=== PATIENT | female | born 1950 | race Caucasian/White ===

== ENCOUNTER 2016-04-20 04:34 | Observation (INO) | payer MEDICAID ==
--- NOTE | 2016-04-20 04:55 | ERNOTE ---
Trauma/Assault HPI - General Stated Complaint: FALL Time Seen by Provider: 04/20/16 04:35 Source: patient - Immun/Allergies/Home Medications Immunizations: IMMUNIZATION HX Immunizations Up to Date No History of Influenza Vaccine No Hx Pneumococcal Vaccination No Allergies/Adverse Reactions: Allergies aspirin Allergy (Verified 06/29/15 15:01) dizzy full dose aspirin not tolerated Penicillins Allergy (Verified 06/29/15 15:01) BREAKS OUT, NAUSEA morphine Adverse Reaction (Mild, Verified 04/20/16 04:48) Other Patient states it makes her feel weird. Home Medications: HOME MEDICATIONS Aspirin [Aspirin EC] 81 mg PO DAILY 06/29/15 [Last Taken Unknown] Furosemide [Lasix] 40 mg PO DAILY 06/29/15 [Last Taken Unknown] amLODIPine BESYLATE [Norvasc] 5 mg PO DAILY 06/29/15 [Last Taken Unknown] Albuterol Sulfate [Albuterol Sulfate 2.5 MG/0.5ML] 1 vial IH Q4H PRN 04/20/16 [ Last Taken Unknown] Albuterol Sulfate [Ventolin Hfa] 1 puff IH PRN 04/20/16 [Last Taken Unknown] - History of Present Illness Date (Duration): 04/20/16 Time (Timing): 04:00 Narrative: Patient walked in the kitchen to get a drink (had not been to bed yet) when her left knee gave out and she fell on her left side. She denies hitting her head or passing out, she was unable to get up herself but her called EMS and she came to the ER by ambulance. She has pain in her left elbow, left hip, and left knee. Location Occurred: Reports: home Pain Location: Reports: upper extremity, lower extremity Method of Injury: Reports: fall Modifying Factors - (Worsens): Reports: movement Loss of Consciousness: Reports: no loss of consciousness Associated Symptoms - Trauma: Denies: headache, lightheadedness, vision changes , abdominal pain, nausea Review of Systems - Review of Systems Constitutional: Absent: recent illness, fever ENT: Absent: nose congestion Respiratory: Absent: shortness of breath, cough Gastrointestinal/Abdominal: Absent: nausea, abdominal pain Musculoskeletal: Present: See HPI Neurological: Absent: weakness, numbness - Patient's Past Medical History Patient History - Medical: Anxiety, Arthritis, Migraines, Osteoarthritis, Other Patient History - Cardiac/Respiratory: Bronchitis, COPD, Hypertension, Other - Cellulitis, chronic leg edema Patient History - Cancer: Melanoma Patient History - Surgical Procedures: Cataracts, D & C, Tubal Ligation, T & A, Other - Family History Mother Family History - Medical: Family History - Cardiac/Respiratory: Coronary Heart Disease, Myocardial Infarction, Other Father Family History - Medical: Family History - Cardiac/Respiratory: Coronary Heart Disease - Social History Living Situations: home Smoking Status: Current every day smoker Cigarettes Packs Per Day: 1 Have you smoked in the past 12 months: Yes Do you dip or chew tobacco: No Patient requests Smoking Cessation Consult: No Initiate information on Smoking Cessation: No Alcohol Use: occasionally Drug Use: none - Immunizations Immunizations Up to Date: No Hx Pneumococcal Vaccination: No History of Influenza Vaccine: No Physical Exam - Physical Exam General Appearance: Present: wd/wn, alert, no apparent distress, other - no sign of trauma, no tenderness Eye Exam: Normal inspection: bilateral, PERRL: bilateral Ears, Nose, Throat: Present: normal ENT inspection, normal pharynx Neck: Present: normal inspection, nontender, supple, full range of motion Respiratory: Present: no respiratory distress, no accessory muscle use, lungs clear, decreased breath sounds, expiration (prolonged) Cardiovascular/Chest: Present: regular rate, rhythm, no murmur Gastrointestinal/Abdominal: Present: nontender, nondistended, soft Back Exam: Present: normal inspection, normal range of motion, no CVA tenderness , no vertebral tenderness Extremity Exam: Present: pedal edema - bilateral, other - left hip: tender and pain on range of motion, left knee slightly tender, no deformity, left elbow: normal inspection, no deformity, slightly tender on palpation Neurological Exam: Present: alert, oriented, normal mood/affect, no motor/ sensory deficits Skin Exam: Present: normal color, warm/dry ED Progress - Results and Orders Patient's Lab Results:: I have reviewed the patient's lab results. - Vital Signs Patient's Vital Signs:: I have reviewed the patient's vital signs. Vital Signs: Vital Signs 04/20/16 04:38 Temperature 36.4 C L Pulse Rate 96 Respiratory 18 Rate Blood Pressure 135/72 O2 Sat by Pulse 92 Oximetry - EKG EKG: NSR, other - low voltage, no acute findings EKG read: Interp. by me - X-Ray X-Ray #1 X-Ray: elbow - no definite fracture Interpretation: Reviewed by me X-Ray #2 X-Ray: hip - no fracture Interpretation: Reviewed by me X-Ray #3 X-Ray: knee - DJD, no fracture Interpretation: Reviewed by me - Progress/Reassessment Chief Complaint: Fall Progress Note-Subjective: 04/20/16 05:30 explained Xray findings as patient had admission last year for severe hyponatremia will get labs 04/20/16 06:20 discussed lab results with patient and offered admission for hypokalemia, patient agreed, states that she has not taken her potassium supplements for a while as she did not get around to getting it filled 04/20/16 06:23 discussed with Berenice 04/20/16 06:32 tried to ambulate patient, patient has difficulty moving around and bearing weight due to pain 04/20/16 06:[address] Sepulveda, okay to admit, give potassium rider and for pain control Departure Clinical Impression: Acute hypokalemia Contusion of left hip Qualifiers: Encounter type: initial encounter Qualified Code(s): S70.02XA - Contusion of left hip, initial encounter Left elbow contusion Qualifiers: Encounter type: initial encounter Qualified Code(s): S50.02XA - Contusion of left elbow, initial encounter - Departure Disposition: [facility] Condition: Fair
[2016-04-20 05:43] LABS: Hematocrit 34.4 % (37.0-47.0); Hemoglobin 11.9 gm/dL (12.5-16.0); Mean Corpuscular Hemoglobin 30.4 pg (27-31); Mean Corpuscular Hgb Conc 34.6 g/dl (32-36); Mean Platelet Volume 10.7 fl (6.0-9.5); Neutrophil % 78.4 % (42-75.0); Platelet Count 192 K/mm3 (150-450); Red Blood Count 3.91 M/mm3 (4.2-5.4); Red Cell Distribution Width 14.6 % (11.5-14.0); White Blood Count 7.6 K/mm3 (4.0-10.5)
[2016-04-20 05:58] LABS: Albumin * 3.1 gm/dl (3.4-5.0); Anion Gap 10.6 mmol/L (6.8-13.8); BUN/Creatinine Ratio 6.7 (9.0-21.6); Bilirubin, Total 1.2 mg/dL (0.0-1.1); Ca. Corrected For Albumin 9.3 mg/dL (8.4-10.2); Calcium * 8.9 mg/dL (7.9-10.9); Carbon Dioxide 30.7 mmol/L (24-32.6); Total Protein 6.5 gm/dL (6.2-8.2)
[2016-04-20 05:59] LABS: Potassium 2.3 mmol/L (3.4-4.6)
[2016-04-20] MEDS ORDERED: POTASSIUM CHLORIDE 20 MEQ TABLET.SA PO ONE (06:51)
[2016-04-20] MEDS ORDERED: ACETAMINOPHEN 500 MG TABLET PO PRN (07:00)
[2016-04-20] MEDS ORDERED: HYDROmorphone HCL 2 MG TABLET PO PRN (07:00)
[2016-04-20] MEDS ORDERED: ONDANSETRON HCL/PF 2 MG/ML VIAL IV PRN (07:00)
[2016-04-20] MEDS ORDERED: POTASSIUM CHLORIDE 100 ML IV ONE (07:01)
[2016-04-20] MEDS ORDERED: POTASSIUM CHLORIDE 20 MEQ TABLET.SA ONE (07:01)
[2016-04-20] MEDS ORDERED: ALBUTEROL SULFATE 2.5 MG/0.5 ML VIAL.NEB IH PRN (09:47)
[2016-04-20] MEDS ORDERED: HYDROcodone/ACETAMINOPHEN 1 EACH TABLET PO PRN (09:47)
[2016-04-20] MEDS ORDERED: ACETAMINOPHEN 325 MG TABLET PO PRN (09:49)
[2016-04-20] MEDS: POTASSIUM CHLORIDE 20 MEQ TABLET.SA PO SCH ×2 (10:09→20:02)
[2016-04-20] MEDS: ENALAPRIL MALEATE 20 MG TABLET PO SCH (10:09)
[2016-04-20] MEDS: HYDROcodone/ACETAMINOPHEN 1 EACH TABLET PO PRN ×3 (10:09→20:02)
--- NOTE | 2016-04-20 18:06 | HP ---
Chief Complaint - Chief Complaint Date of Service: 04/20/16 Time of Service: 19:52 Chief Complaint: Fall History of Present Illness: This is a 65 y/o woman who walked out to her kitchen to get a drink (had not been to bed yet), when her left knee gave out and she fell onto her left side. She denies hitting her head or passing out, she was unable to get up herself. Her called EMS, and she came to the [facility] ER by ambulance. She had pain in her left elbow, left hip, and left knee. Initial elbow xray hinted at possible fracture, but CT scan of the elbow today did not confirm it. She was found to have a sodium of 130 and a potassium of 2.3. She was admitted for telemetry monitoring and jew of electrolytes. - Patient's Past Medical History Patient History - Medical: Anxiety, Arthritis, GERD, Migraines, Osteoarthritis, Other - melanoma Patient History - Cardiac/Respiratory: Bronchitis, COPD, Hypertension, Other - Cellulitis, chronic leg edema Patient History - Cancer: Melanoma, Surgical Treatment Patient History - Surgical Procedures: Cataracts, D & C, Tubal Ligation, T & A, Other - bladder surgery, vaginal surgery LMP (females 10-50): Menopausal - Family History Mother Family History - Medical: Family History - Cardiac/Respiratory: Coronary Heart Disease, Myocardial Infarction, Other Father Family History - Medical: Family History - Cardiac/Respiratory: Coronary Heart Disease - Social History Living Situations: home Smoking Status: Current every day smoker Cigarettes Packs Per Day: 1 Have you smoked in the past 12 months: Yes Do you dip or chew tobacco: No Patient requests Smoking Cessation Consult: No Initiate information on Smoking Cessation: No Alcohol Use: other - every day Drug Use: none Review Of Systems (GEN) - Review of Systems Generalized/Overall Review: Present: Weakness, Malaise EENTM: Present: No Symptoms Reported Respiratory: Present: Cough, Shortness of Breath, Other - O2 at home Cardiac: Present: No Symptoms Reported Abdominal: Present: No Symptoms Reported Genitourinary: Present: No Symptoms Reported Musculoskeletal: Present: Other - left hip, leg and elbow pain Neurological: Present: No Symptoms Reported Skin: Present: No Symptoms Reported Endocrine: Present: No Symptoms Reported Misc: All systems neg except as marked Allergies/Adverse Reactions: Allergies Allergy/AdvReac Type Severity Reaction Status Date / Time aspirin Allergy dizzy Verified 04/20/16 07:27 Penicillins Allergy BREAKS Verified 04/20/16 07:27 OUT, NAUSEA morphine AdvReac Mild Other Verified 04/20/16 07:27 Home Medications: HOME MEDICATIONS Aspirin [Aspirin EC] 81 mg PO DAILY 06/29/15 [Last Taken 04/19/16] amLODIPine BESYLATE [Norvasc] 5 mg PO DAILY 06/29/15 [Last Taken 04/19/16] Albuterol Sulfate [Ventolin Hfa] 1 puff IH PRN 04/20/16 [Last Taken 04/19/16] HYDROcodone/ACETAMINOPHEN [[place] 5-325] 1 - 2 tab PO BID PRN 04/20/16 [Last Taken 04/19/16] Hydrochlorothiazide [Hydrodiuril] 25 mg PO DAILY 04/20/16 [Last Taken 04/19/16] Omeprazole Magnesium [Prilosec Otc] 40 mg PO DAILY 04/20/16 [Last Taken 04/19/16 ] Exam - Exam Vital Signs: Vital Signs - Last Taken Selected Entries 04/20/16 17:55 Temperature 36.6 C Temperature Oral Source Pulse Rate 79 Respiratory 20 Rate Blood Pressure 104/59 Blood Pressure Sitting Position O2 Sat by Pulse 90 Oximetry Oxygen Delivery Room Air Method Constitutional: Present: Alert, Oriented x3, Cooperative, Well developed, Well nourished ENT Exam: Present: normal ENT inspection, hearing grossly normal, pharynx normal , TMs normal Eye Exam: bilateral eye: normal inspection, PERRL, EOMI Neck: Present: non-tender, normal inspection Back Exam: Present: normal inspection, no CVA tenderness, no vertebral tenderness Respiratory: Present: chest non-tender, no respiratory distress, decreased breath sounds, wheezing, expiration (prolonged) Cardiovascular/Chest: Present: normal peripheral pulses, regular rate, rhythm, no murmur Abdomen: Present: Normal bowel sounds, soft, nontender, nondistended, no rebound tenderness, no hepatospenomegaly, no masses Extremity: Present: other - tender left elbow. hurts to move left hip or stand.. Absent: lower extremity edema Skin Exam: Present: normal color, warm/dry, no cyanosis Lymphatic: Present: no adenopathy Neurologic: Present: alert, oriented x 3 Appearance: Present: appropriate appearance, appropriate insight, neat, no memory impairment Eye contact: Present: cooperative, good eye contact, normal speech Thoughts: Present: normal thought pattern Diagnostic Studies: Laboratory Results WBC 7.6 K/mm3 (4.0-10.5) 04/20/16 05:35 RBC 3.91 M/mm3 (4.2-5.4) L 04/20/16 05:35 Hgb 11.9 gm/dL (12.5-16.0) L 04/20/16 05:35 Hct 34.4 % (37.0-47.0) L 04/20/16 05:35 MCV 88.0 fl (78-100) 04/20/16 05:35 MCH 30.4 pg (27-31) 04/20/16 05:35 MCHC 34.6 g/dl (32-36) 04/20/16 05:35 RDW 14.6 % (11.5-14.0) H 04/20/16 05:35 Plt Count 192 K/mm3 (150-450) 04/20/16 05:35 MPV 10.7 fl (6.0-9.5) H 04/20/16 05:35 Immature Gran % (Auto) 0.50 % (0.001-0.429) H 04/20/16 05:35 Immature Gran # (Auto) 0.04 K/mm3 (0.000-0.0310) H 04/20/16 05:35 Neutrophils % 78.4 % (42-75.0) H 04/20/16 05:35 Lymphocytes % 9.6 % (20-51) L 04/20/16 05:35 Monocytes % 9.4 % (0.0-9) H 04/20/16 05:35 Eosinophils % 1.6 % (0.0-3.0) 04/20/16 05:35 Basophils % 0.5 % (0.0-1.0) 04/20/16 05:35 Nucleated RBC % 0.0 k/mm3 (0-1) 04/20/16 05:35 Neutrophils # 6.0 K/mm3 (1.3-6.0) 04/20/16 05:35 Lymphocytes # 0.7 k/mm3 (1.5-3.5) L 04/20/16 05:35 Monocytes # 0.7 k/mm3 (0.0-1.0) 04/20/16 05:35 Eosinophils # 0.1 k/mm3 (0.0-0.7) 04/20/16 05:35 Absolute Basophils 0.0 k/mm3 (0.0-0.1) 04/20/16 05:35 Sodium 130 mmol/L (132-142) L 04/20/16 05:35 Plasma Sodium 130 mmol/L (130-142) 04/20/16 05:35 Potassium 2.3 mmol/L (3.4-4.6) L* D 04/20/16 05:35 Chloride 91 mmol/L (97-106) L 04/20/16 05:35 Carbon Dioxide 30.7 mmol/L (24-32.6) 04/20/16 05:35 Anion Gap 10.6 mmol/L (6.8-13.8) 04/20/16 05:35 BUN 4 mg/dL (3-23) 04/20/16 05:35 Creatinine 0.60 mg/dL (0.4-1.4) 04/20/16 05:35 Est GFR (Non-Af Amer) 107 mL/min (60-130) 04/20/16 05:35 BUN/Creatinine Ratio 6.7 (9.0-21.6) L 04/20/16 05:35 Random Glucose 110 mg/dL (70-110) 04/20/16 05:35 Calcium 8.9 mg/dL (7.9-10.9) 04/20/16 05:35 Calcium Adj for Albumin 9.3 mg/dL (8.4-10.2) 04/20/16 05:35 Total Bilirubin 1.2 mg/dL (0.0-1.1) H 04/20/16 05:35 AST 28 U/L (0-48) 04/20/16 05:35 ALT 29 U/L (19-67) 04/20/16 05:35 Alkaline Phosphatase 98 U/L (50-170) 04/20/16 05:35 Total Protein 6.5 gm/dL (6.2-8.2) 04/20/16 05:35 Albumin 3.1 gm/dl (3.4-5.0) L 04/20/16 05:35 Assessment/Plan - Narrative Narrative: Restore electrolytes. Telemetry. Follow labs. Estimate stay of one midnight. Assist with up and around. Treat COPD - Assessment/Plan (1) Acute hypokalemia Problem: Acute (2) Contusion of left hip Problem: Acute Qualifiers: Encounter type: initial encounter Qualified Code(s): S70.02XA - Contusion of left hip, initial encounter (3) Left elbow contusion Problem: Acute Qualifiers: Encounter type: initial encounter Qualified Code(s): S50.02XA - Contusion of left elbow, initial encounter (4) Bilateral lower extremity edema Problem: Chronic (5) etoh and nicotine abuse. Problem: Chronic (6) Hyponatremia Problem: Acute (7) Falls Problem: Acute Qualifiers: Encounter type: initial encounter Qualified Code(s): W19.XXXA - Unspecified fall, initial encounter (8) COPD (chronic obstructive pulmonary disease) Problem: Chronic Qualifiers: COPD type: chronic bronchitis Chronic bronchitis type: simple Qualified Code(s): J41.0 - Simple chronic bronchitis (9) Osteoarthritis Problem: Chronic Qualifiers: Osteoarthritis location: multiple joints Osteoarthritis type: primary Qualified Code(s): M15.0 - Primary generalized (osteo)arthritis
[2016-04-20] MEDS: ALBUTEROL SULFATE/IPRATROPIUM 3 ML NEBU IH SCH (20:51)
[2016-04-21] MEDS: ALBUTEROL SULFATE/IPRATROPIUM 3 ML NEBU IH SCH ×4 (00:43→19:02)
[2016-04-21] MEDS: HYDROcodone/ACETAMINOPHEN 1 EACH TABLET PO PRN ×3 (01:38→16:19)
[2016-04-21 06:23] LABS: Hematocrit 32.7 % (37.0-47.0); Hemoglobin 11.1 gm/dL (12.5-16.0); Mean Cell Volume 90.3 fl (78-100); Mean Corpuscular Hemoglobin 30.7 pg (27-31); Mean Corpuscular Hgb Conc 33.9 g/dl (32-36); Mean Platelet Volume 10.7 fl (6.0-9.5); Neutrophil # 5.5 K/mm3 (1.3-6.0); Neutrophil % 78.2 % (42-75.0); Platelet Count 161 K/mm3 (150-450); Red Blood Count 3.62 M/mm3 (4.2-5.4); Red Cell Distribution Width 14.6 % (11.5-14.0)
[2016-04-21] MEDS: PANTOPRAZOLE SODIUM 40 MG TABLET.EC PO SCH (06:29)
[2016-04-21 06:47] LABS: Anion Gap 10.6 mmol/L (6.8-13.8); BUN/Creatinine Ratio 9.3 (9.0-21.6); Calcium * 8.2 mg/dL (7.9-10.9); Estimated Creat Clear 83.2; Potassium 2.6 mmol/L (3.4-4.6); T4 Free * 0.98 ng/dL (0.76-1.46); TSH * 2.115 uIU/mL (0.358-3.74)
--- NOTE | 2016-04-21 08:28 | CONS ---
[facility] - General Date of Service: 04/21/16 Narrative: Mrs. Miranda is a 65-year-old female who lives at home. She states she isn't having increasing pain and difficulties with ambulation secondary to her leg giving out on her. She's been using a walker and a cane. She states she did recently have a stroke which affected more her right side which she denies any complaints with. She had a recent fall and had left knee pain afterwards. She states it is been going on for multiple years and she has had no intervention for this. She states that it feels like it's, buckle on her. She denies any gross instability. She denies any locking. She denies any injuries prior to this. Source: patient Exam Limitations: no limitations - History of Present Illness Timing/Duration: constant Modifying Factors - (Worsens): Reports: movement Modifying Factors - (Improves): Reports: immobilization, rest Associated Symptoms: denies symptoms Allergies/Adverse Reactions: Allergies aspirin Allergy (Verified 04/20/16 07:27) dizzy full dose aspirin not tolerated Penicillins Allergy (Verified 04/20/16 07:27) BREAKS OUT, NAUSEA morphine Adverse Reaction (Mild, Verified 04/20/16 07:27) Other Patient states it makes her feel weird. Home Medications: Home Medications Medication Instructions Recorded Last Taken Aspirin [Aspirin EC] 81 mg PO DAILY 06/29/15 04/19/16 amLODIPine BESYLATE [Norvasc] 5 mg PO DAILY 06/29/15 04/19/16 Albuterol Sulfate [Ventolin Hfa] 1 puff IH PRN 04/20/16 04/19/16 HYDROcodone/ACETAMINOPHEN [[place] 1 - 2 tab PO BID PRN 04/20/16 04/19/16 5-325] Hydrochlorothiazide [Hydrodiuril] 25 mg PO DAILY 04/20/16 04/19/16 Omeprazole Magnesium [Prilosec Otc] 40 mg PO DAILY 04/20/16 04/19/16 - Patient's Past Medical History Patient History - Medical: Anxiety, Arthritis, GERD, Migraines, Osteoarthritis, Other - melanoma Patient History - Cardiac/Respiratory: Bronchitis, COPD, Hypertension, Other - Cellulitis, chronic leg edema Patient History - Cancer: Melanoma, Surgical Treatment Patient History - Surgical Procedures: Cataracts, D & C, Tubal Ligation, T & A, Other - bladder surgery, vaginal surgery LMP (females 10-50): Menopausal - Family History Mother Family History - Medical: Family History - Cardiac/Respiratory: Coronary Heart Disease, Myocardial Infarction, Other Father Family History - Medical: Family History - Cardiac/Respiratory: Coronary Heart Disease - Social History Living Situations: home Smoking Status: Current every day smoker Cigarettes Packs Per Day: 1 Have you smoked in the past 12 months: Yes Do you dip or chew tobacco: No Patient requests Smoking Cessation Consult: No Initiate information on Smoking Cessation: No Alcohol Use: other - every day Drug Use: none Procedures CATARAC PHACOEMULS/ASPIR (03/10/14) CL FX REDUC-RADIUS/ULNA (02/28/13) INSERT LENS AT CATAR EXT (03/10/14) MEASURE OF ARTERIAL SATURATION, PERIPHERAL, PERC APPROACH (06/29/15) Medications - Medications Current Medications: Current Medications Acetaminophen/Hydrocodone Bitart ([place] 5-325) 1 each PO Q3H PRN PRN Reason: Moderate Pain Stop: 05/20/16 07:01 Last Admin: 04/21/16 06:29 Dose: 1 each Albuterol/Ipratropium (Duoneb 2.5-0.5mg/3ml Soln) 3 ml IH Q6HRT [facility] Stop: 05/20/16 20:01 Last Admin: 04/21/16 06:08 Dose: 3 ml Enalapril Maleate (Vasotec) 20 mg PO DAILY [facility] Stop: 05/20/16 10:01 Last Admin: 04/20/16 10:09 Dose: 20 mg Pantoprazole Sodium (Protonix) 40 mg PO DAILY@0700 [facility] Stop: 05/21/16 07:01 Last Admin: 04/21/16 06:29 Dose: 40 mg Review of Systems - Review of Systems Generalized/Overall Review: Present: No Symptoms Reported Physical Examination - Exam Narrative: Left lower extremity: She has some skin discoloration with redness to her lower leg. She is palpable dorsalis pedis pulse. Sensation is intact light touch. She is no appreciable knee effusion. She is sitting in the chair with her knee in extension. She is able to lift this off of the straight leg raise. She is pain with any range of motion. Her knee is stable to varus and valgus stress at 0 and 30. She is mild crepitance with knee range of motion. She has no hypermobility of her patella. She has an intact patella tendon. She is no ecchymosis lacerations or abrasions. Vital Signs: Vital Signs - Last Taken Temp 36.8 C 04/21/16 07:50 Pulse 89 04/21/16 07:50 Resp 20 04/21/16 07:50 BP 91/53 04/21/16 07:50 Pulse Ox 90 04/21/16 07:50 O2 Oxygen Delivery Method Room Air Constitutional: Present: Alert, Oriented x3 - Results and Findings: Narrative: 3 views left knee: She has decreased mineralization of her bone. She has notable tricompartmental arthrosis. She has patella alter however this is somewhat difficult to assess secondary to the extension films. She is narrowing of her joint spaces but these are nonweightbearing films and thus stuff to decide if she has any remaining joint space. She is no acute findings of fracture or any other gross pathology. There is some calcification of her meniscus which could be concerning for gout or pseudogout. Lab/Microbiology results last 24 hrs: Abnormal/Pending Laboratory Last 24 HRS 04/21/16 04/21/16 06:16 06:16 RBC 3.62 L Hgb 11.1 L Hct 32.7 L RDW 14.6 H MPV 10.7 H Neutrophils % 78.2 H Lymphocytes % 11.6 L Lymphocytes # 0.8 L Potassium 2.6 L Chloride 95 L Random Glucose 115 H - Assessments/Findings (1) Knee pain, chronic Diagnosis(s): She reports chronic knee pain with intermittent acute exacerbations. I encouraged her to continue using her walker and participate with therapy. We discussed injections for which she refused. I don't feel a knee brace would be of any benefit but she also refuses to wear her knee brace. At this point she would like to treat this with therapy and medications. I do not see any gross pathology which would make her knee unsafe to mobilize. She can follow-up on an outpatient basis with the orthopedic clinic if her pain persists however if she is declining any other further intervention is not much else that we can do. Continue with current care per medicine. Problem: Chronic Qualifiers: Laterality: left Qualified Code(s): M25.562 - Pain in left knee; G89.29 - Other chronic pain (2) Falls Problem: Acute Qualifiers: Encounter type: initial encounter Qualified Code(s): W19.XXXA - Unspecified fall, initial encounter
[2016-04-21] MEDS: POTASSIUM CHLORIDE 20 MEQ TABLET.SA PO SCH ×4 (08:55→20:23)
[2016-04-21] MEDS: ASPIRIN 81 MG TABLET.DR PO SCH (08:55)
[2016-04-21] MEDS: ENALAPRIL MALEATE 20 MG TABLET PO SCH (08:59)
[2016-04-21 13:28] LABS: Anion Gap 10.6 mmol/L (6.8-13.8); Carbon Dioxide 30.3 mmol/L (24-32.6); Potassium 2.9 mmol/L (3.4-4.6)
--- NOTE | 2016-04-21 16:19 | PN ---
Subjective - Date and Time Seen Date: 04/21/16 Time: 06:30 Subjective Narrative: Watched TV all night. Left knee hurts to move. Right knee hurts less so. Otherwise, is feeling ok. Has not yet walked to the bathroom. Objective - Review of Systems Generalized/Overall Review: Reports: Weakness, Malaise EENTM: Reports: No Symptoms Reported Respiratory: Reports: No Symptoms Reported Cardiac: Reports: No Symptoms Reported Abdominal: Reports: No Symptoms Reported Genitourinary Symptoms: Reports: No Symptoms Reported Musculoskeletal Complaints: Reports: Joint Pain Neurological: Reports: No Symptoms Reported Skin: Reports: No Symptoms Reported Endocrine: Reports: No Symptoms Reported Misc: All systems neg except as marked - Vitals Vitals: Last Vital Signs Selected Entries 04/21/16 04/21/16 04/21/16 02:00 06:08 06:18 Temperature 36.6 C Temperature Oral Source Pulse Rate 80 79 75 Respiratory 16 16 18 Rate Blood Pressure 107/66 Blood Pressure Supine Position O2 Sat by Pulse 94 93 Oximetry Oxygen Delivery Room Air Room Air Method - Abnormal Lab Findings Abnormal Lab Findings: Abnormal Lab Results 04/21/16 04/21/16 04/21/16 Range/Units 06:16 06:16 13:15 RBC 3.62 L (4.2-5.4) M/mm3 Hgb 11.1 L (12.5-16.0) gm/dL Hct 32.7 L (37.0-47.0) % RDW 14.6 H (11.5-14.0) % MPV 10.7 H (6.0-9.5) fl Neutrophils % 78.2 H (42-75.0) % Lymphocytes % 11.6 L (20-51) % Lymphocytes # 0.8 L (1.5-3.5) k/mm3 Potassium 2.6 L 2.9 L (3.4-4.6) mmol/L Chloride 95 L 94 L (97-106) mmol/L Random Glucose 115 H (70-110) mg/dL - Exam Constitutional: Present: Alert, Oriented x3, Cooperative, Well developed, Well nourished, No distress ENT Exam: Present: normal ENT inspection Neck: Present: normal inspection Respiratory: Present: lungs clear, no respiratory distress Cardiovascular/Chest: Present: regular rate, rhythm, no murmur Abdomen: Present: Normal bowel sounds, soft, nontender, nondistended, no rebound tenderness, no hepatospenomegaly, no masses Extremity: Present: pedal edema, other - DJD both knees Skin Exam: Present: normal color, no cyanosis, cool/dry Neurologic: Present: alert, oriented x 3 Appearance: Present: appropriate appearance, neat Eye contact: Present: cooperative, good eye contact, normal speech Assessment/Plan Plan Narrative: Have adjusted BP meds. PT OT consult. Await lab report. Supplementing potassium. Ortho consult, any other approach for her knee problems? Home when safe to do so. Follow labs and vitals. - Problems/Diagnosis (1) Acute hypokalemia Problem: Acute (2) Contusion of left hip Problem: Acute Qualifiers: Encounter type: initial encounter Qualified Code(s): S70.02XA - Contusion of left hip, initial encounter (3) Left elbow contusion Problem: Acute Qualifiers: Encounter type: initial encounter Qualified Code(s): S50.02XA - Contusion of left elbow, initial encounter (4) Bilateral lower extremity edema Problem: Chronic (5) etoh and nicotine abuse. Problem: Chronic (6) Hyponatremia Problem: Acute (7) Falls Problem: Acute Qualifiers: Encounter type: initial encounter Qualified Code(s): W19.XXXA - Unspecified fall, initial encounter (8) COPD (chronic obstructive pulmonary disease) Problem: Chronic Qualifiers: COPD type: chronic bronchitis Chronic bronchitis type: simple Qualified Code(s): J41.0 - Simple chronic bronchitis (9) Osteoarthritis Problem: Chronic Qualifiers: Osteoarthritis location: multiple joints Osteoarthritis type: primary Qualified Code(s): M15.0 - Primary generalized (osteo)arthritis (10) Weakness Problem: Acute
[2016-04-22] MEDS: ALBUTEROL SULFATE/IPRATROPIUM 3 ML NEBU IH SCH ×3 (00:48→13:00)
[2016-04-22 06:30] LABS: Hematocrit 31.7 % (37.0-47.0); Hemoglobin 10.7 gm/dL (12.5-16.0); Mean Cell Volume 90.8 fl (78-100); Mean Corpuscular Hemoglobin 30.7 pg (27-31); Mean Corpuscular Hgb Conc 33.8 g/dl (32-36); Mean Platelet Volume 11.4 fl (6.0-9.5); Neutrophil # 4.5 K/mm3 (1.3-6.0); Neutrophil % 72.4 % (42-75.0); Platelet Count 171 K/mm3 (150-450); Red Blood Count 3.49 M/mm3 (4.2-5.4); Red Cell Distribution Width 15.2 % (11.5-14.0); White Blood Count 6.3 K/mm3 (4.0-10.5)
[2016-04-22] MEDS: PANTOPRAZOLE SODIUM 40 MG TABLET.EC PO SCH (06:36)
[2016-04-22 06:41] LABS: Anion Gap 10.2 mmol/L (6.8-13.8); BUN/Creatinine Ratio 5.6 (9.0-21.6); Calcium * 8.4 mg/dL (7.9-10.9); Carbon Dioxide 27.2 mmol/L (24-32.6); Estimated Creat Clear 83.2; Potassium 4.4 mmol/L (3.4-4.6)
[2016-04-22] MEDS: ASPIRIN 81 MG TABLET.DR PO SCH (08:41)
[2016-04-22] MEDS ORDERED: ENALAPRIL MALEATE 5 MG TABLET PO SCH (09:00)
[2016-04-22] MEDS ORDERED: POTASSIUM CHLORIDE 20 MEQ TABLET.SA PO SCH (09:00)
[2016-04-22 10:50] VITALS: BP 130/46
[2016-04-22] MEDS: HYDROcodone/ACETAMINOPHEN 1 EACH TABLET PO PRN (10:55)
--- NOTE | 2016-04-22 13:32 | DS ---
(1) Acute hypokalemia Problem: Resolved (2) Contusion of left hip Problem: Acute Qualifiers: Encounter type: initial encounter Qualified Code(s): S70.02XA - Contusion of left hip, initial encounter (3) Left elbow contusion Problem: Acute Qualifiers: Encounter type: initial encounter Qualified Code(s): S50.02XA - Contusion of left elbow, initial encounter (4) Bilateral lower extremity edema Problem: Chronic (5) etoh and nicotine abuse. Problem: Chronic (6) Hyponatremia Problem: Resolved (7) Falls Problem: Acute Qualifiers: Encounter type: initial encounter Qualified Code(s): W19.XXXA - Unspecified fall, initial encounter (8) COPD (chronic obstructive pulmonary disease) Problem: Chronic Qualifiers: COPD type: chronic bronchitis Chronic bronchitis type: simple Qualified Code(s): J41.0 - Simple chronic bronchitis (9) Osteoarthritis Problem: Chronic Qualifiers: Osteoarthritis location: multiple joints Osteoarthritis type: primary Qualified Code(s): M15.0 - Primary generalized (osteo)arthritis (10) Weakness Problem: Chronic (11) Tobacco abuse Problem: Chronic Description of Stay: The patient's electrolytes were replaced successfully, orally and intravenously. She is generally doing better. She had wheezing and cough in the hospital, part of her COPD, so her meds were adjusted. Because of her knee pain and weakness, she was seen by ortho. They did not feel a knee brace would help, and she declined a knee joint steroid injection. They advised she could see them on a prn basis. She gets around very poorly, even with a walker, but nonetheless insists on being discharged home, rather than to a prison. Procedures Performed: none Discharge Disposition: Home self care Disposition: Home self-care Condition: Fair Discharge Activity: Activity as tolerated Discharge Diet: General/regular food Fpc Therapy: Physicial Therapy, Occupation Therapy Consultation Done:: Dr. Bhandari, orthopedics. Problem Oriented Discharge Instructions to Patient/Family: Hypokalemia, Osteoarthritis Additional Patient Instructions (free text): [facility]. Please fax face to face, orders, H&P, d/c summary upon discharge. Followup with your doctor in 1 week. CBC and BMP blood test in 1 week. Prescriptions (Any new or edited meds): Albuterol Sulfate/Ipratropium [Duoneb 2.5-0.5MG/3ML Soln] 3 ml IH Q6HRT #120 nebu Albuterol Sulfate [Albuterol Sulfate 2.5 MG/0.5ML] 2.5 mg IH Q4H PRN #100 vial.neb PRN Reason: wheeze Enalapril Maleate [Vasotec] 2.5 mg PO DAILY #30 tablet Nebulizer [Compact Ultrasonic Nebulizer] 1 each MC Q4H PRN #1 kit PRN Reason: wheezing Complete Home Medications List: Complete Home Medication List: Aspirin [Aspirin EC] 81 mg PO DAILY 06/29/15 Albuterol Sulfate [Ventolin Hfa] 1 puff IH PRN 04/20/16 HYDROcodone/ACETAMINOPHEN [[place] 5-325] 1 - 2 tab PO BID PRN 04/20/16 Omeprazole Magnesium [Prilosec Otc] 40 mg PO DAILY 04/20/16 Acetaminophen [Tylenol] 650 mg PO QID PRN #0 tablet 04/22/16 Albuterol Sulfate [Albuterol Sulfate 2.5 MG/0.5ML] 2.5 mg IH Q4H PRN #100 vial.neb 04/22/16 Albuterol Sulfate/Ipratropium [Duoneb 2.5-0.5MG/3ML Soln] 3 ml IH Q6HRT #120 nebu 04/22/16 Enalapril Maleate [Vasotec] 2.5 mg PO DAILY #30 tablet 04/22/16 Nebulizer [Compact Ultrasonic Nebulizer] 1 each MC Q4H PRN #1 kit 04/22/16
== END 2016-04-22 15:01 | disposition home health service (06) ==
LOC: ER 04:34 → MS 06:58
PROVIDERS: ADMIT Allergy & Immunology; ATTEND Allergy & Immunology
DX: E87.6 Hypokalemia (principal); S70.02XA Contusion of left hip, initial encounter; S50.02XA Contusion of left elbow, initial encounter; W19.XXXA Unspecified fall, initial encounter; R60.0 Localized edema; E87.1 Hypo-osmolality and hyponatremia; F17.200 Nicotine dependence, unspecified, uncomplicated; F10.10 Alcohol abuse, uncomplicated; M15.0 Primary generalized (osteo)arthritis; R53.1 Weakness; K21.9 Gastro-esophageal reflux disease without esophagitis; F41.9 Anxiety disorder, unspecified; M19.90 Unspecified osteoarthritis, unspecified site; Z78.0 Asymptomatic menopausal state; Z85.820 Personal history of malignant melanoma of skin; Z82.49 Family history of ischemic heart disease and other diseases of the circulatory system
CPT/HCPCS: 36415; 73080; 73200; 73502; 73562; 80048; 80051; 80053; 84439; 84443; 85025; 93005; 94640; 97110; 97116; 97162; 97165; 97530; 97535; 99284; G0378; G8978; G8979; G8980; G8987; G8988; G8989

== ENCOUNTER 2016-05-17 16:50 | Inpatient (IN) | payer MEDICAID ==
--- NOTE | 2016-05-17 20:22 | ERNOTE ---
Medical Problem HPI - General Chief Complaint: General Assessment Source: patient Exam Limitations: no limitations - Immun/Allergies/Home Medications Immunizations: IMMUNIZATION HX Immunizations Up to Date Yes History of Influenza Vaccine No Hx Pneumococcal Vaccination No Allergies/Adverse Reactions: Allergies aspirin Allergy (Verified 05/17/16 17:17) dizzy full dose aspirin not tolerated Penicillins Allergy (Verified 05/17/16 17:17) BREAKS OUT, NAUSEA morphine Adverse Reaction (Mild, Verified 05/17/16 17:17) Other Patient states it makes her feel weird. Home Medications: HOME MEDICATIONS Aspirin [Aspirin EC] 81 mg PO DAILY 06/29/15 [Last Taken 04/19/16] Albuterol Sulfate [Ventolin Hfa] 1 puff IH PRN 04/20/16 [Last Taken 04/19/16] HYDROcodone/ACETAMINOPHEN [[place] 5-325] 1 - 2 tab PO BID PRN 04/20/16 [Last Taken 04/19/16] Omeprazole Magnesium [Prilosec Otc] 40 mg PO DAILY 04/20/16 [Last Taken 04/19/16 ] Acetaminophen [Tylenol] 650 mg PO QID PRN #0 tablet 04/22/16 [Last Taken Unknown ] Albuterol Sulfate [Albuterol Sulfate 2.5 MG/0.5ML] 2.5 mg IH Q4H PRN #100 vial.neb 04/22/16 [Last Taken Unknown] Albuterol Sulfate/Ipratropium [Duoneb 2.5-0.5MG/3ML Soln] 3 ml IH Q6HRT #120 nebu 04/22/16 [Last Taken Unknown] Enalapril Maleate [Vasotec] 2.5 mg PO DAILY #30 tablet 04/22/16 [Last Taken Unknown] Nebulizer [Compact Ultrasonic Nebulizer] 1 each MC Q4H PRN #1 kit 04/22/16 [ Last Taken Unknown] - History of Present History Narrative: Patient is here for generalized weakness that she has had for about a week. She has a hard time to get up, very tired. She denies any focal deficit, started to get nauseated this morning, no other symptoms. Review of Systems - Review of Systems Constitutional: Absent: recent illness, fever, chills EYE: Absent: double vision ENT: Absent: nose congestion, sore throat Respiratory: Absent: shortness of breath, cough Cardiology: Absent: chest pain Gastrointestinal/Abdominal: Present: nausea. Absent: vomiting, diarrhea, abdominal pain Genitourinary: Absent: frequency, dysuria Skin: Absent: rash Neurological: Present: weakness - generalized. Absent: headache, numbness - Patient's Past Medical History Patient History - Medical: Anxiety, Arthritis, GERD, Migraines, Osteoarthritis, Other Patient History - Cardiac/Respiratory: No pertinent hx, Coronary Heart Disease, COPD, TIA Patient History - Cancer: Melanoma, Surgical Treatment Patient History - Surgical Procedures: Cataracts, D & C, Tubal Ligation, T & A, Other Patient History - Other: None LMP (females 10-50): Menopausal - Family History Mother Family History - Medical: Family History - Cardiac/Respiratory: Coronary Heart Disease, Myocardial Infarction, Other Father Family History - Medical: Family History - Cardiac/Respiratory: Coronary Heart Disease - Social History Living Situations: home Abuse History: No History of abuse Psych History: Hx of Anxiety Smoking Status: Current every day smoker Have you smoked in the past 12 months: Yes Alcohol Use: other Drug Use: none - Immunizations Immunizations Up to Date: Yes Hx Pneumococcal Vaccination: No History of Influenza Vaccine: No Physical Exam - Physical Exam General Appearance: Present: wd/wn, alert, no apparent distress, other - unkept Eye Exam: Normal inspection: bilateral, PERRL: bilateral Ears, Nose, Throat: Present: normal ENT inspection, normal pharynx Neck: Present: normal inspection Respiratory: Present: no respiratory distress, no accessory muscle use, lungs clear, decreased breath sounds Cardiovascular/Chest: Present: regular rate, rhythm, no murmur Gastrointestinal/Abdominal: Present: normal bowel sounds, nontender, nondistended Extremity Exam: Present: pedal edema - +4 bilateral and erythema, scab on right avelar Neurological Exam: Present: alert, oriented, normal mood/affect, no motor/ sensory deficits Skin Exam: Present: warm/dry, other - pale, decubitus ulcer (sacral) ED Progress - Results and Orders Patient's Lab Results:: I have reviewed the patient's lab results. - Vital Signs Patient's Vital Signs:: I have reviewed the patient's vital signs. Vital Signs: Vital Signs 05/17/16 17:07 Temperature 35.0 C L Pulse Rate 102 H Respiratory 16 Rate Blood Pressure 114/67 O2 Sat by Pulse 97 Oximetry - Progress/Reassessment Chief Complaint: General Assessment Progress Note-Subjective: 05/17/16 19:00 discussed labs and general condition with family and patient offered admission for hyponatremia and UTI, patient and family agreed 05/17/16 19:[address] Sepulveda okay to admit inpatient, start 3%saline at 5ml/hr and NS at 100ml/hr, check potassium and sodium q2hr okay to start rocephin for UTI and cover for possible early cellulites Departure - Departure Clinical Impression: Hyponatremia with decreased serum osmolality, Generalized weakness UTI (urinary tract infection) Qualifiers: Urinary tract infection type: acute cystitis Hematuria presence: without hematuria Qualified Code(s): N30.00 - Acute cystitis without hematuria Disposition: [facility] Condition: Fair
[2016-05-17 20:33] LABS: Hemoglobin 11.4 gm/dL (12.5-16.0); Mean Cell Volume 85.2 fl (78-100); Mean Corpuscular Hemoglobin 31.3 pg (27-31); Mean Corpuscular Hgb Conc 36.8 g/dl (32-36); Mean Platelet Volume 9.5 fl (6.0-9.5); Neutrophil % 78.6 % (42-75.0); Platelet Count 259 K/mm3 (150-450); Red Blood Count 3.64 M/mm3 (4.2-5.4); Red Cell Distribution Width 14.1 % (11.5-14.0); White Blood Count 9.7 K/mm3 (4.0-10.5)
[2016-05-17 20:34] LABS: Neutrophil # 7.6 K/mm3 (1.3-6.0)
[2016-05-17 20:36] LABS: Total Cells Counted 100
[2016-05-17 20:41] LABS: Albumin * 2.5 gm/dl (3.4-5.0); Anion Gap 14.7 mmol/L (6.8-13.8); BUN/Creatinine Ratio 16.7 (9.0-21.6); Bilirubin, Total 1.4 mg/dL (0.0-1.1); Ca. Corrected For Albumin 9.3 mg/dL (8.4-10.2); Calcium * 8.4 mg/dL (7.9-10.9); Carbon Dioxide 21.9 mmol/L (24-32.6); Potassium 3.6 mmol/L (3.4-4.6)
[2016-05-17 20:49] LABS: Urine Appearance Turbid; Urine Bacteria 4+; Urine Bilirubin 3 mg/dl (NEGATIVE); Urine Blood 50 /ul (NEGATIVE); Urine Color Dark Yellow; Urine Ketone 15 mg/dL (NEGATIVE); Urine Nitrite Positive (NEGATIVE); Urine Protein 30 mg/dL (NEGATIVE); Urine Specific Gravity 1.025 SP.GR. (1.005-1.010); Urine Urobilinogen 4 EU/dl (NORMAL); Urine pH 5.5 pH (5.0-7.0)
--- OUTSIDE RECORDS SUMMARY | 2016-05-17 20:57 | XMS REPORT | Continuity of Care Document ---
:1950 Author Organization [facility] ([facility]) Address [address] [place] [address] Phone [phone] Care Team Providers Name Role Phone Kane Martinez Primary Care Provider [phone] Source Comments This disclosure is being made pursuant to the Care Everywhere program, applicable federal and state laws, and may not contain all informaitonavailable regarding this patient.[facility] ([facility]) Active Allergies and Adverse Reactions Allergen Noted Date Severity Reactions Comments Penicillin 07/03/2015 Rash Current Medications Prescription Sig. Disp. Refills Start Date End Date Status aspirin 81 mg EC tablet Take 81 mg by Active mouth daily. doxycycline hyclate 100 Take 100 mg by 06/25/2015 Active mg capsule mouth 2 times daily. furosemide 40 mg tablet Take 40 mg by Active mouth daily. omeprazole 40 mg Take 40 mg by Active enteric coated capsule mouth daily. amLODIPine 5 mg tablet Take 5 mg by Active mouth daily. traMADol 50 mg tablet Take 50 mg by Active mouth 3 times daily as needed. thiamine (VITAMIN B-1) Take 2 tablets 30 tablet 1 07/07/2015 Active 50 mg tablet (100 mg total) by mouth daily. folic acid 1 mg tablet Take 1 tablet (1 30 tablet 1 07/07/2015 Active mg total) by mouth daily. Active Problems Patient Care Coordination Note GOALS OF CARE AND TREATMENT PREFERENCES Patients Communication Style/Preference per patient: open/direct/ straightforward Diagnosis: Acute Respiratory Failure Prognosis: Guarded Goal(s) of Care: determine what is wrong and live longer Is the patient an inpatient? Yes. How did the team arrive at the current code status? Spoke with the patient Code status is: Full code Patient able to make own decisions?: Yes Patient's Goals of Care and communication style preference were communicated to attending staff. Problem Noted Date Cellulitis 07/02/2015 Alcohol dependency 07/02/2015 COPD (chronic obstructive pulmonary disease) 07/02/2015 HTN (hypertension) 07/02/2015 Decubitus skin ulcer 07/02/2015 Resolved Problems Problem Noted Date Resolved Date Dyspnea 07/02/2015 07/04/2015 Acute respiratory failure 07/02/2015 07/07/2015 Hyponatremia 07/02/2015 07/07/2015 Alcohol withdrawal 07/02/2015 07/04/2015 Viral pneumonitis 07/02/2015 07/07/2015 Respiratory alkalosis 07/02/2015 07/04/2015 Social History Tobacco Use Types Packs/Day Years Used Date Current Every Day Smoker Cigarettes 1.5 20 Tobacco Cessation:Ready to Quit: Yes Comments: Alcohol Use Drinks/Week oz/Week Comments Yes 14-42 Cans of beer 8.4 - 25.2 Patient admits to drinking 2-6 beers per day Last Filed Vital Signs Vital Sign Reading Time Taken Blood Pressure 136/90 07/07/2015 11:26 AM CDT Pulse 108 07/06/2015 12:07 PM CDT Temperature 36.3 C (97.3 F) 07/07/2015 11:26 AM CDT Respiratory Rate 14 07/04/2015 7:20 PM CDT Height 1.524 m (5') 07/06/2015 2:10 PM CDT Weight 74.8 kg (164 lb 14.5 oz) 07/07/2015 6:27 AM CDT Body Mass Index 32.21 07/07/2015 6:27 AM CDT Oxygen Saturation 91% 07/07/2015 11:35 AM CDT Plan of Care Health Maintenance Due Date Last Done Comments Hepatitis B Vaccine (1 of 3 - Primary Series) 1950 Tdap Vaccine 07/30/1962 Lipid Disorder Screening 07/30/1969 Td Vaccine 07/30/1969 Pneumococcal Vaccine (1 of 1 - PPSV23) 07/30/1970 Cervical Cancer Screening 07/30/1981 Mammogram 1991 Colonoscopy 07/30/2001 Zoster Vaccine 2011 Influenza Vaccine: Seasonal (#1) 10/26/2015 HCV Screening Completed 07/05/2015 Results from Last 3 Months Not on file
--- OUTSIDE RECORDS SUMMARY | 2016-05-17 21:05 | XMS REPORT | Continuity of Care Document ---
:1950 Author Organization [facility] ([facility]) Address [address] [place] [address] Phone [phone] Care Team Providers Name Role Phone Kane Martinez Primary Care Provider [phone] Source Comments This disclosure is being made pursuant to the Care Everywhere program, applicable federal and state laws, and may not contain all informaitonavailable regarding this patient.[facility] ([facility]) Active Allergies and Adverse Reactions Allergen Noted [...]
[2016-05-17 21:06] LABS: Eosinophil 1 % (0-3); Immature Granulocyte 2 (0-1); Lymphocyte 8 % (20-51); Monocyte 10 % (0-9); Neutrophil 79 % (42-75); Neutrophil # 7.7 K/mm3 (1.3-6.0)
[2016-05-17 21:07] LABS: Platelet Estimate Normal (NORMAL); RBC Morphology Normal (NORMAL)
[2016-05-17] MEDS ORDERED: NORMAL SALINE 1,000 ML IV PRN (21:23)
[2016-05-17] MEDS ORDERED: SODIUM CHLORIDE 3 % 500 ML IV PRN (21:25)
[2016-05-17 22:10] LABS: Potassium 3.6 mmol/L (3.4-4.6)
[2016-05-17] MEDS ORDERED: CEFTRIAXONE IV SCH (22:30)
[2016-05-17] MEDS ORDERED: NORMAL SALINE 1,000 ML IV ONE (22:30)
--- NOTE | 2016-05-17 23:18 | HP ---
Chief Complaint - Chief Complaint Date of Service: 05/17/16 Time of Service: 20:30 Chief Complaint: Weakness History of Present Illness: This 65 y/o woman presented today to the [facility] ER because of weakness so severe she was unable to get up. This started about a week ago, and worsened. That having been said, she was discharged from this hospital about 3 1/2 weeks ago after a fall because of weakness. At that time, she had hyponatremia, hypokalemia and an acute exacerbation of COPD. This time, she was covered with feces and urine at time of presentation. She was found to have severe hyponatremia (sodium 114), a UTI and mild cellulits. Cultures were obtained. She was then admitted for correction of her electrolyte balance and IV antibiotics. - Patient's Past Medical History Patient History - Medical: Anxiety, Arthritis, GERD, Migraines, Osteoarthritis Patient History - Cardiac/Respiratory: No pertinent hx, Coronary Heart Disease, COPD, TIA Patient History - Cancer: Melanoma, Surgical Treatment Patient History - Surgical Procedures: Cataracts, D & C, Tubal Ligation, T & A, Other Patient History - Other: None LMP (females 10-50): Menopausal - Family History Mother Family History - Medical: Family History - Cardiac/Respiratory: Coronary Heart Disease, Myocardial Infarction, Other Father Family History - Medical: Family History - Cardiac/Respiratory: Coronary Heart Disease - Social History Living Situations: spouse Abuse History: No History of abuse Psych History: Hx of Anxiety Smoking Status: Current every day smoker Have you smoked in the past 12 months: Yes Do you dip or chew tobacco: No Patient requests Smoking Cessation Consult: No Initiate information on Smoking Cessation: No Alcohol Use: other Drug Use: none - Immunizations Immunizations Up to Date: Yes Hx Pneumococcal Vaccination: No History of Influenza Vaccine: No Review Of Systems (GEN) - Review of Systems Generalized/Overall Review: Present: Weakness, Malaise EENTM: Present: No Symptoms Reported Respiratory: Present: No Symptoms Reported Cardiac: Present: No Symptoms Reported Abdominal: Present: No Symptoms Reported Genitourinary: Present: No Symptoms Reported Musculoskeletal: Present: No Symptoms Reported Neurological: Present: No Symptoms Reported Skin: Present: No Symptoms Reported Endocrine: Present: No Symptoms Reported Misc: All systems neg except as marked Immunizations: IMMUNIZATION HX Immunizations Up to Date Yes History of Influenza Vaccine No Hx Pneumococcal Vaccination No Allergies/Adverse Reactions: Allergies Allergy/AdvReac Type Severity Reaction Status Date / Time aspirin Allergy dizzy Verified 05/17/16 17:17 Penicillins Allergy BREAKS Verified 05/17/16 17:17 OUT, NAUSEA morphine AdvReac Mild Other Verified 05/17/16 17:17 Home Medications: HOME MEDICATIONS Aspirin [Aspirin EC] 81 mg PO DAILY 06/29/15 [Last Taken 04/19/16] Albuterol Sulfate [Ventolin Hfa] 1 puff IH PRN 04/20/16 [Last Taken 04/19/16] HYDROcodone/ACETAMINOPHEN [[place] 5-325] 1 - 2 tab PO BID PRN 04/20/16 [Last Taken 04/19/16] Omeprazole Magnesium [Prilosec Otc] 40 mg PO DAILY 04/20/16 [Last Taken 04/19/16 ] Acetaminophen [Tylenol] 650 mg PO QID PRN #0 tablet 04/22/16 [Last Taken Unknown ] Albuterol Sulfate [Albuterol Sulfate 2.5 MG/0.5ML] 2.5 mg IH Q4H PRN #100 vial.neb 04/22/16 [Last Taken Unknown] Albuterol Sulfate/Ipratropium [Duoneb 2.5-0.5MG/3ML Soln] 3 ml IH Q6HRT #120 nebu 04/22/16 [Last Taken Unknown] Enalapril Maleate [Vasotec] 2.5 mg PO DAILY #30 tablet 04/22/16 [Last Taken Unknown] Nebulizer [Compact Ultrasonic Nebulizer] 1 each MC Q4H PRN #1 kit 04/22/16 [ Last Taken Unknown] Exam - Exam Vital Signs: Vital Signs - Last Taken Selected Entries 05/17/16 17:07 Temperature 35.0 C L Pulse Rate 102 H Respiratory 16 Rate Respiratory Normal Depth Respiratory Normal Effort Non-Labored Respiratory Normal Pattern Blood Pressure 114/67 Blood Pressure Sitting Position O2 Sat by Pulse 97 Oximetry Oxygen Delivery Room Air Method Constitutional: Present: Alert, Oriented x3, Cooperative, Well developed, No distress, Looks Older than stated age ENT Exam: Present: normal ENT inspection, hearing grossly normal, dry mucous membranes Eye Exam: bilateral eye: normal inspection, PERRL, EOMI Neck: Present: normal inspection Back Exam: Present: normal inspection Respiratory: Present: lungs clear, no respiratory distress, decreased breath sounds Cardiovascular/Chest: Present: regular rate, rhythm, no murmur Abdomen: Present: Normal bowel sounds, soft, nontender, nondistended, no rebound tenderness, no hepatospenomegaly, no masses Extremity: Present: lower extremity edema, slow capillary refill, other - redness lower extremities, multiple open areas legs and buttocks. Skin Exam: Present: normal color, warm/dry, no cyanosis Neurologic: Present: alert, oriented x 3 Appearance: Present: disheveled, impaired insight Eye contact: Present: cooperative Diagnostic Studies: Abnormal Lab Results 05/17/16 Range/Units 21:55 Sodium 116 L* (132-142) mmol/L Laboratory Results WBC 9.7 K/mm3 (4.0-10.5) 05/17/16 18:20 RBC 3.64 M/mm3 (4.2-5.4) L 05/17/16 18:20 Hgb 11.4 gm/dL (12.5-16.0) L 05/17/16 18:20 Hct 31.0 % (37.0-47.0) L 05/17/16 18:20 MCV 85.2 fl (78-100) 05/17/16 18:20 MCH 31.3 pg (27-31) H 05/17/16 18:20 MCHC 36.8 g/dl (32-36) H 05/17/16 18:20 RDW 14.1 % (11.5-14.0) H 05/17/16 18:20 Plt Count 259 K/mm3 (150-450) 05/17/16 18:20 MPV 9.5 fl (6.0-9.5) 05/17/16 18:20 Immature Gran % (Auto) 1.00 % (0.001-0.429) H 05/17/16 18:20 Immature Gran # (Auto) 0.10 K/mm3 (0.000-0.0310) H 05/17/16 18:20 Neutrophils % 78.6 % (42-75.0) H 05/17/16 18:20 Neutrophils % (Manual) 79 % (42-75) H 05/17/16 18:20 Lymphocytes % 6.8 % (20-51) L 05/17/16 18:20 Lymphocytes % (Manual) 8 % (20-51) L 05/17/16 18:20 Monocytes % 13.3 % (0.0-9) H 05/17/16 18:20 Monocytes % (Manual) 10 % (0-9) H 05/17/16 18:20 Eosinophils % 0.2 % (0.0-3.0) 05/17/16 18:20 Eosinophils % (Manual) 1 % (0-3) 05/17/16 18:20 Basophils % 0.1 % (0.0-1.0) 05/17/16 18:20 Nucleated RBC % 0.0 k/mm3 (0-1) 05/17/16 18:20 Immature Granulocytes 2 (0-1) H 05/17/16 18:20 Neutrophils # 7.6 K/mm3 (1.3-6.0) H 05/17/16 18:20 Neutrophils # (Manual) 7.7 K/mm3 (1.3-6.0) H 05/17/16 18:20 Lymphocytes # 6.8 k/mm3 (1.5-3.5) H 05/17/16 18:20 Lymphocytes # (Manual) 0.8 k/mm3 (1.5-3.5) L 05/17/16 18:20 Monocytes # 1.3 k/mm3 (0.0-1.0) H 05/17/16 18:20 Monocytes # (Manual) 1.0 k/mm3 (0.0-1.0) 05/17/16 18:20 Eosinophils # 0.0 k/mm3 (0.0-0.7) 05/17/16 18:20 Eosinophils # (Manual) 0.1 k/mm3 (0.0-0.7) 05/17/16 18:20 Absolute Basophils 0.0 k/mm3 (0.0-0.1) 05/17/16 18:20 Platelet Estimate Normal (NORMAL) 05/17/16 18:20 RBC Morphology Normal (NORMAL) 05/17/16 18:20 Sodium 116 mmol/L (132-142) L* 05/17/16 21:55 Plasma Sodium 114 mmol/L (130-142) L* 05/17/16 18:20 Potassium 3.6 mmol/L (3.4-4.6) 05/17/16 21:55 Chloride 81 mmol/L (97-106) L 05/17/16 18:20 Carbon Dioxide 21.9 mmol/L (24-32.6) L 05/17/16 18:20 Anion Gap 14.7 mmol/L (6.8-13.8) H 05/17/16 18:20 BUN 13 mg/dL (3-23) D 05/17/16 18:20 Creatinine 0.78 mg/dL (0.4-1.4) 05/17/16 18:20 Est GFR (Non-Af Amer) 79 mL/min (60-130) D 05/17/16 18:20 BUN/Creatinine Ratio 16.7 (9.0-21.6) 05/17/16 18:20 Random Glucose 116 mg/dL (70-110) H 05/17/16 18:20 Calcium 8.4 mg/dL (7.9-10.9) 05/17/16 18:20 Calcium Adj for Albumin 9.3 mg/dL (8.4-10.2) 05/17/16 18:20 Total Bilirubin 1.4 mg/dL (0.0-1.1) H 05/17/16 18:20 AST 21 U/L (0-48) 05/17/16 18:20 ALT 21 U/L (19-67) 05/17/16 18:20 Alkaline Phosphatase 166 U/L (50-170) 05/17/16 18:20 B-Natriuretic Peptide 747 pg/mL (5-205) H 05/17/16 18:20 Total Protein 6.0 gm/dL (6.2-8.2) L 05/17/16 18:20 Albumin 2.5 gm/dl (3.4-5.0) L 05/17/16 18:20 Urine Color Dark yellow 05/17/16 18:10 Urine Appearance Turbid 05/17/16 18:10 Urine pH 5.5 pH (5.0-7.0) 05/17/16 18:10 Ur Specific [place] 1.025 SP.GR. (1.005-1.010) 05/17/16 18:10 Urine Protein 30 mg/dL (NEGATIVE) H 05/17/16 18:10 Urine Glucose (UA) Negative mg/dL (NEGATIVE) 05/17/16 18:10 Urine Ketones 15 mg/dL (NEGATIVE) 05/17/16 18:10 Urine Blood 50 /ul (NEGATIVE) H 05/17/16 18:10 Urine Nitrate Positive (NEGATIVE) H 05/17/16 18:10 Urine Bilirubin 3 mg/dl (NEGATIVE) H 05/17/16 18:10 Urine Ictotest QNS 05/17/16 18:10 Prot Sulfosalicylic Acd QNS 05/17/16 18:10 Urine Urobilinogen 4 EU/dl (NORMAL) H 05/17/16 18:10 Ur Leukocyte Esterase 100 /ul (NEGATIVE) H 05/17/16 18:10 Urine RBC 10-25 /hpf (0-5) H 05/17/16 18:10 Urine WBC 10-25 /hpf (0-5) H 05/17/16 18:10 Ur Epithelial Cells 0-5 /hpf (0-5) 05/17/16 18:10 Urine Bacteria 4+ (NONE) H 05/17/16 18:10 Urine Culture Comments Culture to follow 05/17/16 18:10 Assessment/Plan - Narrative Narrative: IV antibiotics. IV saline. Frequent electrolyte levels. Wound healing consult. PT and OT. Estimate stay of several days - Assessment/Plan (1) Generalized weakness Problem: Acute (2) Hyponatremia with decreased serum osmolality Problem: Acute (3) UTI (urinary tract infection) Problem: Acute Qualifiers: Urinary tract infection type: acute cystitis Hematuria presence: without hematuria Qualified Code(s): N30.00 - Acute cystitis without hematuria (4) Cellulitis Problem: Acute Qualifiers: Site of cellulitis: extremity Site of cellulitis of extremity: lower extremity Laterality: unspecified laterality Qualified Code(s): L03.119 - Cellulitis of unspecified part of limb (5) Falls Problem: Acute Qualifiers: Encounter type: initial encounter Qualified Code(s): W19.XXXA - Unspecified fall, initial encounter (6) Osteoarthritis Problem: Chronic Qualifiers: Osteoarthritis location: multiple joints Osteoarthritis type: primary Qualified Code(s): M15.0 - Primary generalized (osteo)arthritis (7) Tobacco abuse Problem: Chronic (8) Weakness Problem: Chronic
[2016-05-17] MEDS: ALBUTEROL SULFATE/IPRATROPIUM 3 ML NEBU IH SCH (23:22)
[2016-05-17] MEDS: ENOXAPARIN SODIUM 40 MG/0.4 ML SYRG SC SCH (23:48)
[2016-05-18] LABS: Potassium 3.6 mmol/L (3.4-4.6)
[2016-05-18 01:52] LABS: Potassium 3.6 mmol/L (3.4-4.6)
[2016-05-18 04:03] LABS: Potassium 3.2 mmol/L (3.4-4.6)
[2016-05-18] MEDS ORDERED: POTASSIUM CHLORIDE 20 MEQ TABLET.SA PO ONE (04:41)
[2016-05-18] MEDS: ALBUTEROL SULFATE/IPRATROPIUM 3 ML NEBU IH SCH ×4 (06:17→18:45)
[2016-05-18 06:27] LABS: Hematocrit 25.3 % (37.0-47.0); Hemoglobin 9.3 gm/dL (12.5-16.0); Mean Cell Volume 85.5 fl (78-100); Mean Corpuscular Hemoglobin 31.4 pg (27-31); Mean Corpuscular Hgb Conc 36.8 g/dl (32-36); Mean Platelet Volume 9.6 fl (6.0-9.5); Neutrophil # 3.5 K/mm3 (1.3-6.0); Platelet Count 193 K/mm3 (150-450); Red Blood Count 2.96 M/mm3 (4.2-5.4); Red Cell Distribution Width 13.8 % (11.5-14.0); White Blood Count 4.9 K/mm3 (4.0-10.5)
[2016-05-18 06:42] LABS: Albumin * 1.8 gm/dl (3.4-5.0); Anion Gap 10.8 mmol/L (6.8-13.8); Bilirubin, Total 0.8 mg/dL (0.0-1.1); Calcium * 7.6 mg/dL (7.9-10.9); Carbon Dioxide 23.2 mmol/L (24-32.6); Total Protein 4.6 gm/dL (6.2-8.2)
--- NOTE | 2016-05-18 07:07 | PN ---
<Berenice Cabrera - Last Filed: 05/18/16 07:09> Subjective - Date and Time Seen Date: 05/18/16 Time: 06:27 Subjective Narrative: Mrs. Miranda is alert and in no distress. Appears weak and fatigued. Nursing report constant urinary incontinence and severe skin breakdown/excoriation on Genny-rectal folds. Is noted to have Stage II pressure ulcers on buttocks and posterior upper thighs. Objective - Vitals Vitals: Last Vital Signs Temp 36.6 C 05/17/16 21:00 Pulse 97 05/18/16 06:17 Resp 18 05/18/16 06:17 BP 96/52 05/17/16 21:00 Pulse Ox 98 05/18/16 06:17 - Abnormal Lab Findings Abnormal Lab Findings: Abnormal Lab Results 05/17/16 05/17/16 05/18/16 Range/Units 21:55 23:39 01:37 Sodium 116 L* 116 L* 116 L* (132-142) mmol/L Potassium (3.4-4.6) mmol/L 05/18/16 Range/Units 03:39 Sodium 118 L* (132-142) mmol/L Potassium 3.2 L (3.4-4.6) mmol/L - Exam Constitutional: Present: Alert, Oriented x3, No distress, Looks Older than stated age ENT Exam: Present: normal ENT inspection. Absent: nasal congestion, nasal drainage Neck: Present: full range of motion, supple Breasts: Present: Exam deferred Respiratory: Present: lungs clear, no accessory muscle use, No wheezing Cardiovascular/Chest: Present: regular rate, rhythm, no chest tenderness, no murmur Abdomen: Present: Normal bowel sounds, soft, nontender /Rectal: Present: Exam deferred Extremity: Present: lower extremity edema - + 2 BLE Pitting edema, leg pain Skin Exam: Present: other - quarter size wound on RLE with escar tissue, Excoriated genny-rectal areas, Stage 2 pressure ulcers on both buttocks, and posterior thighs. Lymphatic: Present: no adenopathy Neurologic: Present: no motor/sensory deficits, alert, oriented x 3. Absent: dizzy/light-headedness Appearance: Present: impaired insight Eye contact: Present: cooperative, good eye contact, normal speech Thoughts: Present: normal thought pattern, no apparent hallucination Assessment/Plan - Problems/Diagnosis (1) UTI (urinary tract infection) Problem: Acute QualifierTitle: Urinary tract infection type: acute cystitis Hematuria presence: without hematuria Qualified Code(s): N30.00 - Acute cystitis without hematuria Narrative: UA showed UTI- will cover with Rocephin for now until culture results then switch antibiotics. (2) Hyponatremia with decreased serum osmolality Problem: Acute Narrative: Noted with Na of 114 on admission. Continue the 3% NS, and electrolyte q 2 hrs. The goal is no more than 12mEq/L correction in 24 hrs. (3) Pressure ulcer Problem: Acute QualifierTitle: Pressure ulcer location: other site Pressure ulcer stage : stage 2 Qualified Code(s): L89.892 - Pressure ulcer of other site, stage 2 Narrative: Has Stage 2 pressure ulcers on Buttock and posterior thighs. Will place Kasper to prevent further deterioration of the wounds. Consult Wound Care for treatment recommendation. (4) Venous stasis Problem: Acute Narrative: Has ulcer on RT leg and developing ulcer on LT leg- consult wound care for treatment recommendation. (5) Discharge planning issues Problem: Acute Narrative: Has history of falls and weakness. Has an ailing and not able to provide adequate care for the patient. Will need placement at discharge due to inability to provide self care and this will be get complex given the nature and location of pressure sores ( buttock and posterior thighs). Will have case management aid in this process. (6) Hypokalemia Problem: Acute Narrative: Will replace the doses. BMP in am (7) Generalized weakness Problem: Acute Narrative: Involved PT/OT for strengthening. Encourage ambulation. <Kieran Deluna - Last Filed: 05/18/16 17:41> Subjective Subjective Narrative: I reviewed the record and examined the patient. Because of the severe skin excoriation, and the urine incontinence, we will place a kasper catheter. Because of the alcohol intake history (she eventually said to me this morning she drinks 6 beers daily) we will add thiamine daily and watch for withdrawal. Urine is growing gram negative bacteria. We will continue IV saline and IV antibiotics. Objective - Vitals Vitals: Last Vital Signs Temp 37 C 05/18/16 17:14 Pulse 94 05/18/16 17:14 Resp 20 05/18/16 17:14 BP 97/61 05/18/16 17:14 Pulse Ox 98 05/18/16 17:14 - Abnormal Lab Findings Abnormal Lab Findings: Abnormal Lab Results 05/17/16 05/17/16 05/18/16 Range/Units 21:55 23:39 01:37 RBC (4.2-5.4) M/mm3 Hgb (12.5-16.0) gm/dL Hct (37.0-47.0) % MCH (27-31) pg MCHC (32-36) g/dl MPV (6.0-9.5) fl Immature Gran % (Auto) (0.001-0.429) % Immature Gran # (Auto) (0.000-0.0310) K/mm3 Lymphocytes % (20-51) % Monocytes % (0.0-9) % Lymphocytes # (1.5-3.5) k/mm3 ESR (0-15) mm/hr Sodium 116 L* 116 L* 116 L* (132-142) mmol/L Plasma Sodium (130-142) mmol/L Potassium (3.4-4.6) mmol/L Chloride (97-106) mmol/L Carbon Dioxide (24-32.6) mmol/L Est GFR (Non-Af Amer) (60-130) mL/min Calcium (7.9-10.9) mg/dL ALT (19-67) U/L Total Protein (6.2-8.2) gm/dL Albumin (3.4-5.0) gm/dl 05/18/16 05/18/16 05/18/16 Range/Units 03:39 05:34 05:34 RBC 2.96 L (4.2-5.4) M/mm3 Hgb 9.3 L (12.5-16.0) gm/dL Hct 25.3 L (37.0-47.0) % MCH 31.4 H (27-31) pg MCHC 36.8 H (32-36) g/dl MPV 9.6 H (6.0-9.5) fl Immature Gran % (Auto) 0.80 H (0.001-0.429) % Immature Gran # (Auto) 0.04 H (0.000-0.0310) K/mm3 Lymphocytes % 11.8 L (20-51) % Monocytes % 14.8 H (0.0-9) % Lymphocytes # 0.6 L (1.5-3.5) k/mm3 ESR (0-15) mm/hr Sodium 118 L* 120 L (132-142) mmol/L Plasma Sodium 120 L (130-142) mmol/L Potassium 3.2 L 3.0 L (3.4-4.6) mmol/L Chloride 89 L (97-106) mmol/L Carbon Dioxide 23.2 L (24-32.6) mmol/L Est GFR (Non-Af Amer) 132 H D (60-130) mL/min Calcium 7.6 L (7.9-10.9) mg/dL ALT 15 L (19-67) U/L Total Protein 4.6 L (6.2-8.2) gm/dL Albumin 1.8 L (3.4-5.0) gm/dl 05/18/16 05/18/16 05/18/16 Range/Units 07:30 09:30 11:40 RBC (4.2-5.4) M/mm3 Hgb (12.5-16.0) gm/dL Hct (37.0-47.0) % MCH (27-31) pg MCHC (32-36) g/dl MPV (6.0-9.5) fl Immature Gran % (Auto) (0.001-0.429) % Immature Gran # (Auto) (0.000-0.0310) K/mm3 Lymphocytes % (20-51) % Monocytes % (0.0-9) % Lymphocytes # (1.5-3.5) k/mm3 ESR (0-15) mm/hr Sodium 121 L 124 L 125 L (132-142) mmol/L Plasma Sodium (130-142) mmol/L Potassium 3.1 L 3.3 L (3.4-4.6) mmol/L Chloride (97-106) mmol/L Carbon Dioxide (24-32.6) mmol/L Est GFR (Non-Af Amer) (60-130) mL/min Calcium (7.9-10.9) mg/dL ALT (19-67) U/L Total Protein (6.2-8.2) gm/dL Albumin (3.4-5.0) gm/dl 05/18/16 05/18/16 05/18/16 Range/Units 11:40 13:50 15:39 RBC (4.2-5.4) M/mm3 Hgb (12.5-16.0) gm/dL Hct (37.0-47.0) % MCH (27-31) pg MCHC (32-36) g/dl MPV (6.0-9.5) fl Immature Gran % (Auto) (0.001-0.429) % Immature Gran # (Auto) (0.000-0.0310) K/mm3 Lymphocytes % (20-51) % Monocytes % (0.0-9) % Lymphocytes # (1.5-3.5) k/mm3 ESR 40 H (0-15) mm/hr Sodium 124 L 124 L (132-142) mmol/L Plasma Sodium (130-142) mmol/L Potassium (3.4-4.6) mmol/L Chloride (97-106) mmol/L Carbon Dioxide (24-32.6) mmol/L Est GFR (Non-Af Amer) (60-130) mL/min Calcium (7.9-10.9) mg/dL ALT (19-67) U/L Total Protein (6.2-8.2) gm/dL Albumin (3.4-5.0) gm/dl Assessment/Plan - Problems/Diagnosis (1) Generalized weakness Problem: Acute (2) Hyponatremia with decreased serum osmolality Problem: Acute (3) UTI (urinary tract infection) Problem: Acute Qualifiers: Urinary tract infection type: acute cystitis Hematuria presence: without hematuria Qualified Code(s): N30.00 - Acute cystitis without hematuria (4) Cellulitis Problem: Acute Qualifiers: Site of cellulitis: extremity Site of cellulitis of extremity: lower extremity Laterality: unspecified laterality Qualified Code(s): L03.119 - Cellulitis of unspecified part of limb (5) Falls Problem: Acute Qualifiers: Encounter type: initial encounter Qualified Code(s): W19.XXXA - Unspecified fall, initial encounter (6) Osteoarthritis Problem: Chronic Qualifiers: Osteoarthritis location: multiple joints Osteoarthritis type: primary Qualified Code(s): M15.0 - Primary generalized (osteo)arthritis (7) Tobacco abuse Problem: Chronic (8) Weakness Problem: Chronic
[2016-05-18 07:42] LABS: Potassium 3.1 mmol/L (3.4-4.6)
[2016-05-18] MEDS: POTASSIUM CHLORIDE 40 MEQ in NORMAL SALINE 1,000 ML IV SCH ×2 (07:46→18:13)
[2016-05-18] MEDS ORDERED: POTASSIUM CHLORIDE 20 MEQ TABLET.SA PO SCH (09:00)
[2016-05-18 09:48] LABS: Potassium 3.3 mmol/L (3.4-4.6)
[2016-05-18] MEDS: SODIUM CHLORIDE 3 % 500 ML IV SCH ×2 (11:39→23:11)
[2016-05-18 12:03] LABS: Potassium 3.6 mmol/L (3.4-4.6)
[2016-05-18 14:07] LABS: Potassium 3.9 mmol/L (3.4-4.6)
[2016-05-18 15:51] LABS: Potassium 3.9 mmol/L (3.4-4.6)
[2016-05-18 18:05] LABS: Potassium 3.9 mmol/L (3.4-4.6)
[2016-05-18] MEDS: THIAMINE HCL 100 MG TABLET PO SCH (18:13)
[2016-05-18 20:17] LABS: Potassium 4.2 mmol/L (3.4-4.6)
[2016-05-18] MEDS: ENOXAPARIN SODIUM 40 MG/0.4 ML SYRG SC SCH (21:23)
[2016-05-18 22:04] LABS: Potassium 4.2 mmol/L (3.4-4.6)
[2016-05-18 23:52] LABS: Potassium 4.1 mmol/L (3.4-4.6)
[2016-05-19 01:43] LABS: Potassium 4.2 mmol/L (3.4-4.6)
[2016-05-19] MEDS: POTASSIUM CHLORIDE 40 MEQ in NORMAL SALINE 1,000 ML IV SCH ×2 (04:19→14:56)
[2016-05-19] MEDS: ALBUTEROL SULFATE/IPRATROPIUM 3 ML NEBU IH SCH ×4 (06:04→18:20)
[2016-05-19 06:17] LABS: Hemoglobin 8.2 gm/dL (12.5-16.0); Mean Cell Volume 87.6 fl (78-100); Mean Corpuscular Hemoglobin 31.7 pg (27-31); Mean Corpuscular Hgb Conc 36.1 g/dl (32-36); Mean Platelet Volume 9.6 fl (6.0-9.5); Neutrophil # 2.2 K/mm3 (1.3-6.0); Neutrophil % 59.1 % (42-75.0); Platelet Count 187 K/mm3 (150-450); Red Blood Count 2.59 M/mm3 (4.2-5.4); Red Cell Distribution Width 14.2 % (11.5-14.0); White Blood Count 3.8 K/mm3 (4.0-10.5)
[2016-05-19 06:20] LABS: Hematocrit 22.7 % (37.0-47.0)
--- NOTE | 2016-05-19 06:20 | PN ---
<Berenice Cabrera - Last Filed: 05/19/16 06:37> Subjective - Date and Time Seen Date: 05/19/16 Time: 06:15 Subjective Narrative: Ms Miranda is awake and in no distress. She has no complaints this morning. Nursing reports no acute events overnight. Seen by Wound Care yesterday. Objective - Vitals Vitals: Last Vital Signs Temp 36.8 C 05/19/16 01:43 Pulse 95 05/19/16 06:04 Resp 20 05/19/16 06:04 BP 102/66 05/19/16 01:43 Pulse Ox 95 05/19/16 06:04 - Abnormal Lab Findings Abnormal Lab Findings: Abnormal Lab Results 05/18/16 05/18/16 05/18/16 Range/Units 05:34 05:34 07:30 RBC 2.96 L (4.2-5.4) M/mm3 Hgb 9.3 L (12.5-16.0) gm/dL Hct 25.3 L (37.0-47.0) % MCH 31.4 H (27-31) pg MCHC 36.8 H (32-36) g/dl MPV 9.6 H (6.0-9.5) fl Immature Gran % (Auto) 0.80 H (0.001-0.429) % Immature Gran # (Auto) 0.04 H (0.000-0.0310) K/mm3 Lymphocytes % 11.8 L (20-51) % Monocytes % 14.8 H (0.0-9) % Lymphocytes # 0.6 L (1.5-3.5) k/mm3 ESR (0-15) mm/hr Sodium 120 L 121 L (132-142) mmol/L Plasma Sodium 120 L (130-142) mmol/L Potassium 3.0 L 3.1 L (3.4-4.6) mmol/L Chloride 89 L (97-106) mmol/L Carbon Dioxide 23.2 L (24-32.6) mmol/L Est GFR (Non-Af Amer) 132 H D (60-130) mL/min Calcium 7.6 L (7.9-10.9) mg/dL ALT 15 L (19-67) U/L Total Protein 4.6 L (6.2-8.2) gm/dL Albumin 1.8 L (3.4-5.0) gm/dl 05/18/16 05/18/16 05/18/16 Range/Units 09:30 11:40 11:40 RBC (4.2-5.4) M/mm3 Hgb (12.5-16.0) gm/dL Hct (37.0-47.0) % MCH (27-31) pg MCHC (32-36) g/dl MPV (6.0-9.5) fl Immature Gran % (Auto) (0.001-0.429) % Immature Gran # (Auto) (0.000-0.0310) K/mm3 Lymphocytes % (20-51) % Monocytes % (0.0-9) % Lymphocytes # (1.5-3.5) k/mm3 ESR 40 H (0-15) mm/hr Sodium 124 L 125 L (132-142) mmol/L Plasma Sodium (130-142) mmol/L Potassium 3.3 L (3.4-4.6) mmol/L Chloride (97-106) mmol/L Carbon Dioxide (24-32.6) mmol/L Est GFR (Non-Af Amer) (60-130) mL/min Calcium (7.9-10.9) mg/dL ALT (19-67) U/L Total Protein (6.2-8.2) gm/dL Albumin (3.4-5.0) gm/dl 05/18/16 05/18/16 05/18/16 Range/Units 13:50 15:39 17:45 RBC (4.2-5.4) M/mm3 Hgb (12.5-16.0) gm/dL Hct (37.0-47.0) % MCH (27-31) pg MCHC (32-36) g/dl MPV (6.0-9.5) fl Immature Gran % (Auto) (0.001-0.429) % Immature Gran # (Auto) (0.000-0.0310) K/mm3 Lymphocytes % (20-51) % Monocytes % (0.0-9) % Lymphocytes # (1.5-3.5) k/mm3 ESR (0-15) mm/hr Sodium 124 L 124 L 126 L (132-142) mmol/L Plasma Sodium (130-142) mmol/L Potassium (3.4-4.6) mmol/L Chloride (97-106) mmol/L Carbon Dioxide (24-32.6) mmol/L Est GFR (Non-Af Amer) (60-130) mL/min Calcium (7.9-10.9) mg/dL ALT (19-67) U/L Total Protein (6.2-8.2) gm/dL Albumin (3.4-5.0) gm/dl 05/18/16 05/18/16 05/18/16 Range/Units 19:55 21:53 23:41 RBC (4.2-5.4) M/mm3 Hgb (12.5-16.0) gm/dL Hct (37.0-47.0) % MCH (27-31) pg MCHC (32-36) g/dl MPV (6.0-9.5) fl Immature Gran % (Auto) (0.001-0.429) % Immature Gran # (Auto) (0.000-0.0310) K/mm3 Lymphocytes % (20-51) % Monocytes % (0.0-9) % Lymphocytes # (1.5-3.5) k/mm3 ESR (0-15) mm/hr Sodium 126 L 127 L 124 L (132-142) mmol/L Plasma Sodium (130-142) mmol/L Potassium (3.4-4.6) mmol/L Chloride (97-106) mmol/L Carbon Dioxide (24-32.6) mmol/L Est GFR (Non-Af Amer) (60-130) mL/min Calcium (7.9-10.9) mg/dL ALT (19-67) U/L Total Protein (6.2-8.2) gm/dL Albumin (3.4-5.0) gm/dl 05/19/16 05/19/16 Range/Units 01:39 03:33 RBC (4.2-5.4) M/mm3 Hgb (12.5-16.0) gm/dL Hct (37.0-47.0) % MCH (27-31) pg MCHC (32-36) g/dl MPV (6.0-9.5) fl Immature Gran % (Auto) (0.001-0.429) % Immature Gran # (Auto) (0.000-0.0310) K/mm3 Lymphocytes % (20-51) % Monocytes % (0.0-9) % Lymphocytes # (1.5-3.5) k/mm3 ESR (0-15) mm/hr Sodium 124 L 125 L (132-142) mmol/L Plasma Sodium (130-142) mmol/L Potassium (3.4-4.6) mmol/L Chloride (97-106) mmol/L Carbon Dioxide (24-32.6) mmol/L Est GFR (Non-Af Amer) (60-130) mL/min Calcium (7.9-10.9) mg/dL ALT (19-67) U/L Total Protein (6.2-8.2) gm/dL Albumin (3.4-5.0) gm/dl - Exam Constitutional: Present: Alert, Oriented x3, No distress ENT Exam: Present: normal ENT inspection, hearing grossly normal. Absent: nasal congestion, nasal drainage Neck: Present: full range of motion, supple, normal inspection Breasts: Present: Exam deferred Respiratory: Present: lungs clear, no accessory muscle use, No wheezing Cardiovascular/Chest: Present: regular rate, rhythm, no murmur Abdomen: Present: Normal bowel sounds, soft, nontender /Rectal: Present: Other - Kasper Catheter. Extremity: Present: lower extremity edema - + 2 BLE pitting edema Skin Exam: Present: other - excoriated genny- rectal areas, erythema on BLE, Wounds ( stage 2 pressure sores on buttock abd back thighs). Lymphatic: Present: no adenopathy Neurologic: Present: no motor/sensory deficits, alert, oriented x 3 Appearance: Present: impaired insight Eye contact: Present: cooperative, good eye contact, normal speech Thoughts: Present: no apparent hallucination Cauti Physician Documentation - Urinary Catheter Management Urethral (Kasper) Date of Insertion: 05/18/16 Time of Insertion: 08:45 Assessment/Plan - Problems/Diagnosis (1) UTI (urinary tract infection) Problem: Acute QualifierTitle: Urinary tract infection type: acute cystitis Hematuria presence: without hematuria Qualified Code(s): N30.00 - Acute cystitis without hematuria Narrative: UA showed UTI- will cover with Rocephin for now until culture results then switch antibiotics. (2) Cellulitis Problem: Acute QualifierTitle: Site of cellulitis: extremity Laterality: unspecified laterality Narrative: Cellulitis on BLE- On Rocephine. Consider Vancomycin. (3) Hyponatremia with decreased serum osmolality Problem: Acute Narrative: Noted with Na of 114 on admission. This am 125. Continue the 3% NS, and electrolyte q 2 hrs and consider increasing the rate to 10ml/hr. The goal is no more than 12mEq/L correction in 24 hrs. (4) Pressure ulcer Problem: Acute QualifierTitle: Pressure ulcer location: other site Pressure ulcer stage : stage 2 Qualified Code(s): L89.892 - Pressure ulcer of other site, stage 2 Narrative: Seen by Wound care- Dr Sandoval, continue with his treatment recommendations. Has kasper catheter to prevent wound deterioration from incontinence. (5) Venous stasis Problem: Acute Narrative: Has ulcer on RT leg and developing ulcer on LT leg. Seen by Dr. Sandoval. Follow treatment recommendation. (6) Discharge planning issues Problem: Acute Narrative: Has history of falls and weakness. Has an ailing and not able to provide adequate care for the patient. Will need placement at discharge due to inability to provide self care and this will be get complex given the nature and location of pressure sores ( buttock and posterior thighs). Will have case management aid in this process. (7) Hypokalemia Problem: Acute Narrative: 3.0 Improved with IVF replenishing. (8) Generalized weakness Problem: Acute Narrative: Involve PT/OT- Encourage ambulation. <Kieran Deluna - Last Filed: 05/19/16 19:54> Objective - Vitals Vitals: Last Vital Signs Temp 37.1 C 05/19/16 19:04 Pulse 96 05/19/16 19:04 Resp 20 05/19/16 19:04 BP 105/71 05/19/16 19:04 Pulse Ox 94 05/19/16 19:04 - Abnormal Lab Findings Abnormal Lab Findings: Abnormal Lab Results 05/18/16 05/18/16 05/18/16 Range/Units 19:55 21:53 23:41 WBC (4.0-10.5) K/mm3 RBC (4.2-5.4) M/mm3 Hgb (12.5-16.0) gm/dL Hct (37.0-47.0) % MCH (27-31) pg MCHC (32-36) g/dl RDW (11.5-14.0) % MPV (6.0-9.5) fl Immature Gran % (Auto) (0.001-0.429) % Immature Gran # (Auto) (0.000-0.0310) K/mm3 Monocytes % (0.0-9) % Lymphocytes # (1.5-3.5) k/mm3 Sodium 126 L 127 L 124 L (132-142) mmol/L Plasma Sodium (130-142) mmol/L Carbon Dioxide (24-32.6) mmol/L Creatinine (0.4-1.4) mg/dL Est GFR (Non-Af Amer) (60-130) mL/min Calcium (7.9-10.9) mg/dL 05/19/16 05/19/16 05/19/16 Range/Units 01:39 03:33 05:39 WBC (4.0-10.5) K/mm3 RBC (4.2-5.4) M/mm3 Hgb (12.5-16.0) gm/dL Hct (37.0-47.0) % MCH (27-31) pg MCHC (32-36) g/dl RDW (11.5-14.0) % MPV (6.0-9.5) fl Immature Gran % (Auto) (0.001-0.429) % Immature Gran # (Auto) (0.000-0.0310) K/mm3 Monocytes % (0.0-9) % Lymphocytes # (1.5-3.5) k/mm3 Sodium 124 L 125 L 126 L (132-142) mmol/L Plasma Sodium 126 L (130-142) mmol/L Carbon Dioxide 21.4 L (24-32.6) mmol/L Creatinine 0.36 L (0.4-1.4) mg/dL Est GFR (Non-Af Amer) 193 H D (60-130) mL/min Calcium 7.3 L (7.9-10.9) mg/dL 05/19/16 05/19/16 05/19/16 Range/Units 05:39 07:39 09:39 WBC 3.8 L D (4.0-10.5) K/mm3 RBC 2.59 L (4.2-5.4) M/mm3 Hgb 8.2 L (12.5-16.0) gm/dL Hct 22.7 L* (37.0-47.0) % MCH 31.7 H (27-31) pg MCHC 36.1 H (32-36) g/dl RDW 14.2 H (11.5-14.0) % MPV 9.6 H (6.0-9.5) fl Immature Gran % (Auto) 1.60 H (0.001-0.429) % Immature Gran # (Auto) 0.06 H (0.000-0.0310) K/mm3 Monocytes % 17.9 H (0.0-9) % Lymphocytes # 0.8 L (1.5-3.5) k/mm3 Sodium 125 L 129 L (132-142) mmol/L Plasma Sodium (130-142) mmol/L Carbon Dioxide (24-32.6) mmol/L Creatinine (0.4-1.4) mg/dL Est GFR (Non-Af Amer) (60-130) mL/min Calcium (7.9-10.9) mg/dL Assessment/Plan Plan Narrative: I reviewed the record and examined the patient. Although she seems mentally intact, she scored 23/30 on her minimental status exam and did very poorly on draw a clock and sayings. I suspect mental disfunction due to alcohol. Hgb seems to be dropping, but cells are macrocytic. Sodium has improved nicely. We will continue with IV antibiotics and monitoring labs. I directly supervised Berenice Cabrera in all of her care for this patient. - Problems/Diagnosis (1) Generalized weakness Problem: Acute (2) Hyponatremia with decreased serum osmolality Problem: Acute (3) UTI (urinary tract infection) Problem: Acute Qualifiers: Urinary tract infection type: acute cystitis Hematuria presence: without hematuria Qualified Code(s): N30.00 - Acute cystitis without hematuria (4) Cellulitis Problem: Acute Qualifiers: Site of cellulitis: extremity Site of cellulitis of extremity: lower extremity Laterality: unspecified laterality Qualified Code(s): L03.119 - Cellulitis of unspecified part of limb (5) Falls Problem: Acute Qualifiers: Encounter type: initial encounter Qualified Code(s): W19.XXXA - Unspecified fall, initial encounter (6) Osteoarthritis Problem: Chronic Qualifiers: Osteoarthritis location: multiple joints Osteoarthritis type: primary Qualified Code(s): M15.0 - Primary generalized (osteo)arthritis (7) Tobacco abuse Problem: Chronic (8) Weakness Problem: Chronic (9) Alcohol abuse Problem: Chronic (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
[2016-05-19 06:31] LABS: BUN/Creatinine Ratio 16.7 (9.0-21.6); Estimated Creat Clear 130.6
[2016-05-19 06:32] LABS: Anion Gap 11.7 mmol/L (6.8-13.8); Calcium * 7.3 mg/dL (7.9-10.9); Carbon Dioxide 21.4 mmol/L (24-32.6); Potassium 4.1 mmol/L (3.4-4.6)
[2016-05-19 07:50] LABS: Potassium 3.8 mmol/L (3.4-4.6)
[2016-05-19] MEDS: THIAMINE HCL 100 MG TABLET PO SCH (08:27)
[2016-05-19] MEDS: SODIUM CHLORIDE 3 % 500 ML IV SCH (10:47)
[2016-05-19] MEDS: ENOXAPARIN SODIUM 40 MG/0.4 ML SYRG SC SCH (21:06)
[2016-05-20] MEDS: POTASSIUM CHLORIDE 40 MEQ in NORMAL SALINE 1,000 ML IV SCH ×2 (01:30→11:41)
[2016-05-20 06:02] LABS: Hematocrit 25.2 % (37.0-47.0); Hemoglobin 8.8 gm/dL (12.5-16.0); Mean Cell Volume 88.7 fl (78-100); Mean Corpuscular Hgb Conc 34.9 g/dl (32-36); Mean Platelet Volume 9.3 fl (6.0-9.5); Neutrophil % 61.7 % (42-75.0); Platelet Count 191 K/mm3 (150-450); Red Blood Count 2.84 M/mm3 (4.2-5.4); Red Cell Distribution Width 14.4 % (11.5-14.0); White Blood Count 4.8 K/mm3 (4.0-10.5)
[2016-05-20] MEDS: ALBUTEROL SULFATE/IPRATROPIUM 3 ML NEBU IH SCH ×5 (06:07→18:39)
[2016-05-20 06:18] LABS: Anion Gap 13.4 mmol/L (6.8-13.8); BUN/Creatinine Ratio 8.3 (9.0-21.6); Calcium * 7.5 mg/dL (7.9-10.9); Carbon Dioxide 21.6 mmol/L (24-32.6); Estimated Creat Clear 130.6
--- NOTE | 2016-05-20 07:04 | PN ---
<Berenice Cabrera - Last Filed: 05/20/16 07:24> Subjective - Date and Time Seen Date: 05/20/16 - n Time: 06:59 Subjective Narrative: Pt examined this am. Has no complaints. No acute events overnight according to nursing. Objective - Vitals Vitals: Last Vital Signs Temp 37 C 05/20/16 06:52 Pulse 101 H 05/20/16 06:52 Resp 24 H 05/20/16 06:52 BP 105/60 05/20/16 06:52 Pulse Ox 92 05/20/16 06:52 - Abnormal Lab Findings Abnormal Lab Findings: Abnormal Lab Results 05/19/16 05/19/16 05/20/16 Range/Units 07:39 09:39 05:00 RBC 2.84 L (4.2-5.4) M/mm3 Hgb 8.8 L (12.5-16.0) gm/dL Hct 25.2 L (37.0-47.0) % RDW 14.4 H (11.5-14.0) % Immature Gran % (Auto) 1.70 H (0.001-0.429) % Immature Gran # (Auto) 0.08 H (0.000-0.0310) K/mm3 Lymphocytes % 18.8 L (20-51) % Monocytes % 15.3 H (0.0-9) % Lymphocytes # 0.9 L (1.5-3.5) k/mm3 Sodium 125 L 129 L (132-142) mmol/L Carbon Dioxide (24-32.6) mmol/L Creatinine (0.4-1.4) mg/dL Est GFR (Non-Af Amer) (60-130) mL/min BUN/Creatinine Ratio (9.0-21.6) Calcium (7.9-10.9) mg/dL 05/20/16 Range/Units 05:00 RBC (4.2-5.4) M/mm3 Hgb (12.5-16.0) gm/dL Hct (37.0-47.0) % RDW (11.5-14.0) % Immature Gran % (Auto) (0.001-0.429) % Immature Gran # (Auto) (0.000-0.0310) K/mm3 Lymphocytes % (20-51) % Monocytes % (0.0-9) % Lymphocytes # (1.5-3.5) k/mm3 Sodium 130 L (132-142) mmol/L Carbon Dioxide 21.6 L (24-32.6) mmol/L Creatinine 0.36 L (0.4-1.4) mg/dL Est GFR (Non-Af Amer) 193 H (60-130) mL/min BUN/Creatinine Ratio 8.3 L (9.0-21.6) Calcium 7.5 L (7.9-10.9) mg/dL - Exam Constitutional: Present: Alert, Oriented x3, Cooperative, No distress ENT Exam: Present: normal ENT inspection, hearing grossly normal. Absent: nasal congestion, nasal drainage Neck: Present: full range of motion, supple, normal inspection Breasts: Present: Exam deferred Respiratory: Present: lungs clear, no accessory muscle use, No wheezing Cardiovascular/Chest: Present: normal peripheral pulses, regular rate, rhythm, no murmur Abdomen: Present: Normal bowel sounds, soft, nontender /Rectal: Present: Exam deferred Extremity: Present: non-tender, normal inspection, no calf tenderness, other Skin Exam: Present: warm/dry, other - Stage 2 ulcers on buttocks and posterior thighs, excoriated genny rectal folds Lymphatic: Present: no adenopathy Neurologic: Present: no motor/sensory deficits, alert, oriented x 3 Cauti Physician Documentation - Urinary Catheter Management Urethral (Kasper) Date of Insertion: 05/18/16 Time of Insertion: 08:45 Assessment/Plan - Problems/Diagnosis (1) UTI (urinary tract infection) Problem: Acute QualifierTitle: Urinary tract infection type: acute cystitis Hematuria presence: without hematuria Qualified Code(s): N30.00 - Acute cystitis without hematuria Narrative: UC showed Ecoli growth- continue with Rocephin as it will cover for cellulitis as well. (2) Cellulitis Problem: Acute QualifierTitle: Site of cellulitis: extremity Laterality: unspecified laterality Narrative: Erythema on BLE-Continue Rocephin. (3) Hyponatremia with decreased serum osmolality Problem: Acute Narrative: Noted with Na of 114 on admission . received 3% NS for 48 hrs. This am 130. (4) Pressure ulcer Problem: Acute QualifierTitle: Pressure ulcer location: other site Pressure ulcer stage : stage 2 Qualified Code(s): L89.892 - Pressure ulcer of other site, stage 2 Narrative: seen by Wound care- Dr Sandoval, continue with his treatment recommendations. Has kasper catheter to prevent wound deterioration from incontinence. (5) Venous stasis Problem: Acute (6) Discharge planning issues Problem: Acute Narrative: Has history of falls and weakness. Has an ailing and not able to provide adequate care for the patient. Will need placement at discharge due to inability to provide self care and this will be get complex given the nature and location of pressure sores ( buttock and posterior thighs). Will have case management aid in this process (7) Hypokalemia Problem: Resolved (8) Generalized weakness Problem: Acute Narrative: Involve PT/OT. <Kieran Deluna - Last Filed: 05/20/16 12:19> Objective - Vitals Vitals: Last Vital Signs Temp 36.7 C 05/20/16 10:33 Pulse 90 05/20/16 10:33 Resp 24 H 05/20/16 10:33 BP 98/53 05/20/16 10:33 Pulse Ox 93 05/20/16 10:33 - Abnormal Lab Findings Abnormal Lab Findings: Abnormal Lab Results 05/20/16 05/20/16 Range/Units 05:00 05:00 RBC 2.84 L (4.2-5.4) M/mm3 Hgb 8.8 L (12.5-16.0) gm/dL Hct 25.2 L (37.0-47.0) % RDW 14.4 H (11.5-14.0) % Immature Gran % (Auto) 1.70 H (0.001-0.429) % Immature Gran # (Auto) 0.08 H (0.000-0.0310) K/mm3 Lymphocytes % 18.8 L (20-51) % Monocytes % 15.3 H (0.0-9) % Lymphocytes # 0.9 L (1.5-3.5) k/mm3 Sodium 130 L (132-142) mmol/L Carbon Dioxide 21.6 L (24-32.6) mmol/L Creatinine 0.36 L (0.4-1.4) mg/dL Est GFR (Non-Af Amer) 193 H (60-130) mL/min BUN/Creatinine Ratio 8.3 L (9.0-21.6) Calcium 7.5 L (7.9-10.9) mg/dL Assessment/Plan Plan Narrative: I reviewed the record and examined the patient. I directed all of Berenice Cabrera's care for the patient. Sodium is improving. Scored 23/30 on minimental status exam. grew E coli from urine. She is not competent to take care of herself at home. I will try this weekend to convince her of custodial placement following hospitalization. She tells me she has been out in the halls walking with her walker. Staff tells me she refuses to do everything, and at best takes a couple of steps with difficulty. - Problems/Diagnosis (1) Generalized weakness Problem: Acute (2) Hyponatremia with decreased serum osmolality Problem: Acute (3) UTI (urinary tract infection) Problem: Acute Qualifiers: Urinary tract infection type: acute cystitis Hematuria presence: without hematuria Qualified Code(s): N30.00 - Acute cystitis without hematuria (4) Cellulitis Problem: Acute Qualifiers: Site of cellulitis: extremity Site of cellulitis of extremity: lower extremity Laterality: unspecified laterality Qualified Code(s): L03.119 - Cellulitis of unspecified part of limb (5) Falls Problem: Acute Qualifiers: Encounter type: initial encounter Qualified Code(s): W19.XXXA - Unspecified fall, initial encounter (6) Osteoarthritis Problem: Chronic Qualifiers: Osteoarthritis location: multiple joints Osteoarthritis type: primary Qualified Code(s): M15.0 - Primary generalized (osteo)arthritis (7) Tobacco abuse Problem: Chronic (8) Weakness Problem: Chronic (9) Alcohol abuse Problem: Chronic (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 coli urinary tract infection Problem: Acute
[2016-05-20] MEDS: FOLIC ACID 1 MG TABLET PO SCH (09:16)
[2016-05-20] MEDS: MULTIVITAMINS 1 CAP CAPSULE PO SCH (09:16)
[2016-05-20] MEDS: THIAMINE HCL 100 MG TABLET PO SCH (09:16)
[2016-05-20] MEDS: CYANOCOBALAMIN 1,000 MCG TABLET PO SCH (09:17)
[2016-05-20] MEDS: ACETAMINOPHEN 325 MG TABLET PO PRN (09:23)
[2016-05-20] MEDS: ENOXAPARIN SODIUM 40 MG/0.4 ML SYRG SC SCH (21:11)
[2016-05-21] MEDS: POTASSIUM CHLORIDE 40 MEQ in NORMAL SALINE 1,000 ML IV SCH ×3 (01:33→21:06)
[2016-05-21 06:10] LABS: Anion Gap 13.1 mmol/L (6.8-13.8); BUN/Creatinine Ratio 4.3 (9.0-21.6); Calcium * 7.7 mg/dL (7.9-10.9); Carbon Dioxide 22.9 mmol/L (24-32.6); Estimated Creat Clear 102.2
--- NOTE | 2016-05-21 06:32 | PN ---
<Berenice Cabrera - Last Filed: 05/21/16 06:39> Subjective - Date and Time Seen Date: 05/21/16 Time: 06:19 Subjective Narrative: Mrs. Miranda is awake and in no distress. Has no complaints. No acute events according to nursing. Needs placement finding due to wounds and weakness. Objective - Vitals Vitals: Last Vital Signs Temp 37.3 C 05/21/16 06:07 Pulse 103 H 05/21/16 06:07 Resp 24 H 05/21/16 06:07 BP 157/89 05/21/16 06:07 Pulse Ox 95 05/21/16 06:07 - Abnormal Lab Findings Abnormal Lab Findings: Abnormal Lab Results 05/18/16 05/20/16 05/21/16 Range/Units 11:40 05:00 05:00 Sodium 130 L 130 L (132-142) mmol/L Carbon Dioxide 21.6 L 22.9 L (24-32.6) mmol/L BUN 2 L (3-23) mg/dL Creatinine 0.36 L (0.4-1.4) mg/dL Est GFR (Non-Af Amer) 193 H 145 H D (60-130) mL/min BUN/Creatinine Ratio 8.3 L 4.3 L (9.0-21.6) Calcium 7.5 L 7.7 L (7.9-10.9) mg/dL Prealbumin <4 L mg/dL - Exam Constitutional: Present: Alert, Oriented x3, No distress ENT Exam: Present: normal ENT inspection, hearing grossly normal, moist mucous membranes. Absent: nasal congestion, nasal drainage Neck: Present: full range of motion, supple, normal inspection Breasts: Present: Exam deferred Respiratory: Present: lungs clear, no accessory muscle use, No wheezing Cardiovascular/Chest: Present: regular rate, rhythm, no murmur Abdomen: Present: Normal bowel sounds, soft, nontender /Rectal: Present: Other - Kasper Catheter. Extremity: Present: normal range of motion, no calf tenderness, lower extremity edema - +2 BLE. Skin Exam: Present: other - Erythema on BLE, venous stasis ulcer on BLE, Excoriated genny rectal folds, Stage 2 ulcers on back thighs and buttock folds. Lymphatic: Present: no adenopathy Neurologic: Present: alert, oriented x 3 Appearance: Present: appropriate appearance, impaired insight Eye contact: Present: cooperative, good eye contact, normal speech Thoughts: Present: normal thought pattern, no apparent hallucination Cauti Physician Documentation - Urinary Catheter Management Urethral (Kasper) Date of Insertion: 05/18/16 Time of Insertion: 08:45 Assessment/Plan - Problems/Diagnosis (1) UTI (urinary tract infection) Problem: Acute QualifierTitle: Urinary tract infection type: acute cystitis Hematuria presence: without hematuria Qualified Code(s): N30.00 - Acute cystitis without hematuria Narrative: UC showed E-coli growth- continue with Rocephin as it will cover for cellulitis as well. (2) Cellulitis Problem: Acute QualifierTitle: Site of cellulitis: extremity Laterality: unspecified laterality Narrative: Erythema on BLE-Continue Rocephin. (3) Hyponatremia with decreased serum osmolality Problem: Acute Narrative: Noted with Na of 114 on admission . received 3% NS for 48 hrs. This am 130, continue IVF hydration with NS. (4) Pressure ulcer Problem: Acute QualifierTitle: Pressure ulcer location: other site Pressure ulcer stage : stage 2 Qualified Code(s): L89.892 - Pressure ulcer of other site, stage 2 Narrative: seen by Wound care- Dr Sandoval, continue with his treatment recommendations. Has kasper catheter to prevent wound deterioration from incontinence. (5) Venous stasis Problem: Acute (6) Discharge planning issues Problem: Acute Narrative: Has history of falls and weakness. Has an ailing and not able to provide adequate care for the patient. Will need placement at discharge due to inability to provide self care and this will be get complex given the nature and location of pressure sores ( buttock and posterior thighs). Will have case management aid in this process (7) Hypokalemia Problem: Resolved (8) Generalized weakness Problem: Acute Narrative: Continue with PT/OT- Awaiting placement. <Kieran Deluna - Last Filed: 05/21/16 16:39> Objective - Vitals Vitals: Last Vital Signs Temp 36.8 C 05/21/16 15:06 Pulse 101 H 05/21/16 15:06 Resp 18 05/21/16 15:06 BP 93/47 05/21/16 15:06 Pulse Ox 91 05/21/16 15:06 - Abnormal Lab Findings Abnormal Lab Findings: Abnormal Lab Results 05/21/16 Range/Units 05:00 Sodium 130 L (132-142) mmol/L Carbon Dioxide 22.9 L (24-32.6) mmol/L BUN 2 L (3-23) mg/dL Est GFR (Non-Af Amer) 145 H D (60-130) mL/min BUN/Creatinine Ratio 4.3 L (9.0-21.6) Calcium 7.7 L (7.9-10.9) mg/dL Assessment/Plan Plan Narrative: Record reviewed. Patient examined. All of Berenice Cabrera's care was directed by me. Reinforced transfer next week to [facility]. - Problems/Diagnosis (1) Generalized weakness Problem: Acute (2) Hyponatremia with decreased serum osmolality Problem: Acute (3) UTI (urinary tract infection) Problem: Acute Qualifiers: Urinary tract infection type: acute cystitis Hematuria presence: without hematuria Qualified Code(s): N30.00 - Acute cystitis without hematuria (4) Cellulitis Problem: Acute Qualifiers: Site of cellulitis: extremity Site of cellulitis of extremity: lower extremity Laterality: unspecified laterality Qualified Code(s): L03.119 - Cellulitis of unspecified part of limb (5) Falls Problem: Acute Qualifiers: Encounter type: initial encounter Qualified Code(s): W19.XXXA - Unspecified fall, initial encounter (6) Osteoarthritis Problem: Chronic Qualifiers: Osteoarthritis location: multiple joints Osteoarthritis type: primary Qualified Code(s): M15.0 - Primary generalized (osteo)arthritis (7) Tobacco abuse Problem: Chronic (8) Weakness Problem: Chronic (9) Alcohol abuse Problem: Chronic (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 coli urinary tract infection Problem: Acute
[2016-05-21] MEDS: ALBUTEROL SULFATE/IPRATROPIUM 3 ML NEBU IH SCH ×4 (07:27→18:14)
[2016-05-21] MEDS: MULTIVITAMINS 1 CAP CAPSULE PO SCH (09:00)
[2016-05-21] MEDS: CYANOCOBALAMIN 1,000 MCG TABLET PO SCH (09:00)
[2016-05-21] MEDS: FOLIC ACID 1 MG TABLET PO SCH (09:00)
[2016-05-21] MEDS: THIAMINE HCL 100 MG TABLET PO SCH (09:00)
[2016-05-21] MEDS: ACETAMINOPHEN 325 MG TABLET PO PRN (19:09)
[2016-05-21] MEDS: ENOXAPARIN SODIUM 40 MG/0.4 ML SYRG SC SCH (21:06)
--- NOTE | 2016-05-22 07:15 | PN ---
<Berenice Cabrera - Last Filed: 05/22/16 07:21> Subjective - Date and Time Seen Date: 05/22/16 Time: 07:12 Subjective Narrative: Mrs. Miranda is awake and in no distress. Has no complaints. No acute events according to nursing. Needs placement finding due to wounds and weakness & case mgt is still looking into this. Objective - Vitals Vitals: Last Vital Signs Temp 36.7 C 05/22/16 06:13 Pulse 104 H 05/22/16 06:13 Resp 20 05/22/16 06:13 BP 151/91 05/22/16 06:13 Pulse Ox 90 05/22/16 06:13 - Exam Constitutional: Present: Alert, Oriented x3, Cooperative, No distress ENT Exam: Present: normal ENT inspection, hearing grossly normal Neck: Present: full range of motion, supple, normal inspection Breasts: Present: Exam deferred Respiratory: Present: lungs clear, wheezing, expiration (prolonged) Cardiovascular/Chest: Present: regular rate, rhythm, no murmur Abdomen: Present: Normal bowel sounds, soft, nontender /Rectal: Present: Other - Kasper Catheter. Extremity: Present: no pedal edema, no calf tenderness Skin Exam: Present: other - Stage 2 pressure sores on back thighs, redness on BLE, Venous stasis ulcer on BLE Lymphatic: Present: no adenopathy Neurologic: Present: alert, oriented x 3 Appearance: Present: appropriate insight Eye contact: Present: cooperative, good eye contact, normal speech Thoughts: Present: normal thought pattern, no apparent hallucination Cauti Physician Documentation - Urinary Catheter Management Urethral (Kasper) Date of Insertion: 05/18/16 Time of Insertion: 08:45 Assessment/Plan - Problems/Diagnosis (1) UTI (urinary tract infection) Problem: Acute QualifierTitle: Urinary tract infection type: acute cystitis Hematuria presence: without hematuria Qualified Code(s): N30.00 - Acute cystitis without hematuria Narrative: UC showed E-coli growth- continue with Rocephin as it will cover for cellulitis as well. (2) Cellulitis Problem: Acute QualifierTitle: Site of cellulitis: extremity Laterality: unspecified laterality Narrative: Erythema on BLE-Continue Rocephin. (3) Hyponatremia with decreased serum osmolality Problem: Acute Narrative: Noted with Na of 114 on admission . received 3% NS for 48 hrs. This am 130, continue IVF hydration with NS. (4) Pressure ulcer Problem: Acute QualifierTitle: Pressure ulcer location: other site Pressure ulcer stage : stage 2 Qualified Code(s): L89.892 - Pressure ulcer of other site, stage 2 Narrative: seen by Wound care- Dr Sandoval, continue with his treatment recommendations. Has kasper catheter to prevent wound deterioration from incontinence. (5) Discharge planning issues Problem: Acute Narrative: Has history of falls and weakness. Has an ailing and not able to provide adequate care for the patient. Will need placement at discharge due to inability to provide self care and this will be get complex given the nature and location of pressure sores ( buttock and posterior thighs). Will have case management aid in this process. (6) Hypokalemia Problem: Resolved (7) Generalized weakness Problem: Acute Narrative: Continue PT/OT- Encourage ambulation. (8) Venous stasis Problem: Acute <Kieran Deluna - Last Filed: 05/22/16 13:04> Objective - Vitals Vitals: Last Vital Signs Temp 37.0 C 05/22/16 10:41 Pulse 107 H 05/22/16 10:41 Resp 20 05/22/16 10:41 BP 117/73 05/22/16 10:41 Pulse Ox 95 05/22/16 10:41 Assessment/Plan Plan Narrative: I directed all of [facility]'s care for this patient. Record reviewed and patient examined. Continue IV antibiotics and IV saline. Follow labs. PT and OT. Plan to [facility] mid to end of next week. - Problems/Diagnosis (1) Generalized weakness Problem: Acute (2) Hyponatremia with decreased serum osmolality Problem: Acute (3) UTI (urinary tract infection) Problem: Acute Qualifiers: Urinary tract infection type: acute cystitis Hematuria presence: without hematuria Qualified Code(s): N30.00 - Acute cystitis without hematuria (4) Cellulitis Problem: Acute Qualifiers: Site of cellulitis: extremity Site of cellulitis of extremity: lower extremity Laterality: unspecified laterality Qualified Code(s): L03.119 - Cellulitis of unspecified part of limb (5) Falls Problem: Acute Qualifiers: Encounter type: initial encounter Qualified Code(s): W19.XXXA - Unspecified fall, initial encounter (6) Osteoarthritis Problem: Chronic Qualifiers: Osteoarthritis location: multiple joints Osteoarthritis type: primary Qualified Code(s): M15.0 - Primary generalized (osteo)arthritis (7) Tobacco abuse Problem: Chronic (8) Weakness Problem: Chronic (9) Alcohol abuse Problem: Chronic (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 coli urinary tract infection Problem: Acute
[2016-05-22] MEDS: ALBUTEROL SULFATE/IPRATROPIUM 3 ML NEBU IH SCH ×4 (07:26→18:03)
[2016-05-22] MEDS: POTASSIUM CHLORIDE 40 MEQ in NORMAL SALINE 1,000 ML IV SCH ×2 (07:38→18:15)
[2016-05-22] MEDS: FOLIC ACID 1 MG TABLET PO SCH (09:30)
[2016-05-22] MEDS: MULTIVITAMINS 1 CAP CAPSULE PO SCH (09:30)
[2016-05-22] MEDS: THIAMINE HCL 100 MG TABLET PO SCH (09:30)
[2016-05-22] MEDS: CYANOCOBALAMIN 1,000 MCG TABLET PO SCH (09:30)
[2016-05-22] MEDS: ACETAMINOPHEN 325 MG TABLET PO PRN (17:43)
[2016-05-22] MEDS: ENOXAPARIN SODIUM 40 MG/0.4 ML SYRG SC SCH (21:35)
[2016-05-23] MEDS: POTASSIUM CHLORIDE 40 MEQ in NORMAL SALINE 1,000 ML IV SCH ×2 (04:27→14:01)
[2016-05-23 05:21] LABS: Hematocrit 27.2 % (37.0-47.0); Hemoglobin 9.3 gm/dL (12.5-16.0); Mean Cell Volume 90.7 fl (78-100); Mean Corpuscular Hgb Conc 34.2 g/dl (32-36); Mean Platelet Volume 9.1 fl (6.0-9.5); Neutrophil # 3.7 K/mm3 (1.3-6.0); Neutrophil % 69.4 % (42-75.0); Platelet Count 218 K/mm3 (150-450); Red Cell Distribution Width 15.3 % (11.5-14.0); White Blood Count 5.4 K/mm3 (4.0-10.5)
[2016-05-23 05:37] LABS: BUN/Creatinine Ratio 6.8 (9.0-21.6); Calcium * 7.5 mg/dL (7.9-10.9); Carbon Dioxide 23.2 mmol/L (24-32.6); Estimated Creat Clear 106.9; Potassium 4.2 mmol/L (3.4-4.6)
--- NOTE | 2016-05-23 05:38 | PN ---
Subjective - Date and Time Seen Date: 05/23/16 Time: 05:33 Subjective Narrative: Mrs. Miranda examine this morning. Complaints of poor appetite. Wounds are healing slowly. Has been able to ambulate around the room. Awaiting placement plans to be finalized. Objective - Vitals Vitals: Last Vital Signs Temp 36.7 C 05/23/16 02:27 Pulse 90 05/23/16 02:27 Resp 18 05/23/16 02:27 BP 114/66 05/23/16 02:27 Pulse Ox 91 05/23/16 02:27 - Abnormal Lab Findings Abnormal Lab Findings: Abnormal Lab Results 05/23/16 Range/Units 05:10 RBC 3.00 L (4.2-5.4) M/mm3 Hgb 9.3 L (12.5-16.0) gm/dL Hct 27.2 L (37.0-47.0) % RDW 15.3 H (11.5-14.0) % Immature Gran % (Auto) 1.50 H (0.001-0.429) % Immature Gran # (Auto) 0.08 H (0.000-0.0310) K/mm3 Lymphocytes % 14.9 L (20-51) % Monocytes % 10.1 H (0.0-9) % Eosinophils % 3.4 H (0.0-3.0) % Lymphocytes # 0.8 L (1.5-3.5) k/mm3 - Exam Constitutional: Present: Alert, Oriented x3, No distress ENT Exam: Present: normal ENT inspection, hard of hearing. Absent: nasal congestion, nasal drainage Neck: Present: full range of motion, supple, normal inspection Breasts: Present: Exam deferred Respiratory: Present: lungs clear, rhonchi, No wheezing Cardiovascular/Chest: Present: regular rate, rhythm, no murmur Abdomen: Present: Normal bowel sounds, soft, nontender /Rectal: Present: Exam deferred Extremity: Present: non-tender, no pedal edema Skin Exam: Present: other - Stage 2 ulcers/Wounds on Posterior tights and buttock folds. excoriated genny rectal folds. Lymphatic: Present: no adenopathy Neurologic: Present: no motor/sensory deficits, alert, oriented x 3 Appearance: Present: appropriate appearance, appropriate insight Eye contact: Present: cooperative, good eye contact, normal speech Thoughts: Present: normal thought pattern, no apparent hallucination Cauti Physician Documentation - Urinary Catheter Management Urethral (Kasper) Date of Insertion: 05/18/16 Time of Insertion: 08:45 Assessment/Plan - Problems/Diagnosis (1) UTI (urinary tract infection) Problem: Acute Qualifiers: Urinary tract infection type: acute cystitis Hematuria presence: without hematuria Qualified Code(s): N30.00 - Acute cystitis without hematuria Narrative: UC showed E-coli growth- continue with Rocephin as it will cover for cellulitis as well. (2) Cellulitis Problem: Acute Qualifiers: Site of cellulitis: extremity Laterality: unspecified laterality Narrative: Erythema on BLE-Continue Rocephin. (3) Hyponatremia with decreased serum osmolality Problem: Acute Narrative: Na was 114 on admission, received 3 % NS x 48hr followed by NS. In in NR today. (4) Pressure ulcer Problem: Acute Qualifiers: Pressure ulcer location: other site Pressure ulcer stage: stage 2 Qualified Code(s): L89.892 - Pressure ulcer of other site, stage 2 Narrative: seen by Wound care- Dr Sandoval, continue with his treatment recommendations. Has kasper catheter to prevent wound deterioration from incontinence. (5) Discharge planning issues Problem: Acute Narrative: Has history of falls and weakness. Has an ailing and not able to provide adequate care for the patient. Will need placement at discharge due to inability to provide self care and this will be get complex given the nature and location of pressure sores ( buttock and posterior thighs). Case mgt assisting with placement finding. Plan is to transfer /discharge to [facility] sometime this week. . (6) Hypokalemia Problem: Resolved (7) Generalized weakness Problem: Acute Narrative: Continue PT/OT encourage ambulation. (8) Venous stasis Problem: Acute
[2016-05-23] MEDS: ALBUTEROL SULFATE/IPRATROPIUM 3 ML NEBU IH SCH ×4 (07:20→18:09)
[2016-05-23] MEDS: FOLIC ACID 1 MG TABLET PO SCH (08:39)
[2016-05-23] MEDS: MULTIVITAMINS 1 CAP CAPSULE PO SCH (08:39)
[2016-05-23] MEDS: THIAMINE HCL 100 MG TABLET PO SCH (08:39)
[2016-05-23] MEDS: CYANOCOBALAMIN 1,000 MCG TABLET PO SCH (08:39)
[2016-05-23] MEDS: ACETAMINOPHEN 325 MG TABLET PO PRN (12:42)
[2016-05-23] MEDS: CALCIUM CARBONATE 500 MG TAB.CHEW PO PRN (16:21)
[2016-05-23] MEDS: ENOXAPARIN SODIUM 40 MG/0.4 ML SYRG SC SCH (20:55)
[2016-05-24] MEDS: POTASSIUM CHLORIDE 40 MEQ in NORMAL SALINE 1,000 ML IV SCH ×3 (01:46→23:11)
[2016-05-24] MEDS: ALBUTEROL SULFATE/IPRATROPIUM 3 ML NEBU IH SCH ×4 (05:59→18:14)
[2016-05-24] MEDS: CALCIUM CARBONATE 500 MG TAB.CHEW PO PRN ×2 (08:24→14:08)
[2016-05-24] MEDS: THIAMINE HCL 100 MG TABLET PO SCH (08:27)
[2016-05-24] MEDS: MULTIVITAMINS 1 CAP CAPSULE PO SCH (08:27)
[2016-05-24] MEDS: CYANOCOBALAMIN 1,000 MCG TABLET PO SCH (08:27)
[2016-05-24] MEDS: FOLIC ACID 1 MG TABLET PO SCH (08:27)
--- NOTE | 2016-05-24 17:19 | PN ---
Subjective - Date and Time Seen Date: 05/24/16 Time: 17:17 Subjective Narrative: Patient has no complaint. Still awaiting NH placement. Objective - Review of Systems Generalized/Overall Review: Reports: Weakness. Denies: Chills, Fever EENTM: Reports: No Symptoms Reported Respiratory: Reports: Shortness of Breath. Denies: Cough Cardiac: Denies: Chest Pain, Edema, Palpitations Abdominal: Denies: Nausea, Vomiting Genitourinary Symptoms: Denies: Urgency, Frequency Musculoskeletal Complaints: Reports: Joint Pain - Vitals Vitals: Last Vital Signs Temp 36.7 C 05/24/16 13:20 Pulse 102 H 05/24/16 15:15 Resp 20 05/24/16 15:15 BP 114/73 05/24/16 13:20 Pulse Ox 99 05/24/16 15:05 - Exam Constitutional: Present: Alert, Oriented x3, Cooperative ENT Exam: Present: hearing grossly normal Neck: Present: supple Breasts: Present: Exam deferred Respiratory: Present: decreased breath sounds, No rales, No wheezing Abdomen: Present: Normal bowel sounds, soft, nontender, nondistended Extremity: Present: no calf tenderness, pedal edema Cauti Physician Documentation - Urinary Catheter Management Urethral (Ellis) Date of Insertion: 05/18/16 Time of Insertion: 08:45 Assessment/Plan - Problems/Diagnosis (1) Discharge planning issues Problem: Acute (2) Generalized weakness Problem: Acute (3) Hyponatremia with decreased serum osmolality Problem: Resolved (4) UTI (urinary tract infection) Problem: Resolved Qualifiers: Urinary tract infection type: acute cystitis Hematuria presence: without hematuria Qualified Code(s): N30.00 - Acute cystitis without hematuria Narrative: E. Coli- had IV rocephin - (5) Cellulitis Problem: Acute Qualifiers: Site of cellulitis: extremity Laterality: unspecified laterality Narrative: day # 8 of IV rocephin. (6) Generalized weakness Problem: Acute Narrative: PT on the case (7) Pressure ulcer Problem: Acute Qualifiers: Pressure ulcer location: other site Pressure ulcer stage: stage 2 Qualified Code(s): L89.892 - Pressure ulcer of other site, stage 2 Narrative: on rocephin. continue with off loading measures. (8) Venous stasis Problem: Chronic
[2016-05-24] MEDS: ENOXAPARIN SODIUM 40 MG/0.4 ML SYRG SC SCH (21:35)
[2016-05-25] MEDS: ALBUTEROL SULFATE 2.5 MG/0.5 ML VIAL.NEB IH PRN (04:02)
[2016-05-25] MEDS: ALBUTEROL SULFATE/IPRATROPIUM 3 ML NEBU IH SCH ×4 (07:11→19:24)
--- NOTE | 2016-05-25 07:45 | PN ---
Subjective - Date and Time Seen Date: 05/25/16 Time: 07:42 Subjective Narrative: Patient afebrile. NAD. awaiting placement. Objective - Review of Systems Generalized/Overall Review: Reports: Weakness. Denies: Chills, Fever EENTM: Reports: No Symptoms Reported Respiratory: Denies: Cough, Shortness of Breath Cardiac: Denies: Chest Pain, Edema, Palpitations Abdominal: Denies: Nausea, Vomiting Genitourinary Symptoms: Denies: Urgency, Frequency - Vitals Vitals: Last Vital Signs Temp 36.6 C 05/25/16 07:11 Pulse 106 H 05/25/16 07:11 Resp 20 05/25/16 07:11 BP 130/84 05/25/16 07:11 Pulse Ox 93 05/25/16 07:11 - Exam Constitutional: Present: Alert, Oriented x3, Cooperative, Elderly ENT Exam: Present: hearing grossly normal Neck: Present: supple Breasts: Present: Exam deferred Respiratory: Present: decreased breath sounds, No rales, No wheezing Cardiovascular/Chest: Present: regular rate, rhythm, no JVD, no murmur Abdomen: Present: Normal bowel sounds, soft, nontender, nondistended Extremity: Present: no calf tenderness, other - extremities wrapped in Kerlex Cauti Physician Documentation - Urinary Catheter Management Urethral (Ellis) Date of Insertion: 05/18/16 Time of Insertion: 08:45 Assessment/Plan - Problems/Diagnosis (1) Discharge planning issues Problem: Acute Narrative: still with issues of placement . (2) Generalized weakness Problem: Acute Narrative: continue with PT (3) Hyponatremia with decreased serum osmolality Problem: Resolved (4) UTI (urinary tract infection) Problem: Resolved Qualifiers: Urinary tract infection type: acute cystitis Hematuria presence: without hematuria Qualified Code(s): N30.00 - Acute cystitis without hematuria (5) Cellulitis Problem: Acute Qualifiers: Site of cellulitis: extremity Laterality: unspecified laterality Narrative: Day #9 of IV rocephin (6) Generalized weakness Problem: Acute (7) Pressure ulcer Problem: Acute Qualifiers: Pressure ulcer location: other site Pressure ulcer stage: stage 2 Qualified Code(s): L89.892 - Pressure ulcer of other site, stage 2 (8) Venous stasis Problem: Chronic
[2016-05-25] MEDS: POTASSIUM CHLORIDE 40 MEQ in NORMAL SALINE 1,000 ML IV SCH ×2 (10:15→20:36)
[2016-05-25] MEDS: FOLIC ACID 1 MG TABLET PO SCH (10:22)
[2016-05-25] MEDS: MULTIVITAMINS 1 CAP CAPSULE PO SCH (10:22)
[2016-05-25] MEDS: CYANOCOBALAMIN 1,000 MCG TABLET PO SCH (10:23)
[2016-05-25] MEDS: THIAMINE HCL 100 MG TABLET PO SCH (10:23)
[2016-05-25] MEDS: CALCIUM CARBONATE 500 MG TAB.CHEW PO PRN (14:14)
[2016-05-25] MEDS: ACETAMINOPHEN 325 MG TABLET PO PRN (20:42)
[2016-05-25] MEDS: ENOXAPARIN SODIUM 40 MG/0.4 ML SYRG SC SCH (20:45)
[2016-05-26] MEDS: ALBUTEROL SULFATE/IPRATROPIUM 3 ML NEBU IH SCH ×4 (06:09→18:13)
[2016-05-26] MEDS: THIAMINE HCL 100 MG TABLET PO SCH (08:01)
[2016-05-26] MEDS: CYANOCOBALAMIN 1,000 MCG TABLET PO SCH (08:01)
[2016-05-26] MEDS: FOLIC ACID 1 MG TABLET PO SCH (08:01)
[2016-05-26] MEDS: MULTIVITAMINS 1 CAP CAPSULE PO SCH (08:01)
[2016-05-26] MEDS: POTASSIUM CHLORIDE 40 MEQ in NORMAL SALINE 1,000 ML IV SCH ×2 (08:12→18:30)
[2016-05-26] MEDS: CALCIUM CARBONATE 500 MG TAB.CHEW PO PRN (10:07)
--- NOTE | 2016-05-26 11:22 | PN ---
Subjective - Date and Time Seen Date: 05/26/16 Time: 06:30 Subjective Narrative: I reviewed the record and examined the patient. Skin excoriation is improving. We will check lykim tomorrow morning. At the present time, we are working on placement. Objective - Review of Systems Generalized/Overall Review: Reports: Malaise EENTM: Reports: No Symptoms Reported Respiratory: Reports: No Symptoms Reported Cardiac: Reports: No Symptoms Reported Abdominal: Reports: No Symptoms Reported Genitourinary Symptoms: Reports: No Symptoms Reported Musculoskeletal Complaints: Reports: No Symptoms Reported Neurological: Reports: No Symptoms Reported Skin: Reports: No Symptoms Reported Endocrine: Reports: No Symptoms Reported Misc: All systems neg except as marked - Vitals Vitals: Last Vital Signs Selected Entries 05/26/16 05/26/16 02:41 06:19 Temperature 36.7 C Temperature Oral Source Pulse Rate 90 88 Respiratory 18 20 Rate Respiratory Normal Depth Blood Pressure 131/71 Blood Pressure Supine Position O2 Sat by Pulse 90 Oximetry Oxygen Delivery Room Air Method - Exam Constitutional: Present: Alert, Oriented x3, Cooperative, Well developed, Well nourished, No distress ENT Exam: Present: normal ENT inspection, hearing grossly normal Neck: Present: normal inspection Respiratory: Present: lungs clear, no respiratory distress Cardiovascular/Chest: Present: regular rate, rhythm, no murmur Abdomen: Present: Normal bowel sounds, soft, nontender, nondistended, no rebound tenderness, no hepatospenomegaly, no masses Extremity: Present: normal range of motion, no pedal edema Skin Exam: Present: normal color, warm/dry, no cyanosis Neurologic: Present: alert, oriented x 3 Appearance: Present: appropriate appearance, neat Eye contact: Present: cooperative, good eye contact, normal speech Cauti Physician Documentation - Urinary Catheter Management Urethral (Ellis) Date of Insertion: 05/18/16 Time of Insertion: 08:45 Assessment/Plan Plan Narrative: Lazaro tomorrow. PT OT. Continue to work on placement. - Problems/Diagnosis (1) Generalized weakness Problem: Acute (2) Hyponatremia with decreased serum osmolality Problem: Resolved (3) UTI (urinary tract infection) Problem: Resolved Qualifiers: Urinary tract infection type: acute cystitis Hematuria presence: without hematuria Qualified Code(s): N30.00 - Acute cystitis without hematuria (4) Cellulitis Problem: Acute Qualifiers: Site of cellulitis: extremity Site of cellulitis of extremity: lower extremity Laterality: unspecified laterality Qualified Code(s): L03.119 - Cellulitis of unspecified part of limb (5) Falls Problem: Acute Qualifiers: Encounter type: initial encounter Qualified Code(s): W19.XXXA - Unspecified fall, initial encounter (6) Osteoarthritis Problem: Chronic Qualifiers: Osteoarthritis location: multiple joints Osteoarthritis type: primary Qualified Code(s): M15.0 - Primary generalized (osteo)arthritis (7) Tobacco abuse Problem: Chronic (8) Weakness Problem: Chronic (9) Alcohol abuse Problem: Chronic (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 coli urinary tract infection Problem: Acute
[2016-05-26] MEDS: SULFAMETHOXAZOLE/TRIMETHOPRIM 1 TAB TABLET PO SCH (21:36)
[2016-05-26] MEDS: ENOXAPARIN SODIUM 40 MG/0.4 ML SYRG SC SCH (21:36)
[2016-05-27] MEDS: POTASSIUM CHLORIDE 40 MEQ in NORMAL SALINE 1,000 ML IV SCH (05:00)
[2016-05-27] MEDS: ALBUTEROL SULFATE/IPRATROPIUM 3 ML NEBU IH SCH ×4 (05:59→18:06)
[2016-05-27 06:01] LABS: Anion Gap 12.9 mmol/L (6.8-13.8); Carbon Dioxide 22.4 mmol/L (24-32.6); Potassium 4.3 mmol/L (3.4-4.6)
[2016-05-27] MEDS: CALCIUM CARBONATE 500 MG TAB.CHEW PO PRN ×2 (08:49→16:19)
[2016-05-27] MEDS: SULFAMETHOXAZOLE/TRIMETHOPRIM 1 TAB TABLET PO SCH ×2 (08:50→20:21)
[2016-05-27] MEDS: SODIUM CHLORIDE 1 GM TABLET PO SCH ×3 (08:50→17:53)
[2016-05-27] MEDS: MULTIVITAMINS 1 CAP CAPSULE PO SCH (08:52)
[2016-05-27] MEDS: FOLIC ACID 1 MG TABLET PO SCH (08:52)
[2016-05-27] MEDS: CYANOCOBALAMIN 1,000 MCG TABLET PO SCH (08:52)
[2016-05-27] MEDS: THIAMINE HCL 100 MG TABLET PO SCH (08:52)
[2016-05-27] MEDS: ALBUTEROL SULFATE 2.5 MG/0.5 ML VIAL.NEB IH PRN (10:23)
--- NOTE | 2016-05-27 18:15 | PN ---
Subjective - Date and Time Seen Date: 05/27/16 Time: 18:12 Subjective Narrative: I reviewed the record and examined the patient. Skin excoriation is improving. Continue to work on placement. Sodium low, will restrict fluids and add salt tablets. Objective - Review of Systems Generalized/Overall Review: Reports: Malaise EENTM: Reports: No Symptoms Reported Respiratory: Reports: No Symptoms Reported Cardiac: Reports: No Symptoms Reported Abdominal: Reports: No Symptoms Reported Genitourinary Symptoms: Reports: No Symptoms Reported Musculoskeletal Complaints: Reports: No Symptoms Reported Neurological: Reports: No Symptoms Reported Skin: Reports: No Symptoms Reported Endocrine: Reports: No Symptoms Reported Misc: All systems neg except as marked - Vitals Vitals: Last Vital Signs Selected Entries 05/27/16 14:23 Temperature 37.6 C H Temperature Temporal Artery Source Scan Pulse Rate 110 H Respiratory 20 Rate Blood Pressure 100/64 Blood Pressure Sitting Position O2 Sat by Pulse 91 Oximetry Oxygen Delivery Room Air Method - Abnormal Lab Findings Abnormal Lab Findings: Abnormal Lab Results 05/27/16 Range/Units 05:20 Sodium 129 L (132-142) mmol/L Carbon Dioxide 22.4 L (24-32.6) mmol/L - Exam Constitutional: Present: Alert, Cooperative, Well developed, Well nourished, No distress ENT Exam: Present: normal ENT inspection Neck: Present: supple Respiratory: Present: lungs clear, no respiratory distress Cardiovascular/Chest: Present: regular rate, rhythm, no murmur Abdomen: Present: Normal bowel sounds, soft, nontender, nondistended, no rebound tenderness, no hepatospenomegaly, no masses Extremity: Present: pedal edema, other - healing wounds Skin Exam: Present: normal color, warm/dry, no cyanosis Neurologic: Present: alert. Absent: oriented x 3 Appearance: Present: appropriate appearance, neat Eye contact: Present: cooperative Cauti Physician Documentation - Urinary Catheter Management Urethral (Ellis) Date of Insertion: 05/18/16 Time of Insertion: 08:45 Assessment/Plan Plan Narrative: Fluid restriction. Salt tablets. Follow labs. Placement. - Problems/Diagnosis (1) Generalized weakness Problem: Acute (2) Hyponatremia with decreased serum osmolality Problem: Resolved (3) UTI (urinary tract infection) Problem: Resolved Qualifiers: Urinary tract infection type: acute cystitis Hematuria presence: without hematuria Qualified Code(s): N30.00 - Acute cystitis without hematuria (4) Cellulitis Problem: Acute Qualifiers: Site of cellulitis: extremity Site of cellulitis of extremity: lower extremity Laterality: unspecified laterality Qualified Code(s): L03.119 - Cellulitis of unspecified part of limb (5) Falls Problem: Acute Qualifiers: Encounter type: initial encounter Qualified Code(s): W19.XXXA - Unspecified fall, initial encounter (6) Osteoarthritis Problem: Chronic Qualifiers: Osteoarthritis location: multiple joints Osteoarthritis type: primary Qualified Code(s): M15.0 - Primary generalized (osteo)arthritis (7) Tobacco abuse Problem: Chronic (8) Weakness Problem: Chronic (9) Alcohol abuse Problem: Chronic (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 coli urinary tract infection Problem: Acute
[2016-05-27] MEDS: ENOXAPARIN SODIUM 40 MG/0.4 ML SYRG SC SCH (20:48)
[2016-05-28] MEDS: ALBUTEROL SULFATE/IPRATROPIUM 3 ML NEBU IH SCH ×4 (06:00→18:16)
[2016-05-28 06:20] LABS: Anion Gap 12.8 mmol/L (6.8-13.8); Carbon Dioxide 22.8 mmol/L (24-32.6); Potassium 3.6 mmol/L (3.4-4.6)
[2016-05-28] MEDS: SULFAMETHOXAZOLE/TRIMETHOPRIM 1 TAB TABLET PO SCH ×2 (09:26→21:12)
[2016-05-28] MEDS: CYANOCOBALAMIN 1,000 MCG TABLET PO SCH (09:26)
[2016-05-28] MEDS: FOLIC ACID 1 MG TABLET PO SCH (09:26)
[2016-05-28] MEDS: THIAMINE HCL 100 MG TABLET PO SCH (09:26)
[2016-05-28] MEDS: SODIUM CHLORIDE 1 GM TABLET PO SCH ×3 (09:26→16:59)
--- NOTE | 2016-05-28 09:39 | PN ---
Subjective - Date and Time Seen Date: 05/28/16 Time: 09:33 Subjective Narrative: I reviewed the record and examined the patient. Skin excoriation is improving. Continue to work on placement. Sodium low, have restricted fluids and added salt tablets. The patient promises to walk 10 feet in the dee this afternoon. Objective - Review of Systems Generalized/Overall Review: Reports: Weakness, Malaise EENTM: Reports: No Symptoms Reported Respiratory: Reports: No Symptoms Reported Cardiac: Reports: No Symptoms Reported Abdominal: Reports: No Symptoms Reported Genitourinary Symptoms: Reports: No Symptoms Reported Musculoskeletal Complaints: Reports: No Symptoms Reported Neurological: Reports: No Symptoms Reported Skin: Reports: No Symptoms Reported Endocrine: Reports: No Symptoms Reported Misc: All systems neg except as marked - Vitals Vitals: Last Vital Signs Selected Entries 05/28/16 08:04 Temperature 36.8 C Temperature Oral Source Pulse Rate 95 Respiratory 18 Rate Blood Pressure 116/78 O2 Sat by Pulse 92 Oximetry Oxygen Delivery Room Air Method - Abnormal Lab Findings Abnormal Lab Findings: Abnormal Lab Results 05/28/16 Range/Units 06:00 Sodium 130 L (132-142) mmol/L Carbon Dioxide 22.8 L (24-32.6) mmol/L - Exam Constitutional: Present: Alert, Cooperative, Well developed, No distress, Other - oriented except to time ENT Exam: Present: normal ENT inspection, hearing grossly normal Neck: Present: normal inspection Respiratory: Present: normal breath sounds, no respiratory distress Cardiovascular/Chest: Present: regular rate, rhythm, no murmur Abdomen: Present: Normal bowel sounds, soft, nontender, nondistended, no rebound tenderness, no hepatospenomegaly, no masses Extremity: Present: no pedal edema, other - sores on lower and upper legs healing Lymphatic: Present: no adenopathy Neurologic: Present: alert Appearance: Present: appropriate appearance, neat Eye contact: Present: cooperative, good eye contact Cauti Physician Documentation - Urinary Catheter Management Urethral (Ellis) Date of Insertion: 05/18/16 Time of Insertion: 08:45 Assessment/Plan Plan Narrative: Continue antibiotics for UTI and cellulitis associated with pressure sores for a full ten days. Progressive ambulation. Sodium and potassium levels in AM. Placement. Local wound care. Salt tablets and fluid restriction. - Problems/Diagnosis (1) Generalized weakness Problem: Acute (2) Hyponatremia with decreased serum osmolality Problem: Resolved (3) UTI (urinary tract infection) Problem: Resolved Qualifiers: Urinary tract infection type: acute cystitis Hematuria presence: without hematuria Qualified Code(s): N30.00 - Acute cystitis without hematuria (4) Cellulitis Problem: Acute Qualifiers: Site of cellulitis: extremity Site of cellulitis of extremity: lower extremity Laterality: unspecified laterality Qualified Code(s): L03.119 - Cellulitis of unspecified part of limb (5) Falls Problem: Acute Qualifiers: Encounter type: initial encounter Qualified Code(s): W19.XXXA - Unspecified fall, initial encounter (6) Osteoarthritis Problem: Chronic Qualifiers: Osteoarthritis location: multiple joints Osteoarthritis type: primary Qualified Code(s): M15.0 - Primary generalized (osteo)arthritis (7) Tobacco abuse Problem: Chronic (8) Weakness Problem: Chronic (9) Alcohol abuse Problem: Chronic (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 coli urinary tract infection Problem: Acute
[2016-05-28] MEDS: POTASSIUM CHLORIDE 40 MEQ in NORMAL SALINE 1,000 ML IV SCH (10:22)
[2016-05-28] MEDS: MULTIVITAMINS 1 CAP CAPSULE PO SCH (10:22)
[2016-05-28] MEDS: ACETAMINOPHEN 325 MG TABLET PO PRN (19:04)
[2016-05-28] MEDS: ENOXAPARIN SODIUM 40 MG/0.4 ML SYRG SC SCH (21:15)
[2016-05-29 05:45] LABS: Potassium 3.5 mmol/L (3.4-4.6)
[2016-05-29] MEDS: ALBUTEROL SULFATE/IPRATROPIUM 3 ML NEBU IH SCH ×4 (06:00→18:10)
--- NOTE | 2016-05-29 07:56 | PN ---
Subjective - Date and Time Seen Date: 05/29/16 Time: 07:51 Subjective Narrative: I reviewed the record and examined the patient. Skin excoriation is improving. Sodium remains 130, have restricted fluids and added salt tablets. She did not walk in the dee yesterday as promised. Objective - Review of Systems Generalized/Overall Review: Reports: Malaise EENTM: Reports: No Symptoms Reported Respiratory: Reports: No Symptoms Reported Cardiac: Reports: No Symptoms Reported Abdominal: Reports: No Symptoms Reported Genitourinary Symptoms: Reports: No Symptoms Reported Musculoskeletal Complaints: Reports: No Symptoms Reported Neurological: Reports: No Symptoms Reported Skin: Reports: No Symptoms Reported Endocrine: Reports: No Symptoms Reported Misc: All systems neg except as marked - Vitals Vitals: Last Vital Signs Selected Entries 05/29/16 07:34 Temperature 36.8 C Temperature Oral Source Pulse Rate 100 Respiratory 20 Rate Respiratory Normal Depth Respiratory Normal Effort Respiratory Normal Pattern Blood Pressure 118/57 Blood Pressure Supine Position O2 Sat by Pulse 93 Oximetry Oxygen Delivery Room Air Method - Abnormal Lab Findings Abnormal Lab Findings: Abnormal Lab Results Laboratory Tests 05/20/16 05/21/16 05/23/16 05:00 05:00 05:10 Sodium 130 L 130 L 133 05/27/16 05/28/16 05/29/16 05:20 06:00 05:25 Sodium 129 L 130 L 130 L - Exam Constitutional: Present: Alert, Cooperative, Well developed, Well nourished, No distress ENT Exam: Present: normal ENT inspection, hearing grossly normal Neck: Present: normal inspection Respiratory: Present: normal breath sounds, no respiratory distress Cardiovascular/Chest: Present: regular rate, rhythm, no murmur Abdomen: Present: Normal bowel sounds, soft, nontender, nondistended, no rebound tenderness, no hepatospenomegaly, no masses Extremity: Present: pedal edema Skin Exam: Present: normal color, warm/dry, no cyanosis, other - healing pressure sores Neurologic: Present: alert Appearance: Present: appropriate appearance, neat Eye contact: Present: cooperative, good eye contact, normal speech Cauti Physician Documentation - Urinary Catheter Management Urethral (Ellis) Date of Insertion: 05/18/16 Time of Insertion: 08:45 Assessment/Plan Plan Narrative: Local care wounds. Antibiotics. Fluid restriction. Increase salt tablets. Follow labs. Work on placement. - Problems/Diagnosis (1) Generalized weakness Problem: Acute (2) Hyponatremia with decreased serum osmolality Problem: Resolved (3) UTI (urinary tract infection) Problem: Resolved Qualifiers: Urinary tract infection type: acute cystitis Hematuria presence: without hematuria Qualified Code(s): N30.00 - Acute cystitis without hematuria (4) Cellulitis Problem: Acute Qualifiers: Site of cellulitis: extremity Site of cellulitis of extremity: lower extremity Laterality: unspecified laterality Qualified Code(s): L03.119 - Cellulitis of unspecified part of limb (5) Falls Problem: Acute Qualifiers: Encounter type: initial encounter Qualified Code(s): W19.XXXA - Unspecified fall, initial encounter (6) Osteoarthritis Problem: Chronic Qualifiers: Osteoarthritis location: multiple joints Osteoarthritis type: primary Qualified Code(s): M15.0 - Primary generalized (osteo)arthritis (7) Tobacco abuse Problem: Chronic (8) Weakness Problem: Chronic (9) Alcohol abuse Problem: Chronic (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 coli urinary tract infection Problem: Acute
[2016-05-29] MEDS: THIAMINE HCL 100 MG TABLET PO SCH (08:58)
[2016-05-29] MEDS: SODIUM CHLORIDE 1 GM TABLET PO SCH ×3 (08:58→16:14)
[2016-05-29] MEDS: SULFAMETHOXAZOLE/TRIMETHOPRIM 1 TAB TABLET PO SCH ×2 (08:58→20:16)
[2016-05-29] MEDS: MULTIVITAMINS 1 CAP CAPSULE PO SCH (08:58)
[2016-05-29] MEDS: CYANOCOBALAMIN 1,000 MCG TABLET PO SCH (08:58)
[2016-05-29] MEDS: FOLIC ACID 1 MG TABLET PO SCH (08:58)
[2016-05-29] MEDS: ACETAMINOPHEN 325 MG TABLET PO PRN (12:50)
[2016-05-29] MEDS: ENOXAPARIN SODIUM 40 MG/0.4 ML SYRG SC SCH (22:26)
[2016-05-30 05:50] LABS: Potassium 3.7 mmol/L (3.4-4.6)
[2016-05-30] MEDS: ALBUTEROL SULFATE/IPRATROPIUM 3 ML NEBU IH SCH ×4 (07:08→18:06)
[2016-05-30] MEDS: FOLIC ACID 1 MG TABLET PO SCH (09:48)
[2016-05-30] MEDS: MULTIVITAMINS 1 CAP CAPSULE PO SCH (09:48)
[2016-05-30] MEDS: SODIUM CHLORIDE 1 GM TABLET PO SCH ×3 (09:48→17:37)
[2016-05-30] MEDS: SULFAMETHOXAZOLE/TRIMETHOPRIM 1 TAB TABLET PO SCH ×2 (09:49→20:04)
[2016-05-30] MEDS: THIAMINE HCL 100 MG TABLET PO SCH (09:49)
[2016-05-30] MEDS: CYANOCOBALAMIN 1,000 MCG TABLET PO SCH (09:49)
[2016-05-30] MEDS: ACETAMINOPHEN 325 MG TABLET PO PRN (09:52)
--- NOTE | 2016-05-30 17:50 | PN ---
Subjective - Date and Time Seen Date: 05/30/16 Time: 17:48 Subjective Narrative: I reviewed the record and examined the patient. Skin excoriation is improving. Sodium is now normal. She is not eating much. She is not very motivated for much. Objective - Review of Systems Generalized/Overall Review: Reports: Malaise EENTM: Reports: No Symptoms Reported Respiratory: Reports: No Symptoms Reported Cardiac: Reports: No Symptoms Reported Abdominal: Reports: No Symptoms Reported Genitourinary Symptoms: Reports: No Symptoms Reported Musculoskeletal Complaints: Reports: No Symptoms Reported Neurological: Reports: No Symptoms Reported Skin: Reports: No Symptoms Reported Endocrine: Reports: No Symptoms Reported Misc: All systems neg except as marked - Vitals Vitals: Last Vital Signs Selected Entries 05/30/16 05/30/16 14:00 14:30 Temperature 36.2 C L Temperature Axillary Source Pulse Rate 91 93 Respiratory 18 18 Rate Blood Pressure 89/45 Blood Pressure Supine Position O2 Sat by Pulse 94 Oximetry Oxygen Delivery Room Air Room Air Method - Exam Constitutional: Present: Alert, Cooperative, Well developed, No distress ENT Exam: Present: normal ENT inspection Neck: Present: normal inspection Respiratory: Present: lungs clear, no respiratory distress Cardiovascular/Chest: Present: regular rate, rhythm, no murmur Abdomen: Present: Normal bowel sounds, soft, nontender, nondistended, no rebound tenderness, no hepatospenomegaly, no masses Extremity: Present: no pedal edema Skin Exam: Present: normal color, warm/dry, no cyanosis, other - healing pressure sores. Neurologic: Present: alert Appearance: Present: appropriate appearance, neat Eye contact: Present: cooperative Cauti Physician Documentation - Urinary Catheter Management Urethral (Ellis) Date of Insertion: 05/18/16 Time of Insertion: 08:45 Assessment/Plan Plan Narrative: Labs needed. Work on placement. Add Remeron to stimulate appetite. Already on a multiple vitamin pill. - Problems/Diagnosis (1) Generalized weakness Problem: Acute (2) Hyponatremia with decreased serum osmolality Problem: Resolved (3) UTI (urinary tract infection) Problem: Resolved Qualifiers: Urinary tract infection type: acute cystitis Hematuria presence: without hematuria Qualified Code(s): N30.00 - Acute cystitis without hematuria (4) Cellulitis Problem: Acute Qualifiers: Site of cellulitis: extremity Site of cellulitis of extremity: lower extremity Laterality: unspecified laterality Qualified Code(s): L03.119 - Cellulitis of unspecified part of limb (5) Falls Problem: Acute Qualifiers: Encounter type: initial encounter Qualified Code(s): W19.XXXA - Unspecified fall, initial encounter (6) Osteoarthritis Problem: Chronic Qualifiers: Osteoarthritis location: multiple joints Osteoarthritis type: primary Qualified Code(s): M15.0 - Primary generalized (osteo)arthritis (7) Tobacco abuse Problem: Chronic (8) Weakness Problem: Chronic (9) Alcohol abuse Problem: Chronic (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 coli urinary tract infection Problem: Acute
[2016-05-30] MEDS: MIRTAZAPINE 15 MG TABLET PO SCH (20:04)
[2016-05-30] MEDS: ENOXAPARIN SODIUM 40 MG/0.4 ML SYRG SC SCH (20:44)
[2016-05-31] MEDS: ALBUTEROL SULFATE/IPRATROPIUM 3 ML NEBU IH SCH ×4 (06:06→18:03)
[2016-05-31] MEDS: SODIUM CHLORIDE 1 GM TABLET PO SCH ×3 (08:37→17:53)
[2016-05-31] MEDS: THIAMINE HCL 100 MG TABLET PO SCH (08:37)
[2016-05-31] MEDS: MULTIVITAMINS 1 CAP CAPSULE PO SCH (08:37)
[2016-05-31] MEDS: SULFAMETHOXAZOLE/TRIMETHOPRIM 1 TAB TABLET PO SCH ×2 (08:37→20:41)
[2016-05-31] MEDS: FOLIC ACID 1 MG TABLET PO SCH (08:37)
[2016-05-31] MEDS: CYANOCOBALAMIN 1,000 MCG TABLET PO SCH (08:37)
--- NOTE | 2016-05-31 18:14 | PN ---
Subjective - Date and Time Seen Date: 05/31/16 Time: 06:30 Subjective Narrative: I reviewed the record and examined the patient. Skin excoriation is improving. Sodium is now normal. She is not eating much. She is not very motivated for much of anything. We are waiting on placement. Objective - Review of Systems Generalized/Overall Review: Reports: Malaise EENTM: Reports: No Symptoms Reported Respiratory: Reports: No Symptoms Reported Cardiac: Reports: No Symptoms Reported Abdominal: Reports: No Symptoms Reported Genitourinary Symptoms: Reports: No Symptoms Reported Musculoskeletal Complaints: Reports: No Symptoms Reported Neurological: Reports: No Symptoms Reported Skin: Reports: No Symptoms Reported Endocrine: Reports: No Symptoms Reported Misc: All systems neg except as marked - Vitals Vitals: Last Vital Signs Selected Entries 05/31/16 05/31/16 03:34 06:14 Temperature 36.9 C Temperature Oral Source Pulse Rate 86 85 Pulse Rhythm Regular Respiratory 20 18 Rate Respiratory Normal Depth Respiratory Normal Effort Blood Pressure 124/80 Blood Pressure Supine Position O2 Sat by Pulse 96 Oximetry Oxygen Delivery Room Air Room Air Method - Exam Constitutional: Present: Alert, Cooperative, Well developed, No distress ENT Exam: Present: normal ENT inspection Neck: Present: normal inspection Respiratory: Present: lungs clear, no respiratory distress Cardiovascular/Chest: Present: regular rate, rhythm, no edema Abdomen: Present: Normal bowel sounds, soft, nontender, nondistended, no rebound tenderness, no hepatospenomegaly, no masses Extremity: Present: other - healing wounds. Absent: pedal edema Skin Exam: Present: normal color, warm/dry, no cyanosis Neurologic: Present: alert Appearance: Present: appropriate appearance, neat Eye contact: Present: cooperative, good eye contact Cauti Physician Documentation - Urinary Catheter Management Urethral (Ellis) Date of Insertion: 05/18/16 Time of Insertion: 08:45 Assessment/Plan Plan Narrative: Labs as needed. Continue to look for placement. - Problems/Diagnosis (1) Generalized weakness Problem: Acute (2) Hyponatremia with decreased serum osmolality Problem: Resolved (3) UTI (urinary tract infection) Problem: Resolved Qualifiers: Urinary tract infection type: acute cystitis Hematuria presence: without hematuria Qualified Code(s): N30.00 - Acute cystitis without hematuria (4) Cellulitis Problem: Acute Qualifiers: Site of cellulitis: extremity Site of cellulitis of extremity: lower extremity Laterality: unspecified laterality Qualified Code(s): L03.119 - Cellulitis of unspecified part of limb (5) Falls Problem: Acute Qualifiers: Encounter type: initial encounter Qualified Code(s): W19.XXXA - Unspecified fall, initial encounter (6) Osteoarthritis Problem: Chronic Qualifiers: Osteoarthritis location: multiple joints Osteoarthritis type: primary Qualified Code(s): M15.0 - Primary generalized (osteo)arthritis (7) Tobacco abuse Problem: Chronic (8) Weakness Problem: Chronic (9) Alcohol abuse Problem: Chronic (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 coli urinary tract infection Problem: Acute
[2016-05-31] MEDS: MIRTAZAPINE 15 MG TABLET PO SCH (20:41)
[2016-05-31] MEDS: ENOXAPARIN SODIUM 40 MG/0.4 ML SYRG SC SCH (20:45)
[2016-06-01] MEDS: ALBUTEROL SULFATE/IPRATROPIUM 3 ML NEBU IH SCH ×4 (06:00→19:51)
[2016-06-01] MEDS: SODIUM CHLORIDE 1 GM TABLET PO SCH ×3 (08:59→16:54)
[2016-06-01] MEDS: MULTIVITAMINS 1 CAP CAPSULE PO SCH (08:59)
[2016-06-01] MEDS: FOLIC ACID 1 MG TABLET PO SCH (08:59)
[2016-06-01] MEDS: CYANOCOBALAMIN 1,000 MCG TABLET PO SCH (08:59)
[2016-06-01] MEDS: THIAMINE HCL 100 MG TABLET PO SCH (09:00)
--- NOTE | 2016-06-01 09:01 | PN ---
Subjective - Date and Time Seen Date: 06/01/16 Time: 07:00 Subjective Narrative: I reviewed the record and examined the patient. Skin excoriation is improving. She is not eating much. She is walking a bit better. We are waiting on placement. Objective - Review of Systems Generalized/Overall Review: Reports: Malaise EENTM: Reports: No Symptoms Reported Respiratory: Reports: No Symptoms Reported Cardiac: Reports: No Symptoms Reported Abdominal: Reports: No Symptoms Reported Genitourinary Symptoms: Reports: No Symptoms Reported Musculoskeletal Complaints: Reports: No Symptoms Reported Neurological: Reports: No Symptoms Reported Skin: Reports: No Symptoms Reported Endocrine: Reports: No Symptoms Reported Misc: All systems neg except as marked - Vitals Vitals: Last Vital Signs Selected Entries 06/01/16 06:39 Temperature 36.8 C Temperature Oral Source Pulse Rate 94 Respiratory 24 H Rate Blood Pressure 138/70 Blood Pressure 92 Mean O2 Sat by Pulse 92 Oximetry Oxygen Delivery Room Air Method - Exam Constitutional: Present: Alert, Cooperative, Well developed, No distress ENT Exam: Present: normal ENT inspection, hearing grossly normal Neck: Present: normal inspection Respiratory: Present: lungs clear, no respiratory distress Cardiovascular/Chest: Present: regular rate, rhythm, no edema Abdomen: Present: Normal bowel sounds, soft, nontender, nondistended, no rebound tenderness, no hepatospenomegaly, no masses Extremity: Present: non-tender, no pedal edema Skin Exam: Present: normal color, warm/dry, no cyanosis, other - healing wounds Neurologic: Present: alert Appearance: Present: appropriate appearance, neat Eye contact: Present: cooperative, good eye contact, normal speech Cauti Physician Documentation - Urinary Catheter Management Urethral (Ellis) Date of Insertion: 05/18/16 Time of Insertion: 08:45 Assessment/Plan Plan Narrative: Labs as needed. Placement. Minimental status exam repeat. - Problems/Diagnosis (1) Generalized weakness Problem: Acute (2) Hyponatremia with decreased serum osmolality Problem: Resolved (3) UTI (urinary tract infection) Problem: Resolved Qualifiers: Urinary tract infection type: acute cystitis Hematuria presence: without hematuria Qualified Code(s): N30.00 - Acute cystitis without hematuria (4) Cellulitis Problem: Acute Qualifiers: Site of cellulitis: extremity Site of cellulitis of extremity: lower extremity Laterality: unspecified laterality Qualified Code(s): L03.119 - Cellulitis of unspecified part of limb (5) Falls Problem: Acute Qualifiers: Encounter type: initial encounter Qualified Code(s): W19.XXXA - Unspecified fall, initial encounter (6) Osteoarthritis Problem: Chronic Qualifiers: Osteoarthritis location: multiple joints Osteoarthritis type: primary Qualified Code(s): M15.0 - Primary generalized (osteo)arthritis (7) Tobacco abuse Problem: Chronic (8) Weakness Problem: Chronic (9) Alcohol abuse Problem: Chronic (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 coli urinary tract infection Problem: Acute
[2016-06-01] MEDS: ENOXAPARIN SODIUM 40 MG/0.4 ML SYRG SC SCH (21:23)
[2016-06-01] MEDS: MIRTAZAPINE 15 MG TABLET PO SCH (21:23)
[2016-06-02] MEDS: ALBUTEROL SULFATE/IPRATROPIUM 3 ML NEBU IH SCH ×4 (06:17→19:28)
--- NOTE | 2016-06-02 07:48 | PN ---
Subjective - Date and Time Seen Date: 06/02/16 Time: 07:45 Subjective Narrative: I reviewed the record and examined the patient. Skin excoriation is improving. She is not eating a little better. She is walking a bit better. We are waiting on placement. Objective - Review of Systems Generalized/Overall Review: Reports: Malaise EENTM: Reports: No Symptoms Reported Respiratory: Reports: No Symptoms Reported Cardiac: Reports: No Symptoms Reported Abdominal: Reports: No Symptoms Reported Genitourinary Symptoms: Reports: No Symptoms Reported Musculoskeletal Complaints: Reports: No Symptoms Reported Neurological: Reports: No Symptoms Reported Skin: Reports: No Symptoms Reported Endocrine: Reports: No Symptoms Reported Misc: All systems neg except as marked - Vitals Vitals: Last Vital Signs Selected Entries 06/02/16 07:05 Temperature 36.6 C Temperature Oral Source Pulse Rate 94 Respiratory 18 Rate Blood Pressure 118/72 Blood Pressure Supine Position O2 Sat by Pulse 98 Oximetry Oxygen Delivery Room Air Method Oxygen Flow 0 Rate - Exam Constitutional: Present: Alert, Oriented x3, Cooperative, Well developed, No distress ENT Exam: Present: normal ENT inspection, hearing grossly normal Neck: Present: normal inspection Respiratory: Present: lungs clear, no respiratory distress Cardiovascular/Chest: Present: regular rate, rhythm, no murmur Abdomen: Present: Normal bowel sounds, soft, nontender, nondistended, no rebound tenderness, no hepatospenomegaly, no masses Extremity: Absent: pedal edema Skin Exam: Present: normal color, warm/dry, no cyanosis, other - healing leg wounds. Neurologic: Present: alert Appearance: Present: appropriate appearance, neat Eye contact: Present: cooperative, good eye contact, normal speech Cauti Physician Documentation - Urinary Catheter Management Urethral (Ellis) Date of Insertion: 05/18/16 Time of Insertion: 08:45 Assessment/Plan Plan Narrative: Continue current management. Labs as needed. Placement. - Problems/Diagnosis (1) Generalized weakness Problem: Acute (2) Hyponatremia with decreased serum osmolality Problem: Resolved (3) UTI (urinary tract infection) Problem: Resolved Qualifiers: Urinary tract infection type: acute cystitis Hematuria presence: without hematuria Qualified Code(s): N30.00 - Acute cystitis without hematuria (4) Cellulitis Problem: Acute Qualifiers: Site of cellulitis: extremity Site of cellulitis of extremity: lower extremity Laterality: unspecified laterality Qualified Code(s): L03.119 - Cellulitis of unspecified part of limb (5) Falls Problem: Acute Qualifiers: Encounter type: initial encounter Qualified Code(s): W19.XXXA - Unspecified fall, initial encounter (6) Osteoarthritis Problem: Chronic Qualifiers: Osteoarthritis location: multiple joints Osteoarthritis type: primary Qualified Code(s): M15.0 - Primary generalized (osteo)arthritis (7) Tobacco abuse Problem: Chronic (8) Weakness Problem: Chronic (9) Alcohol abuse Problem: Chronic (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 coli urinary tract infection Problem: Acute
[2016-06-02] MEDS: CYANOCOBALAMIN 1,000 MCG TABLET PO SCH (08:29)
[2016-06-02] MEDS: SODIUM CHLORIDE 1 GM TABLET PO SCH ×3 (08:29→16:59)
[2016-06-02] MEDS: THIAMINE HCL 100 MG TABLET PO SCH (08:29)
[2016-06-02] MEDS: FOLIC ACID 1 MG TABLET PO SCH (08:29)
[2016-06-02] MEDS: MULTIVITAMINS 1 CAP CAPSULE PO SCH (08:29)
[2016-06-02] MEDS: MIRTAZAPINE 15 MG TABLET PO SCH (21:16)
[2016-06-02] MEDS: ENOXAPARIN SODIUM 40 MG/0.4 ML SYRG SC SCH (21:16)
[2016-06-03] MEDS: ALBUTEROL SULFATE/IPRATROPIUM 3 ML NEBU IH SCH ×2 (06:14→11:12)
--- NOTE | 2016-06-03 07:49 | DS ---
(1) Generalized weakness Problem: Acute (2) Hyponatremia with decreased serum osmolality Problem: Resolved (3) UTI (urinary tract infection) Problem: Resolved Qualifiers: Urinary tract infection type: acute cystitis Hematuria presence: without hematuria Qualified Code(s): N30.00 - Acute cystitis without hematuria (4) Cellulitis Problem: Acute Qualifiers: Site of cellulitis: extremity Site of cellulitis of extremity: lower extremity Laterality: unspecified laterality Qualified Code(s): L03.119 - Cellulitis of unspecified part of limb (5) Falls Problem: Acute Qualifiers: Encounter type: initial encounter Qualified Code(s): W19.XXXA - Unspecified fall, initial encounter (6) Osteoarthritis Problem: Chronic Qualifiers: Osteoarthritis location: multiple joints Osteoarthritis type: primary Qualified Code(s): M15.0 - Primary generalized (osteo)arthritis (7) Tobacco abuse Problem: Chronic (8) Weakness Problem: Chronic (9) Alcohol abuse Problem: Chronic (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 coli urinary tract infection Problem: Resolved (12) Pressure ulcer Problem: Acute Qualifiers: Pressure ulcer location: other site Pressure ulcer stage: stage 3 Qualified Code(s): L89.893 - Pressure ulcer of other site, stage 3 Description of Stay: Slow improvement in skin ulcers and ability to walk and oral intake. Scored low on minimental status exams. Kasper placed for skin ulcer healing. Needs to remain till healed. UTI and cellulitis treated with antibiotics. Ultimately, hyponatremia required fluid restriction and extra po salt. Procedures Performed: none Discharge Disposition: Home self care Disposition: Home self-care Condition: Fair Discharge Activity: Activity as tolerated Discharge Diet: General/regular food - 2 liter fluid restriction per 24 hours. Custodial Therapy: Physicial Therapy, Occupation Therapy Consultation Done:: Wound Healing Problem Oriented Discharge Instructions to Patient/Family: Urinary Tract Infection, Adult, [id number], How to Prevent Pressure Injuries Additional Patient Instructions (free text): Apply torie klenz & proshield to excoriation & open areas on buttocks/thighs/ genny area. Apply aquacell & roll gauze to open wounds on bilateral lower extremities. Change dressings DAILY and whenever needed. Don't get behind on these processes. Use clean pillowcases under bottom, not Chux. The Chux stick to the tissue too much. CBC CMP [address] Sepulveda 1 week. Maintain kasper catheter till pressure sores are completely healed. Prescriptions (Any new or edited meds): Mirtazapine [Remeron] 30 mg PO HS #30 tablet Multivitamins [Multivitamin Robbin] 1 cap PO DAILY #30 capsule Sodium Chloride 2 tab PO TID #180 tablet Complete Home Medications List: Complete Home Medication List: Aspirin [Aspirin EC] 81 mg PO DAILY 06/29/15 Albuterol Sulfate [Ventolin Hfa] 1 puff IH PRN 04/20/16 Omeprazole Magnesium [Prilosec Otc] 40 mg PO DAILY 04/20/16 Acetaminophen [Tylenol] 650 mg PO QID PRN #0 tablet 04/22/16 Albuterol Sulfate [Albuterol Sulfate 2.5 MG/0.5ML] 2.5 mg IH Q4H PRN #100 vial.neb 04/22/16 Calcium Carbonate [Tums] 500 mg PO QID PRN #0 tab.chew 06/03/16 Mirtazapine [Remeron] 30 mg PO HS #30 tablet 06/03/16 Multivitamins [Multivitamin Robbin] 1 cap PO DAILY #30 capsule 06/03/16 Sodium Chloride 2 tab PO TID #180 tablet 06/03/16
[2016-06-03] MEDS: SODIUM CHLORIDE 1 GM TABLET PO SCH ×2 (09:42→14:03)
[2016-06-03] MEDS: THIAMINE HCL 100 MG TABLET PO SCH (09:43)
[2016-06-03] MEDS: FOLIC ACID 1 MG TABLET PO SCH (09:43)
[2016-06-03] MEDS: CYANOCOBALAMIN 1,000 MCG TABLET PO SCH (09:43)
[2016-06-03] MEDS: MULTIVITAMINS 1 CAP CAPSULE PO SCH (09:43)
[2016-06-03 10:56] VITALS: BP 126/74
== END 2016-06-03 15:00 | disposition home health service (06) | DRG 689 ==
LOC: ER 16:50 → MS 19:10
PROVIDERS: ADMIT Allergy & Immunology; ATTEND Allergy & Immunology
DX: N39.0 Urinary tract infection, site not specified (principal); L89.303 Pressure ulcer of unspecified buttock, stage 3; E87.1 Hypo-osmolality and hyponatremia; L03.119 Cellulitis of unspecified part of limb; B96.20 Unspecified Escherichia coli [E. coli] as the cause of diseases classified elsewhere; E87.6 Hypokalemia; R53.1 Weakness; F17.200 Nicotine dependence, unspecified, uncomplicated; M15.0 Primary generalized (osteo)arthritis; F09 Unspecified mental disorder due to known physiological condition; L98.491 Non-pressure chronic ulcer of skin of other sites limited to breakdown of skin; Z91.81 History of falling; Z79.82 Long term (current) use of aspirin

== ENCOUNTER 2016-12-02 12:10 | Inpatient (IN) | payer SELFPAY ==
[2016-12-02 13:28] LABS: Hematocrit 37.3 % (37.0-47.0); Hemoglobin 12.7 gm/dL (12.5-16.0); Mean Cell Volume 90.1 fl (78-100); Mean Corpuscular Hemoglobin 30.7 pg (27-31); Mean Platelet Volume 9.4 fl (6.0-9.5); Neutrophil # 14.1 K/mm3 (1.3-6.0); Neutrophil % 78.6 % (42-75.0); Platelet Count 740 K/mm3 (150-450); Red Blood Count 4.14 M/mm3 (4.2-5.4); Red Cell Distribution Width 14.9 % (11.5-14.0)
[2016-12-02] MEDS ORDERED: FUROSEMIDE 10 MG/ML VIAL IV ONE ×2 (13:36→23:34)
[2016-12-02 13:48] LABS: Albumin * 2.4 gm/dl (3.4-5.0); Anion Gap 12.5 mmol/L (6.8-13.8); BUN/Creatinine Ratio 7.9 (9.0-21.6); CRP 4.1 mg/dL (0.0-0.9); Ca. Corrected For Albumin 9.3 mg/dL (8.4-10.2); Calcium * 8.3 mg/dL (7.9-10.9); Carbon Dioxide 26.9 mmol/L (24-32.6); Potassium 3.4 mmol/L (3.4-4.6); Total Protein 7.6 gm/dL (6.2-8.2)
[2016-12-02] MEDS ORDERED: ALBUTEROL SULFATE 2.5 MG/0.5 ML VIAL.NEB IH PRN (13:51)
[2016-12-02] MEDS: CLINDAMYCIN PHOSPHATE 600 MG in DEXTROSE 5 % IN WATER 100 ML IV SCH ×4 (15:13→21:17)
[2016-12-02] MEDS: ENOXAPARIN SODIUM 40 MG/0.4 ML SYRG SC SCH (15:14)
--- NOTE | 2016-12-02 23:37 | HP ---
Chief Complaint - Chief Complaint Date of Service: 12/02/16 Time of Service: 14:30 Chief Complaint: Leg pain and swelling History of Present Illness: Shante is a 66 yo female that presented to the [facility] with lower extremity edema, lower extremity weeping wounds with maggots, bilateral leg redness. She reports she has progressive been getting worse lower extremity edema every since she ran out of medications months ago, including HCTZ. As she had worse edema she began having worse redness and weeping skin. Family reports infestation of bed bugs and lice at home. - Patient's Past Medical History Patient History - Medical: Anxiety, Arthritis, GERD, Migraines, Osteoarthritis Patient History - Cardiac/Respiratory: Coronary Heart Disease, COPD, TIA Patient History - Cancer: Melanoma, Surgical Treatment Patient History - Surgical Procedures: Cataracts, D & C, Tubal Ligation, T & A, Other Patient History - Other: None - Family History Mother Family History - Medical: Family History - Cardiac/Respiratory: Coronary Heart Disease, Myocardial Infarction, Other Father Family History - Medical: Family History - Cardiac/Respiratory: Coronary Heart Disease Family History - Cancer: No pertinent family hx - Social History Living Situations: spouse Abuse History: No History of abuse Psych History: Hx of Anxiety Smoking Status: Current every day smoker Have you smoked in the past 12 months: Yes Do you dip or chew tobacco: No Patient requests Smoking Cessation Consult: No Initiate information on Smoking Cessation: Yes Alcohol Use: heavy Drug Use: none - Immunizations Immunizations Up to Date: Yes Hx Pneumococcal Vaccination: No History of Influenza Vaccine: No Review Of Systems (GEN) - Review of Systems Generalized/Overall Review: Present: Weakness. Absent: Chills, Fever Respiratory: Absent: Cough, Shortness of Breath Cardiac: Present: Edema. Absent: Chest Pain, Palpitations Abdominal: Present: No Symptoms Reported. Absent: Nausea, Vomiting Genitourinary: Present: No Symptoms Reported Musculoskeletal: Present: Other - Bilateral lower leg pain Neurological: Present: No Symptoms Reported Skin: Present: Change in Color Immunizations: IMMUNIZATION HX Immunizations Up to Date Yes History of Influenza Vaccine No Hx Pneumococcal Vaccination No Allergies/Adverse Reactions: Allergies Allergy/AdvReac Type Severity Reaction Status Date / Time aspirin Allergy dizzy Verified 05/17/16 17:17 Penicillins Allergy BREAKS Verified 05/17/16 17:17 OUT, NAUSEA morphine AdvReac Mild Other Verified 05/17/16 17:17 Home Medications: HOME MEDICATIONS Aspirin [Aspirin EC] 81 mg PO DAILY 06/29/15 [Last Taken 04/19/16] Acetaminophen [Tylenol] 650 mg PO QID PRN #0 tablet 04/22/16 [Last Taken Unknown ] Calcium Carbonate [Tums] 500 mg PO QID PRN #0 tab.chew 06/03/16 [Last Taken Unknown] Multivitamins [Multivitamin Robbin] 1 cap PO DAILY #30 capsule 06/03/16 [Last Taken Unknown] Ciprofloxacin HCl 500 mg PO BID #28 tablet 12/05/16 [Last Taken Unknown] Hydrochlorothiazide [Hydrodiuril] 25 mg PO DAILY #30 tablet 12/05/16 [Last Taken Unknown] Exam - Exam Vital Signs: Vital Signs - Last Taken Temp 36.7 C 12/02/16 23:25 Pulse 102 H 12/02/16 23:25 Resp 18 12/02/16 23:25 BP 89/50 12/02/16 23:25 Pulse Ox 96 12/02/16 23:25 Constitutional: Present: Alert, Oriented x3, Cooperative ENT Exam: Present: hearing grossly normal Eye Exam: bilateral eye: normal inspection Respiratory: Present: lungs clear, normal breath sounds Cardiovascular/Chest: Present: regular rate, rhythm, no murmur Abdomen: Present: Normal bowel sounds, soft, nontender, nondistended Extremity: Present: other - Bilateral lower extremities have brawny edema with weeping serous fluid, edema extends from toes to knees bilaterally with diffuse erythema. Skin Exam: Present: other - Skin is dirty, feet have maggots present Diagnostic Studies: Abnormal Lab Results 12/02/16 12/02/16 12/02/16 Range/Units 13:20 13:20 13:20 WBC 18.0 H (4.0-10.5) K/mm3 RBC 4.14 L (4.2-5.4) M/mm3 RDW 14.9 H (11.5-14.0) % Plt Count 740 H (150-450) K/mm3 Immature Gran % (Auto) 2.00 H (0.001-0.429) % Immature Gran # (Auto) 0.36 H (0.000-0.0310) K/mm3 Neutrophils % 78.6 H (42-75.0) % Lymphocytes % 11.4 L (20-51) % Neutrophils # 14.1 H (1.3-6.0) K/mm3 Monocytes # 1.1 H (0.0-1.0) k/mm3 ESR 50 H (0-15) mm/hr Sodium 129 L (132-142) mmol/L Plasma Sodium 129 L (130-142) mmol/L Chloride 93 L (97-106) mmol/L BUN/Creatinine Ratio 7.9 L (9.0-21.6) Random Glucose 128 H (70-110) mg/dL ALT 14 L (19-67) U/L C-Reactive Prot, Quant 4.1 H (0.0-0.9) mg/dL B-Natriuretic Peptide 1414 H (5-325) pg/mL Albumin 2.4 L (3.4-5.0) gm/dl Microbiology 12/02/16 13:14 Wound Culture - Preliminary Lower Leg - Left 12/02/16 13:14 Wound Culture - Preliminary Lower Leg - Right Laboratory Results WBC 18.0 K/mm3 (4.0-10.5) H 12/02/16 13:20 RBC 4.14 M/mm3 (4.2-5.4) L 12/02/16 13:20 Hgb 12.7 gm/dL (12.5-16.0) 12/02/16 13:20 Hct 37.3 % (37.0-47.0) 12/02/16 13:20 MCV 90.1 fl (78-100) 12/02/16 13:20 MCH 30.7 pg (27-31) 12/02/16 13:20 MCHC 34.0 g/dl (32-36) 12/02/16 13:20 RDW 14.9 % (11.5-14.0) H 12/02/16 13:20 Plt Count 740 K/mm3 (150-450) H 12/02/16 13:20 MPV 9.4 fl (6.0-9.5) 12/02/16 13:20 Immature Gran % (Auto) 2.00 % (0.001-0.429) H 12/02/16 13:20 Immature Gran # (Auto) 0.36 K/mm3 (0.000-0.0310) H 12/02/16 13:20 Neutrophils % 78.6 % (42-75.0) H 12/02/16 13:20 Lymphocytes % 11.4 % (20-51) L 12/02/16 13:20 Monocytes % 6.1 % (0.0-9) 12/02/16 13:20 Eosinophils % 1.2 % (0.0-3.0) 12/02/16 13:20 Basophils % 0.7 % (0.0-1.0) 12/02/16 13:20 Nucleated RBC % 0.0 k/mm3 (0-1) 12/02/16 13:20 Neutrophils # 14.1 K/mm3 (1.3-6.0) H 12/02/16 13:20 Lymphocytes # 2.0 k/mm3 (1.5-3.5) 12/02/16 13:20 Monocytes # 1.1 k/mm3 (0.0-1.0) H 12/02/16 13:20 Eosinophils # 0.2 k/mm3 (0.0-0.7) 12/02/16 13:20 Absolute Basophils 0.1 k/mm3 (0.0-0.1) 12/02/16 13:20 ESR 50 mm/hr (0-15) H 12/02/16 13:20 Sodium 129 mmol/L (132-142) L 12/02/16 13:20 Plasma Sodium 129 mmol/L (130-142) L 12/02/16 13:20 Potassium 3.4 mmol/L (3.4-4.6) D 12/02/16 13:20 Chloride 93 mmol/L (97-106) L 12/02/16 13:20 Carbon Dioxide 26.9 mmol/L (24-32.6) 12/02/16 13:20 Anion Gap 12.5 mmol/L (6.8-13.8) 12/02/16 13:20 BUN 6 mg/dL (3-23) D 12/02/16 13:20 Creatinine 0.76 mg/dL (0.4-1.4) 12/02/16 13:20 Est GFR (Non-Af Amer) 81 mL/min (60-130) D 12/02/16 13:20 BUN/Creatinine Ratio 7.9 (9.0-21.6) L 12/02/16 13:20 Random Glucose 128 mg/dL (70-110) H 12/02/16 13:20 Calcium 8.3 mg/dL (7.9-10.9) 12/02/16 13:20 Calcium Adj for Albumin 9.3 mg/dL (8.4-10.2) 12/02/16 13:20 Total Bilirubin 1.0 mg/dL (0.0-1.1) 12/02/16 13:20 AST 18 U/L (0-48) 12/02/16 13:20 ALT 14 U/L (19-67) L 12/02/16 13:20 Alkaline Phosphatase 151 U/L (50-170) 12/02/16 13:20 C-Reactive Prot, Quant 4.1 mg/dL (0.0-0.9) H 12/02/16 13:20 B-Natriuretic Peptide 1414 pg/mL (5-325) H 12/02/16 13:20 Total Protein 7.6 gm/dL (6.2-8.2) 12/02/16 13:20 Albumin 2.4 gm/dl (3.4-5.0) L 12/02/16 13:20 Assessment/Plan - Procedures Results: Shante is a 66 yo female with hyponatremia, bilateral lower extremity edema with cellulitis, and infestation of bed bugs and maggots. Cause of symptoms are from being out of hctz which caused her edema, poor hygiene causing infestations, and poor nutrition causing hyponatremia. Will diurese and start on clindamycin IV. Will culture wounds and clean patient. Will place in contact isolation due to infestations. Expect >2 midnights for treatment of all the above and monitoring of response. - Assessment/Plan (1) Hyponatremia Assessment: Symptomatic hyponatremia with fatigue and a sodium of 129. Will diurese excess fluid and give normotonic replacement solutions. Monitor sodium. Problem: Acute (2) Cellulitis Assessment: Shante is a 66 yo Cau Problem: Acute Qualifiers: Site of cellulitis: extremity Site of cellulitis of extremity: lower extremity Laterality: unspecified laterality Qualified Code(s): L03.119 - Cellulitis of unspecified part of limb (3) Bilateral lower extremity edema Problem: Acute (4) Infestation by bed bug Problem: Acute (5) Maggot infestation Problem: Acute
[2016-12-03] MEDS ORDERED: NORMAL SALINE 500 ML IV PRN (00:49)
[2016-12-03] MEDS ORDERED: NORMAL SALINE 500 ML IV ONE (03:18)
[2016-12-03] MEDS: CLINDAMYCIN PHOSPHATE 600 MG in DEXTROSE 5 % IN WATER 100 ML IV SCH ×6 (05:14→20:19)
[2016-12-03] MEDS ORDERED: NORMAL SALINE 1,000 ML IV ONE (05:29)
--- NOTE | 2016-12-03 07:04 | PN ---
Subjective - Date and Time Seen Date: 12/03/16 Time: 06:54 Subjective Narrative: Ms. Miranda seen this am. Became hypotensive in the night. Nursing reported B/P of 78/42 following 500ml bolus. Is getting 1 L of IV NS now. She is completely asymptomatic, A&0 X3, denies SOB or dizziness. Objective - Vitals Vitals: Last Vital Signs Temp 36.7 C 12/03/16 04:47 Pulse 100 12/03/16 04:47 Resp 18 12/03/16 04:47 BP 78/46 12/03/16 05:30 Pulse Ox 96 12/03/16 04:47 - Abnormal Lab Findings Abnormal Lab Findings: Abnormal Lab Results 12/02/16 12/02/16 12/02/16 Range/Units 13:20 13:20 13:20 WBC 18.0 H (4.0-10.5) K/mm3 RBC 4.14 L (4.2-5.4) M/mm3 RDW 14.9 H (11.5-14.0) % Plt Count 740 H (150-450) K/mm3 Immature Gran % (Auto) 2.00 H (0.001-0.429) % Immature Gran # (Auto) 0.36 H (0.000-0.0310) K/mm3 Neutrophils % 78.6 H (42-75.0) % Lymphocytes % 11.4 L (20-51) % Neutrophils # 14.1 H (1.3-6.0) K/mm3 Monocytes # 1.1 H (0.0-1.0) k/mm3 ESR 50 H (0-15) mm/hr Sodium 129 L (132-142) mmol/L Plasma Sodium 129 L (130-142) mmol/L Chloride 93 L (97-106) mmol/L BUN/Creatinine Ratio 7.9 L (9.0-21.6) Random Glucose 128 H (70-110) mg/dL Lactic Acid, Venous (0.4-1.9) mmol/L ALT 14 L (19-67) U/L C-Reactive Prot, Quant 4.1 H (0.0-0.9) mg/dL B-Natriuretic Peptide 1414 H (5-325) pg/mL Albumin 2.4 L (3.4-5.0) gm/dl 12/03/16 Range/Units 00:48 WBC (4.0-10.5) K/mm3 RBC (4.2-5.4) M/mm3 RDW (11.5-14.0) % Plt Count (150-450) K/mm3 Immature Gran % (Auto) (0.001-0.429) % Immature Gran # (Auto) (0.000-0.0310) K/mm3 Neutrophils % (42-75.0) % Lymphocytes % (20-51) % Neutrophils # (1.3-6.0) K/mm3 Monocytes # (0.0-1.0) k/mm3 ESR (0-15) mm/hr Sodium (132-142) mmol/L Plasma Sodium (130-142) mmol/L Chloride (97-106) mmol/L BUN/Creatinine Ratio (9.0-21.6) Random Glucose (70-110) mg/dL Lactic Acid, Venous 2.0 H (0.4-1.9) mmol/L ALT (19-67) U/L C-Reactive Prot, Quant (0.0-0.9) mg/dL B-Natriuretic Peptide (5-325) pg/mL Albumin (3.4-5.0) gm/dl - Exam Constitutional: Present: Alert, Oriented x3, Cooperative, No distress, Thin and frail, Looks Older than stated age ENT Exam: Present: normal ENT inspection, hearing grossly normal Neck: Present: full range of motion, supple, normal inspection Respiratory: Present: lungs clear, No rales, No wheezing Cardiovascular/Chest: Present: regular rate, rhythm, no chest tenderness Abdomen: Present: Normal bowel sounds, soft, nontender /Rectal: Present: Exam deferred Extremity: Present: lower extremity edema - + 2 bilateral pitting tibial/pedal edema Skin Exam: Present: other - Cracked skin on BLE, Erythema on both legs. Lymphatic: Present: no adenopathy Neurologic: Present: alert, normal mood/affect, oriented x 3 Appearance: Present: disheveled Eye contact: Present: cooperative, good eye contact, normal speech Thoughts: Present: no apparent hallucination Assessment/Plan - Problems/Diagnosis (1) Cellulitis Problem: Acute Qualifiers: Site of cellulitis: extremity Laterality: unspecified laterality Narrative: Lower ext. Erythemic & edematous and the redness extends to the the knees. Has wounds on BLE. WBC 18,000 ----> 14,500. Is covered with Clindamycin for now and will switch once wound culture resolves. CBC in am (2) Hypokalemia Problem: Acute Narrative: Will give oral replenishing. BMP in am. Laboratory Tests 12/02/16 12/03/16 13:20 10:23 Potassium 3.4 D 2.4 L* D . (3) Malnutrition Problem: Acute Narrative: BMI of 24.4- evaluated by manager erp. Ensure with meals added. (4) Generalized weakness Problem: Acute Narrative: Encourage ambulation. Involve PT/OT (5) Poor compliance with medication Problem: Acute (6) COPD (chronic obstructive pulmonary disease) Problem: Chronic Qualifiers: COPD type: chronic bronchitis Chronic bronchitis type: simple Qualified Code(s): J41.0 - Simple chronic bronchitis (7) GERD (gastroesophageal reflux disease) Problem: Chronic (8) HTN (hypertension) Problem: Chronic
[2016-12-03 10:27] LABS: Hematocrit 26.2 % (37.0-47.0); Hemoglobin 8.9 gm/dL (12.5-16.0); Mean Cell Volume 91.9 fl (78-100); Mean Corpuscular Hemoglobin 31.2 pg (27-31); Mean Platelet Volume 9.5 fl (6.0-9.5); Neutrophil # 11.9 K/mm3 (1.3-6.0); Platelet Count 447 K/mm3 (150-450); Red Blood Count 2.85 M/mm3 (4.2-5.4); Red Cell Distribution Width 14.8 % (11.5-14.0); White Blood Count 14.5 K/mm3 (4.0-10.5)
[2016-12-03 10:40] LABS: Albumin * 1.5 gm/dl (3.4-5.0); Anion Gap 11.8 mmol/L (6.8-13.8); BUN/Creatinine Ratio 6.3 (9.0-21.6); Bilirubin, Total 0.5 mg/dL (0.0-1.1); Ca. Corrected For Albumin 8.8 mg/dL (8.4-10.2); Calcium * 7.1 mg/dL (7.9-10.9); Carbon Dioxide 29.6 mmol/L (24-32.6); Total Protein 4.9 gm/dL (6.2-8.2)
[2016-12-03 10:53] LABS: Potassium 2.4 mmol/L (3.4-4.6)
[2016-12-03] MEDS: POTASSIUM CHLORIDE 20 MEQ TABLET.SA PO SCH ×2 (12:01→16:18)
[2016-12-03] MEDS: ENOXAPARIN SODIUM 40 MG/0.4 ML SYRG SC SCH (12:04)
[2016-12-04] MEDS: CLINDAMYCIN PHOSPHATE 600 MG in DEXTROSE 5 % IN WATER 100 ML IV SCH ×6 (04:57→20:31)
[2016-12-04 06:29] LABS: Hematocrit 25.8 % (37.0-47.0); Hemoglobin 8.7 gm/dL (12.5-16.0); Mean Cell Volume 91.8 fl (78-100); Mean Corpuscular Hgb Conc 33.7 g/dl (32-36); Mean Platelet Volume 9.9 fl (6.0-9.5); Neutrophil # 9.9 K/mm3 (1.3-6.0); Neutrophil % 76.9 % (42-75.0); Platelet Count 435 K/mm3 (150-450); Red Blood Count 2.81 M/mm3 (4.2-5.4); White Blood Count 12.8 K/mm3 (4.0-10.5)
[2016-12-04 06:38] LABS: Anion Gap 8.6 mmol/L (6.8-13.8); BUN/Creatinine Ratio 11.5 (9.0-21.6); Calcium * 7.2 mg/dL (7.9-10.9); Carbon Dioxide 28.7 mmol/L (24-32.6); Potassium 3.3 mmol/L (3.4-4.6)
[2016-12-04] MEDS: POTASSIUM CHLORIDE 20 MEQ TABLET.SA PO SCH ×2 (08:56→16:11)
--- NOTE | 2016-12-04 09:19 | PN ---
Subjective - Date and Time Seen Date: 12/04/16 Time: 09:19 Subjective Narrative: states that she is feeling better. denies any cp/dyspnea/lightheaded/nausea/ vomiting. Objective Objective Narrative: wound cultures of bilat legs both growing gram neg bacilli, group G strep and rare yeast (prelim culture). - Review of Systems Generalized/Overall Review: Reports: Fatigue. Denies: Chills, Fever EENTM: Reports: No Symptoms Reported Respiratory: Reports: No Symptoms Reported Cardiac: Reports: Edema. Denies: Chest Pain, Palpitations, Syncope Abdominal: Reports: No Symptoms Reported Genitourinary Symptoms: Reports: No Symptoms Reported Musculoskeletal Complaints: Reports: No Symptoms Reported Neurological: Reports: No Symptoms Reported Skin: Reports: No Symptoms Reported Endocrine: Reports: No Symptoms Reported Misc: All systems neg except as marked - Vitals Vitals: Last Vital Signs Temp 36.4 C L 12/04/16 06:12 Pulse 86 12/04/16 06:12 Resp 18 12/04/16 06:12 BP 82/51 12/04/16 06:12 Pulse Ox 97 12/04/16 06:12 - Abnormal Lab Findings Abnormal Lab Findings: Abnormal Lab Results 12/03/16 12/03/16 12/04/16 Range/Units 10:23 10:23 05:35 WBC 14.5 H 12.8 H (4.0-10.5) K/mm3 RBC 2.85 L 2.81 L (4.2-5.4) M/mm3 Hgb 8.9 L 8.7 L (12.5-16.0) gm/dL Hct 26.2 L 25.8 L (37.0-47.0) % MCH 31.2 H (27-31) pg RDW 14.8 H 15.0 H (11.5-14.0) % MPV 9.9 H (6.0-9.5) fl Immature Gran % (Auto) 1.10 H 0.60 H (0.001-0.429) % Immature Gran # (Auto) 0.16 H 0.08 H (0.000-0.0310) K/mm3 Neutrophils % 82.0 H 76.9 H (42-75.0) % Lymphocytes % 8.6 L 9.4 L (20-51) % Eosinophils % 4.7 H (0.0-3.0) % Neutrophils # 11.9 H 9.9 H (1.3-6.0) K/mm3 Lymphocytes # 1.2 L 1.2 L (1.5-3.5) k/mm3 Potassium 2.4 L* D (3.4-4.6) mmol/L BUN/Creatinine Ratio 6.3 L (9.0-21.6) Calcium 7.1 L (7.9-10.9) mg/dL ALT 10 L (19-67) U/L Total Protein 4.9 L (6.2-8.2) gm/dL Albumin 1.5 L (3.4-5.0) gm/dl 12/04/16 Range/Units 05:35 WBC (4.0-10.5) K/mm3 RBC (4.2-5.4) M/mm3 Hgb (12.5-16.0) gm/dL Hct (37.0-47.0) % MCH (27-31) pg RDW (11.5-14.0) % MPV (6.0-9.5) fl Immature Gran % (Auto) (0.001-0.429) % Immature Gran # (Auto) (0.000-0.0310) K/mm3 Neutrophils % (42-75.0) % Lymphocytes % (20-51) % Eosinophils % (0.0-3.0) % Neutrophils # (1.3-6.0) K/mm3 Lymphocytes # (1.5-3.5) k/mm3 Potassium 3.3 L D (3.4-4.6) mmol/L BUN/Creatinine Ratio (9.0-21.6) Calcium 7.2 L (7.9-10.9) mg/dL ALT (19-67) U/L Total Protein (6.2-8.2) gm/dL Albumin (3.4-5.0) gm/dl - Exam Constitutional: Present: Alert, Cooperative, No distress, Looks Older than stated age Neck: Present: full range of motion, supple Breasts: Present: Exam deferred Respiratory: Present: lungs clear, normal breath sounds Cardiovascular/Chest: Present: regular rate, rhythm, no chest tenderness Abdomen: Present: soft, nontender, nondistended /Rectal: Present: Exam deferred Extremity: Present: inflammation - bilat lower extremity with weeping wounds, lower extremity edema - diffuse lower extremity edema bilat Skin Exam: Present: warm/dry, no cyanosis, pallor Assessment/Plan Plan Narrative: Cellulitis (bilat lower extremity) - Abx - Clindamycin 600 mg IV q 8 hours - overall improvement seen clinically - wbc decreasing 14.5 to 12.8 - prelim would cultures growing gram neg bacilli and group G strep - awaiting final cultures - also growing rare yeast - start Diflucan 200 mg po daily. - probiotics ordered - recheck labs in am. Hyponatremia - resolved. - was 129, now 135 - recheck labs in am. Hypokalemia - improving - 2.4 on 12/03/16 - KCl 40 meq ordered BID - 3.3 on 12/04/16 - continue KCl 40 meq BID - add 20 meq KCl between doses x1 - monitor on telemetry - recheck labs in am. Diastolic CHF / pulmonary HTN - diuresed with IV lasix upon admission - blood pressure currently running a little low - patient is likely a little too dry. - since asymptomatic, will monitor for now. no IV fluids needed. - encourage po intake. - recheck labs in am. - weight down 1 kg Malnutrition - albumin 1.5, total protein 4.9 - encourage protein intake. - long discussion with patient regarding diet. - try strawberry malts with strawberry ensure to try and increase protein intake. - decontamination technician following Generalized weakness - encourage protein intake - PT/OT following. - encourage ambulation / up to chair for meals GERD - protonix po while admitted. HTN - vital signs q 4 hours Code status: DNR VTE: lovenox GI Proph: protonix po - Problems/Diagnosis (1) Cellulitis Problem: Acute Qualifiers: Site of cellulitis: extremity Laterality: unspecified laterality (2) Hypokalemia Problem: Acute (3) Malnutrition Problem: Acute (4) Poor compliance with medication Problem: Acute (5) GERD (gastroesophageal reflux disease) Problem: Chronic (6) HTN (hypertension) Problem: Chronic (7) Generalized weakness Problem: Acute (8) Bilateral lower extremity edema Problem: Acute (9) COPD (chronic obstructive pulmonary disease) Problem: Chronic Qualifiers: COPD type: chronic bronchitis Chronic bronchitis type: simple Qualified Code(s): J41.0 - Simple chronic bronchitis (10) Tobacco abuse Problem: Chronic (11) Venous stasis Problem: Chronic (12) etoh and nicotine abuse. Problem: Chronic (13) Hyponatremia Problem: Acute (14) Diastolic CHF Problem: Acute (15) Pulmonary HTN Problem: Acute
[2016-12-04] MEDS ORDERED: POTASSIUM CHLORIDE 20 MEQ TABLET.SA PO ONE (12:00)
[2016-12-04] MEDS: ENOXAPARIN SODIUM 40 MG/0.4 ML SYRG SC SCH (12:08)
[2016-12-04] MEDS: FLUCONAZOLE 200 MG TABLET PO SCH (12:47)
[2016-12-04] MEDS: PANTOPRAZOLE SODIUM 40 MG TABLET.EC PO SCH (14:15)
[2016-12-04] MEDS: SACCHAROMYCES BOULARDII 250 MG CAPSULE PO SCH ×2 (14:15→20:29)
[2016-12-05] MEDS: CLINDAMYCIN PHOSPHATE 600 MG in DEXTROSE 5 % IN WATER 100 ML IV SCH ×2 (05:11)
[2016-12-05 05:47] LABS: Hematocrit 27.9 % (37.0-47.0); Hemoglobin 9.3 gm/dL (12.5-16.0); Mean Cell Volume 92.7 fl (78-100); Mean Corpuscular Hemoglobin 30.9 pg (27-31); Mean Corpuscular Hgb Conc 33.3 g/dl (32-36); Mean Platelet Volume 9.6 fl (6.0-9.5); Neutrophil % 69.6 % (42-75.0); Platelet Count 412 K/mm3 (150-450); Red Blood Count 3.01 M/mm3 (4.2-5.4); Red Cell Distribution Width 15.1 % (11.5-14.0); White Blood Count 12.9 K/mm3 (4.0-10.5)
[2016-12-05 06:03] LABS: Albumin * 1.6 gm/dl (3.4-5.0); Anion Gap 9.6 mmol/L (6.8-13.8); BUN/Creatinine Ratio 9.9 (9.0-21.6); Bilirubin, Total 0.3 mg/dL (0.0-1.1); Ca. Corrected For Albumin 9.1 mg/dL (8.4-10.2); Calcium * 7.5 mg/dL (7.9-10.9); Carbon Dioxide 27.5 mmol/L (24-32.6); Potassium 4.1 mmol/L (3.4-4.6)
[2016-12-05] MEDS: PANTOPRAZOLE SODIUM 40 MG TABLET.EC PO SCH (07:41)
[2016-12-05] MEDS ORDERED: CIPROFLOXACIN IN 5 % DEXTROSE 400 MG/200 ML BAG IV SCH (07:45)
--- NOTE | 2016-12-05 08:51 | DS ---
(1) Cellulitis Problem: Acute Qualifiers: Site of cellulitis: extremity Laterality: unspecified laterality (2) Hypokalemia Problem: Acute (3) Malnutrition Problem: Acute (4) Poor compliance with medication Problem: Acute (5) GERD (gastroesophageal reflux disease) Problem: Chronic (6) HTN (hypertension) Problem: Chronic (7) Generalized weakness Problem: Acute (8) Bilateral lower extremity edema Problem: Acute (9) COPD (chronic obstructive pulmonary disease) Problem: Chronic Qualifiers: COPD type: chronic bronchitis Chronic bronchitis type: simple Qualified Code(s): J41.0 - Simple chronic bronchitis (10) Tobacco abuse Problem: Chronic (11) Venous stasis Problem: Chronic (12) etoh and nicotine abuse. Problem: Chronic (13) Hyponatremia Problem: Acute (14) Diastolic CHF Problem: Acute (15) Pulmonary HTN Problem: Acute Description of Stay: Shante is a 66 year old female who was admitted with bilat lower extremity swelling and erythema. diagnosed with bilat lower extremity cellulitis, wound cultures obtained. started on clindamycin IV. IV lasix given on admission. K + replaced. wbc trended down. encourage protein supplements. bilat wound cultures grew pseudomonas and group G strep, changed abx to cipro. one dose of cipro given IV prior to discharge. patient discharged with scripts for cipro and HCTZ. strongly encouraged to take all of the antibiotics and take home medications daily and consistently. Procedures Performed: none Discharge Disposition: Home self care Disposition: Home self-care Condition: Undetermined Discharge Activity: Activity as tolerated Discharge Diet: General/regular food, Other - Encourage protein intake Referrals: Alma Hamilton, B[employer] PRESSER [Primary Care Provider] - Problem Oriented Discharge Instructions to Patient/Family: High-Protein and High-Calorie Diet, Cellulitis, Adult, [id number] Additional Patient Instructions (free text): Please make TCM appointment at discharge. Call Kathi: ext [phone]. Thank you. Follow up with Alma Hamilton Saturday 12/16 at 1:00 Be sure to drink enough fluids, such as water. Eats lots of protein. New Medication: 1. Ciprofloxacin - this is an antibiotic - be sure to complete ALL of the medication. Follow up with pcp in 2 weeks, done with Alma Hamilton on 12/16/16. Prescriptions (Any new or edited meds): Ciprofloxacin HCl 500 mg PO BID #28 tablet Hydrochlorothiazide [Hydrodiuril] 25 mg PO DAILY #30 tablet Complete Home Medications List: Complete Home Medication List: Aspirin [Aspirin EC] 81 mg PO DAILY 06/29/15 Acetaminophen [Tylenol] 650 mg PO QID PRN #0 tablet 04/22/16 Calcium Carbonate [Tums] 500 mg PO QID PRN #0 tab.chew 06/03/16 Multivitamins [Multivitamin Robbin] 1 cap PO DAILY #30 capsule 06/03/16 Ciprofloxacin HCl 500 mg PO BID #28 tablet 12/05/16 Hydrochlorothiazide [Hydrodiuril] 25 mg PO DAILY #30 tablet 12/05/16
[2016-12-05] MEDS: SACCHAROMYCES BOULARDII 250 MG CAPSULE PO SCH (10:39)
[2016-12-05] MEDS: POTASSIUM CHLORIDE 20 MEQ TABLET.SA PO SCH (10:40)
[2016-12-05] MEDS: FLUCONAZOLE 200 MG TABLET PO SCH (10:41)
[2016-12-05 13:36] VITALS: BP 93/52
== END 2016-12-05 14:00 | disposition home or self-care (01) | DRG 602 ==
LOC: MS 12:10 → OBSVTOIN 23:33
PROVIDERS: ADMIT Family Medicine; ATTEND Family Medicine
DX: L03.119 Cellulitis of unspecified part of limb (principal); I50.31 Acute diastolic (congestive) heart failure; E87.1 Hypo-osmolality and hyponatremia; E46 Unspecified protein-calorie malnutrition; E87.6 Hypokalemia; B85.0 Pediculosis due to Pediculus humanus capitis; R53.1 Weakness; I27.2 Other secondary pulmonary hypertension; I87.8 Other specified disorders of veins; J41.0 Simple chronic bronchitis; I10 Essential (primary) hypertension; K21.9 Gastro-esophageal reflux disease without esophagitis; F10.10 Alcohol abuse, uncomplicated; F17.210 Nicotine dependence, cigarettes, uncomplicated
CPT/HCPCS: 36415; 80048; 80053; 83605; 83880; 85025; 85652; 86140; 87070; 87077; 87081; 87186; 93005; 93970; G0379

== ENCOUNTER 2016-12-06 02:29 | Emergency (ER) | payer SELFPAY ==
--- NOTE | 2016-12-06 02:41 | ERNOTE ---
Neuro HPI ER Record Presenting Symptoms: confusion, other - possible seizure activity Time Seen by Provider: 12/06/16 02:39 Source: family Exam Limitations: clinical condition Immunizations: IMMUNIZATION HX Immunizations Up to Date Yes History of Influenza Vaccine No Hx Pneumococcal Vaccination No Allergies/Adverse Reactions: Allergies Allergy/AdvReac Type Severity Reaction Status Date / Time aspirin Allergy dizzy Verified 05/17/16 17:17 Penicillins Allergy BREAKS Verified 05/17/16 17:17 OUT, NAUSEA morphine AdvReac Mild Other Verified 05/17/16 17:17 Home Medications: HOME MEDICATIONS Aspirin [Aspirin EC] 81 mg PO DAILY 06/29/15 [Last Taken 04/19/16] Acetaminophen [Tylenol] 650 mg PO QID PRN #0 tablet 04/22/16 [Last Taken Unknown ] Calcium Carbonate [Tums] 500 mg PO QID PRN #0 tab.chew 06/03/16 [Last Taken Unknown] Multivitamins [Multivitamin Robbin] 1 cap PO DAILY #30 capsule 06/03/16 [Last Taken Unknown] Ciprofloxacin HCl 500 mg PO BID #28 tablet 12/05/16 [Last Taken Unknown] Hydrochlorothiazide [Hydrodiuril] 25 mg PO DAILY #30 tablet 12/05/16 [Last Taken Unknown] - History of Present Illness Narrative: Pt brought by EMS with c/o mental status changes. Boyfriend states that the patient was just discharged from this hospital less than 24 hours ago. He had been in the hospital for treatment of cellulitis of her legs. Today she was talking then just stopped her "eyes rolled back in her head" and she stiffened up for a few seconds. Pt continued to be confused after this incident. Onset: sudden onset Severity: moderate - Character of Deficits Baseline Cognition: Present: alert, oriented x 4 Associated Symptoms: Reports: altered mental status Prior Treament: Reports: recently seen, treated by physician, recently hospitalized, currently on antibiotics Review of Systems - Review of Systems Constitutional: Present: recent illness, fatigue EYE: Present: no symptoms reported ENT: Present: no symptoms reported Respiratory: Absent: shortness of breath Cardiology: Present: edema Gastrointestinal/Abdominal: Absent: nausea, vomiting Genitourinary: Present: no symptoms reported Musculoskeletal: Present: no symptoms reported Skin: Present: no symptoms reported Endocrine: Present: no symptoms reported Hematologic/Lymphatic: Present: no symptoms reported Psych: Present: anxiety - Patient's Past Medical History Patient History - Medical: Anxiety, Arthritis, GERD, Migraines, Osteoarthritis Patient History - Cardiac/Respiratory: Coronary Heart Disease, COPD, TIA Patient History - Cancer: Melanoma, Surgical Treatment Patient History - Surgical Procedures: Cataracts, D & C, Tubal Ligation, T & A, Other Patient History - Other: None - Family History Mother Family History - Medical: Family History - Cardiac/Respiratory: Coronary Heart Disease, Myocardial Infarction, Other Father Family History - Medical: Family History - Cardiac/Respiratory: Coronary Heart Disease Family History - Cancer: No pertinent family hx - Social History Living Situations: spouse Abuse History: No History of abuse Psych History: Hx of Anxiety Alcohol Use: other Drug Use: none - Immunizations Immunizations Up to Date: Yes Hx Pneumococcal Vaccination: No History of Influenza Vaccine: No Physical Exam - Physical Exam General Appearance: Present: wd/wn, alert, mild distress, lethargic - and somewhat confused Head Exam: Present: normal inspection, no evidence of injury Ears, Nose, Throat: Present: normal ENT inspection Neck: Present: normal inspection, nontender, full range of motion Respiratory: Present: no respiratory distress, normal breath sounds, chest nontender, lungs clear Cardiovascular/Chest: Present: regular rate, rhythm, no murmur Gastrointestinal/Abdominal: Present: normal bowel sounds, nontender, nondistended, soft Extremity Exam: Present: extremity edema - 2-3+ edema bilateral Neurological Exam: Present: disoriented to time, disoriented to place Skin Exam: Present: other - bilateral lower extremities scaly and erythematous. [place] Coma Scale - Assess Eye Opening: Spontaneous Motor: Obeys Commands Verbal: Confused - Total Coma Scale Total: 14 ED Progress - Results and Orders Patient's Lab Results:: I have reviewed the patient's lab results. Results and Orders: Laboratory Tests 12/06/16 12/06/16 12/06/16 02:45 02:45 02:45 WBC 14.7 H Hgb 10.4 L Hct 31.5 L Plt Count 421 Sodium 132 Potassium 5.1 H D Chloride 98 Carbon Dioxide 26.5 Anion Gap 12.6 BUN 11 D Creatinine 0.87 Random Glucose 108 Lactic Acid, Venous Calcium 7.6 L Total Bilirubin 0.4 AST 21 ALT 15 L Alkaline Phosphatase 92 C-Reactive Prot, Quant 1.1 H Total Protein 6.3 Albumin 2.0 L Urine Color Urine Appearance Urine pH Ur Specific [place] Urine Protein Urine Glucose (UA) Urine Ketones Urine Blood Urine Nitrate Urine Bilirubin Urine Urobilinogen Ur Leukocyte Esterase Urine RBC Urine WBC Ur Epithelial Cells Amorphous Sediment Urine Bacteria Urine Culture Comments 12/06/16 12/06/16 02:45 03:30 WBC Hgb Hct Plt Count Sodium Potassium Chloride Carbon Dioxide Anion Gap BUN Creatinine Random Glucose Lactic Acid, Venous 2.7 H* Calcium Total Bilirubin AST ALT Alkaline Phosphatase C-Reactive Prot, Quant Total Protein Albumin Urine Color Yellow Urine Appearance Clear Urine pH 7.0 Ur Specific [place] <=1.005 Urine Protein Negative Urine Glucose (UA) Negative Urine Ketones Negative Urine Blood Negative Urine Nitrate Negative Urine Bilirubin Negative Urine Urobilinogen Normal Ur Leukocyte Esterase 75 H Urine RBC 0-5 Urine WBC 0-5 Ur Epithelial Cells None seen Amorphous Sediment Trace Urine Bacteria Trace Urine Culture Comments Culture to follow Laboratory Tests 12/06/16 05:40 Lactic Acid, Venous 1.2 - Vital Signs Patient's Vital Signs:: I have reviewed the patient's vital signs. Vital Signs: Vital Signs 12/06/16 02:32 Temperature 36.4 C L Pulse Rate 114 H Respiratory 20 Rate Blood Pressure 100/47 - EKG EKG: NSR EKG read: Interp. by me - CT/Ultrasound CT/Ultrasound Narrative: CT head without contrast: no acute intracranial pathology White matter changes and volume loss appropriate for age. - Progress/Reassessment Chief Complaint: Altered Mental Status Progress:: Improved Progress Note-Subjective: 12/06/16 05:39 Pt improved, A&O x 3 and desires to go home. I explained to her that we would like to repeat the lactic acid and then make the decision if she would be safe to go home. Pt expresses understanding and agreement. Departure Clinical Impression: Bilateral lower extremity edema Cellulitis Qualifiers: Site of cellulitis: extremity Site of cellulitis of extremity: lower extremity Laterality: unspecified laterality Qualified Code(s): L03.119 - Cellulitis of unspecified part of limb - Departure Disposition: Home Follow Up Needed Condition: Good Instructions: Cellulitis, Adult, [id number], Edema, [id number] Additional Instructions: Take your antibiotics as directed, do not miss doses. Drink plenty of water. Elevate your legs above your heart for 30 minutes 2-3 times a day. follow up as directed when you were discharged from the hospital. Referrals: Alma Hamilton, [facility]ER [Primary Care Provider] -
[2016-12-06 02:52] LABS: Hematocrit 31.5 % (37.0-47.0); Hemoglobin 10.4 gm/dL (12.5-16.0); Mean Platelet Volume 8.8 fl (6.0-9.5); Neutrophil # 10.8 K/mm3 (1.3-6.0); Neutrophil % 73.5 % (42-75.0); Platelet Count 421 K/mm3 (150-450); Red Blood Count 3.35 M/mm3 (4.2-5.4); Red Cell Distribution Width 15.4 % (11.5-14.0); White Blood Count 14.7 K/mm3 (4.0-10.5)
[2016-12-06 03:06] LABS: Anion Gap 12.6 mmol/L (6.8-13.8); BUN/Creatinine Ratio 12.6 (9.0-21.6); Bilirubin, Total 0.4 mg/dL (0.0-1.1); Ca. Corrected For Albumin 8.9 mg/dL (8.4-10.2); Calcium * 7.6 mg/dL (7.9-10.9); Carbon Dioxide 26.5 mmol/L (24-32.6); Potassium 5.1 mmol/L (3.4-4.6); Total Protein 6.3 gm/dL (6.2-8.2)
[2016-12-06 03:47] LABS: Urine Bilirubin Negative (NEGATIVE); Urine Blood Negative /ul (NEGATIVE); Urine Ketone Negative (NEGATIVE); Urine Nitrite Negative (NEGATIVE); Urine Protein Negative (NEGATIVE); Urine Specific Gravity <=1.005 SP.GR. (1.005-1.010); Urine Urobilinogen Normal (NORMAL)
[2016-12-06] MEDS: NORMAL SALINE 1,000 ML IV PRN ×2 (03:53→04:54)
[2016-12-06 04:01] LABS: Urine Appearance Clear; Urine Bacteria TRACE; Urine Color Yellow; Urine RBC 0-5 /hpf (0-5); Urine WBC 0-5 /hpf (0-5)
[2016-12-06 04:02] LABS: Urine Amorphous Sediment TRACE (NONE-FEW)
[2016-12-06 06:17] VITALS: BP 105/68
[2016-12-06] MEDS ORDERED: CIPROFLOXACIN HCL 250 MG TABLET PO ONE ×2 (06:21→06:22)
[2016-12-06] MEDS ORDERED: CIPROFLOXACIN HCL 250 MG TABLET ONE ×2 (06:32)
== END 2016-12-06 06:47 | disposition home or self-care (01) ==
LOC: ER 02:29
DX: R60.0 Localized edema (principal); L03.119 Cellulitis of unspecified part of limb; M19.90 Unspecified osteoarthritis, unspecified site; K21.9 Gastro-esophageal reflux disease without esophagitis; I25.2 Old myocardial infarction; J44.9 Chronic obstructive pulmonary disease, unspecified; Z85.820 Personal history of malignant melanoma of skin

== ENCOUNTER 2017-10-26 22:33 | Observation (INO) ==
[2017-10-26] MEDS ORDERED: VANCOMYCIN HCL 1 GM in DEXTROSE 5 % IN WATER 250 ML IV ONE ×2 (22:50)
[2017-10-26] MEDS ORDERED: CLINDAMYCIN PHOSPHATE 600 MG in DEXTROSE 5 % IN WATER 100 ML IV ONE ×2 (22:51)
[2017-10-26 22:58] LABS: Hematocrit 40.9 % (37.0-47.0); Hemoglobin 13.8 gm/dL (12.5-16.0); Mean Cell Volume 88.5 fl (78-100); Mean Corpuscular Hemoglobin 29.9 pg (27-31); Mean Corpuscular Hgb Conc 33.7 g/dl (32-36); Neutrophil # 5.3 K/mm3 (1.3-6.0); Neutrophil % 64.6 % (42-75.0); Platelet Count 265 K/mm3 (150-450); Red Blood Count 4.62 M/mm3 (4.2-5.4); Red Cell Distribution Width 14.1 % (11.5-14.0); White Blood Count 8.2 K/mm3 (4.0-10.5)
--- NOTE | 2017-10-26 23:00 | ERNOTE ---
Integumentary HPI - Narrative Date of Service: 10/26/17 - General Presenting Symptoms: other - lower extremity redness Time Seen by Provider: 10/26/17 22:43 Source: patient - Immun/Allergies/Home Medications Immunizations: IMMUNIZATION HX Immunizations Up to Date I think so History of Influenza Vaccine No Hx Pneumococcal Vaccination No Allergies/Adverse Reactions: Allergies Allergy/AdvReac Type Severity Reaction Status Date / Time aspirin Allergy dizzy Verified 10/26/17 22:42 Penicillins Allergy BREAKS Verified 10/26/17 22:42 OUT, NAUSEA morphine AdvReac Mild Other Verified 10/26/17 22:42 Home Medications: HOME MEDICATIONS diaper,brief,adult,disposable See Dose Instructions .ROUTE .MEDSUPPLY #32 ea 09/11 [Last Taken Unknown] omeprazole 40 mg capsule,delayed release 40 mg PO DAILY 09/29/17 [Last Taken Unknown] albuterol sulfate HFA 90 mcg/actuation aerosol inhaler 2 inh IH .Q4-6H PRN #18 g 10/05/17 [Last Taken Unknown] miscellaneous medical supply misc See Dose Instructions .ROUTE .MEDSUPPLY #1 ea 10/13/17 [Last Taken Unknown] tramadol 50 mg tablet 50 mg PO Q6H PRN #60 tab 10/13/17 [Last Taken Unknown] white petrolatum 41 % topical ointment 1 applic TP DAILY #396 g 10/13/17 [Last Taken Unknown] - History of Present Illness Narrative: Patient is a 67-year-old who presents to the emergency room complaining of persistent redness and swelling of the bilateral lower extremity for the past 3 weeks. Patient was recently seen by her primary care physician 3 weeks ago for the same symptom and at the time was diagnosed with lower extremity cellulitis started on doxycycline which patient reports to be compliant with. She finished her antibiotic course and returns to the emergency room with persistent symptom. Patient denies being a diabetic but reports to be a smoker. She denies any fever, chills, night sweats, drainage of her cellulitic area Date (Duration): 10/01/17 Location: Reports: lower extremity Quality: Reports: other - redness and swelling Severity: moderate Associated Symptoms: Reports: denies symptoms Prior Treatment: Reports: recently seen, treated by physician, other - recently on antibiotics, Doxycyclin Review of Systems - Review of Systems Constitutional: Present: no symptoms reported EYE: Present: no symptoms reported ENT: Present: no symptoms reported Respiratory: Present: no symptoms reported Cardiology: Present: no symptoms reported Gastrointestinal/Abdominal: Present: no symptoms reported Musculoskeletal: Present: no symptoms reported Skin: Present: See HPI Neurological: Present: no symptoms reported Endocrine: Present: no symptoms reported Hematologic/Lymphatic: Present: no symptoms reported Psych: Present: no symptoms reported Medical History (Last Reviewed 10/26/17 @ 22:43 by Lu Harris) Tobacco abuse (Acute) Onset Date: Unknown Stasis dermatitis of both legs (Acute) Onset Date: Unknown Mild concentric left ventricular hypertrophy (LVH) (Acute) Onset Date: Unknown Migraine (Acute) Onset Date: Unknown Malunion of fracture (Acute) Onset Date: ~2012 Hypertension (Acute) Onset Date: Unknown GERD (gastroesophageal reflux disease) (Acute) Onset Date: Unknown COPD (chronic obstructive pulmonary disease) (Acute) Onset Date: Unknown Chest pain (Acute) Onset Date: Unknown Arthritis (Acute) Onset Date: Unknown Anxiety (Acute) Onset Date: Unknown Surgical History: Surgical History (Last Reviewed 10/26/17 @ 22:43 by Lu Harris) H/O dilation and curettage Onset Date: Unknown H/O tubal ligation Onset Date: Unknown H/O vaginal surgery Onset Date: Unknown History of bladder surgery Onset Date: Unknown History of tonsillectomy Onset Date: Unknown Status post surgical removal of malignant neoplasm of skin Onset Date: Unknown attempted closed reduction Onset Date: ~2012 Family History: Family History (Last Reviewed 10/13/17 @ 11:36 by RILEY Santos) Father Heart disease Mother Pacemaker Social History: Preferred Language Greek Do you have any mandaen or No cultural preference? Smoking Status Current every day smoker Abuse History No History of abuse Psych History Hx of Anxiety Alcohol Use occasionally Drug Use none Physical Exam - Physical Exam General Appearance: Present: wd/wn, alert, no apparent distress Head Exam: Present: normal inspection, no evidence of injury Eye Exam: Normal inspection: bilateral, PERRL: bilateral, EOMI: bilateral Neck: Present: normal inspection, nontender, supple, full range of motion Respiratory: Present: no respiratory distress, no accessory muscle use, rhonchi Cardiovascular/Chest: Present: no murmur, normal peripheral pulses, tachycardia Gastrointestinal/Abdominal: Present: normal bowel sounds, nontender, nondistended, soft Back Exam: Present: normal inspection, normal range of motion, no CVA tenderness Extremity Exam: Present: normal inspection Neurological Exam: Present: alert, oriented, normal mood/affect Skin Exam: Present: other - patient appears to have a grossly swollen bilateral lower extremity from the knee all the way down to the foot with cellulitic redness and some tenderness from the midshin upward onto the ankle region. Lymphatic Exam: Present: no adenopathy ED Progress - Results and Orders Patient's Lab Results:: I have reviewed the patient's lab results. - Vital Signs Patient's Vital Signs:: I have reviewed the patient's vital signs. Vital Signs: Vital Signs 10/26/17 22:35 Temperature 36.5 C Pulse Rate 101 H Respiratory Rate 18 Blood Pressure 141/74 O2 Sat by Pulse Oximetry 99 - Progress/Reassessment Chief Complaint: Cellulitis Progress:: Unchanged Progress Note-Subjective: 10/27/17 00:51 Patient appears to have bilateral cellulitis of the lower extremity which failed outpatient therapy. Discussed this patient with hospitalist, AMBROCIO Bernal, who is agreeable to acutely admitting the patient for IV antibiotics. During her emergency room stay patient was given a dose of vancomycin and clindamycin for cellulitis. She also was found to have potassium of 2.6 and was given 40 mEq of potassium here in the emergency room 2. Has no white count and C-reactive protein is minimally elevated at 3.8 - Transfer of Care Pending Results: Labs Expected Disposition: Admit Departure Clinical Impression: Cellulitis of both lower extremities, Hypokalemia due to inadequate potassium intake - Departure Disposition: [facility] bed ([facility]) Condition: Stable
[2017-10-26 23:16] LABS: Albumin * 2.8 gm/dl (3.4-5.0); BUN/Creatinine Ratio 10.9 (9.0-21.6); Bilirubin, Total 0.8 mg/dL (0.0-1.1); CRP 3.8 mg/dL (0.0-0.9); Calcium * 8.4 mg/dL (7.9-10.9); Carbon Dioxide 27.6 mmol/L (24-32.6); Potassium 2.6 mmol/L (3.4-4.6); Total Protein 6.2 gm/dL (6.2-8.2)
[2017-10-26] MEDS ORDERED: POTASSIUM CHLORIDE 20 MEQ TABLET.SA PO ONE (23:41)
[2017-10-26] MEDS ORDERED: POTASSIUM CHLORIDE 20 MEQ TABLET.SA ONE (23:57)
[2017-10-27] MEDS ORDERED: POTASSIUM CHLORIDE 20 MEQ TABLET.SA PO ONE ×2 (01:04→05:04)
[2017-10-27] MEDS ORDERED: POTASSIUM CHLORIDE 20 MEQ TABLET.SA ONE (01:06)
[2017-10-27] MEDS ORDERED: ALBUTEROL SULFATE 200 PUFF INHALER IH PRN (02:58)
--- NOTE | 2017-10-27 03:04 | HP ---
Chief Complaint - Chief Complaint Date of Service: 10/27/17 Time of Service: 02:59 Chief Complaint: cellulitis, weakness History of Present Illness: 67 years old female adm to the hospital with reports of having difficulty walk, weakness and unresolved cellulites that was treated out-patient three weeks ago with Doxycline. pt stated her legs getting progressively worse and painful to walk. No fever, chills, drainage but has moderate edema bilaterally lower extremities. In ER blood cultures obtained , she was started with Vancomycin and clindamycin for MRSA coverage and since she was recently treated with antibiotics. supplemented with K-dur 40meq as K+ 2.6 and CRP 3.8. PMH significant for venous stasis,dermatitis, cellulites, Hypertension and COPD. Plan of care discussed with pt she verbalized understanding and agrees. Medical History (Last Reviewed 10/27/17 @ 02:16 by Annalise Rodrigez RN) Tobacco abuse (Acute) Onset Date: Unknown Stasis dermatitis of both legs (Acute) Onset Date: Unknown Mild concentric left ventricular hypertrophy (LVH) (Acute) Onset Date: Unknown Migraine (Acute) Onset Date: Unknown Malunion of fracture (Acute) Onset Date: ~2012 Hypertension (Acute) Onset Date: Unknown GERD (gastroesophageal reflux disease) (Acute) Onset Date: Unknown COPD (chronic obstructive pulmonary disease) (Acute) Onset Date: Unknown Chest pain (Acute) Onset Date: Unknown Arthritis (Acute) Onset Date: Unknown Anxiety (Acute) Onset Date: Unknown Surgical History: Surgical History (Last Reviewed 10/27/17 @ 02:17 by Annalise Rodrigez RN) H/O dilation and curettage Onset Date: Unknown H/O tubal ligation Onset Date: Unknown H/O vaginal surgery Onset Date: Unknown History of bladder surgery Onset Date: Unknown History of tonsillectomy Onset Date: Unknown Status post surgical removal of malignant neoplasm of skin Onset Date: Unknown attempted closed reduction Onset Date: ~2012 Family History: Family History (Last Reviewed 10/27/17 @ 02:17 by Annalise Rodrigez RN) Father Heart disease Mother Pacemaker Social History: Patient Lives/Resources With Spouse Utilized 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 Smoking Status Current every day smoker Have you smoked in the past 12 Yes months Do you dip or chew tobacco No Abuse History No History of abuse Psych History Hx of Anxiety Alcohol Use occasionally Drug Use none Review Of Systems (GEN) - Review of Systems Generalized/Overall Review: Present: Weakness, Fatigue EENTM: Present: No Symptoms Reported Respiratory: Present: Cough - smokers cough Cardiac: Present: No Symptoms Reported Abdominal: Present: No Symptoms Reported Genitourinary: Present: Incontinent Musculoskeletal: Present: Other - weakness Neurological: Present: No Symptoms Reported Skin: Present: Other - erythema, scaly Endocrine: Present: No Symptoms Reported Immunizations: IMMUNIZATION HX Immunizations Up to Date I think so History of Influenza Vaccine No Hx Pneumococcal Vaccination No Allergies/Adverse Reactions: Allergies Allergy/AdvReac Type Severity Reaction Status Date / Time aspirin Allergy dizzy Verified 10/26/17 22:42 Penicillins Allergy BREAKS Verified 10/26/17 22:42 OUT, NAUSEA morphine AdvReac Mild Other Verified 10/26/17 22:42 Home Medications: HOME MEDICATIONS diaper,brief,adult,disposable See Dose Instructions .ROUTE .MEDSUPPLY #32 ea 09/11 [Last Taken Unknown] omeprazole 40 mg capsule,delayed release 40 mg PO DAILY 09/29/17 [Last Taken Unknown] albuterol sulfate HFA 90 mcg/actuation aerosol inhaler 2 inh IH .Q4-6H PRN #18 g 10/05/17 [Last Taken Unknown] miscellaneous medical supply misc See Dose Instructions .ROUTE .MEDSUPPLY #1 ea 10/13/17 [Last Taken Unknown] tramadol 50 mg tablet 50 mg PO Q6H PRN #60 tab 10/13/17 [Last Taken Unknown] white petrolatum 41 % topical ointment 1 applic TP DAILY #396 g 10/13/17 [Last Taken Unknown] Exam - Exam Vital Signs: Vital Signs - Last Taken Temp 36.5 C 10/27/17 00:52 Pulse 92 10/27/17 01:11 Resp 18 10/27/17 01:11 BP 146/84 10/27/17 01:11 Pulse Ox 98 10/27/17 01:11 Constitutional: Present: Alert, Oriented x3, Cooperative, No distress, Middle aged ENT Exam: Present: hearing grossly normal Eye Exam: bilateral eye: normal inspection Neck: Present: full range of motion Back Exam: Present: normal inspection Breasts: Present: Exam deferred Respiratory: Present: chest non-tender, no accessory muscle use, decreased breath sounds Cardiovascular/Chest: Present: normal peripheral pulses, regular rate, rhythm, no chest tenderness, edema Peripheral Pulses: dorsalis-pedis (R): 2+, dorsalis-pedis (L): 2+ Abdomen: Present: Normal bowel sounds, soft, nontender, nondistended, no rebound tenderness /Rectal: Present: Exam deferred Extremity: Present: calf tenderness, lower extremity edema, pedal edema, slow capillary refill, swelling Skin Exam: Present: other - Jose legs erythema and swelling. associated cellulitis from knee down to foot, sclay Neurologic: Present: normal mood/affect, oriented x 3, abnormal gait Appearance: Present: appropriate appearance Eye contact: Present: cooperative, good eye contact Thoughts: Present: normal thought pattern, no apparent hallucination Diagnostic Studies: Abnormal Lab Results 10/26/17 10/26/17 Range/Units 22:56 22:56 RDW 14.1 H (11.5-14.0) % Lymphocytes % 10.2 L (20-51) % Monocytes % 13.4 H (0.0-9) % Eosinophils % 10.7 H (0.0-3.0) % Lymphocytes # 0.83 L (1.5-3.5) k/mm3 Monocytes # 1.1 H (0.0-1.0) k/mm3 Eosinophils # 0.9 H (0.0-0.7) k/mm3 Potassium 2.6 L (3.4-4.6) mmol/L Chloride 96 L (97-106) mmol/L ALT 16 L (19-67) U/L C-Reactive Prot, Quant 3.8 H (0.0-0.9) mg/dL Albumin 2.8 L (3.4-5.0) gm/dl Laboratory Results WBC 8.2 K/mm3 (4.0-10.5) 10/26/17 22:56 RBC 4.62 M/mm3 (4.2-5.4) 10/26/17 22:56 Hgb 13.8 gm/dL (12.5-16.0) 10/26/17 22:56 Hct 40.9 % (37.0-47.0) 10/26/17 22:56 MCV 88.5 fl (78-100) 10/26/17 22:56 MCH 29.9 pg (27-31) 10/26/17 22:56 MCHC 33.7 g/dl (32-36) 10/26/17 22:56 RDW 14.1 % (11.5-14.0) H 10/26/17 22:56 Plt Count 265 K/mm3 (150-450) 10/26/17 22:56 MPV 9.0 fl (8-12.5) 10/26/17 22:56 Immature Gran % (Auto) 0.20 % (0.001-0.429) 10/26/17 22:56 Immature Gran # (Auto) 0.02 K/mm3 (0.000-0.0310) 10/26/17 22:56 Neutrophils % 64.6 % (42-75.0) 10/26/17 22:56 Lymphocytes % 10.2 % (20-51) L 10/26/17 22:56 Monocytes % 13.4 % (0.0-9) H 10/26/17 22:56 Eosinophils % 10.7 % (0.0-3.0) H 10/26/17 22:56 Basophils % 0.9 % (0.0-1.0) 10/26/17 22:56 Nucleated RBC % 0.0 k/mm3 (0-1) 10/26/17 22:56 Neutrophils # 5.3 K/mm3 (1.3-6.0) 10/26/17 22:56 Lymphocytes # 0.83 k/mm3 (1.5-3.5) L 10/26/17 22:56 Monocytes # 1.1 k/mm3 (0.0-1.0) H 10/26/17 22:56 Eosinophils # 0.9 k/mm3 (0.0-0.7) H 10/26/17 22:56 Absolute Basophils 0.1 k/mm3 (0.0-0.1) 10/26/17 22:56 Sodium 132 mmol/L (132-142) 10/26/17 22:56 Plasma Sodium 132 mmol/L (130-142) 10/26/17 22:56 Potassium 2.6 mmol/L (3.4-4.6) L 10/26/17 22:56 Chloride 96 mmol/L (97-106) L 10/26/17 22:56 Carbon Dioxide 27.6 mmol/L (24-32.6) 10/26/17 22:56 Anion Gap 11.0 mmol/L (6.8-13.8) 10/26/17 22:56 BUN 6 mg/dL (3-23) D 10/26/17 22:56 Creatinine 0.55 mg/dL (0.4-1.4) 10/26/17 22:56 Est GFR (Non-Af Amer) 118 mL/min (60-130) D 10/26/17 22:56 BUN/Creatinine Ratio 10.9 (9.0-21.6) 10/26/17 22:56 Random Glucose 91 mg/dL (70-110) 10/26/17 22:56 Calcium 8.4 mg/dL (7.9-10.9) 10/26/17 22:56 Calcium Adj for Albumin 9.0 mg/dL (8.4-10.2) 10/26/17 22:56 Total Bilirubin 0.8 mg/dL (0.0-1.1) 10/26/17 22:56 AST 11 U/L (0-48) 10/26/17 22:56 ALT 16 U/L (19-67) L 10/26/17 22:56 Alkaline Phosphatase 120 U/L (50-170) 10/26/17 22:56 C-Reactive Prot, Quant 3.8 mg/dL (0.0-0.9) H 10/26/17 22:56 Total Protein 6.2 gm/dL (6.2-8.2) 10/26/17 22:56 Albumin 2.8 gm/dl (3.4-5.0) L 10/26/17 22:56 Assessment/Plan - Assessment/Plan (1) Cellulitis of both lower extremities Assessment: pt was treated out-pt x3 weeks with doxcy and completed regimen. Despite treatment pt stated her legs still painful and its difficult to walk Vancomycin and clindamycin given in ER MRSA coverage and she was recently treated with antibiotic out-pt 3 weeks ago. Continue with antibiotics and monitor CBC and CMP Keep legs elevated , pt potentially has some venous insufficiency in both legs. Problem: Acute (2) Hypokalemia due to inadequate potassium intake Assessment: Supplemented K-dur 40meq and additional dose given k-dur 20meq monitor cmp Problem: Acute (3) Tobacco abuse Assessment: nicotine patch smoking cessation education, pt not ready to quit Problem: Chronic (4) Stasis dermatitis of both legs Problem: Chronic (5) Hypertension Assessment: stable resume home medication Problem: Chronic (6) GERD (gastroesophageal reflux disease) Problem: Chronic (7) COPD (chronic obstructive pulmonary disease) Assessment: supplemented oxygen PRN continue with home neb treatment Problem: Chronic (8) Diastolic CHF Assessment: stable Problem: Chronic (9) Pulmonary HTN Problem: Chronic
[2017-10-27 04:25] LABS: Hemoglobin 12.6 gm/dL (12.5-16.0); Mean Cell Volume 88.5 fl (78-100); Mean Corpuscular Hemoglobin 30.1 pg (27-31); Mean Corpuscular Hgb Conc 34.1 g/dl (32-36); Mean Platelet Volume 9.4 fl (8-12.5); Neutrophil # 4.8 K/mm3 (1.3-6.0); Neutrophil % 67.3 % (42-75.0); Platelet Count 246 K/mm3 (150-450); Red Blood Count 4.18 M/mm3 (4.2-5.4); White Blood Count 7.1 K/mm3 (4.0-10.5)
[2017-10-27 04:45] LABS: Albumin * 2.3 gm/dl (3.4-5.0); Anion Gap 8.2 mmol/L (6.8-13.8); BUN/Creatinine Ratio 7.8 (9.0-21.6); Bilirubin, Total 0.7 mg/dL (0.0-1.1); Ca. Corrected For Albumin 8.9 mg/dL (8.4-10.2); Calcium * 7.9 mg/dL (7.9-10.9); Carbon Dioxide 26.9 mmol/L (24-32.6); Potassium 3.1 mmol/L (3.4-4.6); Total Protein 5.1 gm/dL (6.2-8.2)
[2017-10-27] MEDS ORDERED: traMADol HCL 50 MG TABLET PO PRN (05:04)
[2017-10-27] MEDS ORDERED: OMEPRAZOLE 20 MG CAPSULE.SA PO SCH (05:30)
[2017-10-27] MEDS ORDERED: ALBUTEROL SULFATE 2.5 MG/0.5 ML VIAL.NEB IH SCH (06:15)
[2017-10-27] MEDS ORDERED: NICOTINE 21 MG PATC TD SCH (06:45)
[2017-10-27] MEDS ORDERED: PANTOPRAZOLE SODIUM 40 MG TABLET.EC PO SCH (07:00)
[2017-10-27] MEDS: ALBUTEROL SULFATE 2.5 MG/0.5 ML VIAL.NEB IH SCH ×3 (07:56→15:51)
[2017-10-27] MEDS: CEPHALEXIN MONOHYDRATE 500 MG CAPSULE PO SCH ×2 (08:49→12:44)
[2017-10-27] MEDS ORDERED: CLINDAMYCIN PHOSPHATE 600 MG in DEXTROSE 5 % IN WATER 100 ML IV SCH ×2 (09:00)
--- NOTE | 2017-10-27 14:20 | DS ---
(1) Lower extremity edema Problem: Chronic (2) Erysipelas of lower extremity Problem: Acute (3) Cellulitis of both lower extremities Problem: Acute (4) Stasis dermatitis of both legs Problem: Chronic Description of Stay: ADMISSION DATE: 10/27/2017 DISCHARGE DATE: 10/27/2017 ADMISSION HPI by MALACHI Hanson: 67 years old female adm to the hospital with reports of having difficulty walk, weakness and unresolved cellulites that was treated out-patient three weeks ago with Doxycline. pt stated her legs getting progressively worse and painful to walk. No fever, chills, drainage but has moderate edema bilaterally lower extremities. In ER blood cultures obtained , she was started with Vancomycin and clindamycin for MRSA coverage and since she was recently treated with antibiotics. supplemented with K-dur 40meq as K+ 2.6 and CRP 3.8. PMH significant for venous stasis,dermatitis, cellulites, Hypertension and COPD. Plan of care discussed with pt she verbalized understanding and agrees. HOSPITAL COURSE: The patient was admitted to observation status for generalized weakness and difficulty ambulating secondary to lower extremity erythema and swelling at least partially related to her chronic venous stasis. The patient was treated with IV antibiotics while in the hospital and then was transitioned to oral antibiotics at discharge. Lower extremity edema and wound care including compression and elevation discussed with the patient. The patient was also found to be hypokalemic, likely multifactorial due to poor PO intake and medication/diuretic side effect. Patient started on oral potassium supplementation and we will recheck a BMP in 1 week. The patient was discharged home in stable condition and instructed to follow-up as directed. FOLLOW-UP APPOINTMENTS: -Please make TCM appointment unless longterm discharge. Thank you! [phone]. -Follow-up with Dr. Lyons within 2 weeks -Recheck BMP in 1 week NEW OR CHANGED MEDICATIONS: -Keflex 500mg PO BID X 10 days -KCl 20mEq PO daily Procedures Performed: none Results and Findings: Lab Pending Results 10/26/17 22:56: WBC 8.2, RBC 4.62, Hgb 13.8, Hct 40.9, MCV 88.5, MCH 29.9, MCHC 33.7, RDW 14.1 H, Plt Count 265, MPV 9.0, Immature Gran % (Auto) 0.20, Immature Gran # (Auto) 0.02, Neutrophils % 64.6, Lymphocytes % 10.2 L, Monocytes % 13.4 H , Eosinophils % 10.7 H, Basophils % 0.9, Nucleated RBC % 0.0, Neutrophils # 5.3 , Lymphocytes # 0.83 L, Monocytes # 1.1 H, Eosinophils # 0.9 H, Absolute Basophils 0.1 10/26/17 22:56: Sodium 132, Plasma Sodium 132, Potassium 2.6 L, Chloride 96 L, Carbon Dioxide 27.6, Anion Gap 11.0, BUN 6 D, Creatinine 0.55, Est GFR (Non-Af Amer) 118 D, BUN/Creatinine Ratio 10.9, Random Glucose 91, Calcium 8.4, Calcium Adj for Albumin 9.0, Total Bilirubin 0.8, AST 11, ALT 16 L, Alkaline Phosphatase 120, C-Reactive Prot, Quant 3.8 H, Total Protein 6.2, Albumin 2.8 L 10/27/17 04:00: WBC 7.1, RBC 4.18 L, Hgb 12.6, Hct 37.0, MCV 88.5, MCH 30.1, MCHC 34.1, RDW 14.0, Plt Count 246, MPV 9.4, Immature Gran % (Auto) 0.10, Immature Gran # (Auto) 0.01, Neutrophils % 67.3, Lymphocytes % 9.0 L, Monocytes % 14.5 H, Eosinophils % 8.7 H, Basophils % 0.4, Nucleated RBC % 0.0, Neutrophils # 4.8, Lymphocytes # 0.64 L, Monocytes # 1.0, Eosinophils # 0.6, Absolute Basophils 0.0 10/27/17 04:00: Sodium 132, Plasma Sodium 133, Potassium 3.1 L, Chloride 100, Carbon Dioxide 26.9, Anion Gap 8.2, BUN 5, Creatinine 0.64, Est GFR (Non-Af Amer ) 99, BUN/Creatinine Ratio 7.8 L, Random Glucose 139 H D, Calcium 7.9, Calcium Adj for Albumin 8.9, Total Bilirubin 0.7, AST 10, ALT 11 L, Alkaline Phosphatase 102, Total Protein 5.1 L, Albumin 2.3 L Discharge Location: Home Disposition: Home self-care Condition: Stable Discharge Activity: Activity as tolerated Discharge Diet: Low salt Referrals: Alma Hamilton FNP [Primary Care Provider] - Problem Oriented Discharge Instructions to Patient/Family: Cellulitis, Adult, [id number] Additional Patient Instructions (free text): -Follow-up with Dr. Lyons on Monday, November 06, 2017, at 10:15 AM. -Recheck BMP in 1 week Prescriptions (Any new or edited meds): Cephalexin Monohydrate [Keflex] 500 mg PO BID 10 Days #20 cap Potassium Chloride [K-Dur] 20 meq PO DAILY #30 tab Complete Home Medications List: Complete Home Medication List: omeprazole 40 mg capsule,delayed release 40 mg PO DAILY 09/29/17 albuterol sulfate HFA 90 mcg/actuation aerosol inhaler 2 inh IH .Q4-6H PRN #18 g 10/05/17 tramadol 50 mg tablet 50 mg PO Q6H PRN #60 tab 10/13/17 Albuterol Sulfate [Ventolin HFA] 1 puff IH Q6H PRN 10/27/17 Amlodipine Besylate 5 mg PO DAILY 10/27/17 Cephalexin Monohydrate [Keflex] 500 mg PO BID 10 Days #20 cap 10/27/17 Enalapril Maleate [Vasotec] 2.5 mg PO DAILY 10/27/17 HYDROcodone/ACETAMINOPHEN [Hydrocodone-Acetamin 5-325 mg] 1 each PO Q12H PRN 06/11 Hydrochlorothiazide [Hydrodiuril] 25 mg PO DAILY 10/27/17 Ipratropium/Albuterol Sulfate [Iprat-Albut 0.5-3(2.5) mg/3 ml] 3 ml IH Q6H 10/27 Mirtazapine 30 mg PO HS 10/27/17 Potassium Chloride [K-Dur] 20 meq PO DAILY #30 tab 10/27/17 Sodium Chloride 2 gm PO TID 10/27/17 diaper,brief,adult,disposable See Dose Instructions .ROUTE .MEDSUPPLY #120 ea Amb Orders for Discharge: Basic Metabolic Panel Time Frame: 1 Week, Location: None Selected
[2017-10-27 17:07] VITALS: BP 113/75
[2017-10-28] MEDS ORDERED: VANCOMYCIN HCL 1 GM in DEXTROSE 5 % IN WATER 250 ML IV SCH ×2 (01:00)
== END 2017-10-27 17:36 | disposition home or self-care (01) ==
LOC: ER 22:33 → MS 10-27 00:47 → INTOOBSV 10-27 00:47 → MS 10-27 01:30
PROVIDERS: ADMIT Nurse Practitioner; ATTEND Internal Medicine
DX: I10 Essential (primary) hypertension; F17.210 Nicotine dependence, cigarettes, uncomplicated; J44.9 Chronic obstructive pulmonary disease, unspecified; E87.6 Hypokalemia; Z68.22 Body mass index [BMI] 22.0-22.9, adult; A46 Erysipelas; L03.115 Cellulitis of right lower limb; I83.11 Varicose veins of right lower extremity with inflammation; K21.9 Gastro-esophageal reflux disease without esophagitis; I87.2 Venous insufficiency (chronic) (peripheral); L03.116 Cellulitis of left lower limb; I83.12 Varicose veins of left lower extremity with inflammation
CPT/HCPCS: 36415; 80053; 85025; 86140; 87040; 87081; 94640; 94664; 96365; 96366; 96367; 97116; 97161; 99284; G8978; G8979; G8980

== ENCOUNTER 2018-01-13 09:25 | Inpatient (IN) | payer MEDICAID, MEDICARE ==
[2018-01-13] MEDS ORDERED: ALBUTEROL SULFATE/IPRATROPIUM 3 ML NEBU IH ONE ×2 (09:46→10:03)
[2018-01-13] MEDS ORDERED: METHYLPREDNISOLONE SOD SUCC/PF 40 MG/ML VIAL IV ONE (09:46)
[2018-01-13 10:00] LABS: Hematocrit 40.4 % (37.0-47.0); Hemoglobin 14.3 gm/dL (12.5-16.0); Mean Cell Volume 85.4 fl (78-100); Mean Corpuscular Hemoglobin 30.2 pg (27-31); Mean Corpuscular Hgb Conc 35.4 g/dl (32-36); Mean Platelet Volume 10.1 fl (8-12.5); Neutrophil # 6.2 K/mm3 (1.3-6.0); Neutrophil % 72.5 % (42-75.0); Platelet Count 236 K/mm3 (150-450); Red Blood Count 4.73 M/mm3 (4.2-5.4); Red Cell Distribution Width 13.4 % (11.5-14.0); White Blood Count 8.6 K/mm3 (4.0-10.5)
--- NOTE | 2018-01-13 10:02 | ERNOTE ---
Dyspnea - General Presenting Symptoms: shortness of breath, wheezing Time Seen by Provider: 01/13/18 09:39 Source: patient, EMS Exam Limitations: no limitations - Immun/Allergies/Home Medications Immunizations: IMMUNIZATION HX Immunizations Up to Date Yes History of Influenza Vaccine No Hx Pneumococcal Vaccination No Allergies/Adverse Reactions: Allergies aspirin Allergy (Intermediate, Verified 01/13/18 09:35) dizzy full dose aspirin not tolerated Penicillins Allergy (Mild, Verified 01/13/18 09:35) BREAKS OUT, NAUSEA morphine Adverse Reaction (Mild, Verified 01/13/18 09:35) Other Patient states it makes her feel weird. Home Medications: HOME MEDICATIONS omeprazole 40 mg capsule,delayed release 40 mg PO DAILY 09/29/17 [Last Taken Unknown] albuterol sulfate HFA 90 mcg/actuation aerosol inhaler 2 inh IH .Q4-6H PRN #18 g 10/05/17 [Last Taken Unknown] tramadol 50 mg tablet 50 mg PO Q6H PRN #60 tab 10/13/17 [Last Taken Unknown] Albuterol Sulfate [Ventolin HFA] 1 puff IH Q6H PRN 10/27/17 [Last Taken Unknown] Amlodipine Besylate 5 mg PO DAILY 10/27/17 [Last Taken Unknown] Cephalexin Monohydrate [Keflex] 500 mg PO BID 10 Days #20 cap 10/27/17 [Last Taken Unknown] Enalapril Maleate [Vasotec] 2.5 mg PO DAILY 10/27/17 [Last Taken Unknown] HYDROcodone/ACETAMINOPHEN [Hydrocodone-Acetamin 5-325 mg] 1 ea PO Q12H PRN 10/27/17 [Last Taken Unknown] Hydrochlorothiazide [Hydrodiuril] 25 mg PO DAILY 10/27/17 [Last Taken Unknown] Ipratropium/Albuterol Sulfate [Iprat-Albut 0.5-3(2.5) mg/3 ml] 3 ml IH Q6H 10/27/17 [Last Taken Unknown] Mirtazapine 30 mg PO HS 10/27/17 [Last Taken Unknown] Sodium Chloride 2 gm PO TID 10/27/17 [Last Taken Unknown] diaper,brief,adult,disposable See Dose Instructions .ROUTE .MEDSUPPLY #120 ea 10/31/17 [Last Taken Unknown] betamethasone dipropionate 0.05 % topical cream 1 applic TP .COMPLEX #45 g 11/06/17 [Last Taken Unknown] triamcinolone acetonide 0.1 % topical ointment 1 applic TP BID PRN #30 g 11/06/17 [Last Taken Unknown] potassium chloride ER 20 mEq tablet,extended release(part/cryst) 20 meq PO DAILY #30 tab 12/20/17 [Last Taken Unknown] - History of Present Illness Narrative: Patient presents with shortness of breath and cough. She states she's tried several breathing treatments at home without success and decided to call the ambulance to try to get some assistance. She admits to a roughly 50 year history of smoking as well as regular alcohol use. Severity: moderate Treatment GUIDE CRUISE: by patient, albuterol Initiating event: Reports: other - possibly alcohol abuse Frequency of episodes: Reports: frequent episodes Modifying Factors - (Improves): Reports: albuterol Modifying Factors (Worsens): Reports: nothing Associated Symptoms-Dyspnea: Reports: cough, wheezing, leg/calf pain - chronic bilateral leg pain from dependent edema Prior Treatment: Reports: recently seen, treated by physician Review of Systems - Review of Systems Constitutional: Present: See HPI EYE: Present: no symptoms reported ENT: Present: no symptoms reported Respiratory: Present: See HPI Cardiology: Present: no symptoms reported Gastrointestinal/Abdominal: Present: no symptoms reported Genitourinary: Present: no symptoms reported Musculoskeletal: Present: no symptoms reported Skin: Present: no symptoms reported Neurological: Present: no symptoms reported Endocrine: Present: no symptoms reported Hematologic/Lymphatic: Present: no symptoms reported Psych: Present: no symptoms reported Medical History (Last Reviewed 01/13/18 @ 09:34 by Fallon Riley RN) Tobacco abuse (Chronic) Onset Date: Unknown Stasis dermatitis of both legs (Chronic) Onset Date: Unknown Mild concentric left ventricular hypertrophy (LVH) (Acute) Onset Date: Unknown Migraine (Acute) Onset Date: Unknown Malunion of fracture (Acute) Onset Date: ~2012 right distal radius Hypertension (Chronic) Onset Date: Unknown GERD (gastroesophageal reflux disease) (Chronic) Onset Date: Unknown COPD (chronic obstructive pulmonary disease) (Chronic) Onset Date: Unknown Chest pain (Acute) Onset Date: Unknown Arthritis (Acute) Onset Date: Unknown Anxiety (Acute) Onset Date: Unknown Surgical History: Surgical History (Last Reviewed 01/13/18 @ 09:34 by Fallon Riley RN) H/O dilation and curettage Onset Date: Unknown H/O tubal ligation Onset Date: Unknown H/O vaginal surgery Onset Date: Unknown History of bladder surgery Onset Date: Unknown History of tonsillectomy Onset Date: Unknown Status post surgical removal of malignant neoplasm of skin Onset Date: Unknown attempted closed reduction Onset Date: ~2012 Dr Sanchez-unsuccessful closed reduction of right distal radius fracture Family History: Family History (Last Reviewed 01/13/18 @ 09:34 by Fallon Riley RN) Father Heart disease Mother Pacemaker Social History: Preferred Language Gibraltarian Do you have any buddhism or No cultural preference? Smoking Status Current every day smoker Abuse History No History of abuse Psych History Hx of Anxiety Alcohol Use heavy Drug Use none (Last Reviewed 11/06/17 @ 10:15 by Kathi Hirsch RN) No Social History Section defined Physical Exam - Physical Exam General Appearance: Present: wd/wn, alert, moderate distress Head Exam: Present: normal inspection, no evidence of injury Eye Exam: Normal inspection: bilateral, PERRL: bilateral Ears, Nose, Throat: Present: normal ENT inspection, H, normal pharynx Neck: Present: normal inspection, nontender Respiratory: Present: no accessory muscle use, chest nontender, rales - questionable rales in the right middle lobe, wheezing Cardiovascular/Chest: Present: regular rate, rhythm, no murmur, normal peripheral pulses Gastrointestinal/Abdominal: Present: normal bowel sounds, nontender, nondistended, soft, no organomegaly Rectal Exam: Present: deferred Back Exam: Present: normal inspection, normal range of motion Extremity Exam: Present: normal inspection, non-tender, normal range of motion, extremity edema - chronic dependent edema Neurological Exam: Present: alert, oriented, normal mood/affect Skin Exam: Present: normal color, warm/dry Lymphatic Exam: Present: no adenopathy ED Progress - Results and Orders Patient's Lab Results:: I have reviewed the patient's lab results. - Vital Signs Patient's Vital Signs:: I have reviewed the patient's vital signs. Vital Signs: Vital Signs 01/13/18 09:29 Temperature 36.4 C Pulse Rate 89 Respiratory Rate 17 Blood Pressure 186/104 H O2 Sat by Pulse Oximetry 96 - EKG EKG: NSR EKG read: Reviewed by me - X-Ray X-Ray #1 X-Ray: chest Interpretation: Reviewed by me X-Ray #2 X-Ray: knee Interpretation: Reviewed by me - Progress/Reassessment Chief Complaint: Dyspnea Plan - Plan Plan: Patient will need to be admitted for correction of her hyponatremia and an orthopedic consult for the distal femur fracture. Patient was placed in a knee immobilizer here in the emergency department. Dr. Bhandari was apprised of the distal femur fracture Dr. Lyons. Departure Clinical Impression: Hyponatremia Femur fracture, right Qualifiers: Encounter type: initial encounter Femur location: distal Fracture type: closed Fracture morphology: unspecified fracture morphology Qualified Code(s): S72.401A - Unspecified fracture of lower end of right femur, initial encounter for closed fracture - Departure Disposition: Still a patient Condition: Fair
[2018-01-13] MEDS ORDERED: METHYLPREDNISOLONE ACETATE 80 MG/ML VIAL ONE (10:03)
[2018-01-13 10:13] LABS: ALT 22 U/L (19-67); AST 23 U/L (0-48); Albumin * 3.5 gm/dl (3.4-5.0); Alkaline Phosphatase * 100 U/L (50-170); Anion Gap 4.8 mmol/L (6.8-13.8); BUN/Creatinine Ratio 15.7 (9.0-21.6); Bilirubin, Total 0.8 mg/dL (0.0-1.1); Blood Urea Nitrogen 8 mg/dL (3-23); Ca. Corrected For Albumin 8.4 mg/dL (8.4-10.2); Calcium * 8.3 mg/dL (7.9-10.9); Chloride 82 mmol/L (97-106); Glucose * 126 mg/dL (70-110); Magnesium 1.3 mg/dL (1.2-2.8); Potassium 3.8 mmol/L (3.4-4.6); Total Protein 6.5 gm/dL (6.2-8.2)
[2018-01-13 10:15] LABS: Sodium 114 mmol/L (132-142)
[2018-01-13] MEDS ORDERED: NORMAL SALINE 1,000 ML IV ONE (10:35)
[2018-01-13 11:04] LABS: Urine Bilirubin Negative (NEGATIVE); Urine Blood Negative /ul (NEGATIVE); Urine Ketone Negative (NEGATIVE); Urine Nitrite Negative (NEGATIVE); Urine Protein Negative (NEGATIVE); Urine Specific Gravity 1.015 SP.GR. (1.005-1.010); Urine Urobilinogen Normal (NORMAL)
[2018-01-13 11:10] LABS: Urine Amorphous Sediment TRACE (NONE-FEW); Urine Appearance Slightly Cloudy (CLEAR); Urine Bacteria TRACE; Urine Color Yellow; Urine RBC None Seen /hpf (0-5); Urine WBC 0-5 /hpf (0-5)
--- NOTE | 2018-01-13 15:37 | HP ---
Chief Complaint - Chief Complaint Date of Service: 01/13/18 Time of Service: 10:45 Chief Complaint: Weakness, fatigue, confusion, right knee pain History of Present Illness: The patient states that for the last couple weeks and more so over the past few days, she has had progressively worsening generalized weakness and has felt foggy so she called EMS to bring her to the ED to be evaluated. She usually ambulates with a walker and she states as EMS was taking her out of her house without her walker, one was behind her and the other EMT was in front of her and she did not feel like she had her balance very good and when she stepped down on her right leg she felt it give out and then had pain in the right knee area. Otherwise, she states that her breathing and her lower extremity edema is currently at baseline. Medical History (Last Updated 01/14/18 @ 07:26 by Lisbet Argueta RN) Tobacco abuse (Chronic) Onset Date: Unknown Stasis dermatitis of both legs (Chronic) Onset Date: Unknown Mild concentric left ventricular hypertrophy (LVH) (Acute) Onset Date: Unknown Migraine (Acute) Onset Date: Unknown Malunion of fracture (Acute) Onset Date: ~2012 right distal radius Hypertension (Chronic) Onset Date: Unknown GERD (gastroesophageal reflux disease) (Chronic) Onset Date: Unknown COPD (chronic obstructive pulmonary disease) (Chronic) Onset Date: Unknown Chest pain (Acute) Onset Date: Unknown Arthritis (Acute) Onset Date: Unknown Anxiety (Acute) Onset Date: Unknown Diastolic CHF Pulmonary hypertension Surgical History: Surgical History (Last Reviewed 01/13/18 @ 11:52 by Imelda Lynne RN) H/O dilation and curettage Onset Date: Unknown H/O tubal ligation Onset Date: Unknown H/O vaginal surgery Onset Date: Unknown History of bladder surgery Onset Date: Unknown History of tonsillectomy Onset Date: Unknown Status post surgical removal of malignant neoplasm of skin Onset Date: Unknown attempted closed reduction Onset Date: ~2012 Dr Sanchez-unsuccessful closed reduction of right distal radius fracture Family History: Family History (Last Reviewed 01/13/18 @ 11:52 by Imelda Lynne RN) Father Heart disease Mother Pacemaker Social History: Patient Lives/Resources With Spouse Utilized Occupation Retired Preferred Language Italian Do you have any adventism or No cultural preference? Smoking Status Current every day smoker Have you smoked in the past 12 Yes months Abuse History No History of abuse Psych History Hx of Anxiety Alcohol Use heavy Drug Use none (Last Reviewed 11/06/17 @ 10:15 by Kathi Hirsch RN) No Social History Section defined Review Of Systems (GEN) - Review of Systems Generalized/Overall Review: Present: Weakness, Fatigue Respiratory: Present: Shortness of Breath - chronic Cardiac: Absent: Chest Pain Musculoskeletal: Present: Joint Pain Neurological: Present: Weakness, Other - feels foggy Misc: All systems neg except as marked Immunizations: IMMUNIZATION HX Immunizations Up to Date Yes History of Influenza Vaccine No Hx Pneumococcal Vaccination No Allergies/Adverse Reactions: Allergies Allergy/AdvReac Type Severity Reaction Status Date / Time aspirin Allergy Intermediate dizzy Verified 01/13/18 09:35 Penicillins Allergy Mild BREAKS Verified 01/13/18 09:35 OUT, NAUSEA morphine AdvReac Mild Other Verified 01/13/18 09:35 Home Medications: HOME MEDICATIONS omeprazole 40 mg capsule,delayed release 40 mg PO DAILY 09/29/17 [Last Taken Unknown] albuterol sulfate HFA 90 mcg/actuation aerosol inhaler 2 inh IH .Q4-6H PRN #18 g 10/05/17 [Last Taken Unknown] tramadol 50 mg tablet 50 mg PO Q6H PRN #60 tab 10/13/17 [Last Taken Unknown] Albuterol Sulfate [Ventolin HFA] 1 puff IH Q6H PRN 10/27/17 [Last Taken Unknown] Amlodipine Besylate 5 mg PO DAILY 10/27/17 [Last Taken Unknown] Enalapril Maleate [Vasotec] 2.5 mg PO DAILY 10/27/17 [Last Taken Unknown] HYDROcodone/ACETAMINOPHEN [Hydrocodone-Acetamin 5-325 mg] 1 ea PO Q12H PRN 10/27/17 [Last Taken Unknown] Hydrochlorothiazide [Hydrodiuril] 25 mg PO DAILY 10/27/17 [Last Taken Unknown] Ipratropium/Albuterol Sulfate [Iprat-Albut 0.5-3(2.5) mg/3 ml] 3 ml IH Q6H 10/27/17 [Last Taken Unknown] Mirtazapine 30 mg PO HS 10/27/17 [Last Taken Unknown] Sodium Chloride 2 gm PO TID 10/27/17 [Last Taken Unknown] betamethasone dipropionate 0.05 % topical cream 1 applic TP .COMPLEX #45 g 11/06/17 [Last Taken Unknown] triamcinolone acetonide 0.1 % topical ointment 1 applic TP BID PRN #30 g 11/06/17 [Last Taken Unknown] potassium chloride ER 20 mEq tablet,extended release(part/cryst) 20 meq PO DAILY #30 tab 12/20/17 [Last Taken Unknown] Exam - Exam Vital Signs: Vital Signs - Last Taken Temp 36.4 C 01/13/18 11:28 Pulse 93 01/13/18 12:02 Resp 24 H 01/13/18 11:28 BP 156/95 H 01/13/18 11:28 Pulse Ox 93 01/13/18 11:28 Constitutional: Present: Alert, Oriented x3, Cooperative, No distress, Thin and frail, Looks Older than stated age ENT Exam: Present: hearing grossly normal, dry mucous membranes Eye Exam: bilateral eye: EOMI Back Exam: Present: no CVA tenderness Respiratory: Present: no respiratory distress, decreased breath sounds, exp iration (prolonged) Cardiovascular/Chest: Present: regular rate, rhythm, edema Abdomen: Present: soft, nontender, nondistended Neurologic: Present: no motor/sensory deficits, alert, normal mood/affect, oriented x 3 Eye contact: Present: cooperative, good eye contact, normal speech Thoughts: Present: normal thought pattern, no apparent hallucination Diagnostic Studies: Abnormal Lab Results 01/13/18 01/13/18 Range/Units 09:54 09:54 Immature Gran % (Auto) 0.50 H (0.001-0.429) % Immature Gran # (Auto) 0.04 H (0.000-0.0310) K/mm3 Lymphocytes % 7.0 L (20-51) % Eosinophils % 11.1 H (0.0-3.0) % Neutrophils # 6.2 H (1.3-6.0) K/mm3 Lymphocytes # 0.60 L (1.5-3.5) k/mm3 Eosinophils # 1.0 H (0.0-0.7) k/mm3 Sodium 114 L* D (132-142) mmol/L Plasma Sodium 114 L* (130-142) mmol/L Chloride 82 L (97-106) mmol/L Anion Gap 4.8 L (6.8-13.8) mmol/L Random Glucose 126 H (70-110) mg/dL Laboratory Results WBC 8.6 K/mm3 (4.0-10.5) 01/13/18 09:54 RBC 4.73 M/mm3 (4.2-5.4) 01/13/18 09:54 Hgb 14.3 gm/dL (12.5-16.0) 01/13/18 09:54 Hct 40.4 % (37.0-47.0) 01/13/18 09:54 MCV 85.4 fl (78-100) 01/13/18 09:54 MCH 30.2 pg (27-31) 01/13/18 09:54 MCHC 35.4 g/dl (32-36) 01/13/18 09:54 RDW 13.4 % (11.5-14.0) 01/13/18 09:54 Plt Count 236 K/mm3 (150-450) 01/13/18 09:54 MPV 10.1 fl (8-12.5) 01/13/18 09:54 Immature Gran % (Auto) 0.50 % (0.001-0.429) H 01/13/18 09:54 Immature Gran # (Auto) 0.04 K/mm3 (0.000-0.0310) H 01/13/18 09:54 Neutrophils % 72.5 % (42-75.0) 01/13/18 09:54 Lymphocytes % 7.0 % (20-51) L 01/13/18 09:54 Monocytes % 8.1 % (0.0-9) 01/13/18 09:54 Eosinophils % 11.1 % (0.0-3.0) H 01/13/18 09:54 Basophils % 0.8 % (0.0-1.0) 01/13/18 09:54 Nucleated RBC % 0.0 k/mm3 (0-1) 01/13/18 09:54 Neutrophils # 6.2 K/mm3 (1.3-6.0) H 01/13/18 09:54 Lymphocytes # 0.60 k/mm3 (1.5-3.5) L 01/13/18 09:54 Monocytes # 0.7 k/mm3 (0.0-1.0) 01/13/18 09:54 Eosinophils # 1.0 k/mm3 (0.0-0.7) H 01/13/18 09:54 Absolute Basophils 0.1 k/mm3 (0.0-0.1) 01/13/18 09:54 Sodium 114 mmol/L (132-142) L* D 01/13/18 09:54 Plasma Sodium 114 mmol/L (130-142) L* 01/13/18 09:54 Potassium 3.8 mmol/L (3.4-4.6) 01/13/18 09:54 Chloride 82 mmol/L (97-106) L 01/13/18 09:54 Carbon Dioxide 31.0 mmol/L (24-32.6) 01/13/18 09:54 Anion Gap 4.8 mmol/L (6.8-13.8) L 01/13/18 09:54 BUN 8 mg/dL (3-23) 01/13/18 09:54 Creatinine 0.51 mg/dL (0.4-1.4) 01/13/18 09:54 Est GFR (Non-Af Amer) 128 mL/min (60-130) 01/13/18 09:54 BUN/Creatinine Ratio 15.7 (9.0-21.6) 01/13/18 09:54 Random Glucose 126 mg/dL (70-110) H 01/13/18 09:54 Calcium 8.3 mg/dL (7.9-10.9) 01/13/18 09:54 Calcium Adj for Albumin 8.4 mg/dL (8.4-10.2) 01/13/18 09:54 Magnesium 1.3 mg/dL (1.2-2.8) 01/13/18 09:54 Total Bilirubin 0.8 mg/dL (0.0-1.1) 01/13/18 09:54 AST 23 U/L (0-48) 01/13/18 09:54 ALT 22 U/L (19-67) 01/13/18 09:54 Alkaline Phosphatase 100 U/L (50-170) 01/13/18 09:54 Total Protein 6.5 gm/dL (6.2-8.2) 01/13/18 09:54 Albumin 3.5 gm/dl (3.4-5.0) 01/13/18 09:54 Urine Color Yellow 01/13/18 11:03 Urine Appearance Slightly cloudy (CLEAR) 01/13/18 11:03 Urine pH 7.0 pH (5.0-7.0) 01/13/18 11:03 Ur Specific [place] 1.015 SP.GR. (1.005-1.010) 01/13/18 11:03 Urine Protein Negative mg/dL (NEGATIVE) 01/13/18 11:03 Urine Glucose (UA) Negative mg/dL (NEGATIVE) 01/13/18 11:03 Urine Ketones Negative mg/dL (NEGATIVE) 01/13/18 11:03 Urine Blood Negative /ul (NEGATIVE) 01/13/18 11:03 Urine Nitrate Negative (NEGATIVE) 01/13/18 11:03 Urine Bilirubin Negative mg/dl (NEGATIVE) 01/13/18 11:03 Urine Urobilinogen Normal EU/dl (NORMAL) 01/13/18 11:03 Ur Leukocyte Esterase Negative /ul (NEGATIVE) 01/13/18 11:03 Urine RBC None seen /hpf (0-5) 01/13/18 11:03 Urine WBC 0-5 /hpf (0-5) 01/13/18 11:03 Ur Epithelial Cells 0-5 /hpf (0-5) 01/13/18 11:03 Amorphous Sediment Trace (NONE-FEW) 01/13/18 11:03 Urine Bacteria Trace (NONE) 01/13/18 11:03 Urine Culture Comments Culture to follow 01/13/18 11:03 Ur Random Sodium 43 mmol/L (20-110) 01/13/18 11:03 Ethyl Alcohol Less than 3.0 mg/dL (0.0-10.0) 01/13/18 09:54 Assessment/Plan - Narrative Narrative: Further workup of the patient's hyponatremia has been ordered including urine and serum osmolality and urine lytes. Physical exam and laboratory findings thus far appear to be consistent with hypovolemic hyponatremia secondary to poor PO intake. No seizures or other abnormal findings to indicate need for 3% saline. Start NS @ 125cc/hr and monitor sodium level every 4 hours to insure appropriate correction of sodium and to make sure sodium is not correct too quickly. Non-weight bearing on right with knee immobilizer in place. Patient is NOT medically stable for any sort of surgery at this time. We will correct the patient sodium level over the next few days and hopefully she will be medically optimized for surgery early next week. - Assessment/Plan (1) Hyponatremia Problem: Acute (2) Femur fracture, right Problem: Acute Qualifiers: Encounter type: initial encounter Femur location: distal Fracture type: closed Fracture morphology: unspecified fracture morphology Qualified Code(s): S72.401A - Unspecified fracture of lower end of right femur, initial encounter for closed fracture (3) COPD (chronic obstructive pulmonary disease) Problem: Chronic
[2018-01-13] MEDS: HYDROcodone/ACETAMINOPHEN 1 EACH TABLET PO PRN ×2 (15:50→20:01)
[2018-01-13 15:52] LABS: Anion Gap 8.8 mmol/L (6.8-13.8); BUN/Creatinine Ratio 17.3 (9.0-21.6); Calcium * 8.2 mg/dL (7.9-10.9); Carbon Dioxide 27.5 mmol/L (24-32.6); Potassium 3.3 mmol/L (3.4-4.6)
[2018-01-13] MEDS: ALBUTEROL SULFATE/IPRATROPIUM 3 ML NEBU IH PRN (16:08)
[2018-01-13] MEDS ORDERED: POTASSIUM CHLORIDE 20 MEQ TABLET.SA PO ONE (17:42)
[2018-01-13 18:45] LABS: Hemoglobin A1C 4.8 % (4.00-6.0)
[2018-01-13] MEDS ORDERED: POTASSIUM CHLORIDE 20 MEQ TABLET.SA ONE (19:03)
[2018-01-13] MEDS: NORMAL SALINE 1,000 ML IV PRN (19:15)
[2018-01-13] MEDS: ENOXAPARIN SODIUM 40 MG/0.4 ML SYRG SC SCH (19:51)
[2018-01-13] MEDS: MIRTAZAPINE 15 MG TABLET PO SCH (20:01)
[2018-01-13 20:13] LABS: Anion Gap 9.3 mmol/L (6.8-13.8); BUN/Creatinine Ratio 16.3 (9.0-21.6); Calcium * 8.3 mg/dL (7.9-10.9); Estimated Creat Clear 93.4; Potassium 3.3 mmol/L (3.4-4.6)
[2018-01-13 23:49] LABS: Anion Gap 8.6 mmol/L (6.8-13.8); BUN/Creatinine Ratio 18.4 (9.0-21.6); Calcium * 7.9 mg/dL (7.9-10.9); Carbon Dioxide 23.3 mmol/L (24-32.6); Estimated Creat Clear 93.4; Potassium 3.9 mmol/L (3.4-4.6)
[2018-01-14] MEDS: NORMAL SALINE 1,000 ML IV PRN ×2 (03:14→11:04)
[2018-01-14] MEDS: HYDROcodone/ACETAMINOPHEN 1 EACH TABLET PO PRN ×5 (03:40→20:51)
[2018-01-14 03:45] LABS: BUN/Creatinine Ratio 12.5 (9.0-21.6); Estimated Creat Clear 71.5
[2018-01-14 03:46] LABS: Anion Gap 7.7 mmol/L (6.8-13.8); Calcium * 8.4 mg/dL (7.9-10.9); Carbon Dioxide 28.3 mmol/L (24-32.6)
[2018-01-14 07:45] LABS: Anion Gap 6.4 mmol/L (6.8-13.8); BUN/Creatinine Ratio 11.6 (9.0-21.6); Calcium * 8.5 mg/dL (7.9-10.9); Carbon Dioxide 28.6 mmol/L (24-32.6); Estimated Creat Clear 66.3
[2018-01-14] MEDS: POTASSIUM CHLORIDE 20 MEQ TABLET.SA PO SCH (08:19)
[2018-01-14] MEDS ORDERED: OMEPRAZOLE 20 MG CAPSULE.SA PO SCH (09:00)
[2018-01-14] MEDS: ALBUTEROL SULFATE/IPRATROPIUM 3 ML NEBU IH PRN ×2 (11:14→21:07)
[2018-01-14 12:10] LABS: Anion Gap 6.7 mmol/L (6.8-13.8); Calcium * 8.4 mg/dL (7.9-10.9); Carbon Dioxide 28.5 mmol/L (24-32.6); Estimated Creat Clear 70.4; Potassium 4.2 mmol/L (3.4-4.6)
[2018-01-14] MEDS: ENALAPRIL MALEATE 5 MG TABLET PO SCH (12:23)
[2018-01-14] MEDS: SODIUM CHLORIDE 1 GM TABLET PO SCH ×2 (12:23→16:19)
[2018-01-14] MEDS: HYDROCHLOROTHIAZIDE 25 MG TABLET PO SCH (12:23)
[2018-01-14] MEDS: amLODIPine BESYLATE 5 MG TABLET PO SCH (12:23)
--- NOTE | 2018-01-14 13:04 | CONS ---
[facility] - General Date of Service: 01/14/18 Narrative: Mrs. Miranda is a 67-year-old female who was at home being assisted out of the house by EMT secondary to her medical conditions and reported right knee pain and subsequently was unable to weight-bear on her right leg. At times she was evaluated in the emergency department she was found to have a distal femur fracture. She's previously been evaluated and treated for a right intertrochanteric femur fracture treated with several medullary nail. She reports no prior knee pain. She ambulates with a walker for limited distances. She has multiple other medical comorbidities. She lives with assistance with her . Source: patient - History of Present Illness Timing/Duration: 24 hours Severity: mild Modifying Factors - (Worsens): Reports: movement Modifying Factors - (Improves): Reports: immobilization Associated Symptoms: denies symptoms Allergies/Adverse Reactions: Allergies aspirin Allergy (Intermediate, Verified 01/13/18 09:35) dizzy full dose aspirin not tolerated Penicillins Allergy (Mild, Verified 01/13/18 09:35) BREAKS OUT, NAUSEA morphine Adverse Reaction (Mild, Verified 01/13/18 09:35) Other Patient states it makes her feel weird. Home Medications: Home Medications Medication Instructions Recorded Last Taken omeprazole 40 mg capsule,delayed 40 mg PO DAILY 09/29/17 Unknown release albuterol sulfate HFA 90 2 inh IH .Q4-6H PRN #18 g 10/05/17 Unknown mcg/actuation aerosol inhaler tramadol 50 mg tablet 50 mg PO Q6H PRN #60 tab 10/13/17 Unknown Albuterol Sulfate [Ventolin HFA] 1 puff IH Q6H PRN 10/27/17 Unknown Amlodipine Besylate 5 mg PO DAILY 10/27/17 Unknown Enalapril Maleate [Vasotec] 2.5 mg PO DAILY 10/27/17 Unknown HYDROcodone/ACETAMINOPHEN 1 ea PO Q12H PRN 10/27/17 Unknown [Hydrocodone-Acetamin 5-325 mg] Hydrochlorothiazide [Hydrodiuril] 25 mg PO DAILY 10/27/17 Unknown Ipratropium/Albuterol Sulfate 3 ml IH Q6H 10/27/17 Unknown [Iprat-Albut 0.5-3(2.5) mg/3 ml] Mirtazapine 30 mg PO HS 10/27/17 Unknown Sodium Chloride 2 gm PO TID 10/27/17 Unknown betamethasone dipropionate 0.05 % 1 applic TP .COMPLEX #45 g 11/06/17 Unknown topical cream triamcinolone acetonide 0.1 % 1 applic TP BID PRN #30 g 11/06/17 Unknown topical ointment potassium chloride ER 20 mEq 20 meq PO DAILY #30 tab 12/20/17 Unknown tablet,extended release(part/cryst) Procedures Closed reduction of fracture without internal fixation, radius and ulna (02/28/13) Insertion of intraocular lens prosthesis at time of cataract extraction, one- stage (03/10/14) Measurement of Arterial Saturation, Peripheral, Percutaneous Approach (06/29/15) Phacoemulsification and aspiration of cataract (03/10/14) Medications - Medications Current Medications: Current Medications Hydrocodone Bitart/Acetaminophen ([place] 5-325) 1 each PO Q4H PRN PRN Reason: Moderate Pain (pain scale 4-6) Stop: 02/12/18 15:38 Last Admin: 01/14/18 12:06 Dose: 1 each Albuterol/Ipratropium (Duoneb 2.5-0.5mg/3ml Soln) 3 ml IH Q4H PRN PRN Reason: Shortness Of Breath Stop: 02/12/18 15:46 Last Admin: 01/14/18 11:14 Dose: 3 ml Amlodipine Besylate (Norvasc) 5 mg PO DAILY [facility] Stop: 02/13/18 12:01 Last Admin: 01/14/18 12:23 Dose: 5 mg Enalapril Maleate (Vasotec) 2.5 mg PO DAILY [facility] Stop: 02/13/18 12:01 Last Admin: 01/14/18 12:23 Dose: 2.5 mg Enoxaparin Sodium (Lovenox) 40 mg SC Q24H [facility] Stop: 02/12/18 19:01 Last Admin: 01/13/18 19:51 Dose: 40 mg Hydrochlorothiazide (Hydrodiuril) 25 mg PO DAILY [facility] Stop: 02/13/18 12:01 Last Admin: 01/14/18 12:23 Dose: 25 mg Sodium Chloride (Sodium Chloride 0.9%) 1,000 mls @ 30 mls/hr IV .Q24H PRN PRN Reason: HYDRATION Stop: 02/12/18 19:02 Last Admin: 01/14/18 11:04 Dose: 125 mls/hr Mirtazapine (Remeron) 30 mg PO HS [facility] Stop: 02/12/18 21:01 Last Admin: 01/13/18 20:01 Dose: 30 mg Potassium Chloride (K-Dur) 20 meq PO DAILY [facility] Stop: 02/13/18 09:01 Last Admin: 01/14/18 08:19 Dose: 20 meq Sodium Chloride (Sodium Chloride) 2 gm PO TID [facility] Stop: 02/13/18 13:01 Last Admin: 01/14/18 12:23 Dose: 2 gm Review of Systems - Review of Systems Generalized/Overall Review: Present: No Symptoms Reported Physical Examination - Exam Narrative: Right lower extremity: Well-healed lateral hip incision, significant lower extremity edema about the lower leg as well as significant knee effusion and fatty tissue about the knee. She is in a knee immobilizer with no skin breakdown at this time. She is palpably dorsalis pedis pulse, calf is soft, sensation is intact to light touch, she is able to flex and extend her toes and ankle. Vital Signs: Vital Signs - Last Taken Temp 36.2 C 01/14/18 11:42 Pulse 94 01/14/18 12:23 Resp 24 H 01/14/18 11:42 BP 161/87 H 01/14/18 12:23 Pulse Ox 94 01/14/18 11:42 O2 Oxygen Delivery Method Room Air Constitutional: Present: Alert, Oriented x3 - Results and Findings: Narrative: 2 views right knee: Comminuted supracondylar distal femur fracture with mild flexion and valgus deformity. Previous right hip films reviewed: Supple medullary nail with impaction of the fracture site with prominence of the screws laterally Lab/Microbiology results last 24 hrs: Abnormal/Pending Laboratory Last 24 HRS 01/14/18 01/14/18 01/14/18 11:58 07:31 03:40 Sodium 127 L 125 L 123 L Plasma Sodium 127 L 125 L 123 L Potassium Chloride 96 L 94 L 91 L Carbon Dioxide Anion Gap 6.7 L 6.4 L Est GFR (Non-Af Amer) Random Glucose 112 H 123 H Ur Random Creatinine Ur Random Chloride 01/13/18 01/13/18 01/13/18 23:35 19:45 18:10 Sodium 114 L* 115 L* Plasma Sodium 115 L* 116 L* Potassium 3.3 L Chloride 86 L 83 L Carbon Dioxide 23.3 L Anion Gap Est GFR (Non-Af Amer) 134 H 134 H Random Glucose 153 H 151 H Ur Random Creatinine 10.3 L Ur Random Chloride 136 H 01/13/18 15:40 Sodium 116 L* Plasma Sodium 117 L* Potassium 3.3 L Chloride 83 L Carbon Dioxide Anion Gap Est GFR (Non-Af Amer) Random Glucose 149 H Ur Random Creatinine Ur Random Chloride Culture 01/13/18 11:11 Urine Culture - Preliminary Urine,Catheterized No Growth - Assessments/Findings (1) Femoral distal fracture Diagnosis(s): At this point she is being medically managed in order to prepare her for surgical intervention. We will obtain femur films today in order to assess for surgical options. Ideally a retrograde nail will be placed however with her prior implants she may require open reduction internal fixation with a distal femoral plate. She will continue with SCDs, Lovenox, and knee immobilizer. We will plan to treat her surgically once she is medically stable Problem: Acute Qualifiers: Encounter type: initial encounter Fracture type: closed Fracture morphology: unspecified fracture morphology Laterality: right Qualified Code(s): S72.401A - Unspecified fracture of lower end of right femur, initial encounter for closed fracture
[2018-01-14 18:09] LABS: Anion Gap 2.4 mmol/L (6.8-13.8); BUN/Creatinine Ratio 20.3 (9.0-21.6); Calcium * 8.2 mg/dL (7.9-10.9); Carbon Dioxide 32.3 mmol/L (24-32.6); Estimated Creat Clear 57.9; Potassium 3.7 mmol/L (3.4-4.6)
[2018-01-14] MEDS: ENOXAPARIN SODIUM 40 MG/0.4 ML SYRG SC SCH (19:50)
[2018-01-14] MEDS: MIRTAZAPINE 15 MG TABLET PO SCH (20:51)
[2018-01-15 00:31] LABS: Anion Gap 7.9 mmol/L (6.8-13.8); BUN/Creatinine Ratio 22.5 (9.0-21.6); Calcium * 8.1 mg/dL (7.9-10.9); Carbon Dioxide 27.4 mmol/L (24-32.6); Estimated Creat Clear 57.2; Potassium 3.3 mmol/L (3.4-4.6)
[2018-01-15] MEDS: HYDROcodone/ACETAMINOPHEN 1 EACH TABLET PO PRN ×3 (02:29→17:14)
[2018-01-15 06:11] LABS: Anion Gap 6.1 mmol/L (6.8-13.8); BUN/Creatinine Ratio 24.2 (9.0-21.6); Calcium * 8.1 mg/dL (7.9-10.9); Carbon Dioxide 28.9 mmol/L (24-32.6); Estimated Creat Clear 73.8
[2018-01-15] MEDS: PANTOPRAZOLE SODIUM 40 MG TABLET.EC PO SCH (07:30)
[2018-01-15] MEDS: HYDROCHLOROTHIAZIDE 25 MG TABLET PO SCH (09:01)
[2018-01-15] MEDS: amLODIPine BESYLATE 5 MG TABLET PO SCH (09:01)
[2018-01-15] MEDS: ENALAPRIL MALEATE 5 MG TABLET PO SCH (09:01)
[2018-01-15] MEDS: POTASSIUM CHLORIDE 20 MEQ TABLET.SA PO SCH (09:18)
[2018-01-15] MEDS: SODIUM CHLORIDE 1 GM TABLET PO SCH ×3 (09:19→17:13)
[2018-01-15] MEDS ORDERED: POTASSIUM CHLORIDE 20 MEQ TABLET.SA PO ONE (09:51)
[2018-01-15 13:21] LABS: Anion Gap 10.3 mmol/L (6.8-13.8); BUN/Creatinine Ratio 17.4 (9.0-21.6); Calcium * 8.7 mg/dL (7.9-10.9); Carbon Dioxide 27.2 mmol/L (24-32.6); Estimated Creat Clear 53.2; Potassium 3.5 mmol/L (3.4-4.6)
--- NOTE | 2018-01-15 15:04 | PN ---
Subjective - Date and Time Seen Date: 01/15/18 Time: 15:00 Subjective Narrative: No new complaints. Comfortable in bed. Had x-rays and CT since last seen. Objective - Vitals Vitals: Last Vital Signs Temp 36.5 C 01/15/18 10:50 Pulse 107 H 01/15/18 10:50 Resp 18 01/15/18 10:50 BP 105/63 01/15/18 10:50 Pulse Ox 89 L 01/15/18 10:50 - Abnormal Lab Findings Abnormal Lab Findings: Abnormal Lab Results 01/14/18 01/15/18 01/15/18 Range/Units 17:56 00:10 05:35 Sodium 130 L 131 L 130 L (132-142) mmol/L Potassium 3.3 L 3.0 L (3.4-4.6) mmol/L Anion Gap 2.4 L 6.1 L (6.8-13.8) mmol/L BUN/Creatinine Ratio 22.5 H 24.2 H (9.0-21.6) Random Glucose 121 H (70-110) mg/dL - Exam Exam Narrative: RLE - exam unchanged, sensation intact, moving toes and ankle, knee effusion, soft calf Constitutional: Present: Alert, Oriented x3 Assessment/Plan Plan Narrative: CT - comminuted impacted distal femur fracture, no sign of coronal condylar split femur films- proximal cephalomedullary nail, fracture too distal and proximal nail too long to accomodate retrograde nail, will need locking plate. - Problems/Diagnosis (1) Femoral distal fracture Problem: Acute Qualifiers: Encounter type: subsequent encounter Fracture type: closed Fracture morphology: unspecified fracture morphology Laterality: right Narrative: Plan for Dr. Tolentino to take over care. Discussed w/ Dr. Lyons. Plan for OR tomorrow for ORIF. Hold lovenox and NPO p MN
[2018-01-15 18:18] LABS: Anion Gap 9.1 mmol/L (6.8-13.8); Calcium * 8.3 mg/dL (7.9-10.9); Carbon Dioxide 27.1 mmol/L (24-32.6); Estimated Creat Clear 57.9; Potassium 4.2 mmol/L (3.4-4.6)
[2018-01-15] MEDS: MIRTAZAPINE 15 MG TABLET PO SCH (20:32)
[2018-01-16 05:33] LABS: Anion Gap 10.3 mmol/L (6.8-13.8); BUN/Creatinine Ratio 18.6 (9.0-21.6); Calcium * 8.1 mg/dL (7.9-10.9); Carbon Dioxide 26.4 mmol/L (24-32.6); Estimated Creat Clear 77.6; Potassium 3.7 mmol/L (3.4-4.6)
[2018-01-16] MEDS: PANTOPRAZOLE SODIUM 40 MG TABLET.EC PO SCH (06:50)
[2018-01-16] MEDS: ENALAPRIL MALEATE 5 MG TABLET PO SCH (08:22)
[2018-01-16] MEDS: SODIUM CHLORIDE 1 GM TABLET PO SCH ×3 (08:22→17:35)
[2018-01-16] MEDS: amLODIPine BESYLATE 5 MG TABLET PO SCH (08:22)
[2018-01-16] MEDS: POTASSIUM CHLORIDE 20 MEQ TABLET.SA PO SCH (08:22)
[2018-01-16] MEDS: HYDROCHLOROTHIAZIDE 25 MG TABLET PO SCH (08:22)
--- NOTE | 2018-01-16 10:32 | PN ---
Subjective - Date and Time Seen Date: 01/16/18 Time: 10:27 Subjective Narrative: Patient seen and examined at bedside. No acute issues overnight. Plan is for surgery later today. Objective - Review of Systems Respiratory: Reports: Shortness of Breath - chronic, at baseline Cardiac: Denies: Chest Pain Musculoskeletal Complaints: Reports: Joint Pain Misc: All systems neg except as marked - Vitals Vitals: Last Vital Signs Temp 36.7 C 01/16/18 07:06 Pulse 112 H 01/16/18 08:22 Resp 20 01/16/18 07:06 BP 149/88 01/16/18 08:22 Pulse Ox 91 L 01/16/18 07:06 - Abnormal Lab Findings Abnormal Lab Findings: Abnormal Lab Results 01/15/18 01/16/18 Range/Units 18:08 05:10 Random Glucose 134 H 115 H (70-110) mg/dL - Exam Constitutional: Present: Alert, Oriented x3, Cooperative, No distress, Thin and frail, Looks Older than stated age Respiratory: Present: no respiratory distress, decreased breath sounds, expiration (prolonged) Cardiovascular/Chest: Present: regular rate, rhythm Abdomen: Present: soft, nontender, nondistended Extremity: Present: pedal edema - chronic Neurologic: Present: no motor/sensory deficits, alert, normal mood/affect, oriented x 3 Appearance: Present: appropriate appearance, appropriate insight, no memory impairment Eye contact: Present: cooperative, good eye contact, normal speech Thoughts: Present: normal thought pattern, no apparent hallucination Assessment/Plan Plan Narrative: Patient is medically stable for surgery today with spinal anesthesia, no general as it would likely be impossible to get the patient extubated. Sodium level much improved and now WNL. Patient currently saline locked. We will plan to monitor sodium level closely after surgery. Okay to proceed with planned orthopedic surgery. - Problems/Diagnosis (1) Hyponatremia Problem: Acute (2) Femur fracture, right Problem: Acute Qualifiers: Encounter type: initial encounter Femur location: distal Fracture type: closed Fracture morphology: unspecified fracture morphology Qualified Code(s): S72.401A - Unspecified fracture of lower end of right femur, initial encounter for closed fracture (3) COPD (chronic obstructive pulmonary disease) Problem: Chronic
--- NOTE | 2018-01-16 11:29 | PN ---
Subjective - Date and Time Seen Date: 01/16/18 Time: 11:24 Subjective Narrative: No events overnight. Pain controlled this am. Objective - Vitals Vitals: Last Vital Signs Temp 36.8 C 01/16/18 10:54 Pulse 102 H 01/16/18 10:54 Resp 20 01/16/18 10:54 BP 146/84 01/16/18 10:54 Pulse Ox 87 L 01/16/18 10:54 - Abnormal Lab Findings Abnormal Lab Findings: Abnormal Lab Results 01/13/18 01/15/18 01/16/18 Range/Units 09:54 18:08 05:10 Random Glucose 134 H 115 H (70-110) mg/dL Serum Osmolality 236 L mOsm/kg - Exam Exam Narrative: Gen: A&Ox3, NAD Resp: breathing non-labored MSK: RLE--> immobilizer in place, able to flex and extend ankle and all toes, SILT, distal cap refill ~2 sec Assessment/Plan Plan Narrative: 67 yo F with R supracondylar femur fracture. - I counseled the patient on treatment options today including nonoperative management with an immobilizer and nonweightbearing versus open reduction internal fixation. I counseled her the advantage of fixation would be pain relief, improved ambulation and overall function. I discussed the risks of the procedure with her in detail including, but not limited to, infection, nonunion, malunion, failure of fixation, excessive bleeding, persistent pain, limp, malrotation, need for additional procedures, and risks of anesthesia including cardiopulmonary arrest and . After discussion she wished to proceed with surgery. The plan will be for a long lateral distal femoral locking plate which will bypass her short cephalo-medullary nail up at her hip. -Informed consent obtained. -To OR today for open reduction internal fixation of right supracondylar distal femur fracture. -Patient cleared for spinal anesthetic by internal medicine. -Continue care per internal medicine. -Patient will be toe-touch weight-bearing postoperatively.
[2018-01-16 12:23] LABS: Anion Gap 8.9 mmol/L (6.8-13.8); Calcium * 8.2 mg/dL (7.9-10.9); Carbon Dioxide 29.1 mmol/L (24-32.6); Estimated Creat Clear 76.3
--- NOTE | 2018-01-16 12:24 | ANES ---
Anesthesia Pre Procedure Eval Vitals/Labs: Last Vital Signs Temp 36.8 C 01/16/18 10:54 Pulse 102 H 01/16/18 10:54 Resp 20 01/16/18 10:54 BP 146/84 01/16/18 10:54 Pulse Ox 87 L 01/16/18 10:54 Hemoglobin A1c 4.8 % (4.00-6.0) 01/13/18 09:54 HOME MEDICATIONS omeprazole 40 mg capsule,delayed release 40 mg PO DAILY 09/29/17 [Last Taken Unknown] albuterol sulfate HFA 90 mcg/actuation aerosol inhaler 2 inh IH .Q4-6H PRN #18 g 10/05/17 [Last Taken Unknown] tramadol 50 mg tablet 50 mg PO Q6H PRN #60 tab 10/13/17 [Last Taken Unknown] Albuterol Sulfate [Ventolin HFA] 1 puff IH Q6H PRN 10/27/17 [Last Taken Unknown] Amlodipine Besylate 5 mg PO DAILY 10/27/17 [Last Taken Unknown] Enalapril Maleate [Vasotec] 2.5 mg PO DAILY 10/27/17 [Last Taken Unknown] HYDROcodone/ACETAMINOPHEN [Hydrocodone-Acetamin 5-325 mg] 1 ea PO Q12H PRN 10/27/17 [Last Taken Unknown] Hydrochlorothiazide [Hydrodiuril] 25 mg PO DAILY 10/27/17 [Last Taken Unknown] Ipratropium/Albuterol Sulfate [Iprat-Albut 0.5-3(2.5) mg/3 ml] 3 ml IH Q6H 10/27/17 [Last Taken Unknown] Mirtazapine 30 mg PO HS 10/27/17 [Last Taken Unknown] Sodium Chloride 2 gm PO TID 10/27/17 [Last Taken Unknown] betamethasone dipropionate 0.05 % topical cream 1 applic TP .COMPLEX #45 g 11/06/17 [Last Taken Unknown] triamcinolone acetonide 0.1 % topical ointment 1 applic TP BID PRN #30 g 11/06/17 [Last Taken Unknown] potassium chloride ER 20 mEq tablet,extended release(part/cryst) 20 meq PO DAILY #30 tab 12/20/17 [Last Taken Unknown] Allergies/Adverse Reactions: Allergies Allergy/AdvReac Type Severity Reaction Status Date / Time aspirin Allergy Intermediate dizzy Verified 01/13/18 09:35 Penicillins Allergy Mild BREAKS Verified 01/13/18 09:35 OUT, NAUSEA morphine AdvReac Mild Other Verified 01/13/18 09:35 - Planned Procedure Planned Procedure: HYPONATRMIA,R FEMUR FX Medication List Reviewed:: Yes Allergies Verified: Yes Medical History (Last Reviewed 01/16/18 @ 12:22 by Eliseo Joaquin CRNA) Tobacco abuse (Chronic) Onset Date: Unknown Stasis dermatitis of both legs (Chronic) Onset Date: Unknown Mild concentric left ventricular hypertrophy (LVH) (Acute) Onset Date: Unknown Migraine (Acute) Onset Date: Unknown Malunion of fracture (Acute) Onset Date: ~2012 right distal radius Hypertension (Chronic) Onset Date: Unknown GERD (gastroesophageal reflux disease) (Chronic) Onset Date: Unknown COPD (chronic obstructive pulmonary disease) (Chronic) Onset Date: Unknown Chest pain (Acute) Onset Date: Unknown Arthritis (Acute) Onset Date: Unknown Anxiety (Acute) Onset Date: Unknown Diastolic CHF Pulmonary hypertension Surgical History (Last Reviewed 01/16/18 @ 12:22 by Eliseo Joaquin CRNA) H/O dilation and curettage Onset Date: Unknown H/O tubal ligation Onset Date: Unknown H/O vaginal surgery Onset Date: Unknown History of bladder surgery Onset Date: Unknown History of tonsillectomy Onset Date: Unknown Status post surgical removal of malignant neoplasm of skin Onset Date: Unknown attempted closed reduction Onset Date: ~2012 Dr Sanchez-unsuccessful closed reduction of right distal radius fracture Family History (Last Reviewed 01/16/18 @ 12:22 by Eliseo Joaquin CRNA) Father Heart disease Mother Pacemaker - Family Anesthesia History Family History:: no untoward family reactions to anesthesia - Airway/Neck/Teeth Denture Type: Full- Upper Neck Exam: normal inspection Mallampatti Score: 2 Thyromental (T-M) distance: > 6 cm Mandibulo Hyoid distance: > 3 cm - Respiratory Respiratory: decreased breath sounds, crackles Smoking Status: Current every day smoker Discussed smoking cessation including day of surgery: Yes Sleep Apnea currently treated: No Sleep Apnea by current assessment: No - Cardiovascular Patient History - Cardiac/Respiratory: Coronary Heart Disease, COPD, Hypertension, TIA Tolerates Activity: Poor Heart Sounds: S1 & S2, Regular - Anesthesia Assessment and Plan ASA Class: PS, IV Anesthesia Type Plan: Spinal Planned difficult intubation/equipment available: No
[2018-01-16] MEDS: RINGER'S SOLUTION,LACTATED 1,000 ML IV PRN ×4 (12:50→19:24)
[2018-01-16] MEDS ORDERED: ceFAZolin SODIUM 1 GM in DEXTROSE 5 % IN WATER 100 ML IV ONE ×2 (13:37)
[2018-01-16] MEDS ORDERED: ceFAZolin SODIUM 1 GM VIAL IV PRN (13:43)
[2018-01-16] MEDS ORDERED: MAG HYDROX/ALUMINUM HYD/SIMETH 30 ML UDC PO PRN (15:38)
[2018-01-16] MEDS ORDERED: ACETAMINOPHEN 500 MG TABLET PO PRN (15:38)
[2018-01-16] MEDS ORDERED: HYDROcodone/ACETAMINOPHEN 1 EACH TABLET PO PRN (15:38)
[2018-01-16] MEDS ORDERED: MORPHINE SULFATE 2 MG/ML DISP.SYRIN IV PRN (15:38)
[2018-01-16] MEDS ORDERED: MAGNESIUM HYDROXIDE 30 ML UDC PO PRN (15:38)
[2018-01-16] MEDS ORDERED: ONDANSETRON HCL/PF 2 MG/ML VIAL IV PRN (15:38)
--- NOTE | 2018-01-16 15:53 | OR ---
Operative Report - Dictated Report Narrative: Date: 01/16/2018 Preoperative diagnosis: Right supracondylar distal femur fracture Postoperative diagnosis: Right supracondylar distal femur fracture without intra-articular extension Procedure: Open reduction internal fixation right condylar distal femur fracture Surgeon: Zion Tolentino M.D. Attendant Child Activity: Royer Delatorre PA-C Anesthesia: Spinal Complications: None Specimens: None Estimated blood loss: 250 mL Retained implants: [employer] 4.5 mm lateral distal femoral locking plate and associated screws Indications: Shante is a 67-year-old female with multiple medical comorbidities who sustained a displaced and comminuted right supracondylar distal femur fracture after a low-energy fall. She was initially seen in our emergency department where plain films revealed the above injury. She was admitted to the medicine service and orthopedics was consult for management of her fracture. I counseled her on treatment options including nonoperative management with immobilization nonweightbearing versus open reduction internal fixation. I discussed the risks of surgery with her in detail including, but not limited to, , blood clots, bleeding, infection, nerve/tendon blood vessel/ injury, nonunion, malunion, postoperative limited range of motion, persistent pain, failure of implants, and need for additional procedures. Patient wished to proceed consent was obtained after answering all questions. Procedure: After marking the correct extremity on the floor, the patient was taken to the operating room. A timeout was performed. IV antibiotics consisting of 1 g of Ancef were administered prior to the procedure. A spinal anesthetic was induced by anesthesia. She was placed supine on a radiolucent table with all bony prominences well-padded. Ellis catheter was placed and a bump was placed under the operative side buttock. SCDs and LISA hose were utilized on the nonoperative leg. The operative leg was then pre-scrubbed with hexedine and then prepped and draped in a standard sterile fashion. A small radiolucent triangle was placed under the operative thigh to allow flexion at the knee. Attention was first turned towards the lateral aspect of the knee. An incision was marked out directly over the lateral aspect of the distal femur extending down to Gerdy's tubercle. This was made with a sharp knife approximately 8 cm in length. Electrocautery was carried down through the septations fat to the level of the IT band. This was incised longitudinally in line with its fibers revealing the distal aspect of the femur as well as the vastus lateralis. The vastus was retracted up and out of the way and the entirety of the lateral aspect of the distal femur could be palpated. Traction and knee flexion was utilized to preliminarily align the fracture. This was confirmed with the C-arm. Plates were then trialed on top of the thigh using the C-arm to estimate length and a 13 hole plate was chosen. This would allow adequate overlap of the patient's short cephalo-medullary nail at the hip so as not to create a stress riser. This was slid up the lateral aspect of the femur through the distal incision following the lateral femoral cortex all the way up. It was then seated in the appropriate position on the lateral aspect of the distal femur and preliminarily pinned into place. An approximately 5 synovator proximal incision was made at the proximal aspect of the plate utilizing the previous surgical incision from her hip nailing. The IT fascia was incised in line with its fibers revealing the vastus lateralis which was also split in line with its muscle fibers to reveal the lateral aspect of the proximal femoral shaft and the distal end of our locking plate. The plate was centered over the femur. Maintaining our traction and double checking our overall alignment on the C-arm, the proximal aspect of the plate was preliminarily pinned into place. Two 5.7 mm cannulated distal locking screws were then placed in the distal fragment. Two 4.5 mm screws were then placed through the plate proximally just distal to the short nail to set our length and rotation of our construct. AP and lateral views with the C-arm were again used to confirm appropriate position of our plate and our reduction. Additional proximal screws were placed in a minimally invasive percutaneous fashion including 1 through the interlocking hole of the short nail after removing the pre-existing interlocking screw. A cerclage cable was also placed around the proximal aspect of the plate and position were we are unable to get a screw around the nail. The aiming arm was removed from the plate and the remainder of the distal locking screws were placed. Final C-arm images were taken confirming appropriate placement of our implants as well as acceptable reduction of the fracture. The wounds were then copiously irrigated with normal saline. The wounds were then closed in a layered fashion. Proximally, the IT band was closed with running 0 Vicryl. Distally, the IT band incision was closed with a running #1 Vicryl. 3-0 Vicryl was used in an interrupted deep dermal fashion for all incisions followed by janay for the skin. Xeroform, 4 x 4's, Sof-Rol, and a full leg Adryan wrap were applied. All sponge, needle, blade, and instrument counts were correct prior to closing the wounds. Postoperative condition: The patient was awoken and transferred to the postanesthesia care unit in stable condition. Plan is to return to the inpatient medical/surgical floor postoperatively for 24 hours of IV antibiotics, physical therapy, occupational therapy, and medical management. Patient will be toe-touch weightbearing with range of motion as tolerated. DVT prophylaxis will be with SCDs, LISA hose, and pharmacological anticoagulation.
[2018-01-16] MEDS ORDERED: ALBUTEROL SULFATE 2.5 MG/0.5 ML VIAL.NEB IH ONE ×2 (16:03→16:04)
--- NOTE | 2018-01-16 16:14 | ANES ---
Post Anesthesia Assessment - Vital Signs Vitals: Last Vital Signs Temp 36.5 C 01/16/18 15:40 Pulse 96 01/16/18 16:10 Resp 22 H 01/16/18 16:10 BP 103/55 01/16/18 16:10 Pulse Ox 100 01/16/18 16:10 Airway Patency: Normal - Mental Status Level Of Consciousness: Drowsy - Pain Level Pain Score: 0 - N/V Assessment Nausea/Vomiting Presence: None Dehydration:: No
--- NOTE | 2018-01-16 16:14 | ANES ---
Post Anesthesia Discharge - Transfer of Care Transfer of Care handoff given to nurse: Yes - Discharge from PACU Discharge from PACU when meets criteria: Yes
[2018-01-16] MEDS: ceFAZolin SODIUM 1 GM in DEXTROSE 5 % IN WATER 100 ML IV SCH ×2 (19:22)
[2018-01-16] MEDS: HYDROcodone/ACETAMINOPHEN 1 EACH TABLET PO PRN (20:08)
[2018-01-16] MEDS: MIRTAZAPINE 15 MG TABLET PO SCH (20:10)
[2018-01-16] MEDS: SENNOSIDES/DOCUSATE SODIUM 1 TAB TABLET PO SCH (20:11)
[2018-01-17] MEDS: ceFAZolin SODIUM 1 GM in DEXTROSE 5 % IN WATER 100 ML IV SCH ×4 (01:58→09:28)
[2018-01-17] MEDS: ALBUTEROL SULFATE/IPRATROPIUM 3 ML NEBU IH PRN ×2 (05:23→16:58)
[2018-01-17] MEDS: PANTOPRAZOLE SODIUM 40 MG TABLET.EC PO SCH (07:10)
[2018-01-17] MEDS ORDERED: NORMAL SALINE 250 ML IV ONE (08:36)
[2018-01-17] MEDS: HYDROCHLOROTHIAZIDE 25 MG TABLET PO SCH (08:38)
[2018-01-17] MEDS: ENALAPRIL MALEATE 5 MG TABLET PO SCH (08:39)
[2018-01-17] MEDS: amLODIPine BESYLATE 5 MG TABLET PO SCH (08:39)
[2018-01-17] MEDS: POTASSIUM CHLORIDE 20 MEQ TABLET.SA PO SCH (08:43)
[2018-01-17] MEDS: SODIUM CHLORIDE 1 GM TABLET PO SCH ×3 (08:43→16:29)
--- NOTE | 2018-01-17 08:44 | PN ---
Subjective - Date and Time Seen Date: 01/17/18 Time: 08:41 Subjective Narrative: No events overnight. Patient sitting up in chair this am, pain well controlled, no complaints. Objective - Vitals Vitals: Last Vital Signs Temp 37.0 C 01/17/18 07:30 Pulse 106 H 01/17/18 07:30 Resp 16 01/17/18 07:30 BP 113/57 01/17/18 07:30 Pulse Ox 96 01/17/18 07:30 - Abnormal Lab Findings Abnormal Lab Findings: Abnormal Lab Results 01/13/18 Range/Units 09:54 Serum Osmolality 236 L mOsm/kg - Exam Exam Narrative: Gen: A&Ox3, NAD Resp: breathing non-labored MSK: RLE--> dressings c/d/i, able to flex and extend ankle and all toes, SILT, distal cap refill brisk Cauti Physician Documentation - Urinary Catheter Management Urethral (Kasper) Date of Insertion: 01/16/18 Time of Insertion: 13:05 Assessment/Plan Plan Narrative: 67 yo F w/ R supracondylar distal femur fracture s/p ORIF, POD #1. - reg diet - oral/IV pain meds - TTWB, ROM as tolerated hip and knee - DVT ppx: lovenox/SCDs/dylan hose - kasper out once mobilizing - PT/OT - continue care per Medicine - dispo: continue inpatient care
[2018-01-17] MEDS: HYDROcodone/ACETAMINOPHEN 1 EACH TABLET PO PRN ×2 (10:56→19:33)
[2018-01-17] MEDS: ENOXAPARIN SODIUM 40 MG/0.4 ML SYRG SC SCH (14:20)
[2018-01-17] MEDS: SENNOSIDES/DOCUSATE SODIUM 1 TAB TABLET PO SCH (22:07)
[2018-01-17] MEDS: MIRTAZAPINE 15 MG TABLET PO SCH (22:08)
[2018-01-18] MEDS: HYDROcodone/ACETAMINOPHEN 1 EACH TABLET PO PRN ×2 (06:41→13:17)
[2018-01-18] MEDS: PANTOPRAZOLE SODIUM 40 MG TABLET.EC PO SCH (08:02)
[2018-01-18 08:36] LABS: Hemoglobin 9.4 gm/dL (12.5-16.0); Mean Cell Volume 90.9 fl (78-100); Mean Corpuscular Hemoglobin 30.5 pg (27-31); Mean Corpuscular Hgb Conc 33.6 g/dl (32-36); Mean Platelet Volume 10.1 fl (8-12.5); Neutrophil # 8.3 K/mm3 (1.3-6.0); Platelet Count 281 K/mm3 (150-450); Red Blood Count 3.08 M/mm3 (4.2-5.4); Red Cell Distribution Width 14.4 % (11.5-14.0); White Blood Count 10.7 K/mm3 (4.0-10.5)
[2018-01-18] MEDS: POTASSIUM CHLORIDE 20 MEQ TABLET.SA PO SCH (09:33)
[2018-01-18] MEDS: SODIUM CHLORIDE 1 GM TABLET PO SCH ×3 (09:34→16:33)
[2018-01-18] MEDS: amLODIPine BESYLATE 5 MG TABLET PO SCH (09:37)
[2018-01-18] MEDS: HYDROCHLOROTHIAZIDE 25 MG TABLET PO SCH (09:37)
[2018-01-18] MEDS: ENALAPRIL MALEATE 5 MG TABLET PO SCH (09:37)
[2018-01-18] MEDS: ALBUTEROL SULFATE/IPRATROPIUM 3 ML NEBU IH PRN (13:21)
[2018-01-18] MEDS: ENOXAPARIN SODIUM 40 MG/0.4 ML SYRG SC SCH (13:44)
[2018-01-18] MEDS ORDERED: guaiFENesin 100 MG/5 ML BTL PO PRN (13:53)
--- NOTE | 2018-01-18 17:22 | PN ---
Subjective - Date and Time Seen Date: 01/18/18 Time: 16:59 Subjective Narrative: I still have weakness in my legs, but pain is control. I have a cough. Objective Objective Narrative: 67-year-old female with past medical history of COPD, hypertension, GERD, pulmonary hypertension, alcohol abuse, nicotine dependence, chronic hypokalemia postop day #2 was admitted to the inpatient [facility] for a right femur fracture secondary to a fall in her home. Patient underwent successful and uneventful right supracondylar distal femur arthroplasty to repair her fracture. She was evaluated by PT and is undergoing continuous physical therapy to rehab her ambulation per ortho's order. Patient hemoglobin decreased due to bleeding during the procedure but has remained stable, follow-up labs were ordered to monitor her hemoglobin. Patient was also noted to have an upper respiratory infection presenting with persistent productive cough but no fever of several days' duration, antitussives ordered. she denies excessive pain and reports adequate control with the analgesics that she is been given. - Review of Systems Generalized/Overall Review: Reports: No Symptoms Reported EENTM: Reports: No Symptoms Reported Respiratory: Reports: Cough Cardiac: Reports: No Symptoms Reported Abdominal: Reports: No Symptoms Reported Genitourinary Symptoms: Reports: No Symptoms Reported Musculoskeletal Complaints: Reports: Joint Pain - Right lower extremity pain. Neurological: Reports: No Symptoms Reported Skin: Reports: No Symptoms Reported Endocrine: Reports: No Symptoms Reported - Vitals Vitals: Last Vital Signs Temp 36.9 C 01/18/18 14:45 Pulse 101 H 01/18/18 14:45 Resp 25 H 01/18/18 14:45 BP 119/64 01/18/18 14:45 Pulse Ox 91 L 01/18/18 14:45 - Abnormal Lab Findings Abnormal Lab Findings: Abnormal Lab Results 01/18/18 Range/Units 08:33 WBC 10.7 H (4.0-10.5) K/mm3 RBC 3.08 L (4.2-5.4) M/mm3 Hgb 9.4 L (12.5-16.0) gm/dL Hct 28.0 L (37.0-47.0) % RDW 14.4 H (11.5-14.0) % Immature Gran % (Auto) 0.70 H (0.001-0.429) % Immature Gran # (Auto) 0.07 H (0.000-0.0310) K/mm3 Neutrophils % 78.0 H (42-75.0) % Lymphocytes % 7.2 L (20-51) % Monocytes % 12.2 H (0.0-9) % Neutrophils # 8.3 H (1.3-6.0) K/mm3 Lymphocytes # 0.77 L (1.5-3.5) k/mm3 Monocytes # 1.3 H (0.0-1.0) k/mm3 - Exam Constitutional: Present: Alert, Oriented x3, Cooperative, Well developed, No distress ENT Exam: Present: normal ENT inspection, hearing grossly normal, pharynx normal, TMs normal Neck: Present: non-tender, full range of motion, supple, normal inspection, trachea midline Breasts: Present: Exam deferred Respiratory: Present: chest non-tender, lungs clear, normal breath sounds, no respiratory distress Cardiovascular/Chest: Present: normal peripheral pulses, regular rate, rhythm, no chest tenderness, no edema, no gallop, no JVD, no murmur, chest tender Abdomen: Present: Normal bowel sounds, soft, nontender, nondistended, no rebound tenderness, no hepatospenomegaly, no masses /Rectal: Present: Exam deferred Extremity: Present: no calf tenderness, lower extremity edema - left lower extremity edema., leg pain Skin Exam: Present: normal color, warm/dry, no cyanosis Lymphatic: Present: no adenopathy Neurologic: Present: retaining room cutter II-XII nml as tested Appearance: Present: appropriate appearance Eye contact: Present: cooperative, good eye contact, normal speech Thoughts: Present: normal thought pattern, no apparent hallucination Cauti Physician Documentation - Urinary Catheter Management Urethral (Ellis) Urethral Indwelling: No Date of Insertion: 01/16/18 Time of Insertion: 13:05 Date of Removal: 01/17/18 Time of Removal: 13:00 Assessment/Plan Plan Narrative: Patient will continue on inpatient physical therapy to improve ambulation her orthopedic surgeon's orders. She will be treated with analgesics 2 for optimal pain control. BP medications were held today due to hypotension. BP is improving we will reassess to restart meds. Patient was prescribed antitussive for upper respiratory infection that is causing persistent productive cough. We will reevaluate her in the morning and follow-up with further recommendations from orthopedics. Follow-up CBC has been ordered for the morning to reevaluate hemoglobin. - Problems/Diagnosis (1) Supracondylar fracture of left femur Problem: Acute (2) S/P orthopedic surgery, follow-up exam Problem: Acute (3) URI (upper respiratory infection) Problem: Acute
[2018-01-18] MEDS: SENNOSIDES/DOCUSATE SODIUM 1 TAB TABLET PO SCH (20:16)
[2018-01-18] MEDS: MIRTAZAPINE 15 MG TABLET PO SCH (20:17)
[2018-01-19 05:34] LABS: Hematocrit 25.9 % (37.0-47.0); Hemoglobin 8.4 gm/dL (12.5-16.0); Mean Cell Volume 91.5 fl (78-100); Mean Corpuscular Hemoglobin 29.7 pg (27-31); Mean Corpuscular Hgb Conc 32.4 g/dl (32-36); Mean Platelet Volume 10.4 fl (8-12.5); Neutrophil # 5.7 K/mm3 (1.3-6.0); Neutrophil % 66.9 % (42-75.0); Platelet Count 293 K/mm3 (150-450); Red Blood Count 2.83 M/mm3 (4.2-5.4); Red Cell Distribution Width 14.4 % (11.5-14.0); White Blood Count 8.5 K/mm3 (4.0-10.5)
[2018-01-19] MEDS: PANTOPRAZOLE SODIUM 40 MG TABLET.EC PO SCH (06:38)
[2018-01-19] MEDS: HYDROCHLOROTHIAZIDE 25 MG TABLET PO SCH (08:11)
[2018-01-19] MEDS: amLODIPine BESYLATE 5 MG TABLET PO SCH (08:11)
[2018-01-19] MEDS: SODIUM CHLORIDE 1 GM TABLET PO SCH ×3 (08:11→16:25)
[2018-01-19] MEDS: POTASSIUM CHLORIDE 20 MEQ TABLET.SA PO SCH (08:11)
[2018-01-19] MEDS: ENALAPRIL MALEATE 5 MG TABLET PO SCH (08:12)
--- NOTE | 2018-01-19 09:53 | PN ---
Subjective - Date and Time Seen Date: 01/19/18 Time: 09:51 Subjective Narrative: No events overnight. Nurse notified me of urine soaked dressings. Pain controlled this am. Objective - Vitals Vitals: Last Vital Signs Temp 36.7 C 01/19/18 06:23 Pulse 96 01/19/18 08:12 Resp 18 01/19/18 06:23 BP 110/67 01/19/18 08:12 Pulse Ox 92 L 01/19/18 09:04 - Abnormal Lab Findings Abnormal Lab Findings: Abnormal Lab Results 01/19/18 Range/Units 05:22 RBC 2.83 L (4.2-5.4) M/mm3 Hgb 8.4 L (12.5-16.0) gm/dL Hct 25.9 L (37.0-47.0) % RDW 14.4 H (11.5-14.0) % Immature Gran % (Auto) 0.80 H (0.001-0.429) % Immature Gran # (Auto) 0.07 H (0.000-0.0310) K/mm3 Lymphocytes % 11.4 L (20-51) % Monocytes % 15.0 H (0.0-9) % Eosinophils % 5.4 H (0.0-3.0) % Lymphocytes # 0.97 L (1.5-3.5) k/mm3 Monocytes # 1.3 H (0.0-1.0) k/mm3 - Exam Exam Narrative: Gen: A&Ox3, NAD Resp: breathing non-labored MSK: RLE--> proximal aspect of dressings damp and smell of urine, no wound drainage, able to flex and extend ankle and all toes, SILT, distal cap refill brisk Cauti Physician Documentation - Urinary Catheter Management Urethral (Ellis) Urethral Indwelling: No Date of Insertion: 01/16/18 Time of Insertion: 13:05 Date of Removal: 01/17/18 Time of Removal: 13:00 Assessment/Plan Plan Narrative: 67 yo F w/ R supracondylar distal femur fracture s/p ORIF, POD #3. - reg diet - oral/IV pain meds - 50% weight bearing, ROM as tolerated hip and knee - instructed nursing staff to remove dressings and re-dress with 4x4 gauze, tegaderm, and MIHIR wrap for swelling. - DVT ppx: lovenox/SCDs/dylan ramirez - PT/OT - continue care per Medicine - dispo: continue inpatient care
--- NOTE | 2018-01-19 12:00 | PN ---
Subjective - Date and Time Seen Date: 01/19/18 Time: 11:43 Subjective Narrative: I still have weakness in my legs, but pain is controlled. I have a cough. I have SOB. Objective Objective Narrative: 67-year-old female with past medical history of COPD, hypertension, GERD, pulmonary hypertension, alcohol abuse, nicotine dependence, chronic hypokalemia, s/p Rt. supracondylar distal fracture repair postop day #3 was ev aluated at bedside and was found to be afebrile and in no acute distress, however patient had SOB this morning and required O2 by nasal canula. O2 sat was ranging in the 80's, but since being placed on O2 she has improved. Px continues to receive inpatient PT but is not progressing adequately, ortho evaluated her and recommended continuing PT within her capacity. Morning labs revealed a decreased Hmg of 8.5, likely due to the ortho surgery so Iron and vit c supplements were added. Cinda was encouraged to continue her spirometry. We will monitor her closely. - Review of Systems Generalized/Overall Review: Reports: Fatigue EENTM: Reports: No Symptoms Reported Respiratory: Reports: Cough, Shortness of Breath, Wheezing Cardiac: Reports: No Symptoms Reported Abdominal: Reports: No Symptoms Reported Genitourinary Symptoms: Reports: No Symptoms Reported Musculoskeletal Complaints: Reports: No Symptoms Reported Neurological: Reports: No Symptoms Reported Skin: Reports: No Symptoms Reported Endocrine: Reports: No Symptoms Reported Misc: All systems neg except as marked - Vitals Vitals: Last Vital Signs Temp 37.2 C 01/19/18 10:44 Pulse 99 01/19/18 10:44 Resp 20 01/19/18 10:44 BP 93/57 01/19/18 10:44 Pulse Ox 96 01/19/18 10:44 - Abnormal Lab Findings Abnormal Lab Findings: Abnormal Lab Results 01/19/18 Range/Units 05:22 RBC 2.83 L (4.2-5.4) M/mm3 Hgb 8.4 L (12.5-16.0) gm/dL Hct 25.9 L (37.0-47.0) % RDW 14.4 H (11.5-14.0) % Immature Gran % (Auto) 0.80 H (0.001-0.429) % Immature Gran # (Auto) 0.07 H (0.000-0.0310) K/mm3 Lymphocytes % 11.4 L (20-51) % Monocytes % 15.0 H (0.0-9) % Eosinophils % 5.4 H (0.0-3.0) % Lymphocytes # 0.97 L (1.5-3.5) k/mm3 Monocytes # 1.3 H (0.0-1.0) k/mm3 - Exam Constitutional: Present: Alert, Oriented x3, Cooperative, Well developed, No distress, Elderly, Thin and frail ENT Exam: Present: normal ENT inspection, hearing grossly normal, pharynx normal, TMs normal Neck: Present: non-tender, full range of motion, supple, normal inspection, trachea midline Breasts: Present: Exam deferred Respiratory: Present: no respiratory distress, decreased breath sounds, wheezing Cardiovascular/Chest: Present: normal peripheral pulses, regular rate, rhythm, no chest tenderness, no edema, no gallop, no JVD, no murmur, no rub Abdomen: Present: Normal bowel sounds, soft, nontender, nondistended, no rebound tenderness, no hepatospenomegaly, no masses /Rectal: Present: Exam deferred Extremity: Present: normal range of motion, non-tender, normal inspection, no p edal edema, no calf tenderness, normal capillary refill, other - Rt lower extremity wrapped in dry clean surgical bandage Skin Exam: Present: normal color, warm/dry, no cyanosis Lymphatic: Present: no adenopathy Neurologic: Present: toe stripper II-XII nml as tested Appearance: Present: appropriate appearance Eye contact: Present: cooperative, good eye contact, normal speech Thoughts: Present: normal thought pattern, no apparent hallucination Cauti Physician Documentation - Urinary Catheter Management Urethral (Ellis) Urethral Indwelling: No Date of Insertion: 01/16/18 Time of Insertion: 13:05 Date of Removal: 01/17/18 Time of Removal: 13:00 Assessment/Plan Plan Narrative: we will continue inpatient px, spirometry, O2 by Nasal canula, iron supplements, and reassess in the morning. - Problems/Diagnosis (1) Supracondylar fracture of left femur Problem: Acute (2) S/P orthopedic surgery, follow-up exam Problem: Acute (3) URI (upper respiratory infection) Problem: Acute (4) COPD (chronic obstructive pulmonary disease) with acute bronchitis Problem: Acute (5) Postoperative anemia due to acute blood loss Problem: Acute
[2018-01-19] MEDS: FERROUS SULFATE 325 MG TABLET PO SCH ×2 (12:28→16:26)
[2018-01-19] MEDS: ASCORBIC ACID 500 MG TABLET PO SCH (12:28)
[2018-01-19] MEDS: NORMAL SALINE 250 ML IV ONE ×2 (13:13→13:25)
[2018-01-19] MEDS: ENOXAPARIN SODIUM 40 MG/0.4 ML SYRG SC SCH (14:35)
[2018-01-19] MEDS: ALBUTEROL SULFATE/IPRATROPIUM 3 ML NEBU IH PRN (19:09)
[2018-01-19] MEDS: MIRTAZAPINE 15 MG TABLET PO SCH (22:02)
[2018-01-19] MEDS: SENNOSIDES/DOCUSATE SODIUM 1 TAB TABLET PO SCH (22:02)
[2018-01-20] MEDS: PANTOPRAZOLE SODIUM 40 MG TABLET.EC PO SCH (07:29)
[2018-01-20] MEDS: POTASSIUM CHLORIDE 20 MEQ TABLET.SA PO SCH (08:42)
[2018-01-20] MEDS: ASCORBIC ACID 500 MG TABLET PO SCH (08:42)
[2018-01-20] MEDS: ENALAPRIL MALEATE 5 MG TABLET PO SCH (08:43)
[2018-01-20] MEDS: FERROUS SULFATE 325 MG TABLET PO SCH ×2 (08:43→12:46)
[2018-01-20] MEDS: amLODIPine BESYLATE 5 MG TABLET PO SCH (08:43)
[2018-01-20] MEDS: HYDROCHLOROTHIAZIDE 25 MG TABLET PO SCH (08:44)
[2018-01-20] MEDS: SODIUM CHLORIDE 1 GM TABLET PO SCH ×2 (08:44→12:46)
--- NOTE | 2018-01-20 09:09 | PN ---
Subjective - Date and Time Seen Date: 01/14/18 Time: 09:50 Subjective Narrative: Patient seen and examined at bedside. No acute issues overnight. Patient denies any new issues or concerns this AM. Objective - Review of Systems Generalized/Overall Review: Reports: Weakness, Fatigue Respiratory: Reports: Shortness of Breath - chronic Cardiac: Reports: Edema - chronic Musculoskeletal Complaints: Reports: Joint Pain Misc: All systems neg except as marked - Vitals Vitals: Last Vital Signs Temp 36.6 C 01/20/18 07:02 Pulse 81 01/20/18 08:43 Resp 16 01/20/18 07:02 BP 122/68 01/20/18 08:43 Pulse Ox 92 L 01/20/18 07:02 - Exam Constitutional: Present: Alert, Oriented x3, Cooperative, No distress, Looks Older than stated age ENT Exam: Present: hearing grossly normal Respiratory: Present: no respiratory distress, no accessory muscle use, decreased breath sounds, expiration (prolonged) Cardiovascular/Chest: Present: regular rate, rhythm, edema Abdomen: Present: soft, nontender, nondistended Extremity: Present: other - knee immobilizer in place on right Neurologic: Present: no motor/sensory deficits, alert, normal mood/affect, oriented x 3 Appearance: Present: appropriate insight, no memory impairment Eye contact: Present: cooperative Thoughts: Present: normal thought pattern, no apparent hallucination Cauti Physician Documentation - Urinary Catheter Management Urethral (Ellis) Urethral Indwelling: No Date of Insertion: 01/16/18 Time of Insertion: 13:05 Date of Removal: 01/17/18 Time of Removal: 13:00 Assessment/Plan Plan Narrative: Sodium level improving nicely. Continue NS @ 125cc/hr. Hyponatremia consistent with poor PO intake. Hopefully sodium will continue to improve and she will be medically stable for surgery within the next 2-3 days. - Problems/Diagnosis (1) Hyponatremia Problem: Acute (2) Femur fracture, right Problem: Acute Qualifiers: Encounter type: initial encounter Femur location: distal Fracture type: closed Fracture morphology: unspecified fracture morphology Qualified Code(s): S72.401A - Unspecified fracture of lower end of right femur, initial encounter for closed fracture (3) COPD (chronic obstructive pulmonary disease) Problem: Chronic
--- NOTE | 2018-01-20 09:12 | PN ---
Subjective - Date and Time Seen Date: 01/15/18 Time: 09:10 Subjective Narrative: Patient seen and examined at bedside. No acute issues overnight. Patient denies any new issues or concerns this AM. Objective - Review of Systems Generalized/Overall Review: Reports: Weakness, Fatigue Respiratory: Reports: Shortness of Breath - chronic at baseline Cardiac: Reports: Edema Musculoskeletal Complaints: Reports: Joint Pain Misc: All systems neg except as marked - Vitals Vitals: Last Vital Signs Temp 36.6 C 01/20/18 07:02 Pulse 81 01/20/18 08:43 Resp 16 01/20/18 07:02 BP 122/68 01/20/18 08:43 Pulse Ox 92 L 01/20/18 07:02 - Exam Constitutional: Present: Alert, Oriented x3, Cooperative, No distress, Looks Older than stated age ENT Exam: Present: hearing grossly normal Respiratory: Present: no respiratory distress, no accessory muscle use, decreased breath sounds, expiration (prolonged) Cardiovascular/Chest: Present: regular rate, rhythm, edema Abdomen: Present: soft, nontender, nondistended Extremity: Present: other - right knee immobilizer in place Neurologic: Present: no motor/sensory deficits, alert, normal mood/affect, oriented x 3 Appearance: Present: appropriate insight Eye contact: Present: cooperative Thoughts: Present: normal thought pattern, no apparent hallucination Cauti Physician Documentation - Urinary Catheter Management Urethral (Ellis) Urethral Indwelling: No Date of Insertion: 01/16/18 Time of Insertion: 13:05 Date of Removal: 01/17/18 Time of Removal: 13:00 Assessment/Plan Plan Narrative: Decrease fluids down to 30 cc/hr. Sodium level now WNL. Patient will be medically stable for surgery tomorrow pending AM sodium level. - Problems/Diagnosis (1) Hyponatremia Problem: Acute (2) Femur fracture, right Problem: Acute Qualifiers: Encounter type: initial encounter Femur location: distal Fracture type: closed Fracture morphology: unspecified fracture morphology Qualified Code(s): S72.401A - Unspecified fracture of lower end of right femur, initial encounter for closed fracture (3) COPD (chronic obstructive pulmonary disease) Problem: Chronic
--- NOTE | 2018-01-20 09:13 | PN ---
Subjective - Date and Time Seen Date: 01/17/18 Time: 09:12 Subjective Narrative: Patient seen and examined at bedside. No acute issues overnight. Patient denies any new issues or concerns this AM. Objective - Review of Systems Generalized/Overall Review: Reports: Weakness, Fatigue Musculoskeletal Complaints: Reports: Joint Pain Misc: All systems neg except as marked - Vitals Vitals: Last Vital Signs Temp 36.6 C 01/20/18 07:02 Pulse 81 01/20/18 08:43 Resp 16 01/20/18 07:02 BP 122/68 01/20/18 08:43 Pulse Ox 92 L 01/20/18 07:02 - Exam Constitutional: Present: Alert, Oriented x3, Cooperative, No distress, Looks Older than stated age ENT Exam: Present: hearing grossly normal Respiratory: Present: no respiratory distress, no accessory muscle use, decreased breath sounds, expiration (prolonged) Cardiovascular/Chest: Present: regular rate, rhythm Abdomen: Present: soft, nontender, nondistended Extremity: Present: other Neurologic: Present: no motor/sensory deficits, alert, normal mood/affect, oriented x 3 Appearance: Present: appropriate insight Eye contact: Present: cooperative Thoughts: Present: normal thought pattern, no apparent hallucination Cauti Physician Documentation - Urinary Catheter Management Urethral (Ellis) Urethral Indwelling: No Date of Insertion: 01/16/18 Time of Insertion: 13:05 Date of Removal: 01/17/18 Time of Removal: 13:00 Assessment/Plan Plan Narrative: Patient doing well post-op. Plan to work with PT later today. Post-op cares per ortho. Continue to monitor sodium level closely. Patient will likely need SNF vs. home with home health care at discharge. Await PT eval and recommendations. - Problems/Diagnosis (1) Hyponatremia Problem: Acute (2) Femur fracture, right Problem: Acute Qualifiers: Encounter type: initial encounter Femur location: distal Fracture type: closed Fracture morphology: unspecified fracture morphology Qualified Code(s): S72.401A - Unspecified fracture of lower end of right femur, initial encounter for closed fracture (3) COPD (chronic obstructive pulmonary disease) Problem: Chronic
[2018-01-20 09:45] LABS: Anion Gap 8.3 mmol/L (6.8-13.8); BUN/Creatinine Ratio 18.2 (9.0-21.6); Carbon Dioxide 30.5 mmol/L (24-32.6); Estimated Creat Clear 83.2; Potassium 3.8 mmol/L (3.4-4.6)
[2018-01-20] MEDS: ALBUTEROL SULFATE/IPRATROPIUM 3 ML NEBU IH PRN (11:54)
--- NOTE | 2018-01-20 13:23 | DS ---
(1) Supracondylar fracture of left femur Problem: Resolved (2) S/P orthopedic surgery, follow-up exam Problem: Acute (3) URI (upper respiratory infection) Problem: Acute Qualifiers: URI type: unspecified viral URI Qualified Code(s): J06.9 - Acute upper respiratory infection, unspecified (4) COPD (chronic obstructive pulmonary disease) with acute bronchitis Problem: Acute (5) Postoperative anemia due to acute blood loss Problem: Acute Description of Stay: 67 y/o female admitted for a Right femur fracture due to a fall that occurred in her home, S/P Rt. supracondylar distal femur ORIF was evaluated at bedside and was found to be afebrile and in no acute distress. Px's hemaglobin has remained stable, and she was prescribed oral iron supplements. Her breathing and o2 sat has improved, and she has less cough. Px was evaluated by ortho who ordered continued PT to improve ambulation. Therefore, decision to discharge home has been made. Patient is confined to the home due to an ORIF of the right condylar femur fracture resulting in the patient being toe-touch weight bearing. Patient requires alf for incision monitoring, medication monitoring and education, monitoring of vital signs and oxygen saturation, and post- operative dressing changes and education. physical therapy is needed for increased strengthening following ORIF, gait traning, and education on safe mobility and transfers. A bath aide will aslo be needed for assistance with bath cares. the need for home health care skilled services is directly related to the time spent face to face with Shante Miranda jorge, 01-20-18. Procedures Performed: see notes below List Procedures: ORIF of the right condylar distal femur fracture. Results and Findings: Lab Pending Results 01/13/18 09:54: WBC 8.6, RBC 4.73, Hgb 14.3, Hct 40.4, MCV 85.4, MCH 30.2, MCHC 35.4, RDW 13.4, Plt Count 236, MPV 10.1, Immature Gran % (Auto) 0.50 H, Immature Gran # (Auto) 0.04 H, Neutrophils % 72.5, Lymphocytes % 7.0 L, Monocytes % 8.1, Eosinophils % 11.1 H, Basophils % 0.8, Nucleated RBC % 0.0, Neutrophils # 6.2 H, Lymphocytes # 0.60 L, Monocytes # 0.7, Eosinophils # 1.0 H, Absolute Basophils 0.1 01/13/18 09:54: Sodium 114 L* D, Plasma Sodium 114 L*, Potassium 3.8, Chloride 82 L, Carbon Dioxide 31.0, Anion Gap 4.8 L, BUN 8, Creatinine 0.51, Est GFR (Non-Af Amer) 128, BUN/Creatinine Ratio 15.7, Random Glucose 126 H, Calcium 8.3, Calcium Adj for Albumin 8.4, Magnesium 1.3, Total Bilirubin 0.8, AST 23, ALT 22, Alkaline Phosphatase 100, Total Protein 6.5, Albumin 3.5, Ethyl Alcohol Less than 3.0 01/13/18 09:54: Serum Osmolality 236 L 01/13/18 09:54: Mean Blood Glucose 74, Hemoglobin A1c 4.8 01/13/18 11:03: Ur Random Sodium 43 01/13/18 11:03: Urine Color Yellow, Urine Appearance Slightly cloudy, Urine pH 7.0, Ur Specific [place] 1.015, Urine Protein Negative, Urine Glucose (UA) Nega tive, Urine Ketones Negative, Urine Blood Negative, Urine Nitrate Negative, Urine Bilirubin Negative, Urine Urobilinogen Normal, Ur Leukocyte Esterase Negative, Urine RBC None seen, Urine WBC 0-5, Ur Epithelial Cells 0-5, Amorphous Sediment Trace, Urine Bacteria Trace, Urine Culture Comments Culture to follow 01/13/18 15:40: Sodium 116 L*, Plasma Sodium 117 L*, Potassium 3.3 L, Chloride 83 L, Carbon Dioxide 27.5, Anion Gap 8.8, BUN 9, Creatinine 0.52, Est GFR (Non- Af Amer) 125, BUN/Creatinine Ratio 17.3, Random Glucose 149 H, Calcium 8.2 01/13/18 18:10: Ur Random Creatinine 10.3 L, Ur Random Sodium 106, Ur Random Chloride 136 H 01/13/18 18:10: Ur Random Potassium 38.6 01/13/18 18:10: Urine Osmolality 362 01/13/18 19:45: Sodium 115 L*, Plasma Sodium 116 L*, Potassium 3.3 L, Chloride 83 L, Carbon Dioxide 26.0, Anion Gap 9.3, BUN 8, Creatinine 0.49, Est GFR (Non- Af Amer) 134 H, BUN/Creatinine Ratio 16.3, Random Glucose 151 H, Calcium 8.3, TSH (Reflex) 0.656 01/13/18 23:35: Sodium 114 L*, Plasma Sodium 115 L*, Potassium 3.9, Chloride 86 L, Carbon Dioxide 23.3 L, Anion Gap 8.6, BUN 9, Creatinine 0.49, Est GFR (Non-Af Amer) 134 H, BUN/Creatinine Ratio 18.4, Random Glucose 153 H, Calcium 7.9 01/14/18 03:40: Sodium 123 L, Plasma Sodium 123 L, Potassium 4.0, Chloride 91 L, Carbon Dioxide 28.3, Anion Gap 7.7, BUN 8, Creatinine 0.64, Est GFR (Non-Af Amer) 99 D, BUN/Creatinine Ratio 12.5, Random Glucose 123 H, Calcium 8.4 01/14/18 07:31: Sodium 125 L, Plasma Sodium 125 L, Potassium 4.0, Chloride 94 L, Carbon Dioxide 28.6, Anion Gap 6.4 L, BUN 8, Creatinine 0.69, Est GFR (Non-Af Amer) 90, BUN/Creatinine Ratio 11.6, Random Glucose 107, Calcium 8.5 01/14/18 11:58: Sodium 127 L, Plasma Sodium 127 L, Potassium 4.2, Chloride 96 L, Carbon Dioxide 28.5, Anion Gap 6.7 L, BUN 13 D, Creatinine 0.65, Est GFR (Non- Af Amer) 97, BUN/Creatinine Ratio 20.0, Random Glucose 112 H, Calcium 8.4 01/14/18 17:56: Sodium 130 L, Plasma Sodium 130, Potassium 3.7, Chloride 99, Carbon Dioxide 32.3, Anion Gap 2.4 L, BUN 16, Creatinine 0.79, Est GFR (Non-Af Amer) 77 D, BUN/Creatinine Ratio 20.3, Random Glucose 121 H, Calcium 8.2 01/15/18 00:10: Sodium 131 L, Plasma Sodium 131, Potassium 3.3 L, Chloride 99, Carbon Dioxide 27.4, Anion Gap 7.9, BUN 18, Creatinine 0.80, Est GFR (Non-Af Amer) 76, BUN/Creatinine Ratio 22.5 H, Random Glucose 109, Calcium 8.1 01/15/18 05:35: Sodium 130 L, Plasma Sodium 130, Potassium 3.0 L, Chloride 98, Carbon Dioxide 28.9, Anion Gap 6.1 L, BUN 15, Creatinine 0.62, Est GFR (Non-Af Amer) 102 D, BUN/Creatinine Ratio 24.2 H, Random Glucose 88, Calcium 8.1 01/15/18 12:17: Sodium 133, Plasma Sodium 133, Potassium 3.5, Chloride 99, Carbon Dioxide 27.2, Anion Gap 10.3, BUN 15, Creatinine 0.86, Est GFR (Non-Af Amer) 70 D, BUN/Creatinine Ratio 17.4, Random Glucose 110, Calcium 8.7 01/15/18 18:08: Sodium 132, Plasma Sodium 133, Potassium 4.2, Chloride 100, Carbon Dioxide 27.1, Anion Gap 9.1, BUN 15, Creatinine 0.79, Est GFR (Non-Af Amer) 77, BUN/Creatinine Ratio 19.0, Random Glucose 134 H, Calcium 8.3 01/16/18 05:10: Sodium 132, Plasma Sodium 132, Potassium 3.7, Chloride 99, Carbon Dioxide 26.4, Anion Gap 10.3, BUN 11, Creatinine 0.59, Est GFR (Non-Af Amer) 108 D, BUN/Creatinine Ratio 18.6, Random Glucose 115 H, Calcium 8.1 01/16/18 12:10: Sodium 132, Plasma Sodium 132, Potassium 4.0, Chloride 98, Carbon Dioxide 29.1, Anion Gap 8.9, BUN 9, Creatinine 0.60, Est GFR (Non-Af Amer) 106, BUN/Creatinine Ratio 15.0, Random Glucose 102, Calcium 8.2 01/18/18 08:33: WBC 10.7 H, RBC 3.08 L, Hgb 9.4 L, Hct 28.0 L, MCV 90.9, MCH 30.5, MCHC 33.6, RDW 14.4 H, Plt Count 281, MPV 10.1, Immature Gran % (Auto) 0.70 H, Immature Gran # (Auto) 0.07 H, Neutrophils % 78.0 H, Lymphocytes % 7.2 L, Monocytes % 12.2 H, Eosinophils % 1.4, Basophils % 0.5, Nucleated RBC % 0.0, Neutrophils # 8.3 H, Lymphocytes # 0.77 L, Monocytes # 1.3 H, Eosinophils # 0.2, Absolute Basophils 0.1 01/19/18 05:22: WBC 8.5 D, RBC 2.83 L, Hgb 8.4 L, Hct 25.9 L, MCV 91.5, MCH 29.7, MCHC 32.4, RDW 14.4 H, Plt Count 293, MPV 10.4, Immature Gran % (Auto) 0.80 H, Immature Gran # (Auto) 0.07 H, Neutrophils % 66.9, Lymphocytes % 11.4 L, Monocytes % 15.0 H, Eosinophils % 5.4 H, Basophils % 0.5, Nucleated RBC % 0.0, Neutrophils # 5.7, Lymphocytes # 0.97 L, Monocytes # 1.3 H, Eosinophils # 0.5, Absolute Basophils 0.0 01/20/18 09:30: Sodium 134, Plasma Sodium 134, Potassium 3.8, Chloride 99, Carbon Dioxide 30.5, Anion Gap 8.3, BUN 10, Creatinine 0.55, Est GFR (Non-Af Amer) 118, BUN/Creatinine Ratio 18.2, Random Glucose 129 H, Calcium 8.0 Discharge Location: Home Disposition: Home Health Service Condition: Fair Face to Face Encounter completed per [facility] Guidelines: Yes - Home health services Discharge Activity: Partial-Weight bearing Discharge Diet: General/regular food Referrals: Sandra Lyons DO [Primary Care Provider] - Additional Patient Instructions (free text): -Please make TCM appointment unless mcc discharge. Thank you! Kathi @ ext:[phone]. [facility]. Please fax orders upon discharge. nrsg, bath aide and PT. Fax orders to [phone]. Prescriptions (Any new or edited meds): Enoxaparin Sodium [Lovenox] 40 mg SQ DAILY 28 Days #28 ml Ferrous Sulfate 325 mg PO TID 60 Days #180 tablet. Complete Home Medications List: Complete Home Medication List: omeprazole 40 mg capsule,delayed release 40 mg PO DAILY 09/29/17 albuterol sulfate HFA 90 mcg/actuation aerosol inhaler 2 inh IH .Q4-6H PRN #18 g 10/05/17 Albuterol Sulfate [Ventolin HFA] 1 puff IH Q6H PRN 10/27/17 Amlodipine Besylate 5 mg PO DAILY 10/27/17 Enalapril Maleate [Vasotec] 2.5 mg PO DAILY 10/27/17 HYDROcodone/ACETAMINOPHEN [Hydrocodone-Acetamin 5-325 mg] 1 ea PO Q12H PRN 10/27/17 Hydrochlorothiazide [Hydrodiuril] 25 mg PO DAILY 10/27/17 Ipratropium/Albuterol Sulfate [Iprat-Albut 0.5-3(2.5) mg/3 ml] 3 ml IH Q6H 10/27/17 Mirtazapine 30 mg PO HS 10/27/17 Sodium Chloride 2 gm PO TID 10/27/17 betamethasone dipropionate 0.05 % topical cream 1 applic TP .COMPLEX #45 g 11/06/17 triamcinolone acetonide 0.1 % topical ointment 1 applic TP BID PRN #30 g potassium chloride ER 20 mEq tablet,extended release(part/cryst) 20 meq PO DAILY #30 tab 12/20/17 Acetaminophen [Tylenol] 1,000 mg PO Q6H PRN tablet 01/20/18 Ascorbic Acid [Vitamin C] 500 mg PO DAILY tablet 01/20/18 Enoxaparin Sodium [Lovenox] 40 mg SQ DAILY 28 Days #28 ml 01/20/18 Ferrous Sulfate 325 mg PO TID 60 Days #180 tablet.dr 01/20/18 guaiFENesin [Robitussin] 100 mg PO Q4H PRN btl 01/20/18
[2018-01-20] MEDS: ENOXAPARIN SODIUM 40 MG/0.4 ML SYRG SC SCH (14:32)
[2018-01-20 16:07] VITALS: BP 101/61
== END 2018-01-20 16:10 | disposition home health service (06) | DRG 481 ==
LOC: ER 09:25 → MS 10:39
PROVIDERS: ADMIT Internal Medicine; ATTEND Family Medicine
CPT/HCPCS: 36415; 71010; 71045; 73552; 73562; 73700; 76000; 80048; 80053; 80320; 81001; 82436; 82570; 83036; 83735; 83930; 83935; 84133; 84300; 84443; 85025; 87086; 93005; 94640; 94664; 96374; 97110; 97162; 97166; 97530; 97542; 99285; G0481

== ENCOUNTER 2018-06-04 00:15 | Inpatient (IN) ==
[2018-06-04] MEDS ORDERED: ALBUTEROL SULFATE/IPRATROPIUM 3 ML NEBU IH ONE (00:20)
--- NOTE | 2018-06-04 00:23 | ERNOTE ---
Lower Extremity HPI - Narrative Date of Service: 06/04/18 - General Lower Extremities Pain: knee: left Time Seen by Provider: 06/04/18 00:18 Source: EMS Exam Limitations: clinical condition - Immun/Allergies/Home Medications Immunizations: IMMUNIZATION HX Immunizations Up to Date Yes History of Influenza Vaccine No Hx Pneumococcal Vaccination No Allergies/Adverse Reactions: Allergies Allergy/AdvReac Type Severity Reaction Status Date / Time aspirin Allergy Intermediate dizzy Verified 06/04/18 00:24 Penicillins Allergy Mild BREAKS Verified 06/04/18 00:24 OUT, NAUSEA morphine AdvReac Mild Other Verified 06/04/18 00:24 Home Medications: HOME MEDICATIONS Albuterol Sulfate [Ventolin HFA] 1 puff IH Q6H PRN 10/27/17 [Last Taken Unknown] triamcinolone acetonide 0.1 % topical ointment 1 applic TP BID PRN #30 g 11/06/17 [Last Taken Unknown] Acetaminophen [Tylenol] 1,000 mg PO Q6H PRN tab 01/20/18 [Last Taken Unknown] Ascorbic Acid [Vitamin C] 500 mg PO DAILY tab 01/20/18 [Last Taken Unknown] ferrous sulfate 325 mg (65 mg iron) tablet,delayed release 325 mg PO TIDWM #90 tab 02/01/18 [Last Taken Unknown] omeprazole 40 mg capsule,delayed release 40 mg PO DAILY PRN 02/01/18 [Last Taken Unknown] sodium chloride 1 gram tablet 2,000 mg PO TID #90 tab 02/01/18 [Last Taken Unknown] ipratropium-albuterol 0.5 mg-3 mg(2.5 mg base)/3 mL nebulization soln 3 ml IH Q6H #180 ml 02/07/18 [Last Taken Unknown] tramadol 50 mg tablet 50 mg PO Q6H PRN #50 tab 03/08/18 [Last Taken Unknown] albuterol sulfate HFA 90 mcg/actuation aerosol inhaler 2 inh IH .Q4-6H PRN #18 g 05/28/18 [Last Taken Unknown] - History of Present Illness Narrative: 67 year old female, presenting with left knee pain, she fell and injured her left knee. She has not taken anything for pain. No other injuries, she has been coughing and wheezing a few days as well. She is coming in via EMS for left knee pain. Date (Duration): 06/04/18 Time (Timing): 09:00 Occurred: this morning Location of Incident: home Method of Injury: Reports: fell, twisted Reason for Fall: Reports: lost balance, slipped, tripped Loss of Consciousness: Reports: no loss of consciousness Modifying Factors - (Improves): Reports: rest Modifying Factors - (Worsens): Reports: movement Associated Symptoms: Reports: snapping, popping sensation Other Injuries: Reports: none Subsequent Symptoms: Denies: sensory loss Prior Treament: Denies: recently seen Review of Systems - Review of Systems Constitutional: Present: See HPI EYE: Present: no symptoms reported ENT: Present: no symptoms reported Respiratory: Present: cough, wheezing Cardiology: Present: no symptoms reported Gastrointestinal/Abdominal: Present: no symptoms reported Genitourinary: Present: no symptoms reported Musculoskeletal: Present: joint pain, joint swelling Skin: Present: no symptoms reported Neurological: Present: no symptoms reported Endocrine: Present: no symptoms reported Hematologic/Lymphatic: Present: no symptoms reported Psych: Present: no symptoms reported Medical History (Last Reviewed 06/04/18 @ 00:22 by Devin yLles MD) Hyponatremia (Acute) Acute on Chronic Tobacco abuse (Chronic) Onset Date: Unknown Stasis dermatitis of both legs (Chronic) Onset Date: Unknown Mild concentric left ventricular hypertrophy (LVH) (Acute) Onset Date: Unknown Migraine (Acute) Onset Date: Unknown Malunion of fracture (Acute) Onset Date: ~2012 right distal radius Hypertension (Chronic) Onset Date: Unknown GERD (gastroesophageal reflux disease) (Chronic) Onset Date: Unknown COPD (chronic obstructive pulmonary disease) (Chronic) Onset Date: Unknown Chest pain (Acute) Onset Date: Unknown Arthritis (Acute) Onset Date: Unknown Anxiety (Acute) Onset Date: Unknown Diastolic CHF Influenza vaccination declined Onset Date: ~02/01/18 Pulmonary hypertension Surgical History: Surgical History (Last Reviewed 06/04/18 @ 00:22 by Devin Lyles MD) Status post hip surgery Onset Date: 12/2017 H/O dilation and curettage Onset Date: Unknown H/O tubal ligation Onset Date: Unknown H/O vaginal surgery Onset Date: Unknown History of bladder surgery Onset Date: Unknown History of tonsillectomy Onset Date: Unknown Status post surgical removal of malignant neoplasm of skin Onset Date: Unknown attempted closed reduction Onset Date: ~2012 Dr Sanchez-unsuccessful closed reduction of right distal radius fracture Family History: Family History (Last Reviewed 06/04/18 @ 00:22 by Devin Lyles MD) Father Heart disease Mother Pacemaker Social History: Preferred Language Bel[place]ian Smoking Status Current every day smoker Smoking packs per day 0.5 Abuse History No History of abuse Psych History Hx of Anxiety (Last Updated 05/25/18 @ 11:14 by Zion Tolentino MD) No Social History Section defined Physical Exam - Physical Exam General Appearance: Present: wd/wn, alert, no apparent distress Head Exam: Present: normal inspection, no evidence of injury Eye Exam: Normal inspection: bilateral, PERRL: bilateral, EOMI: bilateral Ears, Nose, Throat: Present: normal ENT inspection, normal pharynx Neck: Present: normal inspection, nontender Respiratory: Present: decreased breath sounds, wheezing Cardiovascular/Chest: Present: regular rate, rhythm, no murmur, normal peripheral pulses Gastrointestinal/Abdominal: Present: normal bowel sounds, nontender, nondistended, soft, no organomegaly Back Exam: Present: normal inspection, normal range of motion, no CVA tenderness, no vertebral tenderness Extremity Exam: Present: decreased range of motion, bony tenderness Neurological Exam: Present: alert, oriented, normal mood/affect, no motor/sensory deficits Skin Exam: Present: normal color, warm/dry Lymphatic Exam: Present: no adenopathy Progress - Results and Orders Patient's Lab Results:: I have reviewed the patient's lab results. - Vital Signs Patient's Vital Signs:: I have reviewed the patient's vital signs. - EKG EKG #1 EKG: NSR - 94 - X-Ray X-Ray #1 X-Ray: chest - cxr, knee x ray unremarkable. Knee x ray shows moderate DJD Interpretation: Interp. by me, Reviewed by me Plan - Plan Plan: patient has required oxygen. She is short of breath, I did administer neb treatment. She does have decreased breath sounds and wheezes. Hyponatremia is chronic. Pain persists and she is hypoxic, admitted to Dr. Bob, and Dr. Walter is her physician Departure Clinical Impression: Fall, COPD exacerbation - Departure Disposition: Still a patient Condition: Good Referrals: Anahi Plata MD [Primary Care Provider] -
[2018-06-04 00:36] LABS: Hematocrit 42.4 % (37.0-47.0); Hemoglobin 13.9 gm/dL (12.5-16.0); Mean Cell Volume 91.2 fl (78-100); Mean Corpuscular Hemoglobin 29.9 pg (27-31); Mean Corpuscular Hgb Conc 32.8 g/dl (32-36); Mean Platelet Volume 9.6 fl (8-12.5); Neutrophil # 10.5 K/mm3 (1.3-6.0); Neutrophil % 81.7 % (42-75.0); Platelet Count 213 K/mm3 (150-450); Red Blood Count 4.65 M/mm3 (4.2-5.4); Red Cell Distribution Width 14.2 % (11.5-14.0); White Blood Count 12.9 K/mm3 (4.0-10.5)
[2018-06-04 00:51] LABS: ALT 27 U/L (19-67); AST 24 U/L (0-48); Albumin * 3.4 gm/dl (3.4-5.0); Alkaline Phosphatase * 73 U/L (50-170); Anion Gap 8.6 mmol/L (6.8-13.8); BUN/Creatinine Ratio 23.3 (9.0-21.6); Bilirubin, Total 0.7 mg/dL (0.0-1.1); Blood Urea Nitrogen 14 mg/dL (3-23); Ca. Corrected For Albumin 9.4 mg/dL (8.4-10.2); Calcium * 9.2 mg/dL (7.9-10.9); Carbon Dioxide 32.6 mmol/L (24-32.6); Chloride 89 mmol/L (97-106); Glucose * 108 mg/dL (70-110); Potassium 4.2 mmol/L (3.4-4.6); Sodium 126 mmol/L (132-142); Total Protein 6.5 gm/dL (6.2-8.2)
[2018-06-04 03:11] LABS: BNP * 926 pg/mL (5-325); Troponin I Less than 0.017 ng/mL (0.00-0.10)
[2018-06-04] MEDS ORDERED: METHYLPREDNISOLONE SOD SUCC/PF 40 MG/ML VIAL IV ONE (03:21)
[2018-06-04] MEDS ORDERED: ALBUTEROL SULFATE/IPRATROPIUM 3 ML NEBU IH PRN (03:31)
[2018-06-04] MEDS ORDERED: ONDANSETRON HCL/PF 2 MG/ML VIAL IV PRN (03:32)
[2018-06-04] MEDS ORDERED: ACETAMINOPHEN 325 MG TABLET PO PRN (03:32)
[2018-06-04] MEDS ORDERED: traMADol HCL 50 MG TABLET PO PRN (08:57)
[2018-06-04] MEDS: SODIUM CHLORIDE 1 GM TABLET PO SCH ×3 (09:53→17:37)
--- NOTE | 2018-06-04 14:01 | CONS ---
- Reason for consultation (1) Fracture of distal end of left femur Date of Service: 06/04/18 HPI - General Date of Service: 06/04/18 Narrative: Patient reports that her left leg hurts about her knee. Her pain is worse with movement better with rest. Patient notes injury happened after a fall at home. She was brought to the hospital by EMS. Source: patient - History of Present Illness Allergies/Adverse Reactions: Allergies aspirin Allergy (Intermediate, Verified 06/04/18 00:24) dizzy full dose aspirin not tolerated Penicillins Allergy (Mild, Verified 06/04/18 00:24) BREAKS OUT, NAUSEA morphine Adverse Reaction (Mild, Verified 06/04/18 00:24) Other Patient states it makes her feel weird. Home Medications: Home Medications Medication Instructions Recorded Last Taken Acetaminophen [Tylenol] 1,000 mg PO Q6H PRN tab 01/20/18 Unknown ferrous sulfate 325 mg (65 mg 325 mg PO TIDWM #90 tab 02/01/18 Unknown iron) tablet,delayed release omeprazole 40 mg capsule,delayed 40 mg PO DAILY PRN 02/01/18 Unknown release sodium chloride 1 gram tablet 2,000 mg PO TID #90 tab 02/01/18 Unknown ipratropium-albuterol 0.5 mg-3 3 ml IH Q6H #180 ml 02/07/18 Unknown mg(2.5 mg base)/3 mL nebulization soln tramadol 50 mg tablet 50 mg PO Q6H PRN #50 tab 03/08/18 Unknown albuterol sulfate HFA 90 2 inh IH .Q4-6H PRN #18 g 05/28/18 Unknown mcg/actuation aerosol inhaler Potassium Chloride [K-Dur] 20 meq PO DAILY 06/04/18 Unknown Procedures Closed reduction of fracture without internal fixation, radius and ulna (02/28/13) Insertion of intraocular lens prosthesis at time of cataract extraction, one- stage (03/10/14) Measurement of Arterial Saturation, Peripheral, Percutaneous Approach (06/29/15) Phacoemulsification and aspiration of cataract (03/10/14) Reposition Right Lower Femur with Internal Fixation Device, Open Approach (01/13/18) Medications - Medications Current Medications: Current Medications Acetaminophen (Tylenol) 650 mg PO Q4H PRN PRN Reason: Mild pain (pain scale 1-3) Stop: 07/04/18 03:33 Last Admin: 06/04/18 04:27 Dose: 650 mg Documented by: Albuterol/Ipratropium (Duoneb 2.5-0.5mg/3ml Soln) 3 ml IH Q6H PRN PRN Reason: Dyspnea Stop: 07/04/18 03:32 Last Admin: 06/04/18 10:48 Dose: 3 ml Documented by: Sodium Chloride (Sodium Chloride) 2 gm PO TID NOLVIA Stop: 07/04/18 09:01 Last Admin: 06/04/18 13:54 Dose: 2 gm Documented by: Physical Examination - Exam Vital Signs: Vital Signs - Last Taken Temp 36.4 C 06/04/18 12:00 Pulse 99 06/04/18 12:00 Resp 20 06/04/18 12:00 BP 163/95 H 06/04/18 12:00 Pulse Ox 90 L 06/04/18 13:44 O2 Oxygen Delivery Method Nasal Cannula Constitutional: Present: Alert Extremity: Present: other - LLE--> SILT, distal capillary refill brisk, tenderness to lateral aspect of left knee, diffuse swelling about lower e xtremity, mild erythema about lower leg, no significant warmth to touch, no obvious wounds - Results and Findings: Lab/Microbiology results last 24 hrs: Abnormal/Pending Laboratory Last 24 HRS 06/04/18 06/04/18 06/04/18 03:23 00:30 00:30 WBC RDW Neutrophils % Lymphocytes % Eosinophils % Neutrophils # Lymphocytes # pCO2 52.0 H pO2 54.4 L HCO3 28.8 H Total CO2 30.4 H ABG O2 Sat (Measured) 86.7 L Sodium 126 L Plasma Sodium 126 L Chloride 89 L BUN/Creatinine Ratio 23.3 H B-Natriuretic Peptide 926 H 06/04/18 00:30 WBC 12.9 H RDW 14.2 H Neutrophils % 81.7 H Lymphocytes % 4.4 L Eosinophils % 5.2 H Neutrophils # 10.5 H Lymphocytes # 0.57 L pCO2 pO2 HCO3 Total CO2 ABG O2 Sat (Measured) Sodium Plasma Sodium Chloride BUN/Creatinine Ratio B-Natriuretic Peptide - Assessments/Findings (1) Fracture of distal end of left femur Problem: Acute Qualifiers: Encounter type: initial encounter Fracture type: closed Fracture morphology: other fracture Qualified Code(s): S72.492A - Other fracture of lower end of left femur, initial encounter for closed fracture Plan - Plan Plan: -67 y/o female presents status post a fall with a left distal femur fracture -Patient was admitted for chronic medical conditions including COPD, wheezing, difficulty breathing, fall. X-ray was performed revealed a minimally displaced distal femur fracture of the lateral condyle. Discussed with patient conservative or surgical intervention including risk first benefits including but not limited to infection, embolism, bleeding, continued pain, malunion versus nonunion healing, cardiac risk and stroke. Patient and were present during time of consent, patient wishes to proceed with surgical intervention. She wishes for her to sign the consent form. This was performed witnessed by nursing. Discussed continued care after surgery with a stay in the hospital, physical therapy, pain management. Will await for medical clearance per medicine to determine if patient is cleared for surgery. If surgical clearance granted will plan to perform open versus closed reduction with retrograde nailing of left distal femur fracture on 06/05/2018.
--- NOTE | 2018-06-04 14:57 | HP ---
Chief Complaint - Chief Complaint Date of Service: 06/04/18 Time of Service: 08:30 Chief Complaint: left knee pain History of Present Illness: 67-year-old female who past medical history of arthritis, anxiety, alcohol abuse, COPD, diastolic CHF, GERD, hypertension, hyponatremia presents with complaints of left knee pain. She states that one day prior to presentation she fell. She was walking with her walker in her hallway and tripped on a cord and lost her balance. She lives with her . She presented to the emergency department and was found to have a left distal femur fracture on x-ray. Sodium was also found to be 126. She was admitted for further evaluation and monitoring. Medical History (Last Reviewed 06/04/18 @ 04:50 by Annalise Rodrigez RN) Hyponatremia (Acute) Acute on Chronic Tobacco abuse (Chronic) Onset Date: Unknown Stasis dermatitis of both legs (Chronic) Onset Date: Unknown Mild concentric left ventricular hypertrophy (LVH) (Acute) Onset Date: Unknown Migraine (Acute) Onset Date: Unknown Malunion of fracture (Acute) Onset Date: ~2012 right distal radius Hypertension (Chronic) Onset Date: Unknown GERD (gastroesophageal reflux disease) (Chronic) Onset Date: Unknown COPD (chronic obstructive pulmonary disease) (Chronic) Onset Date: Unknown Chest pain (Acute) Onset Date: Unknown Arthritis (Acute) Onset Date: Unknown Anxiety (Acute) Onset Date: Unknown Alcohol abuse Diastolic CHF Influenza vaccination declined Onset Date: ~02/01/18 Pulmonary hypertension Surgical History: Surgical History (Last Reviewed 06/04/18 @ 04:50 by Annalise Rodrigez RN) Status post hip surgery Onset Date: 12/2017 H/O dilation and curettage Onset Date: Unknown H/O tubal ligation Onset Date: Unknown H/O vaginal surgery Onset Date: Unknown History of bladder surgery Onset Date: Unknown History of tonsillectomy Onset Date: Unknown Status post surgical removal of malignant neoplasm of skin Onset Date: Unknown attempted closed reduction Onset Date: ~2012 Dr Sanchez-unsuccessful closed reduction of right distal radius fracture Family History: Family History (Last Reviewed 06/04/18 @ 04:50 by Annalise Rodrigez RN) Father Heart disease Mother Pacemaker Social History: Patient Lives/Resources With Spouse Utilized Preferred Language Korean Do you have any amish or Yes: protestant cultural preference? Smoking Status Current every day smoker Have you smoked in the past 12 Yes months Smoking packs per day 0.5 Do you dip or chew tobacco No Abuse History No History of abuse Psych History Hx of Anxiety Alcohol Use heavy Drug Use none (Last Updated 05/25/18 @ 11:14 by Zion Tolentino MD) No Social History Section defined Review Of Systems (GEN) - Review of Systems Generalized/Overall Review: Present: Weakness. Absent: Chills, Fever Respiratory: Absent: Shortness of Breath Cardiac: Absent: Chest Pain Abdominal: Absent: Abdominal Pain Musculoskeletal: Present: Joint Pain - Left knee pain, Joint Swelling Misc: All systems neg except as marked Immunizations: IMMUNIZATION HX Immunizations Up to Date Yes History of Influenza Vaccine No Hx Pneumococcal Vaccination No Allergies/Adverse Reactions: Allergies Allergy/AdvReac Type Severity Reaction Status Date / Time aspirin Allergy Intermediate dizzy Verified 06/04/18 00:24 Penicillins Allergy Mild BREAKS Verified 06/04/18 00:24 OUT, NAUSEA morphine AdvReac Mild Other Verified 06/04/18 00:24 Home Medications: HOME MEDICATIONS Acetaminophen [Tylenol] 1,000 mg PO Q6H PRN tab 01/20/18 [Last Taken Unknown] ferrous sulfate 325 mg (65 mg iron) tablet,delayed release 325 mg PO TIDWM #90 tab 02/01/18 [Last Taken Unknown] omeprazole 40 mg capsule,delayed release 40 mg PO DAILY PRN 02/01/18 [Last Taken Unknown] sodium chloride 1 gram tablet 2,000 mg PO TID #90 tab 02/01/18 [Last Taken Unknown] ipratropium-albuterol 0.5 mg-3 mg(2.5 mg base)/3 mL nebulization soln 3 ml IH Q6H #180 ml 02/07/18 [Last Taken Unknown] tramadol 50 mg tablet 50 mg PO Q6H PRN #50 tab 03/08/18 [Last Taken Unknown] albuterol sulfate HFA 90 mcg/actuation aerosol inhaler 2 inh IH .Q4-6H PRN #18 g 05/28/18 [Last Taken Unknown] Potassium Chloride [K-Dur] 20 meq PO DAILY 06/04/18 [Last Taken Unknown] Exam - Exam Vital Signs: Vital Signs - Last Taken Temp 36.4 C 06/04/18 12:00 Pulse 99 06/04/18 12:00 Resp 20 06/04/18 12:00 BP 163/95 H 06/04/18 12:00 Pulse Ox 90 L 06/04/18 13:44 Constitutional: Present: Alert, Cooperative, No distress, Thin and frail, Looks Older than stated age ENT Exam: Present: hearing grossly normal Eye Exam: left eye: normal inspection Neck: Present: non-tender, supple. Absent: lymphadenopathy (R), lymphadenopathy (L) Back Exam: Present: normal inspection Respiratory: Present: lungs clear. Absent: accessory muscle use, crackles, rhonchi, wheezing Cardiovascular/Chest: Present: regular rate, rhythm, no edema Peripheral Pulses: dorsalis-pedis (R): 1+, dorsalis-pedis (L): 1+ Abdomen: Present: Normal bowel sounds, soft, nontender Extremity: Present: no pedal edema, leg pain - left knee swelling, no erythema, lower leg externally rotated. Skin Exam: Present: normal color, warm/dry, no cyanosis Neurologic: Present: normal mood/affect Appearance: Present: appropriate appearance Eye contact: Present: cooperative Thoughts: Present: normal mood /affect Diagnostic Studies: Abnormal Lab Results 06/04/18 06/04/18 06/04/18 Range/Units 00:30 00:30 00:30 WBC 12.9 H (4.0-10.5) K/mm3 RDW 14.2 H (11.5-14.0) % Neutrophils % 81.7 H (42-75.0) % Lymphocytes % 4.4 L (20-51) % Eosinophils % 5.2 H (0.0-3.0) % Neutrophils # 10.5 H (1.3-6.0) K/mm3 Lymphocytes # 0.57 L (1.5-3.5) k/mm3 pCO2 (32.0-45.0) mmHg pO2 (83.0-108.0) mmHg HCO3 (21.0-28.0) mmol/L Total CO2 (19.0-24.0) mmol/L ABG O2 Sat (Measured) (94.0-98.0) % Sodium 126 L (132-142) mmol/L Plasma Sodium 126 L (130-142) mmol/L Chloride 89 L (97-106) mmol/L BUN/Creatinine Ratio 23.3 H (9.0-21.6) B-Natriuretic Peptide 926 H (5-325) pg/mL 06/04/18 Range/Units 03:23 WBC (4.0-10.5) K/mm3 RDW (11.5-14.0) % Neutrophils % (42-75.0) % Lymphocytes % (20-51) % Eosinophils % (0.0-3.0) % Neutrophils # (1.3-6.0) K/mm3 Lymphocytes # (1.5-3.5) k/mm3 pCO2 52.0 H (32.0-45.0) mmHg pO2 54.4 L (83.0-108.0) mmHg HCO3 28.8 H (21.0-28.0) mmol/L Total CO2 30.4 H (19.0-24.0) mmol/L ABG O2 Sat (Measured) 86.7 L (94.0-98.0) % Sodium (132-142) mmol/L Plasma Sodium (130-142) mmol/L Chloride (97-106) mmol/L BUN/Creatinine Ratio (9.0-21.6) B-Natriuretic Peptide (5-325) pg/mL Laboratory Results WBC 12.9 K/mm3 (4.0-10.5) H 06/04/18 00:30 RBC 4.65 M/mm3 (4.2-5.4) 06/04/18 00:30 Hgb 13.9 gm/dL (12.5-16.0) 06/04/18 00:30 Hct 42.4 % (37.0-47.0) 06/04/18 00:30 MCV 91.2 fl (78-100) 06/04/18 00:30 MCH 29.9 pg (27-31) 06/04/18 00:30 MCHC 32.8 g/dl (32-36) 06/04/18 00:30 RDW 14.2 % (11.5-14.0) H 06/04/18 00:30 Plt Count 213 K/mm3 (150-450) 06/04/18 00:30 MPV 9.6 fl (8-12.5) 06/04/18 00:30 Immature Gran % (Auto) 0.20 % (0.001-0.429) 06/04/18 00:30 Immature Gran # (Auto) 0.03 K/mm3 (0.000-0.0310) 06/04/18 00:30 Neutrophils % 81.7 % (42-75.0) H 06/04/18 00:30 Lymphocytes % 4.4 % (20-51) L 06/04/18 00:30 Monocytes % 8.0 % (0.0-9) 06/04/18 00:30 Eosinophils % 5.2 % (0.0-3.0) H 06/04/18 00:30 Basophils % 0.5 % (0.0-1.0) 06/04/18 00:30 Nucleated RBC % 0.0 k/mm3 (0-1) 06/04/18 00:30 Neutrophils # 10.5 K/mm3 (1.3-6.0) H 06/04/18 00:30 Lymphocytes # 0.57 k/mm3 (1.5-3.5) L 06/04/18 00:30 Monocytes # 1.0 k/mm3 (0.0-1.0) 06/04/18 00:30 Eosinophils # 0.7 k/mm3 (0.0-0.7) 06/04/18 00:30 Absolute Basophils 0.1 k/mm3 (0.0-0.1) 06/04/18 00:30 pCO2 52.0 mmHg (32.0-45.0) H 06/04/18 03:23 pO2 54.4 mmHg (83.0-108.0) L 06/04/18 03:23 HCO3 28.8 mmol/L (21.0-28.0) H 06/04/18 03:23 Total CO2 30.4 mmol/L (19.0-24.0) H 06/04/18 03:23 Base Excess 2.4 mmol/L (-2.0-3.0) 06/04/18 03:23 ABG pH 7.36 (7.35-7.45) 06/04/18 03:23 ABG O2 Sat (Measured) 86.7 % (94.0-98.0) L 06/04/18 03:23 Sodium 126 mmol/L (132-142) L 06/04/18 00:30 Plasma Sodium 126 mmol/L (130-142) L 06/04/18 00:30 Potassium 4.2 mmol/L (3.4-4.6) D 06/04/18 00:30 Chloride 89 mmol/L (97-106) L 06/04/18 00:30 Carbon Dioxide 32.6 mmol/L (24-32.6) 06/04/18 00:30 Anion Gap 8.6 mmol/L (6.8-13.8) 06/04/18 00:30 BUN 14 mg/dL (3-23) D 06/04/18 00:30 Creatinine 0.60 mg/dL (0.4-1.4) 06/04/18 00:30 Est GFR (Non-Af Amer) 106 mL/min (60-130) D 06/04/18 00:30 BUN/Creatinine Ratio 23.3 (9.0-21.6) H 06/04/18 00:30 Random Glucose 108 mg/dL (70-110) 06/04/18 00:30 Lactic Acid, Venous 1.1 mmol/L (0.4-2.0) 06/04/18 03:21 Calcium 9.2 mg/dL (7.9-10.9) 06/04/18 00:30 Calcium Adj for Albumin 9.4 mg/dL (8.4-10.2) 06/04/18 00:30 Total Bilirubin 0.7 mg/dL (0.0-1.1) 06/04/18 00:30 AST 24 U/L (0-48) 06/04/18 00:30 ALT 27 U/L (19-67) 06/04/18 00:30 Alkaline Phosphatase 73 U/L (50-170) 06/04/18 00:30 Troponin I Less than 0.017 ng/mL (0.00-0.10) 06/04/18 00:30 C-Reactive Prot, Quant Less than 0.2 mg/dL (0.0-0.9) 06/04/18 00:30 B-Natriuretic Peptide 926 pg/mL (5-325) H 06/04/18 00:30 Total Protein 6.5 gm/dL (6.2-8.2) 06/04/18 00:30 Albumin 3.4 gm/dl (3.4-5.0) 06/04/18 00:30 Assessment/Plan - Narrative Narrative: 67-year-old female who past medical history of arthritis, anxiety, alcohol abuse, COPD, diastolic CHF, GERD, hypertension, hyponatremia presents with complaints of left knee pain. She states that one day prior to presentation she fell. She was walking with her walker in her hallway and tripped on a cord and lost her balance. She presented to the emergency department and was found to have a left distal femur fracture on x-ray. Sodium was also found to be 126. She was admitted for further evaluation and monitoring. - Assessment/Plan (1) Closed left femoral fracture Assessment: CT scan of the left knee showed comminuted fracture of the distal femur. Orthopedics has been consulted and they will like to take her to the OR tomorrow. Patient is cleared for surgery Problem: Acute Qualifiers: Encounter type: initial encounter Fracture morphology: comminuted (2) Tachycardia Assessment: Likely secondary to pain. Continue with pain management. Problem: Acute (3) Falls Assessment: She is status post a mechanical fall at home. Fall precautions advised. Jaren lift for now. Problem: Acute Qualifiers: Encounter type: initial encounter (4) COPD (chronic obstructive pulmonary disease) Assessment: No signs of exacerbation. She denies worsening cough, sputum production or shortness of breath. Problem: Chronic Qualifiers: COPD type: unspecified COPD Qualified Code(s): J44.9 - Chronic obstructive pulmonary disease, unspecified (5) Hyponatremia Assessment: This is chronic. Start 2 L fluid restriction and 2 g sodium tablets 3 times a day. Monitor electrolytes. Problem: Acute (6) Hypertension Assessment: slightly elevated likely secondary to pain. Problem: Chronic Qualifiers: Hypertension type: other secondary hypertension Qualified Code(s): I15.8 - Other secondary hypertension
[2018-06-04 19:58] LABS: Anion Gap 7.5 mmol/L (6.8-13.8); BUN/Creatinine Ratio 28.3 (9.0-21.6); Calcium * 8.4 mg/dL (7.9-10.9); Carbon Dioxide 32.9 mmol/L (24-32.6); Estimated Creat Clear 86.4; Potassium 4.4 mmol/L (3.4-4.6)
[2018-06-05] MEDS: NORMAL SALINE 1,000 ML IV PRN ×2 (00:03→13:53)
[2018-06-05 05:35] LABS: Hematocrit 38.7 % (37.0-47.0); Hemoglobin 12.4 gm/dL (12.5-16.0); Mean Cell Volume 92.6 fl (78-100); Mean Corpuscular Hemoglobin 29.7 pg (27-31); Mean Platelet Volume 9.8 fl (8-12.5); Neutrophil # 7.1 K/mm3 (1.3-6.0); Neutrophil % 79.3 % (42-75.0); Platelet Count 186 K/mm3 (150-450); Red Blood Count 4.18 M/mm3 (4.2-5.4); Red Cell Distribution Width 14.1 % (11.5-14.0)
[2018-06-05 05:48] LABS: Albumin * 2.7 gm/dl (3.4-5.0); Anion Gap 4.8 mmol/L (6.8-13.8); BUN/Creatinine Ratio 27.8 (9.0-21.6); Bilirubin, Total 0.5 mg/dL (0.0-1.1); Ca. Corrected For Albumin 9.2 mg/dL (8.4-10.2); Calcium * 8.5 mg/dL (7.9-10.9); Carbon Dioxide 34.5 mmol/L (24-32.6); Potassium 4.3 mmol/L (3.4-4.6); Total Protein 5.5 gm/dL (6.2-8.2)
[2018-06-05] MEDS ORDERED: ceFAZolin SODIUM 1 GM VIAL IV PRN (06:00)
--- NOTE | 2018-06-05 10:08 | ANES ---
Anesthesia Pre Procedure Eval Vitals/Labs: Last Vital Signs Temp 36.5 C 06/05/18 06:20 Pulse 82 06/05/18 06:20 Resp 20 06/05/18 06:20 BP 120/68 06/05/18 06:20 Pulse Ox 90 L 06/05/18 06:20 HOME MEDICATIONS Acetaminophen [Tylenol] 1,000 mg PO Q6H PRN tab 01/20/18 [Last Taken Unknown] ferrous sulfate 325 mg (65 mg iron) tablet,delayed release 325 mg PO TIDWM #90 tab 02/01/18 [Last Taken Unknown] omeprazole 40 mg capsule,delayed release 40 mg PO DAILY PRN 02/01/18 [Last Taken Unknown] sodium chloride 1 gram tablet 2,000 mg PO TID #90 tab 02/01/18 [Last Taken Unknown] ipratropium-albuterol 0.5 mg-3 mg(2.5 mg base)/3 mL nebulization soln 3 ml IH Q6H #180 ml 02/07/18 [Last Taken Unknown] tramadol 50 mg tablet 50 mg PO Q6H PRN #50 tab 03/08/18 [Last Taken Unknown] albuterol sulfate HFA 90 mcg/actuation aerosol inhaler 2 inh IH .Q4-6H PRN #18 g 05/28/18 [Last Taken Unknown] Potassium Chloride [K-Dur] 20 meq PO DAILY 06/04/18 [Last Taken Unknown] Allergies/Adverse Reactions: Allergies Allergy/AdvReac Type Severity Reaction Status Date / Time aspirin Allergy Intermediate dizzy Verified 06/04/18 00:24 Penicillins Allergy Mild BREAKS Verified 06/04/18 00:24 OUT, NAUSEA morphine AdvReac Mild Other Verified 06/04/18 00:24 - Planned Procedure Planned Procedure: ORIF femur Medication List Reviewed:: Yes Allergies Verified: Yes Medical History (Last Reviewed 06/05/18 @ 09:59 by Romulo Zeng CRNA) Hyponatremia (Acute) Acute on Chronic Tobacco abuse (Chronic) Onset Date: Unknown Stasis dermatitis of both legs (Chronic) Onset Date: Unknown Mild concentric left ventricular hypertrophy (LVH) (Acute) Onset Date: Unknown Migraine (Acute) Onset Date: Unknown Malunion of fracture (Acute) Onset Date: ~2012 right distal radius Hypertension (Chronic) Onset Date: Unknown GERD (gastroesophageal reflux disease) (Chronic) Onset Date: Unknown COPD (chronic obstructive pulmonary disease) (Chronic) Onset Date: Unknown Chest pain (Acute) Onset Date: Unknown Arthritis (Acute) Onset Date: Unknown Anxiety (Acute) Onset Date: Unknown Alcohol abuse Diastolic CHF Influenza vaccination declined Onset Date: ~02/01/18 Pulmonary hypertension Surgical History (Last Reviewed 06/05/18 @ 09:59 by Romulo Zeng CRNA) Status post hip surgery Onset Date: 12/2017 H/O dilation and curettage Onset Date: Unknown H/O tubal ligation Onset Date: Unknown H/O vaginal surgery Onset Date: Unknown History of bladder surgery Onset Date: Unknown History of tonsillectomy Onset Date: Unknown Status post surgical removal of malignant neoplasm of skin Onset Date: Unknown attempted closed reduction Onset Date: ~2012 Dr Sanchez-unsuccessful closed reduction of right distal radius fracture Family History (Last Reviewed 06/05/18 @ 09:59 by Romulo Zeng CRNA) Father Heart disease Mother Pacemaker - Family Anesthesia History Family History:: no untoward family reactions to anesthesia, no familial bleeding tendencies, no family history of clotting disorders, no family history of premature - Airway/Neck/Teeth Within Normal Limits:: Yes Denture Type: Full upper Mallampatti Score: 2 Thyromental (T-M) distance: > 6 cm Mandibulo Hyoid distance: > 3 cm - Respiratory Respiratory History: COPD Respiratory Physical: wheezing Smoking Status: Current every day smoker Discussed smoking cessation including day of surgery: Yes Sleep Apnea currently treated: No Sleep Apnea by current assessment: No Discussed Risks/Treatment of JOHN: No - Cardiovascular Tolerate Activity: Poor Heart Sounds: S1 & S2, Regular - Anesthesia Assessment and Plan ASA Class: PS, IV Anesthesia Type Plan: General LMA
[2018-06-05] MEDS ORDERED: RINGER'S SOLUTION,LACTATED 1,000 ML IV PRN (10:52)
[2018-06-05] MEDS ORDERED: BUPIVACAINE HCL/EPINEPHRINE 50 ML VIAL IJ ONE (11:18)
--- NOTE | 2018-06-05 11:59 | PN ---
Subjective - Date and Time Seen Date: 06/05/18 Time: 09:00 Subjective Narrative: She states she feels well today except for the pain in the left knee when she moves it. Denies shortness of breath, chest pain, or abdominal pain. Objective - Review of Systems Generalized/Overall Review: Denies: Chills, Fever Respiratory: Reports: Cough. Denies: Shortness of Breath Cardiac: Denies: Chest Pain, Palpitations Abdominal: Denies: Nausea, Vomiting, Abdominal Pain Musculoskeletal Complaints: Reports: Joint Pain - Left knee Misc: All systems neg except as marked - Vitals Vitals: Last Vital Signs Temp 36.5 C 06/05/18 06:20 Pulse 82 06/05/18 06:20 Resp 20 06/05/18 06:20 BP 120/68 06/05/18 06:20 Pulse Ox 90 L 06/05/18 06:20 - Abnormal Lab Findings Abnormal Lab Findings: Abnormal Lab Results 06/04/18 06/05/18 06/05/18 Range/Units 19:44 05:25 05:25 RBC 4.18 L (4.2-5.4) M/mm3 Hgb 12.4 L (12.5-16.0) gm/dL RDW 14.1 H (11.5-14.0) % Neutrophils % 79.3 H (42-75.0) % Lymphocytes % 8.4 L (20-51) % Monocytes % 11.1 H (0.0-9) % Neutrophils # 7.1 H (1.3-6.0) K/mm3 Lymphocytes # 0.75 L (1.5-3.5) k/mm3 Sodium 128 L 129 L (132-142) mmol/L Plasma Sodium 129 L 129 L (130-142) mmol/L Chloride 92 L 94 L (97-106) mmol/L Carbon Dioxide 32.9 H 34.5 H (24-32.6) mmol/L Anion Gap 4.8 L (6.8-13.8) mmol/L BUN/Creatinine Ratio 28.3 H 27.8 H (9.0-21.6) Random Glucose 147 H D (70-110) mg/dL Total Protein 5.5 L (6.2-8.2) gm/dL Albumin 2.7 L (3.4-5.0) gm/dl - Exam Constitutional: Present: Alert, Cooperative, No distress, Thin and frail, Looks Older than stated age ENT Exam: Present: hearing grossly normal Neck: Present: supple, trachea midline. Absent: lymphadenopathy (R), lymphadenopathy (L) Respiratory: Present: decreased breath sounds - Poor respiratory Cardiovascular/Chest: Present: normal peripheral pulses, regular rate, rhythm, no edema Abdomen: Present: Normal bowel sounds, soft, nontender Extremity: Present: no pedal edema, leg pain - Left knee with movement. No erythema. Positive edema. Skin Exam: Present: normal color, warm/dry Appearance: Present: appropriate appearance, appropriate insight Eye contact: Present: cooperative Cauti Physician Documentation - Urinary Catheter Management Urethral (Ellis) Date of Insertion: 06/04/18 Time of Insertion: 17:30 Assessment/Plan Plan Narrative: 7-year-old female who past medical history of arthritis, anxiety, alcohol abuse, COPD, diastolic CHF, GERD, hypertension, hyponatremia presents with fracture of the left distal femur status post fall. She is scheduled for an ORIF with orthopedic today. - Problems/Diagnosis (1) Closed left femoral fracture Problem: Acute Qualifiers: Encounter type: initial encounter Fracture morphology: comminuted Narrative: Or so we will take her for ORIF of the left distal femur today. (2) Tachycardia Problem: Resolved Narrative: Resolved with pain management. (3) Falls Problem: Acute Qualifiers: Encounter type: initial encounter Qualified Code(s): W19.XXXA - Unspecified fall, initial encounter Narrative: Fall precautions. (4) COPD (chronic obstructive pulmonary disease) Problem: Chronic Qualifiers: COPD type: unspecified COPD Qualified Code(s): J44.9 - Chronic obstructive pulmonary disease, unspecified Narrative: Stable continue with duo nebs as needed. (5) Hyponatremia Problem: Acute Narrative: Improving continue with fluid restriction and salt tablets. (6) Hypertension Problem: Resolved Qualifiers: Hypertension type: other secondary hypertension Qualified Code(s): I15.8 - Other secondary hypertension Narrative: Resolved with pain management.
--- NOTE | 2018-06-05 12:32 | ANES ---
Post Anesthesia Discharge - Transfer of Care Transfer of Care handoff given to nurse: Yes - Discharge from PACU Discharge from PACU when meets criteria: Yes - Discharge to ASU Discharge to ASU-no complications/pt stable: Yes
[2018-06-05] MEDS ORDERED: MAG HYDROX/ALUMINUM HYD/SIMETH 30 ML UDC PO PRN (12:57)
[2018-06-05] MEDS ORDERED: ACETAMINOPHEN 500 MG TABLET PO PRN (12:57)
[2018-06-05] MEDS ORDERED: MAGNESIUM HYDROXIDE 30 ML UDC PO PRN (12:57)
[2018-06-05] MEDS ORDERED: HYDROcodone/ACETAMINOPHEN 1 EACH TABLET PO PRN ×2 (12:57)
--- NOTE | 2018-06-05 13:26 | OR ---
Operative Report - Dictated Report Narrative: Date: 06/05/2018 Surgeon: Zion Tolentino M.D. Elastic Cutter: Royer Delatorre PA-C Preoperative diagnosis: Left supracondylar distal femur fracture Postoperative diagnosis: Left supracondylar distal femur fracture Operations and procedures: 1. Closed reduction, retrograde intramedullary nailing of left subcondylar distal femur fracture 2. Intraoperative interpretation of radiographs Anesthesia: Spinal Specimens: None Estimated blood loss: 200 Milliliters Retained implants: [employer] Trigen retrograde femoral nail size 11.5 mm by 38 centimeter nail with associated distal and proximal interlocking screws Complications: None Indications for procedure: Shante is a 67-year-old female with severe COPD who was admitted to the hospital with a COPD exacerbation and was also complaining of left knee pain. Plain films and Hospital demonstrated a valgus impacted supracondylar left distal femur fracture. Once the medical provider felt that they were stable for surgical treatment, the risks and benefits alternatives were discussed. The risks of , blood clots, bleeding, infection, nerve/tendon/blood vessel injury, malunion, nonunion, failure of implants, painful implants, arthrosis, and need for additional procedures were discussed. The extremity was marked and consent was obtained on the floor. Procedure: After marking the operative extremity on the floor, the patient was taken to the operating room. A timeout was performed. IV antibiotics consisting of 1 g of Ancef was administered. A general anesthetic was induced by anesthesia, and the patient was then placed supine onto the operating table with a radiolucent footboard. The left hip was bumped with a beanbag and the left lower extremity was then prepped and draped in usual sterile fashion. A medium tibial triangle was placed under the leg with the knee in about 30 of flexion. A bump of towels was used to obtain additional flexion through the fracture site for reduction. A varus force was also placed through the distal femur for reduction. Provisional reduction was confirmed with the C-arm. We then turned our attention to the anterior aspect of the knee. A longitudinal incision was made from the inferior pole of the patella to the proximal aspect of the tibia approximately 4 cm in length. Electrocautery was carried down through subcutaneous tissue to the level of the peritenon of the patellar tendon. This was incised with a sharp knife and the talar tendon was split longitudinally. A large amount of hematoma was encountered at this point. A guidepin was then used to obtain a starting point at the distal femur. The starting point was confirmed with the C-arm on both the AP and lateral images. This was advanced into the intramedullary canal. The entry reamer was then used to ream our nail entry hole. Next a long ball-tip guidewire was advanced up the femoral shaft into the intertrochanteric region of the proximal femur. Our nail length was measured at 38 cm. The femur was then sequentially reamed up to 13 mm with chacha le. We selected a 11.5 mm x 38 cm retrograde femoral nail. The nail was advanced into place to a level just below the subchondral bone of the distal femur. This was confirmed with the C-arm. The 3 distal interlocking screws were then placed through the cantilever screw guide attached to the nail. This was done under C-arm guidance to ensure appropriate length of screws. Next we turned our attention to the proximal interlocking holes. 2 proximal interlocking screws were placed using a perfect circles technique with the C- arm. At this point we felt we had adequately stabilized her supracondylar distal femur fracture. Final images were taken with the C-arm ensuring the appropriate placement of our implants and appropriate length of screws. At this point all the wounds were copiously irrigated with normal saline. The patellar tendon was closed with a running 0 Vicryl stitch. The subcutaneous tissue with 3-0 Vicryl, and the skin incisions were closed with 4-0 nylon. Sterile dressings of Xeroform, 4 x 4s, soft roll, Adryan wrap at the knee and tegaderm at the proximal incision were applied. All sponge, sharp, and instrument counts were correct prior to closing the wounds. The patient was then awoken and transferred to the postanesthesia care unit in stable condition.
--- NOTE | 2018-06-05 14:15 | ANES ---
Post Anesthesia Assessment - Vital Signs Vitals: Last Vital Signs Temp 35.9 C L 06/05/18 13:54 Pulse 90 06/05/18 13:54 Resp 16 06/05/18 13:54 BP 95/59 06/05/18 13:54 Pulse Ox 98 06/05/18 14:02 Airway Patency: Normal - Mental Status Level Of Consciousness: Drowsy - Pain Level Pain Score: 0 - N/V Assessment Nausea/Vomiting Presence: None Dehydration:: No
[2018-06-05] MEDS: SODIUM CHLORIDE 1 GM TABLET PO SCH ×3 (14:58→16:59)
[2018-06-05] MEDS ORDERED: ceFAZolin SODIUM 1 GM in DEXTROSE 5 % IN WATER 100 ML IV SCH ×2 (16:00)
[2018-06-05] MEDS ORDERED: NALOXONE HCL 1 MG/1 ML SYRG ONE (18:56)
[2018-06-05] MEDS: NALOXONE HCL 0.4 MG/ML VIAL IV PRN ×5 (18:58→19:30)
[2018-06-05 19:53] LABS: Anion Gap 4.3 mmol/L (6.8-13.8); BUN/Creatinine Ratio 25.8 (9.0-21.6); Calcium * 8.4 mg/dL (7.9-10.9); Carbon Dioxide 35.7 mmol/L (24-32.6); Estimated Creat Clear 73.8
--- NOTE | 2018-06-05 20:18 | PN ---
Yolanda Note - Interim Date: 06/05/18 Time: 20:00 Narrative: 06/05/18 20:13 I was called over to the patient's room as a rapid response. I arrived to find nursing staff available to give me information. Briefly the history is as follows: This is a 67-year-old female with a history of severe COPD due to tobacco abuse who continues to smoke. She came in and ended up with a femur fracture. She went to the operating room for repair. After the operating room she did not wake up. She has been unresponsive until now. A blood gas was just drawn which showed a PCO2 of 180. PH was 6.875. The patient is presently DO NOT RESUSCITATE, DO NOT INTUBATE. The patient's just left the hospital to go home. The question was whether or not medications or other interventions were appropriate and what should be initiated. I evaluated the patient. She is engaging frequent pauses. This is with her breathing. Pupils are pinpoint. She apparently already received Narcan. This is an unconscious patient who certainly could not get worse with BiPAP. She is profoundly hypercapnic and already has severe acid disturbances. At a pH between 6.7 and 6.9 protein function essentially ceases. It is unclear based on the documentation on the chart with the patient's wishes would be. I called the patient's at home. I had a conversation with him about the patient's clinical condition at this time. I related to the that it is unlikely that the patient is going to recover unless some sort of intervention was undertaken. I related to the that she is unconscious and not in any pain or distress at the present time. He says that he just left the hospital a couple of hours ago and she was the same at that time. The says that both he and his are DO NOT RESUSCITATE. They have already said goodbye to each other and made peace. I explained to the that there was a slight chance of improving the patient if we placed her on BiPAP. This might result in improvement of the patient's breathing to the point where she was able to start breathing on her own. I suspect that she would regain consciousness and still have the mask on and find it very uncomfortable. I related that this intervention could also prolong the dying process and prolong the patient's suffering. I asked the patient's to consider what the patient was to say if he were able to speak to her right now and ask whether she wanted to just be let go or whether we should try a last ditch effort with BiPAP. Patient's was initially uncertain. He had me speak with the patient's home health provider who is been getting lots of aid to the patient at home. The home health provider was given the same information and unequivocally said the patient would not want the mask. She would just want to be let go. I went back and explained to the patient's that this is what the home health person thought. He said "that is what I figured, but I was not completely sure "with his permission I have changed the patient's state right now to comfort care. No further IV pokes. I have made the aware that the patient may pass in the next few hours and that I believe this to be likely. We will repeat a blood gas in a few hours to see if she is improving or continue to worsen. I encouraged the to come up to the hospital and say goodbye but he said that he had already said goodbye to his and that there is no need for him to come up to the hospital. Change the orders of the patient's status in the chart to comfort measures. I will speak with the patient's primary care physician or whoever is on-call.
[2018-06-05] MEDS ORDERED: LORazepam 2 MG/ML DISP.SYRIN IV PRN (20:39)
[2018-06-05] MEDS ORDERED: MORPHINE SULFATE 4 MG/ML SYRG IV PRN (20:39)
[2018-06-05] MEDS ORDERED: ACETAMINOPHEN 650 MG SUPP.RECT RC PRN (20:50)
[2018-06-05] MEDS ORDERED: SENNOSIDES/DOCUSATE SODIUM 1 TAB TABLET PO SCH (21:00)
[2018-06-05 21:51] VITALS: BP 131/71
[2018-06-06] MEDS: MORPHINE SULFATE 2 MG/ML DISP.SYRIN IV PRN ×3 (08:58→15:34)
--- NOTE | 2018-06-06 10:02 | PN ---
Subjective - Date and Time Seen Date: 06/06/18 Time: 09:00 Subjective Narrative: 67-year-old female with a past medical history of COPD, alcohol abuse, diastolic CHF, arthritis, anxiety, hyponatremia presents status post fall with a left distal femur fracture. She underwent ORIF June 05, 2018. Postop recovery and did not go well she remained unresponsive once returning to the floor. Narcan was given with no improvement. ABG was performed and showed severe respiratory acidosis. Rapid response was called and the ER physician Dr. Dejuan Pemberton responded. After evaluating the patient and ABG he determined that BiPAP was not a viable option. He reached out to the patient's and after discussion it was agreed that the patient should be transitioned to comfort measures. I spoke with the this morning and he is aware of the situation and that his is dying. He feels at peace with the situation because he states him and his had discussed this many times in the past and he was aware that her condition was deteriorating. He would like staff members to keep him updated on any changes. Objective - Review of Systems Generalized/Overall Review: Denies: Fever Misc: All systems neg except as marked - Vitals Vitals: Last Vital Signs Temp 35.2 C L 06/05/18 17:24 Pulse 90 06/05/18 21:24 Resp 16 06/05/18 21:24 BP 131/71 06/05/18 21:24 Pulse Ox 100 06/05/18 21:24 - Abnormal Lab Findings Abnormal Lab Findings: Abnormal Lab Results 06/05/18 06/05/18 Range/Units 19:16 19:26 pCO2 Greater than 177.2 H* (32.0-45.0) mmHg pO2 110.2 H (83.0-108.0) mmHg HCO3 32.5 H (21.0-28.0) mmol/L Total CO2 38.0 H (19.0-24.0) mmol/L Base Excess -5.1 L (-2.0-3.0) mmol/L ABG pH 6.88 L* (7.35-7.45) ABG O2 Sat (Measured) 92.0 L (94.0-98.0) % Potassium 5.0 H (3.4-4.6) mmol/L Carbon Dioxide 35.7 H (24-32.6) mmol/L Anion Gap 4.3 L (6.8-13.8) mmol/L BUN/Creatinine Ratio 25.8 H (9.0-21.6) Random Glucose 153 H D (70-110) mg/dL - Exam Constitutional: Present: No distress, Obtunded, Looks Older than stated age Neck: Present: supple, trachea midline. Absent: lymphadenopathy (R), lymphadenopathy (L) Respiratory: Present: decreased breath sounds Cardiovascular/Chest: Present: normal peripheral pulses, regular rate, rhythm, no edema Abdomen: Present: soft, nontender Extremity: Present: non-tender, no pedal edema, other - Adryan wrap in place on the left lower extremity Skin Exam: Present: normal color, warm/dry, no cyanosis Cauti Physician Documentation - Urinary Catheter Management Urethral (Ellis) Date of Insertion: 06/04/18 Time of Insertion: 17:30 Assessment/Plan Plan Narrative: 67-year-old female presented with a history of COPD, anxiety, alcohol abuse, hyponatremia presented status post fall with a left distal femur fracture. She underwent ORIF on June 05, 2018 after which she did not awaken from the anesthesia. She remained obtunded. ABG showed severe respiratory acidosis. transition her to comfort measures. Continue with comfort measures and counter caser will call hospice to see if she would be a candidate for acute care at their facility. - Problems/Diagnosis (1) Closed left femoral fracture Problem: Acute Qualifiers: Encounter type: initial encounter Fracture morphology: comminuted (2) Tachycardia Problem: Resolved (3) Falls Problem: Acute Qualifiers: Encounter type: initial encounter Qualified Code(s): W19.XXXA - Unspecified fall, initial encounter (4) COPD (chronic obstructive pulmonary disease) Problem: Chronic Qualifiers: COPD type: unspecified COPD Qualified Code(s): J44.9 - Chronic obstructive pulmonary disease, unspecified (5) Hyponatremia Problem: Acute (6) Acute respiratory acidosis Problem: Acute
[2018-06-06] MEDS ORDERED: ENOXAPARIN SODIUM 40 MG/0.4 ML SYRG SC SCH (11:59)
--- NOTE | 2018-06-06 16:08 | PN ---
Progess Note - Interim Date: 06/06/18 Time: 08:00 Narrative: 06/06/18 16:06 Notified patient was moved to comfort cares per family decision. Rapid response team had a thorough discussion about treatment options and risk first benefits as well as possible outcomes. Currently patient is minimally arousable with significant stimulation, she appears to still be respirating at an insufficient rate. Due to palliative care measures well-maintained postoperative bandages in place. There is no further treatment with physical therapy at this time. Can change dressings as needed. Please call orthopedic department with any further questions. Disposition for patient to plan to continue on palliative measures per family.
[2018-06-06] MEDS ORDERED: LORazepam 1 MG TABLET PO PRN (16:24)
--- NOTE | 2018-06-07 17:04 | PN ---
Subjective - Date and Time Seen Date: 06/07/18 Time: 08:45 Objective - Review of Systems Generalized/Overall Review: Denies: Fever Misc: All systems neg except as marked - Vitals Vitals: Last Vital Signs Temp 35.2 C L 06/05/18 17:24 Pulse 95 06/07/18 03:14 Resp 20 06/07/18 03:14 BP 131/71 06/05/18 21:24 Pulse Ox 94 06/07/18 03:14 - Exam Constitutional: Present: No distress, Somnolent, Elderly, Looks Older than stated age Neck: Present: non-tender, supple, trachea midline. Absent: lymphadenopathy (R), lymphadenopathy (L) Respiratory: Present: lungs clear, no accessory muscle use, No wheezing. Absent: crackles, rhonchi Cardiovascular/Chest: Present: normal peripheral pulses, regular rate, rhythm, no edema, no murmur Abdomen: Present: Normal bowel sounds, soft, nontender, nondistended Extremity: Present: no pedal edema Skin Exam: Present: normal color, warm/dry, other - Adryan wrap in place on the left lower extremity Cauti Physician Documentation - Urinary Catheter Management Urethral (Ellis) Date of Insertion: 06/04/18 Time of Insertion: 17:30 Assessment/Plan Plan Narrative: 67-year-old female on comfort measures. Continue with supportive care. - Problems/Diagnosis (1) Comfort measures only status Problem: Acute Narrative: Continue with as needed morphine and Ativan. Patient appears comfortable and is not in any distress. Case management is going to consult with hospice in order to determine whether or not she can be transitioned to inpatient hospice. (2) Closed left femoral fracture Problem: Acute Qualifiers: Encounter type: initial encounter Fracture morphology: comminuted Narrative: Status post ORIF. (3) Tachycardia Problem: Resolved (4) Falls Problem: Acute Qualifiers: Encounter type: initial encounter Qualified Code(s): W19.XXXA - Unspecified fall, initial encounter (5) COPD (chronic obstructive pulmonary disease) Problem: Chronic Qualifiers: COPD type: unspecified COPD Qualified Code(s): J44.9 - Chronic obstructive pulmonary disease, unspecified (6) Hyponatremia Problem: Acute (7) Acute respiratory acidosis Problem: Acute
[2018-06-07] MEDS: MORPHINE SULFATE 10 MG/0.5 ML SYRINGE PO PRN ×2 (17:15→19:33)
[2018-06-08] MEDS: MORPHINE SULFATE 10 MG/0.5 ML SYRINGE PO PRN ×5 (01:16→14:01)
--- NOTE | 2018-06-08 11:27 | DS ---
(1) Comfort measures only status Diagnosis(s): She appears comfortable and required 1 dose of morphine in the past 24 hours. Continue with comfort measures. Problem: Acute (2) Closed left femoral fracture Diagnosis(s): Status post ORIF. Continue pain management. Problem: Resolved Qualifiers: Encounter type: initial encounter Fracture morphology: comminuted (3) Tachycardia Problem: Resolved (4) Falls Problem: Acute Qualifiers: Encounter type: initial encounter Qualified Code(s): W19.XXXA - Unspecified fall, initial encounter (5) COPD (chronic obstructive pulmonary disease) Problem: Chronic Qualifiers: COPD type: unspecified COPD Qualified Code(s): J44.9 - Chronic obstructive pulmonary disease, unspecified (6) Hyponatremia Problem: Acute (7) Acute respiratory acidosis Problem: Acute Description of Stay: 67-year-old female with a past medical history of COPD, alcohol abuse, diastolic CHF, arthritis, anxiety, hyponatremia presents status post fall with a left distal femur fracture. She underwent ORIF June 05, 2018. Postop recovery and did not go well she remained unresponsive once returning to the floor. Narcan was given with no improvement. ABG was performed and showed severe respiratory acidosis. Rapid response was called and the ER physician Dr. Dejuan Pemberton responded. After evaluating the patient and ABG he determined that BiPAP was not a viable option. He reached out to the patient's and after discussion it was agreed that the patient should be transitioned to comfort measures. Procedures Performed: see notes below - ORIF of left distal femur List Procedures: Left ORIF of distal femur Results and Findings: Pending Mircobiology Results 06/04/18 03:30 Blood Blood Culture - Preliminary NO GROWTH AFTER 48 HOURS 06/04/18 00:30 Blood Blood Culture - Preliminary NO GROWTH AFTER 48 HOURS Lab Pending Results 06/04/18 00:30: WBC 12.9 H, RBC 4.65, Hgb 13.9, Hct 42.4, MCV 91.2, MCH 29.9, MCHC 32.8, RDW 14.2 H, Plt Count 213, MPV 9.6, Immature Gran % (Auto) 0.20, Immature Gran # (Auto) 0.03, Neutrophils % 81.7 H, Lymphocytes % 4.4 L, Monocytes % 8.0, Eosinophils % 5.2 H, Basophils % 0.5, Nucleated RBC % 0.0, Neutrophils # 10.5 H, Lymphocytes # 0.57 L, Monocytes # 1.0, Eosinophils # 0.7, Absolute Basophils 0.1 06/04/18 00:30: Sodium 126 L, Plasma Sodium 126 L, Potassium 4.2 D, Chloride 89 L, Carbon Dioxide 32.6, Anion Gap 8.6, BUN 14 D, Creatinine 0.60, Est GFR (Non- Af Amer) 106 D, BUN/Creatinine Ratio 23.3 H, Random Glucose 108, Calcium 9.2, Calcium Adj for Albumin 9.4, Total Bilirubin 0.7, AST 24, ALT 27, Alkaline Phosphatase 73, C-Reactive Prot, Quant Less than 0.2, Total Protein 6.5, Albumin 3.4 06/04/18 00:30: Troponin I Less than 0.017, B-Natriuretic Peptide 926 H 06/04/18 03:21: Lactic Acid, Venous 1.1 06/04/18 03:23: pCO2 52.0 H, pO2 54.4 L, HCO3 28.8 H, Total CO2 30.4 H, Base Excess 2.4, ABG pH 7.36, ABG O2 Sat (Measured) 86.7 L 06/04/18 19:44: Sodium 128 L, Plasma Sodium 129 L, Potassium 4.4, Chloride 92 L, Carbon Dioxide 32.9 H, Anion Gap 7.5, BUN 15, Creatinine 0.53, Est GFR (Non-Af Amer) 123, BUN/Creatinine Ratio 28.3 H, Random Glucose 147 H D, Calcium 8.4 06/05/18 05:25: Sodium 129 L, Plasma Sodium 129 L, Potassium 4.3, Chloride 94 L, Carbon Dioxide 34.5 H, Anion Gap 4.8 L, BUN 15, Creatinine 0.54, Est GFR (Non-Af Amer) 120, BUN/Creatinine Ratio 27.8 H, Random Glucose 95 D, Calcium 8.5, Calcium Adj for Albumin 9.2, Total Bilirubin 0.5, AST 15, ALT 25, Alkaline Phosphatase 55, Total Protein 5.5 L, Albumin 2.7 L 06/05/18 05:25: WBC 9.0 D, RBC 4.18 L, Hgb 12.4 L, Hct 38.7, MCV 92.6, MCH 29.7, MCHC 32.0, RDW 14.1 H, Plt Count 186, MPV 9.8, Immature Gran % (Auto) 0.20, Immature Gran # (Auto) 0.02, Neutrophils % 79.3 H, Lymphocytes % 8.4 L, Monocytes % 11.1 H, Eosinophils % 0.8, Basophils % 0.2, Nucleated RBC % 0.0, Neutrophils # 7.1 H, Lymphocytes # 0.75 L, Monocytes # 1.0, Eosinophils # 0.1, Absolute Basophils 0.0 06/05/18 19:16: Sodium 132, Plasma Sodium 133, Potassium 5.0 H, Chloride 97, Carbon Dioxide 35.7 H, Anion Gap 4.3 L, BUN 16, Creatinine 0.62, Est GFR (Non-Af Amer) 102, BUN/Creatinine Ratio 25.8 H, Random Glucose 153 H D, Calcium 8.4 06/05/18 19:26: pCO2 Greater than 177.2 H*, pO2 110.2 H, HCO3 32.5 H, Total CO2 38.0 H, Base Excess -5.1 L, ABG pH 6.88 L*, ABG O2 Sat (Measured) 92.0 L Disposition: Hospice Medical Facility Condition: Critical Discharge Activity: Non-Weight bearing Discharge Diet: NPO Referrals: Anahi Plata MD [Primary Care Provider] - Additional Patient Instructions (free text): -Please make TCM appointment unless group home discharge. Thank you! Kathi @ [phone]. Complete Home Medications List: Complete Home Medication List: RX: Acetaminophen [Tylenol Suppository] 650 mg RC Q6H PRN supp.rect 06/08/18 RX: Atropine Sulfate [Atropine 1% Ophthalmic Solution] 1 drp EACHEYE QID btl 06/08/18 RX: LORazepam [Ativan] 1 mg PO Q2H tab 06/08/18 RX: LORazepam [Ativan] 2 mg PO Q1H PRN tab 06/08/18 RX: Morphine Sulfate [Morphine Sulfate Conc. Oral Solution] 10 mg PO Q2H PRN syringe 06/08/18 RX: Morphine Sulfate [Morphine Sulfate Conc. Oral Solution] 10 mg PO Q4H syringe 06/08/18
[2018-06-08] MEDS: MORPHINE SULFATE 10 MG/0.5 ML SYRINGE PO SCH ×2 (15:31→18:32)
[2018-06-08] MEDS: LORazepam 1 MG TABLET PO SCH ×3 (15:32→18:31)
[2018-06-08] MEDS: ATROPINE SULFATE 150 DROP BTL EACHEYE SCH ×2 (15:36→18:01)
== END 2018-06-08 15:55 | disposition expired | DRG 481 ==
LOC: ER 00:15 → MS 00:15
PROVIDERS: ADMIT Family Medicine; ATTEND Internal Medicine
CPT/HCPCS: 36415; 36600; 71010; 71045; 73552; 73560; 73700; 76000; 80048; 80053; 82803; 83519; 83605; 83880; 84484; 85025; 86140; 87040; 93005; 94640; 94664; 97163; 99284; G0378